=== PATIENT | male | born 1950 | race American Indian/Alaskan Native ===

== ENCOUNTER 2020-01-20 00:04 | Emergency (ER) | payer MEDICARE, SELFPAY ==
[2020-01-20 00:16] VITALS: BP 172/110; BP 189/104; PULSE 80; PULSE 81; RESP 16; TEMP 37.1; O2SAT 95; O2SAT 96; BMI 31.4
--- NOTE | 2020-01-20 00:31 | ED.GENADULT ---
HPI - General Adult General Chief complaint: General Medical Stated complaint: hypertension Time Seen by Provider: 01/20/20 00:20 Source: patient Mode of arrival: EMS History of Present Illness HPI narrative: patient states has been checking his blood pressure all day today and it has been systolic 180s. Tonight it continued to be 180s was very nervous and came into the emergency department. Patient states tomorrow is supposed to start a 2nd blood pressure medicine but did not know what to do and came into the ER. Denies chest pain denies shortness of breath denies dizziness denies diaphoresis denies nausea and denies vomiting denies abdominal pain denies any symptoms Onset (ago): day(s) Related Data Allergies Allergy/AdvReac Type Severity Reaction Status Date / Time No Known Allergies Allergy Unverified 01/20/20 00:23 [No Known Allergies*] Review of Systems Review of Systems: Constitutional : No Weight loss, No Fever, No Chills, No Night Sweats, No Fatigue, No Malaise ENT/Mouth : No Hearing loss, No Ear Pain, No Nasal Congestion, No Sinus Pain, No Hoarseness, No sore throat, No Rhinorrhea, No Swallowing Difficulty Eyes: No Eye Pain, No Swelling, No Redness, No Foreign Body, No Discharge, No Vision Changes Cardiovascular : No Chest Pain, No SOB, No Dyspnea on Exertion, No Orthopnea, No Edema, No Palpitations Respiratory : No Cough, No Sputum, No Wheezing, No Smoke Exposure, No Dyspnea Gastrointestinal : No Nausea, No Vomiting, No Diarrhea, No Constipation, No abdominal Pain, No Hematochezia, No Melena Genitourinary : no irregular bleeding, No Dysuria, No Urinary Frequency, No Hematuria, No Urinary Incontinence, No Urgency, No Flank Pain, No Urinary Flow Changes, No Hesitancy Musculoskeletal : No joint pain, No Myalgias, No Joint Swelling Skin : No Skin Lesions, No rash Neuro : No Weakness, No Numbness, No Paresthesias, No Loss of Consciousness, No Dizziness, No Headache Psych : No Anxiety/Panic, No Depression, No SI/HI/AH/VH, No Social Issues, Heme/Lymph: No Bruising, No Bleeding,No Lymphadenopathy Endocrine : No Polyuria, No Polydipsia, No Temperature Intolerance [facility] Past Medical History Attestation statement: The following information was validated with the patient. [facility] Narrative: patient has been seen here multiple times for similar symptoms Medical History Arthritis Diabetes Hypertension Osteoporosis Parkinson disease Vertigo Surgical History H/O hernia repair Hx of cataract surgery Social History Social History (Updated 01/20/20 @ 00:33 by Yfn Collier DO) Household Members: Family Advance Directives: No Physical Exam Vital Signs and I&O and Narrative: Vital Signs and I&O: Vital Signs Temp 98.7 F 01/20/20 00:16 Pulse 71 01/20/20 01:41 Resp 16 01/20/20 00:16 BP 150/93 H 01/20/20 01:41 Pulse Ox 95 01/20/20 00:16 Intake & Output 01/19/20 01/19/20 01/20/20 06:59 18:59 06:59 Weight 88.451 kg Body Mass Index 31.4 vital signs reviewed Const: Other: Appearance: Alert. Oriented X3. No acute distress. Eyes: Pupils equal, round and reactive to light. ENT: Pharynx normal. Neck: Normal inspection. Neck supple. CVS: Normal heart rate and rhythm. Pulses normal. Respiratory: No respiratory distress. Breath sounds normal. Abdomen: Soft and nontender. Skin: Skin warm and dry. Normal skin color. Normal skin turgor. Extremities: No lower extremity edema. No lower extremity edema. Neuro: Oriented X 3. No motor deficit. No sensory deficit. Course Course Hospital Course: patient to start a new blood pressure medicine tomorrow. Will observe and will start his loss starting early today in which I discussed with patient not to take tomorrow but to start his 2nd medication. Patient asymptomatic hypertension will do know labs no EKG Medical Decision Making MDM Narrative Medical decision making narrative: 69-year-old male with a symptomatic hypertension. I observed the patient for several hours here in the ER and blood pressure improved. I discussed about medications and follow-up with primary care doctor and discharged home Discharge Plan Discharge Clinical Impression: Hypertension Patient Disposition: Home, Self-Care Instructions: Hypertension (ED) Additional Instructions: Thank you for visiting the emergency department today. If your symptoms worsen or do not resolve completely please return to the emergency department immediately or call 911. if he have any questions please call your primary care physician start taking your blood pressure medicine on January 19 Referrals: [facility] [Provider Group] - 2 days Print Language: Salvadorean
[2020-01-20 01:41] VITALS: BP 150/93; PULSE 71
[2020-01-20] MEDS: Losartan Potassium 50 MG TABLET 100 MG PO (01:41)
== END 2020-01-20 02:03 | disposition home or self-care (01) ==
LOC: HO.ED 00:46
PROVIDERS: Emergency Provider Emergency Medicine; PCP Internal Medicine
DX: I10 Essential (primary) hypertension (principal); Z79.899 Other long term (current) drug therapy
CPT/HCPCS: 99283

== ENCOUNTER → 2020-02-07 08:24 | Outpatient (REF) | payer MEDICARE, SELFPAY ==
--- NOTE | 2020-02-07 | NM_ITS ---
Myocardial perfusion study Indication: Precordial chest discomfort with multiple risk factors to evaluate for myocardial ischemia Technique: The patient was brought in for a Lexiscan perfusion study on 02/07/2020. Patient performed low-level exercise and was injected 0.4 mg of Lexiscan intravenously. Within a minute of injection, 30 mCi of sestamibi was given intravenously. Images were obtained using the SPECT gamma camera interlaced with the gating device. Images were obtained in supine position. Resting perfusion study was performed on 02/10/2020. Patient was administered 30 mCi of sestamibi intravenously at rest. Images were then obtained in supine position. Images obtained with and without CT attenuation. Total DLP 124 MGY-CM Images were processed with the software and compared side to side in short axis, horizontal long axis and vertical long axis views. Findings: The stress perfusion study showed non attenuated images show mild thinning of the inferior wall of the LV myocardium otherwise normal uptake of radiotracer in all segments of LV myocardium. Attenuation corrected images show normal uptake of radiotracer in all segments of LV myocardium. The gated study shows normal LV systolic function with calculated LVEF of 75%. LV cavity is normal in size. The gated study shows normal systolic wall thickening and contraction of segments. Resting study shows no change in perfusion pattern compared to stress perfusion study. Gating at rest reveals normal systolic wall motion with ejection fraction at 75%. The findings are consistent with normal myocardial perfusion. NM/NM aubree perf SPECT rest & str Impression: 1. Myocardial perfusion imaging study shows normal myocardial perfusion 2. Gated LVEF is 75% 3. Transient ischemic dilatation not present EKG is nondiagnostic for ischemia
--- NOTE | 2020-02-07 08:32 | CA_ITS ---
Transthoracic Echocardiogram Patient (Last, First, Middle): Benjamin Gracia, Gender: Male Date of : 1950 Age: 69 Procedure Date: 02/07/2020 Procedure Type: Transthoracic Echocardiogram Location: OP Height: 167.64 cm Weight: 88.45 kg BSA: 1.98 m2 Heart Rate: bpm BP: 164 / 94 mmHg Body Stylist: Referring MD: Eitan Urban MD Symptoms: Precordial chest pain; essential hypertension Study Quality: Fair ECG Rhythm: Sinus Conclusions: - The left ventricular systolic function is normal. The visually estimated ejection fraction is between 50-55%. - There is mild mitral annular calcification. - Small plaque is seen in the sino tubular ridge. Findings Left Ventricle Normal left ventricular cavity size. There is mildly increased left ventricular wall thickness. The left ventricular systolic function is normal. The visually estimated ejection fraction is between 50-55%. There is no evidence of regional wall motion abnormalities. E/E prime ratio is between 8 and 15 consistent with indeterminate filling pressures. Evidence suggests grade I (mild) diastolic dysfunction. Right Ventricle Normal right ventricular cavity size and systolic function. Atria The left atrium is normal in size. The right atrium is normal in size. Aortic Valve There is a normal trileaflet aortic valve. There is no aortic valve stenosis. There is no aortic valve regurgitation. Mitral Valve There is mild mitral annular calcification. There is trace mitral valve regurgitation. There is no mitral valve stenosis. Pulmonic Valve The pulmonic valve was not well visualized. Tricuspid Valve Normal tricuspid valve structure. There is trace tricuspid valve regurgitation. The pulmonary artery systolic pressure is normal. Great Vessels The aortic annulus, sinuses of valsalva, and asc aorta are normal in size. Small plaque is seen in the sino tubular ridge. Venous The inferior vena cava was not well visualized. Pericardium/Pleural There is no evidence of pericardial effusion. Prior Study Comparison Changes noted compared to prior study dated: 04/04/2018. Slight decrease in LVEF. Measurements 2D Linear Measurements RVIDd: 2.99 RVIDd Index: 1.51 IVSd: 1.09 0.6-0.9/0.6-1.0 cm LVIDd: 5.23 3.9-5.3/4.2-5.9 cm LVIDd Index: 2.64 2.4-3.2/2.2-3.1 cm/m2 LVIDs: 3.31 2.0-3.6 cm LVPWd: 1.15 0.7-1.1 cm Ao Root: 3.10 2.1-3.5 cm LA Diam: 3.90 2.7-3.8/3.0-4.0 cm LAIDs Index: 1.97 1.5-2.3 cm/m2 LV Mass: 284.73 67-162/88-224 g LV Mass Index: 143.80 43-95/49-115 g/m2 LVOT Diam: 2.10 3.0+(-)1.3 cm 2D Systolic Function EF 4C: 55.30 >55% EF 2C: 50.10 >55% EF BiP: 50.80 >55% Mitral Valve MV Pk E: 0.63 MV PK A: 1.07 MV Decel Time: 292.00 E/A: 0.60 E'Lateral: 5.32 E'Medial: 5.13 E/E' Med: 12.20 E/E' Lat: 11.80 PHT: 86.00 MVA PHT: 2.56 Decel [place]: 2.14 Aortic Valve AoV Pk Poli: 1.15 AoV Mn Poli: 0.83 AoV VTI: 0.21 AoV Pk Grad: 5.00 Aov Mn Grad: 3.00 BEN Cont.VTI: 2.94 LVOT LVOT Pk Poli: 0.84 LVOT Mn Poli: 0.57 LVOT VTI: 0.18 LVOT Pk Grad: 3.00 LVOT Mn Grad: 1.00 LVOT Diam: 2.10 LVOT Area: 3.46 Diastolic Function MV Pk E: 0.63 MV Pk A: 1.07 E/A: 0.60 E'Medial: 5.13 E/E' Med: 12.20 E' Laterial: 5.32 E/E' Lat: 11.80 Tricuspid Valve TR Pk Poli: 2.21 TR Pk Grad: 20.00 RA Press: 8.00 RVSP: 28.00 Great Vessels Aorta Ao Root-2D: 3.10 2.0-3.7 cm Ao Asc: 3.60 2.1-3.4 cm Ao Arch: 3.50 Updated in Other Vendor System with Status of Final Eitan Urban MD electronically signed on 02/08/2020 10:11:47 AM with status of Final
--- NOTE | 2020-02-07 08:33 | CA_ITS ---
Acquisition Time: 2020-02-07 09:34:23 Total Exercise Time: 00:02:00 Test Indications: Chest Pain Medications: LOSARTAN ATORVASTATIN OMEPRAZOLE MECLIZINE Protocol: LIBBY Max HR: 100 BPM 67% of Pred: 149 BPM Max BP: 146/090 mmHG Max Work Load: 1.0 METS Pt here for exercise stress , however pt has parkinson's and is unable to walk on the treadmill. Test switched to Lexiscan. Pt was sitting and kicking his feet. tolerated well, denies any anginal sx. EKG without any arrhythmias, non-diagnostic for ischemia. Nuclear images to follow. Normotensive response to test. Test reviewed with Dr. Verdin. Referred By: Eitan Urban Overread By: Ivy Heaton
== END ==
LOC: HO.CARD 08:24
PROVIDERS: PCP Internal Medicine; Visit Provider Internal Medicine
DX: R07.2 Precordial pain (principal); I10 Essential (primary) hypertension; E11.9 Type 2 diabetes mellitus without complications; I63.9 Cerebral infarction, unspecified; G20 Parkinson's disease; M81.0 Age-related osteoporosis without current pathological fracture
CPT/HCPCS: 78452; 93017; 93306; A9500; J0280; J2785

== ENCOUNTER → 2020-02-20 12:24 | Outpatient (BNVA) | payer MEDICARE, SELFPAY | PROVIDERS: PCP Internal Medicine; Referring Provider Internal Medicine; Visit Provider Internal Medicine | DX: R07.2 Precordial pain (principal); I10 Essential (primary) hypertension; E78.5 Hyperlipidemia, unspecified; Z79.899 Other long term (current) drug therapy; Z86.73 Personal history of transient ischemic attack (TIA), and cerebral infarction without residual deficits | CPT/HCPCS: 93005; 99212 ==

== ENCOUNTER 2020-02-20 17:14 | Emergency (ER) | payer MEDICARE, SELFPAY ==
[2020-02-20 18:23] VITALS: BP 155/86; PULSE 86; RESP 16; TEMP 36.5; O2SAT 96; BMI 30.7
--- NOTE | 2020-02-20 20:33 | ED_ITS ---
HPI - General Adult General Chief complaint: Allergic Reaction Stated complaint: allergic reaction Source: patient Mode of arrival: ambulatory Limitations: no limitations History of Present Illness HPI narrative: patient presents for rash on skin above lip and below nose. Patient States this occurred today. Patient states painful, but denies itchiness, burning sensation, blurry vision, headache, neck stiffness, fever, or chills. Patient denies any recent trauma to the area. Related Data Home Medications Medication Instructions Recorded Confirmed atorvastatin 80 mg tablet 80 mg PO DAILY 02/20/20 02/20/20 carbidopa 25 mg-levodopa 100 mg 1 tab PO TID 02/20/20 02/20/20 tablet ergocalciferol (vitamin D2) 1,250 1,250 mcg PO QWEEK 02/20/20 02/20/20 mcg (50,000 unit) capsule losartan 100 mg tablet 100 mg PO DAILY 02/20/20 02/20/20 meclizine 25 mg tablet 25 mg PO TID PRN 02/20/20 02/20/20 metoprolol succinate 25 mg 25 mg PO DAILY 02/20/20 02/20/20 tablet,extended release 24 hr naproxen 500 mg tablet 500 mg PO BID 02/20/20 02/20/20 omeprazole 20 mg capsule,delayed 20 mg PO DAILY 02/20/20 02/20/20 release ropinirole 0.5 mg tablet 0 mg PO 02/20/20 02/20/20 Previous Rx's Medication Instructions Recorded cephalexin [Keflex] 500 mg PO QID #28 cap 02/20/20 doxycycline monohydrate 100 mg PO BID #20 cap 02/20/20 mupirocin 1 applic TOPICAL BID #22 g 02/20/20 Allergies Allergy/AdvReac Type Severity Reaction Status Date / Time No Known Allergies Allergy Verified 02/20/20 13:35 [No Known Allergies*] Review of Systems Review of Systems: Yes all other systems are reviewed and are negative Constitutional: Constitutional: Reports as per HPI and Reports no additional constitutional complaints Eyes: Eyes: Reports as per HPI and Reports no additional eye complaints ENT: Reports system reviewed and no additional complaints, except as documented and Reports as per HPI Cardiovascular: Cardiovascular: Reports as per HPI and Reports no additional cardiovascular complaints Respiratory: Respiratory: Reports as per HPI and Reports no additional respiratory complaints Gastrointestinal: Gastrointestinal: Reports as per HPI and Reports no addit ional gastrointestinal complaints Genitourinary: Genitourinary: Reports no additional male genitourinary complaints and Reports as per HPI Musculoskeletal: Musculoskeletal: Reports no additional musculoskeletal complaints and Reports as per HPI Neurologic: Reports system reviewed and no additional complaints, except as documented and Reports as per HPI Psychiatric: Psychiatric: Reports no additional psychiatric complaints and Reports as per HPI [facility] Past Medical History Medical History Arthritis Diabetes Essential hypertension History of stroke Hypertension Osteoporosis Other and unspecified hyperlipidemia Parkinson disease Vertigo Surgical History H/O hernia repair Hx of cataract surgery Social History Social History Household Members: Family Advance Directives: No Physical Exam Vital Signs: Vital Signs: Last Vital Signs Temp 97.7 F 02/20/20 18:23 Pulse 86 02/20/20 18:23 Resp 16 02/20/20 18:23 BP 155/86 H 02/20/20 18:23 Pulse Ox 96 02/20/20 18:23 Body Mass Index 30.7 Const: General: cooperative, healthy appearing, comfortable, no acute distress, well developed, alert and awake Orientation/consciousness: patient oriented x3 HENMT: Other: Positive for staph looking cellulitis rash under nares right above lip. Negative for any vesicular lesion to indicate shingles. Negative for any uticaria lesions to indicate allergic reaction. Negative for swelling of lips, swelling of tongue, swelling of uvula. Patient speaking in full sentences. Ear exam is normal. Negative for any lesions on nares Head: Yes normal to inspection and Yes No palpable skull fracture present Eyes: General: appearance normal, both eyes and all related structures Visual Sanabria: normal visual sanabria by confrontation Neck: Neck: Yes normal visual inspection, Yes full ROM, Yes no lymphadenopathy, Yes no meningeal signs, Yes trachea midline, No positive Brudzinski's sign, No positive Kernig's sign and No tender Chest: Chest palpation & inspection: normal inspection of the chest and normal palpation of entire chest wall Resp: Effort & Inspection: normal respiratory effort and able to speak in complete sentences Auscultation: clear to auscultation bilaterally Cardio: Jugular venous distension: no JVD Heart sounds: S1 normal heart sound present and S2 normal heart sound present GI: Inspection: Yes normal to inspection and No abdominal wall ecchymosis Palpation (GI): Soft to palpation, not firm, nontender, no guarding and not rigid : General: No CVA tenderness and Yes no CVA tenderness Back/Spine/Pelvis: Back: no CVA tenderness, No CVA tenderness and No back tenderness Skin: Other: cellulitis of face ( under nares , above lips) Neuro: General: patient oriented x3, gait normal, no meningeal signs and CN's II-XI intact bilaterally Cranial nerves: Yes CN's II-XII intact bilaterally Extrem: General: Yes normal to inspection and Yes full ROM Psych: Appearance: grossly normal, well kempt and not disheveled Course Course Course Narrative: Patient looks like cellulitis Staph skin infection. Rash does not look like shingles. Reevaluation(s) Reevaluation #1: Dr. Chavez came and evaluated wound and agreed is a cellulitis staph infection patient will need mupirocin, Keflex, and doxy. Time: 20:36 Medical Decision Making [facility] Narrative Medical decision making narrative: cellulitis Discharge Plan Discharge Clinical Impression: Cellulitis Patient Disposition: Home, Self-Care Instructions: Cellulitis (ED) Additional Instructions: return to the ED immediately for worsening rash, swelling of face, headache, dizziness, blurry vision, shortness of breath, neck swelling, or any other concerning symptoms. Prescriptions: New cephalexin [Keflex] 500 mg capsule 500 mg PO QID Qty: 28 RF: 0 doxycycline monohydrate 100 mg capsule 100 mg PO BID Qty: 20 RF: 0 mupirocin 2 % ointment 1 applic topical BID Qty: 22 RF: 0 No Action metoprolol succinate 25 mg tablet extended release 24 hr 25 mg PO DAILY RF: 0 losartan 100 mg tablet 100 mg PO DAILY RF: 0 atorvastatin 80 mg tablet 80 mg PO DAILY RF: 0 ergocalciferol (vitamin D2) 1,250 mcg (50,000 unit) capsule 1,250 mcg PO QWEEK RF: 0 omeprazole 20 mg capsule,delayed release(DR/EC) 20 mg PO DAILY RF: 0 carbidopa-levodopa 25-100 mg tablet 1 tab PO TID RF: 0 ropinirole 0.5 mg tablet 0 mg PO RF: 0 naproxen 500 mg tablet 500 mg PO BID RF: 0 meclizine 25 mg tablet 25 mg PO TID PRNRF: 0 Referrals: Jessica Yuen MD [Primary Care Provider] - 2 days (Staph cellulitis infection) Print Language: [place] Islander
== END 2020-02-20 21:19 | disposition home or self-care (01) ==
PROVIDERS: Emergency Provider Internal Medicine; PCP Internal Medicine
DX: L23.9 Allergic contact dermatitis, unspecified cause (principal); L03.211 Cellulitis of face; Z79.899 Other long term (current) drug therapy
CPT/HCPCS: 99283; 99284

== ENCOUNTER 2020-02-27 09:27 | Outpatient (REF) | payer MEDICARE, SELFPAY ==
--- NOTE | 2020-02-27 09:35 | XR_ITS ---
EXAMINATION: XR WRIST, LEFT CLINICAL INFORMATION: Pain in left wrist COMPARISON: X-ray the left hand October 2016. TECHNIQUE: 4 views of the left wrist FINDINGS: There is persistent widening of the scapholunate joint unchanged and consistent with scapholunate ligament tear chronic. Is also severe joint space narrowing of the radiocarpal joint at the level of the scaphoid fossa unchanged. There is mild arthrosis of the first carpometacarpal joint and triscaphoid joint manifested by marginal osteophytes unchanged. There is arterial calcification present. XR/XR wrist LT 2V IMPRESSION: Stable osteoarthritis of the left wrist with degenerative changes most prominent at the radiocarpal joint. 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
== END 2020-02-27 09:28 | disposition home or self-care (01) ==
LOC: HO.XRAY 09:27
PROVIDERS: Visit Provider Emergency Medicine
DX: M25.532 Pain in left wrist (principal)
CPT/HCPCS: 73100

== ENCOUNTER 2020-04-20 13:26 | Emergency (ER) | payer MEDICARE, SELFPAY ==
--- NOTE | 2020-04-20 14:45 | ED.GENADULT ---
HPI - General Adult General Stated complaint: headache Time Seen by Provider: 04/20/20 14:42 Related Data Home Medications Medication Instructions Recorded Confirmed atorvastatin 80 mg tablet 80 mg PO DAILY 02/20/20 02/20/20 carbidopa 25 mg-levodopa 100 mg 1 tab PO TID 02/20/20 02/20/20 tablet ergocalciferol (vitamin D2) 1,250 1,250 mcg PO QWEEK 02/20/20 02/20/20 mcg (50,000 unit) capsule losartan 100 mg tablet 100 mg PO DAILY 02/20/20 02/20/20 meclizine 25 mg tablet 25 mg PO TID PRN 02/20/20 02/20/20 metoprolol succinate 25 mg 25 mg PO DAILY 02/20/20 02/20/20 tablet,extended release 24 hr naproxen 500 mg tablet 500 mg PO BID 02/20/20 02/20/20 omeprazole 20 mg capsule,delayed 20 mg PO DAILY 02/20/20 02/20/20 release ropinirole 0.5 mg tablet 0 mg PO 02/20/20 02/20/20 Previous Rx's Medication Instructions Recorded cephalexin [Keflex] 500 mg PO QID #28 cap 02/20/20 doxycycline monohydrate 100 mg PO BID #20 cap 02/20/20 mupirocin 1 applic TOPICAL BID #22 g 02/20/20 Allergies Allergy/AdvReac Type Severity Reaction Status Date / Time No Known Allergies Allergy Verified 02/20/20 13:35 [No Known Allergies*] PMFSH Past Medical History Medical History Arthritis Diabetes Essential hypertension History of stroke Hypertension Osteoporosis Other and unspecified hyperlipidemia Parkinson disease Vertigo Surgical History H/O hernia repair Hx of cataract surgery Social History Social History Household Members: Family Alcohol intake: never Course Course Course Narrative: 1445-This is a rapid medical exam. 69 yo male with past medical history of parkinsons disease, HTN, HLD, diabetes here with head pressure, left arm pain x 1 month. No injury or trauma. No paresthesias. No vision changes. NO chest pain, vision changes. Will need EKG, labs, CXR. Deferred ROS, PE, HPI for primary provider. Discharge Plan Discharge Prescriptions: No Action cephalexin [Keflex] 500 mg capsule 500 mg PO QID Qty: 28 RF: 0 doxycycline monohydrate 100 mg capsule 100 mg PO BID Qty: 20 RF: 0 mupirocin 2 % ointment 1 applic topical BID Qty: 22 RF: 0 metoprolol succinate 25 mg tablet extended release 24 hr 25 mg PO DAILY RF: 0 losartan 100 mg tablet 100 mg PO DAILY RF: 0 atorvastatin 80 mg tablet 80 mg PO DAILY RF: 0 ergocalciferol (vitamin D2) 1,250 mcg (50,000 unit) capsule 1,250 mcg PO QWEEK RF: 0 omeprazole 20 mg capsule,delayed release(DR/EC) 20 mg PO DAILY RF: 0 carbidopa-levodopa 25-100 mg tablet 1 tab PO TID RF: 0 ropinirole 0.5 mg tablet 0 mg PO RF: 0 naproxen 500 mg tablet 500 mg PO BID RF: 0 meclizine 25 mg tablet 25 mg PO TID PRNRF: 0
[2020-04-20 14:47] VITALS: BP 212/108; PULSE 80; RESP 16; TEMP 36.6; O2SAT 96; BMI 31.4
== END 2020-04-20 20:47 | disposition left against medical advice (07) ==
PROVIDERS: Emergency Provider Emergency Medicine; PCP Internal Medicine
DX: R51.9 Headache, unspecified (principal); E11.9 Type 2 diabetes mellitus without complications; I10 Essential (primary) hypertension; G20 Parkinson's disease
CPT/HCPCS: 99282

== ENCOUNTER 2020-05-03 14:15 | Emergency (ER) | payer MEDICARE, SELFPAY ==
--- NOTE | 2020-05-03 14:24 | ECG_ITS ---
Test Reason : HYPERTENSION Blood Pressure : / mmHG Vent. Rate : 074 BPM Atrial Rate : 074 BPM P-R Int : 160 ms QRS Dur : 090 ms QT Int : 398 ms P-R-T Axes : -11 -13 027 degrees QTc Int : 441 ms Normal sinus rhythm Moderate voltage criteria for LVH, may be normal variant Inferior infarct , age undetermined Abnormal ECG When compared with ECG of 03-JAN-2020 10:34, Inferior infarct is now Present Referred By: Ivanna Whiting Electronically Signed By:RYLIE IVEY
[2020-05-03 14:26] VITALS: BP 154/110; BP 156/92; PULSE 84; PULSE 86; RESP 18; TEMP 37.2; O2SAT 95; BMI 32.3
--- NOTE | 2020-05-03 14:37 | ED.GENADULT ---
HPI - General Adult General Chief complaint: General Medical Stated complaint: HIGH BP 186/112 Time Seen by Provider: 05/03/20 14:22 Source: patient and EMS Mode of arrival: EMS Limitations: no limitations History of Present Illness HPI narrative: 69 y/o male with history of Parkinson's disease, hx CVA, HTN, vertigo, DM, arthritis, HLD who presents via EMS with high blood pressure reading on his home monitor - 180/120. He called EMS. He then took his home metoprolol. Initial EMS BP was 190/120 but denied any symptoms including chest pain, headache, numbness, tingling, SOB, or vision changes. On arrival to the ER BP 156/92 and he remains asymptomatic. MD complaint: high blood pressure Onset (ago): hour(s) (1) Severity: moderate Relieving factors: medication Associated symptoms: denies other symptoms Treatments prior to arrival: other (metoprolol) Related Data Home Medications Medication Instructions Recorded Confirmed atorvastatin 80 mg tablet 80 mg PO DAILY 02/20/20 02/20/20 carbidopa 25 mg-levodopa 100 mg 1 tab PO TID 02/20/20 02/20/20 tablet ergocalciferol (vitamin D2) 1,250 1,250 mcg PO QWEEK 02/20/20 02/20/20 mcg (50,000 unit) capsule losartan 100 mg tablet 100 mg PO DAILY 02/20/20 02/20/20 meclizine 25 mg tablet 25 mg PO TID PRN 02/20/20 02/20/20 metoprolol succinate 25 mg 25 mg PO DAILY 02/20/20 02/20/20 tablet,extended release 24 hr naproxen 500 mg tablet 500 mg PO BID 02/20/20 02/20/20 omeprazole 20 mg capsule,delayed 20 mg PO DAILY 02/20/20 02/20/20 release ropinirole 0.5 mg tablet 0 mg PO 02/20/20 02/20/20 Previous Rx's Medication Instructions Recorded cephalexin [Keflex] 500 mg PO QID #28 cap 02/20/20 doxycycline monohydrate 100 mg PO BID #20 cap 02/20/20 mupirocin 1 applic TOPICAL BID #22 g 02/20/20 Allergies Allergy/AdvReac Type Severity Reaction Status Date / Time No Known Allergies Allergy Verified 02/20/20 13:35 [No Known Allergies*] Review of Systems Review of Systems: Constitutional: No Fever, No Chills ENT/Mouth: No sore throat, No Rhinorrhea, No Swallowing Difficulty Eyes: No Eye Pain, No Swelling, No Redness Cardiovascular: No Chest Pain, No SOB, No Orthopnea, No Edema Respiratory: No Cough, No Sputum, No Wheezing, No dyspnea Gastrointestinal: No Nausea, No Vomiting, No Diarrhea, No abdominal Pain Genitourinary: No Dysuria, No Urinary Frequency, No Hematuria Musculoskeletal: No joint pain, No Myalgias Skin: No Skin Lesions, No rash Neuro: No Weakness, No Numbness, No Dizziness, No Headache Psych: No Anxiety/Panic, No Depression Heme/Lymph: No Bruising, No Lymphadenopathy Endocrine: No Polyuria, No Polydipsia PMFSH Past Medical History Attestation statement: The following information was validated with the patient. Medical History Arthritis Diabetes Essential hypertension History of stroke Hypertension Osteoporosis Other and unspecified hyperlipidemia Parkinson disease Vertigo Surgical History H/O hernia repair Hx of cataract surgery Social History Social History Household Members: Family Alcohol intake: never Advance Directives: No Advance Directives Information Provided: Yes Physical Exam Vital Signs: Vital Signs: Last Vital Signs Temp 99.0 F 05/03/20 14:26 Pulse 84 05/03/20 14:26 Resp 18 05/03/20 14:26 BP 156/92 H 05/03/20 14:26 Pulse Ox 95 05/03/20 14:26 Body Mass Index 32.3 Appearance: Alert. Oriented X3. No acute distress. Eyes: Pupils equal, round and reactive to light. ENT: Pharynx normal. Neck: Normal inspection. Neck supple. CVS: Normal heart rate and rhythm. Pulses normal. No chest wall tenderness. Respiratory: No respiratory distress. Breath sounds normal. Abdomen: Soft and nontender. +BS x4 Skin: Skin warm and dry. Normal skin color. Normal skin turgor. No rashes. Extremities: No lower extremity edema. resting tremor of left upper extremity and left lower extremity (chronic) Neuro: Oriented X 3. 4/5 LUE weakness, LUE/LLE resting tremor consistent with prior CVA Course Course Course Narrative: 69 y/o male with multiple comorbidities including poorly controlled HTN presenting with asymptomatic HBP at home. Improved on arrival after taking his home lopressor. He continues to deny complaints. EKG is unremarkable. Will monitor a few more BP readings and plan to d/c patient home for follow up with his PCP. Reevaluation(s) Reevaluation #1: Repeat BP 136/80. Patient continues to feel well. He is stable for discharge. Medical Decision Making ECG Data Attestation: I personally reviewed and interpreted this ECG as follows: Prior ECG tracings: available for review Interpretation: normal sinus rhythm, HR 74 bpm, normal AR interval, normal QTc. no ST segment elevations. No significant changes from prior in Feb 2020 Discharge Plan Discharge Clinical Impression: Essential hypertension Patient Disposition: Home, Self-Care Instructions: Chronic Hypertension (ED), Hypertension and Diabetes (ED) Additional Instructions: Your blood pressure improved significantly after you took your blood pressure medication. It is important to take your medications as directed. Monitor your blood pressures once per day at home, after your take your mediations. Follow up with your Primary Care doctor this week & provide him the readings you are getting at home. If you develop chest pain, headache, vision changes or any other concerning symptoms come back to the ER for further evaluation. Prescriptions: No Action cephalexin [Keflex] 500 mg capsule 500 mg PO QID Qty: 28 RF: 0 doxycycline monohydrate 100 mg capsule 100 mg PO BID Qty: 20 RF: 0 mupirocin 2 % ointment 1 applic topical BID Qty: 22 RF: 0 metoprolol succinate 25 mg tablet extended release 24 hr 25 mg PO DAILY RF: 0 losartan 100 mg tablet 100 mg PO DAILY RF: 0 atorvastatin 80 mg tablet 80 mg PO DAILY RF: 0 ergocalciferol (vitamin D2) 1,250 mcg (50,000 unit) capsule 1,250 mcg PO QWEEK RF: 0 omeprazole 20 mg capsule,delayed release(DR/EC) 20 mg PO DAILY RF: 0 carbidopa-levodopa 25-100 mg tablet 1 tab PO TID RF: 0 ropinirole 0.5 mg tablet 0 mg PO RF: 0 naproxen 500 mg tablet 500 mg PO BID RF: 0 meclizine 25 mg tablet 25 mg PO TID PRNRF: 0 Print Language: Persian
[2020-05-03 15:15] VITALS: BP 136/80
[2020-05-03 15:25] VITALS: BP 128/81
== END 2020-05-03 15:32 | disposition home or self-care (01) ==
PROVIDERS: Emergency Provider Emergency Medicine Emergency Medical Services
DX: I10 Essential (primary) hypertension (principal); Z79.899 Other long term (current) drug therapy
CPT/HCPCS: 93005; 99283

== ENCOUNTER → 2020-05-05 13:28 | Outpatient (BNVA) | payer MEDICARE, SELFPAY | PROVIDERS: PCP Internal Medicine; Visit Provider Internal Medicine | DX: R07.2 Precordial pain (principal); I10 Essential (primary) hypertension; E78.5 Hyperlipidemia, unspecified; Z86.73 Personal history of transient ischemic attack (TIA), and cerebral infarction without residual deficits | CPT/HCPCS: 99212 ==

== ENCOUNTER → 2020-05-06 09:27 | Outpatient (BNVA) | payer MEDICARE, SELFPAY | PROVIDERS: Visit Provider Orthopaedic Surgery | DX: M19.139 Post-traumatic osteoarthritis, unspecified wrist (principal) | CPT/HCPCS: 20605; 99202; J1020 ==

== ENCOUNTER 2020-05-13 10:26 | Outpatient (REF) | payer MEDICARE, SELFPAY ==
[2020-05-13 12:08] LABS: Anion Gap 15 (12-20); Blood Urea Nitrogen 14 mg/dL (9-16); Carbon Dioxide 24 mmol/L (22-29); Chloride 104 mmol/L (96-108); Estimated Glomerular Filt Rate > 60; Glucose Random 95 mg/dL (60-115); Potassium 4.7 mmol/l (3.3-5.1); Sodium 138 mmol/L (135-145)
== END 2020-05-13 10:27 | disposition home or self-care (01) ==
LOC: HO.LAB 10:26
PROVIDERS: PCP Internal Medicine; Visit Provider Internal Medicine
DX: I10 Essential (primary) hypertension (principal)
CPT/HCPCS: 36415; 80048

== ENCOUNTER → 2020-06-04 09:17 | Outpatient (BNVA) | payer MEDICARE, SELFPAY | PROVIDERS: PCP Internal Medicine; Visit Provider Internal Medicine | DX: R07.2 Precordial pain (principal); I10 Essential (primary) hypertension; Z86.73 Personal history of transient ischemic attack (TIA), and cerebral infarction without residual deficits | CPT/HCPCS: 99212 ==

== ENCOUNTER 2020-07-01 08:20 | Outpatient (REF) | payer MEDICARE, SELFPAY ==
--- NOTE | ~2020-07-01 | US_ITS ---
EXAMINATION: US ABDOMEN COMPLETE CLINICAL INFORMATION: Right upper quadrant pain. COMPARISON: CT abdomen pelvis 06/19/2017. Ultrasound abdomen 05/30/2014. TECHNIQUE: Real-time imaging of the abdominal viscera. FINDINGS: PANCREAS: The partially visualized body of the pancreas is homogeneous in echotexture. Majority of pancreas is obscured by bowel gas. ABDOMINAL AORTA: The proximal, mid, and distal segments are normal in caliber. INFERIOR VENA CAVA: Visualized portions are normal. LIVER: The liver is normal in size. The liver contour is normal. The liver is diffusely heterogeneous, difficult to penetrate. Parenchymal echogenicity is echogenic. No focal hepatic lesion. There is no intrahepatic biliary duct dilatation seen. GALLBLADDER: Normal. The gallbladder is physiologically distended without evidence of stones, sludge, polyps, wall thickening or pericholecystic fluid. COMMON BILE DUCT: Normal in caliber measuring 0.3 cm in diameter. RIGHT KIDNEY: There are prominent pyramids. No hydronephrosis. No renal calculi or focal parenchymal lesions. The kidney measures 10.9 cm in maximum dimension. LEFT KIDNEY: There are prominent pyramids noted. No hydronephrosis. No renal calculi or focal parenchymal lesions. The kidney measures 9.8 cm in maximum. There is fluid surrounding the lower pole in the perinephric space. Dimension. SPLEEN: Normal. The spleen measures 8.4 cm in maximum dimension. FREE FLUID: None. US/US abdomen complete IMPRESSION: Diffusely heterogenous echogenic liver, difficult to penetrate. The gallbladder is unremarkable. Bilateral prominent renal pyramids but no echogenic renal calculi or hydronephrosis.
== END 2020-07-01 08:21 | disposition home or self-care (01) ==
LOC: HO.US 08:20
PROVIDERS: Visit Provider Internal Medicine
DX: R10.11 Right upper quadrant pain (principal)
CPT/HCPCS: 76700

== ENCOUNTER 2020-07-14 14:21 | Emergency (ER) | payer MEDICARE, SELFPAY ==
--- NOTE | ~2020-07-14 | XR_ITS ---
EXAMINATION: XR CHEST CLINICAL INFORMATION: Dizziness COMPARISON: Previous chest x-ray December 2019 TECHNIQUE: Frontal view of the chest was obtained. FINDINGS: No significant abnormality is noted involving the heart, lungs, mediastinum, bony thorax or soft tissues. XR/XR chest 1V IMPRESSION: Unremarkable examination.
[2020-07-14 14:44] VITALS: BP 150/79; PULSE 92; RESP 26; TEMP 37.6; BMI 31.4
--- NOTE | 2020-07-14 15:21 | ECG_ITS ---
Test Reason : ABD PIN Blood Pressure : / mmHG Vent. Rate : 098 BPM Atrial Rate : 098 BPM P-R Int : 152 ms QRS Dur : 086 ms QT Int : 338 ms P-R-T Axes : -05 -11 029 degrees QTc Int : 431 ms Normal sinus rhythm Minimal voltage criteria for LVH, may be normal variant Abnormal ECG When compared to the previous EKG of No significant changes seen Referred By: Thomas Reilly Electronically Signed By:Josemanuel Verdin
[2020-07-14 15:55] VITALS: BP 145/82; PULSE 98; RESP 16; TEMP 36.9; O2SAT 93
[2020-07-14 16:27] LABS: Hematocrit 45.8 % (42-52); Hemoglobin 15.7 g/dl (14.0-18.0); Mean Corpuscular HGB Conc 34.3 g/dl (31.0-36.0); Mean Corpuscular Hemoglobin 30.8 pg (27.0-33.0); Mean Corpuscular Volume 89.8 fL (80-98); Mean Platelet Volume 12.7 fL (9.4-12.4); Platelet Count 178 X10*3/uL (160-400); Red Cell Distribution Width 11.9 % (11.0-16.0)
[2020-07-14 16:33] LABS: INTERNATIONAL NORM RATIO 1.1 (0.9-1.1); Prothrombin Time 12.8 SEC (10.8-13.0)
[2020-07-14 16:35] LABS: WBC ABN SCTR FOR CBC 1
--- NOTE | 2020-07-14 16:36 | ED.GENADULT ---
HPI - General Adult General Chief complaint: Abdominal Pain Stated complaint: RIGHT SIDE PAIN Time Seen by Provider: 07/14/20 15:02 History of Present Illness HPI narrative: Patient with 2 complaints he has intermittent episodes of feeling lightheaded and weak, last 1 was several days ago, and he has intermittent episodes of a mild pain in his right upper quadrant which last episode was yesterday he has no pain now and none this morning He is here today as is concerned about these intermittent episodes He was seen for complaints which he describes is exactly the same 2 weeks ago He has no chest pain and has had no chest pain he has no shortness of breath and has had no shortness of breath he has not fainted he has no headache he denies any weakness or numbness in his extremities Related Data Home Medications Medication Instructions Recorded Confirmed losartan 100 mg tablet 100 mg PO DAILY 02/20/20 06/04/20 omeprazole 20 mg capsule,delayed 20 mg PO DAILY 02/20/20 06/04/20 release chlorthalidone 25 mg tablet 25 mg PO DAILY 06/04/20 06/04/20 Previous Rx's Medication Instructions Recorded carvedilol 12.5 mg tablet 12.5 mg PO BID #60 tab 05/05/20 spironolactone 25 mg tablet 25 mg PO DAILY #30 tab 05/05/20 Allergies Allergy/AdvReac Type Severity Reaction Status Date / Time No Known Allergies Allergy Verified 02/20/20 13:35 [No Known Allergies*] Review of Systems Review of Systems: Positive for dizziness and intermittent abdominal pain negatives are no fever no chills no headache no fainting, no chest pain no shortness of breath no vomiting no diarrhea no dysuria, no rash no new weakness or numbness PMFSH Past Medical History Source: nursing notes reviewed Medical History Arthritis Diabetes Essential hypertension History of stroke Hypertension Osteoporosis Other and unspecified hyperlipidemia Parkinson disease Vertigo Surgical History H/O hernia repair Hx of cataract surgery Social History Social History (Updated 05/06/20 @ 09:48 by KHUSHBU Estrada) Household Members: Family Alcohol intake: never Advance Directives: No Advance Directives Information Provided: Yes 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 Physical Exam Vital Signs: Vital Signs: Last Vital Signs Temp 98.4 F 07/14/20 15:55 Pulse 101 H 07/14/20 16:58 Resp 16 07/14/20 16:58 BP 127/86 07/14/20 16:58 Pulse Ox 93 07/14/20 16:58 Body Mass Index 31.4 General appearance is no acute distress he is relaxed and cooperative A&O x3, history is taken through corporate relations director Head is normocephalic atraumatic Pupils equal round reactive to light Ext ocular motions are intact, no facial asymmetry The pharynx is clear and appears to be well hydrated The neck is supple The chest is clear to auscultation bilaterally with full symmetric equal breath sounds The heart no murmur auscultated The abdomen including right upper quadrant is completely soft and nontender without rebound or guarding The back no CVA tenderness The extremities no edema no calf tenderness no calf swelling Skin no rash Neuro motor is 5/5 x4, patient's gait and balance are good, speech and comprehension are normal, no facial asymmetry no obvious motor or sensory deficit, cranial nerves 2-12 intact as tested Course Course Course Narrative: EKG was normal sinus rhythm with a rate of 98 NE interval was normal QRS duration was normal QT was normal there are no acute ST elevations no acute ischemic change, and no new abnormality when compared with prior EKG of 05/03/2020 Chest x-ray today was normal Labs did not reveal any acute abnormalities, 1 troponin was negative and adequate for today as his right upper quadrant pain and dizziness had not been present for over 4 hours Repeat abdominal exam was still completely nontender without rebound or guarding and patient was advised to follow with primary doctor and 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 Result diagrams: 07/14/20 16:19 07/14/20 16:19 Labs: Lab Results 07/14/20 07/14/20 07/14/20 Range/Units 16:19 16:19 16:19 WBC 8.8 (4.8-10.8) X10*3/uL RBC 5.10 (4.60-5.80) X10*6/uL Hgb 15.7 (14.0-18.0) g/dl Hct 45.8 (42-52) % MCV 89.8 (80-98) fL MCH 30.8 (27.0-33.0) pg MCHC 34.3 (31.0-36.0) g/dl RDW 11.9 (11.0-16.0) % Plt Count 178 (160-400) X10*3/uL MPV 12.7 H (9.4-12.4) fL Immature Gran % (Auto) Cancelled Neut % (Auto) Cancelled Lymph % (Auto) Cancelled [place] % (Auto) Cancelled Eos % (Auto) Cancelled Baso % (Auto) Cancelled Lymph # (Auto) Cancelled [place] # (Auto) Cancelled Eos # (Auto) Cancelled Baso # (Auto) Cancelled Abs Immat Gran (auto) Cancelled Absolute Neuts (auto) Cancelled Absolute Nucleated RBC 0.000 (0.0-0.012) X10*3/uL Nucleated RBC % (auto) 0.0 (0.0-0.2) /100WBC Neutrophils % (Manual) 80 H (45-73) % Band Neutrophils % 0 L (3-5) % Lymphocytes % (Manual) 7 L (20-40) % Atypical Lymphs % (Man) 2 (0-6) % Monocytes % (Manual) 10 (2-11) % Basophils % (Manual) 1 (0-1) % Abs Neuts (Manual) 7.0 (2.2-7.9) X10*3/uL Hypersegmented Neuts PRESENT Toxic Vacuolation PRESENT Platelet Estimate NORMAL (NORMAL) Plt Morphology Comment NORMAL RBC Morphology NORMAL PT 12.8 (10.8-13.0) SEC INR 1.1 (0.9-1.1) APTT 33.0 (24.1-38.0) SEC Sodium 136 (135-145) mmol/L Potassium 3.9 (3.3-5.1) mmol/L Chloride 102 (96-108) mmol/L Carbon Dioxide 23 (22-29) mmol/L Anion Gap 15 (12-20) BUN 23 H D (9-16) mg/dL Creatinine 1.46 H (0.5-1.4) mg/dL Estim Creat Clear Calc 47.6 Estimated GFR 47 Random Glucose 120 H (60-115) mg/dL Lactic Acid (0.5-2.0) mmol/L Calcium 8.9 (8.4-10.2) mg/dL Total Bilirubin 1.2 H (0.0-1.0) mg/dL Direct Bilirubin 0.4 (0.0-0.5) mg/dL AST 17 (5-37) U/L ALT 23 (0-40) U/L Alkaline Phosphatase 70 (39-117) U/L Troponin I High Sens (<3.5-35.0) ng/L Total Protein 7.4 (6.5-8.0) g/dL Albumin 4.5 (3.5-5.0) g/dL Lipase 25 (8-78) U/L Urine Color Urine Appearance Urine pH (5.0-8.0) Ur Specific [place] (1.005-1.025) Urine Protein (NEG-TRACE) MG/DL Urine Glucose (UA) (NEG) MG/DL Urine Ketones (NEG) MG/DL Urine Blood (NEG) Urine Nitrite (NEG) Ur Leukocyte Esterase (NEG) Urine RBC (0) /HPF Urine WBC (0-4) /HPF Ur Squamous Epith Cells /LPF Urine Bacteria /LPF 07/14/20 07/14/20 07/14/20 Range/Units 16:19 16:20 16:58 WBC (4.8-10.8) X10*3/uL RBC (4.60-5.80) X10*6/uL Hgb (14.0-18.0) g/dl Hct (42-52) % MCV (80-98) fL MCH (27.0-33.0) pg MCHC (31.0-36.0) g/dl RDW (11.0-16.0) % Plt Count (160-400) X10*3/uL MPV (9.4-12.4) fL Immature Gran % (Auto) Neut % (Auto) Lymph % (Auto) [place] % (Auto) Eos % (Auto) Baso % (Auto) Lymph # (Auto) [place] # (Auto) Eos # (Auto) Baso # (Auto) Abs Immat Gran (auto) Absolute Neuts (auto) Absolute Nucleated RBC (0.0-0.012) X10*3/uL Nucleated RBC % (auto) (0.0-0.2) /100WBC Neutrophils % (Manual) (45-73) % Band Neutrophils % (3-5) % Lymphocytes % (Manual) (20-40) % Atypical Lymphs % (Man) (0-6) % Monocytes % (Manual) (2-11) % Basophils % (Manual) (0-1) % Abs Neuts (Manual) (2.2-7.9) X10*3/uL Hypersegmented Neuts Toxic Vacuolation Platelet Estimate (NORMAL) Plt Morphology Comment RBC Morphology PT (10.8-13.0) SEC INR (0.9-1.1) APTT (24.1-38.0) SEC Sodium (135-145) mmol/L Potassium (3.3-5.1) mmol/L Chloride (96-108) mmol/L Carbon Dioxide (22-29) mmol/L Anion Gap (12-20) BUN (9-16) mg/dL Creatinine (0.5-1.4) mg/dL Estim Creat Clear Calc Estimated GFR Random Glucose (60-115) mg/dL Lactic Acid 1.0 (0.5-2.0) mmol/L Calcium (8.4-10.2) mg/dL Total Bilirubin (0.0-1.0) mg/dL Direct Bilirubin (0.0-0.5) mg/dL AST (5-37) U/L ALT (0-40) U/L Alkaline Phosphatase (39-117) U/L Troponin I High Sens 3.8 < 3.5 (<3.5-35.0) ng/L Total Protein (6.5-8.0) g/dL Albumin (3.5-5.0) g/dL Lipase (8-78) U/L Urine Color Urine Appearance Urine pH (5.0-8.0) Ur Specific [place] (1.005-1.025) Urine Protein (NEG-TRACE) MG/DL Urine Glucose (UA) (NEG) MG/DL Urine Ketones (NEG) MG/DL Urine Blood (NEG) Urine Nitrite (NEG) Ur Leukocyte Esterase (NEG) Urine RBC (0) /HPF Urine WBC (0-4) /HPF Ur Squamous Epith Cells /LPF Urine Bacteria /LPF 03/30/21 Range/Units 16:58 WBC (4.8-10.8) X10*3/uL RBC (4.60-5.80) X10*6/uL Hgb (14.0-18.0) g/dl Hct (42-52) % MCV (80-98) fL MCH (27.0-33.0) pg MCHC (31.0-36.0) g/dl RDW (11.0-16.0) % Plt Count (160-400) X10*3/uL MPV (9.4-12.4) fL Immature Gran % (Auto) Neut % (Auto) Lymph % (Auto) [place] % (Auto) Eos % (Auto) Baso % (Auto) Lymph # (Auto) [place] # (Auto) Eos # (Auto) Baso # (Auto) Abs Immat Gran (auto) Absolute Neuts (auto) Absolute Nucleated RBC (0.0-0.012) X10*3/uL Nucleated RBC % (auto) (0.0-0.2) /100WBC Neutrophils % (Manual) (45-73) % Band Neutrophils % (3-5) % Lymphocytes % (Manual) (20-40) % Atypical Lymphs % (Man) (0-6) % Monocytes % (Manual) (2-11) % Basophils % (Manual) (0-1) % Abs Neuts (Manual) (2.2-7.9) X10*3/uL Hypersegmented Neuts Toxic Vacuolation Platelet Estimate (NORMAL) Plt Morphology Comment RBC Morphology PT (10.8-13.0) SEC INR (0.9-1.1) APTT (24.1-38.0) SEC Sodium (135-145) mmol/L Potassium (3.3-5.1) mmol/L Chloride (96-108) mmol/L Carbon Dioxide (22-29) mmol/L Anion Gap (12-20) BUN (9-16) mg/dL Creatinine (0.5-1.4) mg/dL Estim Creat Clear Calc Estimated GFR Random Glucose (60-115) mg/dL Lactic Acid (0.5-2.0) mmol/L Calcium (8.4-10.2) mg/dL Total Bilirubin (0.0-1.0) mg/dL Direct Bilirubin (0.0-0.5) mg/dL AST (5-37) U/L ALT (0-40) U/L Alkaline Phosphatase (39-117) U/L Troponin I High Sens (<3.5-35.0) ng/L Total Protein (6.5-8.0) g/dL Albumin (3.5-5.0) g/dL Lipase (8-78) U/L Urine Color YELLOW Urine Appearance CLEAR Urine pH 5.5 (5.0-8.0) Ur Specific [place] 1.015 (1.005-1.025) Urine Protein NEG (NEG-TRACE) MG/DL Urine Glucose (UA) NEG (NEG) MG/DL Urine Ketones 5 (NEG) MG/DL Urine Blood TRACE (NEG) Urine Nitrite NEG (NEG) Ur Leukocyte Esterase NEG (NEG) Urine RBC 1-4 (0) /HPF Urine WBC 0-2 (0-4) /HPF Ur Squamous Epith Cells TRACE /LPF Urine Bacteria NONE /LPF Discharge Plan Discharge Clinical Impression: Dizziness Abdominal pain Qualifiers: Abdominal location: right upper quadrant Qualified Code(s): R10.11 - Right upper quadrant pain Patient Disposition: Home, Self-Care Additional Instructions: Our workup today did not reveal any emergent condition No evidence of heart attack, no abdominal emergency, no signs of a new stroke Follow closely with scale assembly set up worker for your dizziness, there was no dizziness here today but the scale assembly set up worker may recommend a home monitor to see if there are any abnormal heart rhythms when you experience her dizziness Your abdomen pain was gone here in the emergency room and her physical exam was normal but if pain returns or nausea vomiting or any worse condition or chest pain or any concerns come back any time Prescriptions: No Action losartan 100 mg tablet 100 mg PO DAILY RF: 0 omeprazole 20 mg capsule,delayed release(DR/EC) 20 mg PO DAILY RF: 0 carvedilol [Coreg] 12.5 mg tablet 12.5 mg PO BID Qty: 60 RF: 5 spironolactone 25 mg tablet 25 mg PO DAILY Qty: 30 RF: 5 chlorthalidone 25 mg tablet 25 mg PO DAILY RF: 0
[2020-07-14 16:51] LABS: Atypical Lymphs Percent Manual 2 % (0-6); Band Neutrophils Percent 0 % (3-5); Basophils Percent Manual 1 % (0-1); Lymphocytes Percent Manual 7 % (20-40); Monocytes Percent Manual 10 % (2-11); Neutrophils Percent Manual 80 % (45-73)
[2020-07-14 16:54] LABS: White Blood Count 8.8 X10*3/uL (4.8-10.8)
[2020-07-14 16:55] LABS: Hypersegmented Neutrophils PRESENT; Platelet Estimate NORMAL (NORMAL); Platelet Morphology Comment NORMAL
[2020-07-14 16:56] LABS: Troponin-I High Sensitivity 3.8 ng/L (<3.5-35.0)
[2020-07-14 16:56] LABS: Alanine Aminotransferase 23 U/L (0-40); Albumin Level 4.5 g/dL (3.5-5.0); Alkaline Phosphatase 70 U/L (39-117); Anion Gap 15 (12-20); Aspartate Amino Transferase 17 U/L (5-37); Bilirubin Direct 0.4 mg/dL (0.0-0.5); Bilirubin Total 1.2 mg/dL (0.0-1.0); Blood Urea Nitrogen 23 mg/dL (9-16); Calcium 8.9 mg/dL (8.4-10.2); Carbon Dioxide 23 mmol/L (22-29); Chloride 102 mmol/L (96-108); Creatinine Clr Calc Pharmacy 47.6; Estimated Glomerular Filt Rate 47; Glucose Random 120 mg/dL (60-115); Lipase 25 U/L (8-78); Potassium 3.9 mmol/L (3.3-5.1); Sodium 136 mmol/L (135-145); Total Protein 7.4 g/dL (6.5-8.0)
[2020-07-14 16:57] LABS: Toxic Vacuolation PRESENT
[2020-07-14 16:58] VITALS: BP 127/86; PULSE 101; RESP 16; O2SAT 93
[2020-07-14 16:58] LABS: RBC Morphology NORMAL
[2020-07-14 17:10] LABS: Glucose Urine UA NEG (NEG); Leukocyte Esterase Urine NEG (NEG); Nitrite Urine NEG (NEG); PH 5.5 (5.0-8.0); Specific Gravity - Urine 1.015 (1.005-1.025); Urine Blood TRACE (NEG); Urine Ketones 5 MG/DL (NEG); Urine Protein NEG (NEG-TRACE)
[2020-07-14 17:12] LABS: Appearance Urine CLEAR; Color Urine YELLOW
[2020-07-14 17:19] LABS: Squamous Epithelial Cell Urine TRACE /LPF; WBC Urine 0-2 /HPF (0-4)
[2020-07-14 17:50] LABS: Troponin-I High Sensitivity < 3.5 ng/L (<3.5-35.0)
[2020-07-14 18:00] VITALS: BP 143/95; PULSE 100; RESP 16; TEMP 37.6; O2SAT 93
== END 2020-07-14 19:18 | disposition home or self-care (01) ==
PROVIDERS: Physician Assistant Medical; Emergency Provider Emergency Medicine; PCP Internal Medicine
DX: R42 Dizziness and giddiness (principal); R10.11 Right upper quadrant pain; Z79.899 Other long term (current) drug therapy
CPT/HCPCS: 36415; 71045; 80053; 80076; 81001; 83605; 83690; 84484; 85007; 85027; 85610; 85730; 93005; 99283; 99284

== ENCOUNTER 2020-10-19 14:43 | Emergency (ER) | payer MEDICARE, SELFPAY ==
--- NOTE | 2020-10-19 | ECG_ITS ---
Test Reason : CHEST PAIN Blood Pressure : / mmHG Vent. Rate : 067 BPM Atrial Rate : 067 BPM P-R Int : 190 ms QRS Dur : 090 ms QT Int : 410 ms P-R-T Axes : 002 -06 026 degrees QTc Int : 433 ms Artifact in tracing Normal sinus rhythm Minimal voltage criteria for LVH, may be normal variant Borderline ECG When compared with ECG of 14-JUL-2020 15:49, No significant change was found Referred By: Generic ED Physician Electronically Signed By:RYLIE IVEY
--- NOTE | ~2020-10-19 | XR_ITS ---
EXAMINATION: XR SHOULDER, LEFT XR WRIST, LEFT CLINICAL INFORMATION: Pain. COMPARISON: Left shoulder 10/15/2019 Left wrist 10/19/2020 TECHNIQUE: Left shoulder 3 views. Left wrist 4 views. FINDINGS: LEFT SHOULDER: Mild glenohumeral joint arthritis. Mild acromioclavicular arthritis. No fracture or dislocation. No calcific tendinitis. LEFT WRIST: Severe radiocarpal arthritis. There is widening of the scapholunate ligament suggesting tear of the scapholunate ligament. Moderate triscaphe joint arthritis. Vzan-au-jvrupuef 1st CMC arthritis. No acute fracture or dislocation. XR/XR wrist LT 2V IMPRESSION: LEFT SHOULDER: No acute findings. Mild glenohumeral and acromioclavicular arthritis. LEFT WRIST: 1. Arthritic changes present. Severe radiocarpal arthritis. 2. Widening of the scapholunate ligament suggestive of scapholunate ligament tear.
--- NOTE | ~2020-10-19 | XR_ITS ---
EXAMINATION: XR SHOULDER, LEFT XR WRIST, LEFT CLINICAL INFORMATION: Pain. COMPARISON: Left shoulder 10/15/2019 Left wrist 10/19/2020 TECHNIQUE: Left shoulder 3 views. Left wrist 4 views. FINDINGS: LEFT SHOULDER: Mild glenohumeral joint arthritis. Mild acromioclavicular arthritis. No fracture or dislocation. No calcific tendinitis. LEFT WRIST: Severe radiocarpal arthritis. There is widening of the scapholunate ligament suggesting tear of the scapholunate ligament. Moderate triscaphe joint arthritis. Zvor-pi-tayoawzf 1st CMC arthritis. No acute fracture or dislocation. XR/XR shoulder LT min 2V IMPRESSION: LEFT SHOULDER: No acute findings. Mild glenohumeral and acromioclavicular arthritis. LEFT WRIST: 1. Arthritic changes present. Severe radiocarpal arthritis. 2. Widening of the scapholunate ligament suggestive of scapholunate ligament tear.
--- NOTE | ~2020-10-19 | XR_ITS ---
EXAMINATION: XR CERVICAL SPINE CLINICAL INFORMATION: Neck pain. COMPARISON: None TECHNIQUE: Four views. FINDINGS: Straightening of the cervical curvature. Posterior alignment is maintained. Vertebral body heights are maintained. No evidence of acute fracture. No prevertebral soft tissue swelling. Mild cervical spondylosis, including anterior spurring at C3-C4, C5-C6. Facet degeneration present. Base of the dens is intact. XR/XR cervical spine 3V IMPRESSION: Mild cervical spondylosis. No evidence of acute fracture.
--- NOTE | ~2020-10-19 | XR_ITS ---
EXAMINATION: XR SHOULDER, RIGHT CLINICAL INFORMATION: Pain. COMPARISON: X-ray 10/15/2019 TECHNIQUE: Three views of the right shoulder. FINDINGS: Mild glenohumeral joint arthritis. Pkdq-um-nsedadav acromioclavicular joint arthritis. No visible acute fracture or dislocation. There is a 1 cm density projected adjacent to the lateral humeral head, only visualized on one view. This could be related to overlapping densities, or represent subtle soft tissue calcification/calcific tendinitis. XR/XR shoulder RT min 2V IMPRESSION: Mild acromioclavicular arthritis. Mild glenohumeral joint arthritis. No acute fracture. 1 cm density adjacent to the lateral humeral head, could be related to overlapping densities versus calcification related to calcific tendinitis.
[2020-10-19 15:23] VITALS: BP 158/98; PULSE 79; RESP 16; TEMP 36.6; O2SAT 97; BMI 30.7
--- NOTE | 2020-10-19 16:56 | ED.EXTPRO ---
HPI - Extremity Problem General Chief complaint: Extremity Problem Stated complaint: PAIN NUMBNESS DOWN ARMS ACROSS SHOULDERS Time Seen by Provider: 10/19/20 16:29 Source: patient Mode of arrival: ambulatory Limitations: no limitations History of Present Illness HPI Narrative: 70-year-old male with past medical history of Parkinson's, stroke, hypertension, hyperlipidemia, scapholunate advanced collapse, and obesity presents with approximately 3 months of left wrist pain and swelling, bilateral shoulder pain, approximately 3 weeks of right arm pain and neck pain. He does not report any traumatic events, does not report any falls, states the pain has been gradual and has not been relieved with hjyb-ayn-wtkluhw medications. He does not report chest pain or pressure, palpitations, shortness of breath, shortness of breath on exertion, abdominal pain, abdominal distention, dysuria, hematuria, nausea, vomiting, diarrhea, constipation, edema, melena, hematochezia, or any other concerning symptoms. MD Complaint: extremity pain and extremity swelling Onset (ago): month(s) Pain Consistency: constant Location: left, right and upper extremity Severity scale (1-10): 7 Quality: aching Relieving factors: nothing Exacerbating factors: range of motion, exertion and palpation Associated symptoms: denies other symptoms Related Data Home Medications Medication Instructions Recorded Confirmed losartan 100 mg tablet 100 mg PO DAILY 02/20/20 06/04/20 omeprazole 20 mg capsule,delayed 20 mg PO DAILY 02/20/20 06/04/20 release chlorthalidone 25 mg tablet 25 mg PO DAILY 06/04/20 06/04/20 Previous Rx's Medication Instructions Recorded carvedilol 12.5 mg tablet 12.5 mg PO BID #60 tab 05/05/20 spironolactone 25 mg tablet 25 mg PO DAILY #30 tab 05/05/20 Allergies Allergy/AdvReac Type Severity Reaction Status Date / Time No Known Allergies Allergy Verified 02/20/20 13:35 [No Known Allergies*] Review of Systems Review of Systems: Constitutional: No Fever, No Chills ENT/Mouth: No Ear Pain, No Hoarseness, No sore throat Eyes: No Eye Pain, No Swelling, No Redness, No Foreign Body Cardiovascular: No Chest Pain, No SOB Respiratory: No Cough, No Dyspnea Gastrointestinal: No Nausea, No Vomiting, No Diarrhea, No abdominal Pain Genitourinary: No Dysuria, No Hematuria Musculoskeletal: positive Left wrist, bilateral shoulder and neck pain, No Myalgias, left wrist Joint Swelling Skin: No Skin lacerations, No rash Neuro: No Weakness, No Numbness, No Paresthesias, No Loss of Consciousness, No Dizziness, No Headache Psych: No Anxiety/Panic, No Depression Heme/Lymph: no easy bruising, no Lymphadenopathy Endocrine: No Polyuria, No Polydipsia Yes all other systems are reviewed and are negative [facility] Past Medical History Attestation statement: The following information was validated with the patient. 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 Oriented X3. No acute distress. Eyes: Pupils equal, round and reactive to light. ENT: Pharynx normal. Neck: Normal inspection. Neck supple. full range of motion against resistance, no vertebral tenderness or step-offs. CVS: Normal heart rate and rhythm. Pulses normal. Respiratory: No respiratory distress. Breath sounds normal. Abdomen: Soft and nontender. Skin: Skin warm and dry. Normal skin color. Normal skin turgor. Extremities: No lower extremity edema. Moves all extremities against resistance, full range of motion, pulses are equal brisk capillary refill, some swelling noted to the dorsal radial side of the left wrist. Neuro: No motor deficit. No sensory deficit. Cranial nerves 2-12 intact. No focal neural deficits. Course Course Course Narrative: 70-year-old male presents with several months of left wrist pain and swelling, bilateral shoulder pain, several weeks of right arm pain and neck pain. He does have a history of Parkinson's, has a scapholunate advanced collapse of the wrist, plan of care is for x-rays of the wrist, shoulders and neck. x-rays indicate scaphoid lunate ligament tear as well as significant arthritis to all joints Including the cervical spine. Discussion with Dr. Ace, on-call Orthopedic, plan is for cock-up velcro splint and for patient to follow-up with orthopedics this week. Patient verbalized understanding of and agrees to plan of care discharge home. lean facilitator utilized for all correspondence. Google translate Utilized for discharge instructions. MDM - Extremity (Nontraumatic) MDM Narrative Medical decision making narrative: Arthritis, musculoskeletal Differential Diagnosis Differential diagnosis: Likely gout Medical Records Attestation: I reviewed the patient's medical records. Lab Data Attestation: I reviewed the patient's lab results. Imaging Data left wrist, bilateral shoulders, and cervical spine x-ray: Attestation: I personally reviewed and interpreted this imaging study as follows: Radiologist's impression: EXAMINATION: XR CERVICAL SPINE CLINICAL INFORMATION: Neck pain. COMPARISON: None TECHNIQUE: Four views. FINDINGS: Straightening of the cervical curvature. Posterior alignment is maintained. Vertebral body heights are maintained. No evidence of acute fracture. No prevertebral soft tissue swelling. Mild cervical spondylosis, including anterior spurring at C3-C4, C5-C6. Facet degeneration present. Base of the dens is intact. XR/XR cervical spine 3V IMPRESSION: Mild cervical spondylosis. No evidence of acute fracture EXAMINATION: XR SHOULDER, RIGHT CLINICAL INFORMATION: Pain. COMPARISON: X-ray 10/15/2019 TECHNIQUE: Three views of the right shoulder. FINDINGS: Mild glenohumeral joint arthritis. Dshu-rs-dznzacit acromioclavicular joint arthritis. No visible acute fracture or dislocation. There is a 1 cm density projected adjacent to the lateral humeral head, only visualized on one view. This could be related to overlapping densities, or represent subtle soft tissue calcification/calcific tendinitis. XR/XR shoulder RT min 2V IMPRESSION: Mild acromioclavicular arthritis. Mild glenohumeral joint arthritis. No acute fracture. 1 cm density adjacent to the lateral humeral head, could be related to overlapping densities versus calcification related to calcific tendinitis. EXAMINATION: XR SHOULDER, LEFT XR WRIST, LEFT CLINICAL INFORMATION: Pain. COMPARISON: Left shoulder 10/15/2019 Left wrist 10/19/2020 TECHNIQUE: Left shoulder 3 views. Left wrist 4 views. FINDINGS: LEFT SHOULDER: Mild glenohumeral joint arthritis. Mild acromioclavicular arthritis. No fracture or dislocation. No calcific tendinitis. LEFT WRIST: Severe radiocarpal arthritis. There is widening of the scapholunate ligament suggesting tear of the scapholunate ligament. Moderate triscaphe joint arthritis. Hlmb-oa-fzhdedua 1st CMC arthritis. No acute fracture or dislocation. XR/XR shoulder LT min 2V IMPRESSION: LEFT SHOULDER: No acute findings. Mild glenohumeral and acromioclavicular arthritis. LEFT WRIST: 1. Arthritic changes present. Severe radiocarpal arthritis. 2. Widening of the scapholunate ligament suggestive of scapholunate ligament tear. ECG Data Attestation EKG: I personally reviewed and interpreted this ECG as follows: ECG interpretation date: 10/19/20 ECG interpretation time: 15:52 Prior ECG tracings: available for review Interpretation: Vent. Rate : 067 BPM Atrial Rate : 067 BPM P-R Int : 190 ms QRS Dur : 090 ms QT Int : 410 ms P-R-T Axes : 002 -06 026 degrees QTc Int : 433 ms Normal sinus rhythm Minimal voltage criteria for LVH, may be normal variant Borderline ECG When compared with ECG of 14-JUL-2020 15:49, No significant change was found Discharge Plan Discharge Clinical Impression: Ligament tear, Arthritis pain, shoulder, Neck and shoulder pain Patient Disposition: Home, Self-Care Instructions: Wrist Injury (ED), Tendon Rupture (ED), Arthritis (ED) Additional Instructions: se le evalu? por dolor cr?henry de mu?eca izquierda, dolor de hombro y dolor de lenny. Los frannie X muestran artritis en las articulaciones y en la columna cervical. La radiograf?a de la mu?eca izquierda indic? un desgarro del ligamento escafoides. Mantenga la f?anitha en carbone lugar. Llame al Dr. Ace por la ma?becki para concertar dusty power. por favor selma un seguimiento con el manejo del dolor para la artritis. Te recomend? al Dr. Zheng Adrian por elegir tara departamento de emergencias para carbone evaluaci?n. Selma un seguimiento con carbone m?dico de atenci?n primaria seg?n sea necesario. Regrese al departamento de emergencias por cualquier s?ntoma nuevo, preocupante o que empeore. you were evaluated for chronic left wrist pain, shoulder pain and neck pain. X-ray show arthritis to the joints as well as the cervical spine. The x-ray of the left wrist indicated a scaphoid ligament tear. Please keep the splint in place. Call Dr. Ace in the morning for an appointment. please follow-up with pain management for arthritis. I referred you to Dr. Zheng Thank you for choosing this emergency department for evaluation. Please follow-up with primary care physician as needed. Return to the emergency department for any new, concerning, or worsening symptoms. Prescriptions: No Action losartan 100 mg tablet 100 mg PO DAILY RF: 0 omeprazole 20 mg capsule,delayed release(DR/EC) 20 mg PO DAILY RF: 0 carvedilol [Coreg] 12.5 mg tablet 12.5 mg PO BID Qty: 60 RF: 5 spironolactone 25 mg tablet 25 mg PO DAILY Qty: 30 RF: 5 chlorthalidone 25 mg tablet 25 mg PO DAILY RF: 0 Referrals: Ham Zheng MD [Physician] - 2 days ( severe arthritis) Lisy Ace MD [Physician] - 2 days ( Left scaphoid lunate ligament tear) Interventions: ED Discharge Assessment Last Done: 10/19/20 18:32 Discharge Date/Time: 10/19/20 18:34
== END 2020-10-19 18:34 | disposition home or self-care (01) ==
PROVIDERS: Emergency Provider Emergency Medicine; PCP Internal Medicine
DX: S63.592A Other specified sprain of left wrist, initial encounter (principal); X58.XXXA Exposure to other specified factors, initial encounter; M19.032 Primary osteoarthritis, left wrist; M19.012 Primary osteoarthritis, left shoulder; M19.011 Primary osteoarthritis, right shoulder; M54.2 Cervicalgia; M25.512 Pain in left shoulder; M25.511 Pain in right shoulder; M47.812 Spondylosis without myelopathy or radiculopathy, cervical region; I10 Essential (primary) hypertension; E11.9 Type 2 diabetes mellitus without complications; G20 Parkinson's disease; Z86.73 Personal history of transient ischemic attack (TIA), and cerebral infarction without residual deficits; Y93.9 Activity, unspecified; Y92.9 Unspecified place or not applicable; Y99.9 Unspecified external cause status
CPT/HCPCS: 72040; 73030; 73100; 93005; 99283; 99285

== ENCOUNTER → 2020-10-21 12:03 | Outpatient (BNVA) | payer MEDICARE, SELFPAY | PROVIDERS: PCP Internal Medicine; Visit Provider Orthopaedic Surgery | DX: M19.139 Post-traumatic osteoarthritis, unspecified wrist (principal) | CPT/HCPCS: 20605; 99212; J1020 ==

== ENCOUNTER → 2020-11-05 09:53 | Outpatient (BNVA) | payer MEDICARE, SELFPAY | PROVIDERS: Visit Provider Physician Assistant | DX: M75.80 Other shoulder lesions, unspecified shoulder (principal) | CPT/HCPCS: 99202 ==

== ENCOUNTER 2020-11-27 02:05 | Emergency (ER) | payer MEDICARE, SELFPAY ==
[2020-11-27 02:24] VITALS: BP 159/107; BP 182/85; PULSE 90; PULSE 91; RESP 15; TEMP 37.1; O2SAT 97; BMI 29.8
[2020-11-27 02:29] VITALS: BP 182/85; PULSE 93; RESP 15; TEMP 37.1; O2SAT 97
[2020-11-27 02:38] LABS: Glucose Urine UA NEG (NEG); Leukocyte Esterase Urine NEG (NEG); Nitrite Urine NEG (NEG); Specific Gravity - Urine 1.015 (1.005-1.025); UACC Culture Trigger NO; Urine Blood TRACE (NEG); Urine Ketones NEG (NEG); Urine Protein NEG (NEG-TRACE)
[2020-11-27 02:41] LABS: Appearance Urine CLEAR; Color Urine YELLOW
[2020-11-27 03:12] LABS: Mucus Urine 2+ /LPF; RBC Urine 0-2 /HPF (0); Squamous Epithelial Cell Urine TRACE /LPF; WBC Urine 0-2 /HPF (0-4)
[2020-11-27 04:20] VITALS: BP 166/75; PULSE 93; RESP 20; O2SAT 97
--- NOTE | 2020-11-27 04:52 | PC.NURSE ---
Pt reports feeling anxious, states it started earlier today around 1pm or so, and I started feeling my heart beat heavily. Pt continues to deny CP/tightness. Pt does report R thigh pain with movement. Pt stretcher in low locked position, rails raised, call stevens within reach
--- NOTE | 2020-11-27 04:59 | ECG_ITS ---
Test Reason : HYPERTENSION Blood Pressure : / mmHG Vent. Rate : 083 BPM Atrial Rate : 083 BPM P-R Int : 158 ms QRS Dur : 088 ms QT Int : 364 ms P-R-T Axes : -19 -14 012 degrees QTc Int : 427 ms Normal sinus rhythm Minimal voltage criteria for LVH, may be normal variant Borderline ECG When compared with ECG of 19-OCT-2020 15:52, No significant change was found Referred By: Dejah Luo Electronically Signed By:RYLIE IVEY
[2020-11-27 05:04] VITALS: BP 116/81; PULSE 89; RESP 19; O2SAT 95
[2020-11-27 05:16] LABS: MANUAL DIFF FLAG NO
[2020-11-27 05:17] LABS: Basophils Percent Auto 0.3 % (0-2); Eosinophils Percent Auto 0.2 % (0-4); Hemoglobin 15.6 g/dl (14.0-18.0); Imm Gran Abs Auto 0.03 X10*3/uL (0.00-0.03); Imm Gran Pct Auto 0.3 % (0.0-0.4); Lymphocytes Absolute Auto 1.1 X10*3/uL (1.2-4.9); Lymphocytes Percent Auto 10.6 % (20-40); Mean Corpuscular HGB Conc 36.3 g/dl (31.0-36.0); Mean Corpuscular Volume 90.9 fL (80-98); Mean Platelet Volume 12.3 fL (9.4-12.4); Monocytes Absolute Auto 0.6 X10*3/uL (0.1-1.2); Monocytes Percent Auto 5.5 % (2-11); Neutrophils Absolute Auto 8.7 X10*3/uL (2.0-8.3); Neutrophils Percent Auto 83.1 % (45-73); Platelet Count 220 X10*3/uL (160-400); Red Blood Count 4.73 X10*6/uL (4.60-5.80); Red Cell Distribution Width 11.3 % (11.0-16.0); White Blood Count 10.5 X10*3/uL (4.8-10.8)
[2020-11-27 06:12] LABS: Anion Gap 16 (12-20); Blood Urea Nitrogen 15 mg/dL (9-16); Carbon Dioxide 22 mmol/L (22-29); Chloride 101 mmol/L (96-108); Estimated Glomerular Filt Rate 55; Glucose Random 121 mg/dL (60-115); Potassium 4.5 mmol/L (3.3-5.1); Sodium 134 mmol/L (135-145)
--- NOTE | 2020-11-27 07:05 | ED_ITS ---
HPI - General Adult General Chief complaint: General Medical Stated complaint: ? 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 Related Data Home Medications Medication Instructions Recorded Confirmed losartan 100 mg tablet 100 mg PO DAILY 02/20/20 06/04/20 omeprazole 20 mg capsule,delayed 20 mg PO DAILY 02/20/20 06/04/20 release chlorthalidone 25 mg tablet 25 mg PO DAILY 06/04/20 06/04/20 Previous Rx's Medication Instructions Recorded carvedilol 12.5 mg tablet (Coreg) 12.5 mg PO BID #60 tab 05/05/20 spironolactone 25 mg tablet 25 mg PO DAILY #30 tab 05/05/20 Allergies Allergy/AdvReac Type Severity Reaction Status Date / Time No Known Allergies Allergy Verified 11/27/20 02:27 [No Known Allergies*] Review of Systems Review of Systems: Pertinent positives and negatives as stated in HPI 10 point review of systems is otherwise negative. 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 GENERAL: Well developed, well nourished, in no acute distress. HEAD: Normocephalic/atraumatic EYES: PERRLA, EOMI intact without pain, no nystagmus EARS: Ext canals without abnormality, TMs non-bulging and non-erythematous LUNGS: Normal breath sounds. No adventitious sounds or accessory muscle use. SpO2<> CARDIOVASCULAR: Regular rate and rhythm without noted murmur ABDOMEN: Soft, non-tender, non-distended with bowel sounds. SKIN: Inspection of the skin reveals no rashes NEUROLOGIC: Alert and oriented x 4. Strength and sensation to light touch were grossly intact x 4, baseline tremulousness Course Course Course Narrative: 70-year-old male with history and clinical presentation consistent with hypertension and on review of prior presentation although mildly elevated patient is otherwise asymptomatic. Review of all investigations negative for acute findings which were discussed with him at bedside with the oracle programmer analyst. He was otherwise discharged in stable condition and has appointments both with Cardiology as well as with his primary care provider and he was encouraged to discuss his concerns regarding his blood pressure. Medical Decision Making Lab Data Result diagrams: 11/27/20 05:12 11/27/20 05:40 Labs: Lab Results 11/27/20 11/27/20 11/27/20 Range/Units 02:31 05:12 05:12 WBC 10.5 (4.8-10.8) X10*3/uL RBC 4.73 (4.60-5.80) X10*6/uL Hgb 15.6 (14.0-18.0) g/dl Hct 43.0 (42-52) % MCV 90.9 (80-98) fL MCH 33.0 (27.0-33.0) pg MCHC 36.3 H (31.0-36.0) g/dl RDW 11.3 (11.0-16.0) % Plt Count 220 (160-400) X10*3/uL MPV 12.3 (9.4-12.4) fL Immature Gran % (Auto) 0.3 (0.0-0.4) % Neut % (Auto) 83.1 H (45-73) % Lymph % (Auto) 10.6 L (20-40) % [place] % (Auto) 5.5 (2-11) % Eos % (Auto) 0.2 (0-4) % Baso % (Auto) 0.3 (0-2) % Lymph # (Auto) 1.1 L (1.2-4.9) X10*3/uL [place] # (Auto) 0.6 (0.1-1.2) X10*3/uL Eos # (Auto) 0.0 (0.0-0.4) X10*3/uL Baso # (Auto) 0.0 (0.0-0.2) X10*3/uL Abs Immat Gran (auto) 0.03 (0.00-0.03) X10*3/uL Absolute Neuts (auto) 8.7 H (2.0-8.3) X10*3/uL Absolute Nucleated RBC 0.000 (0.0-0.012) X10*3/uL Nucleated RBC % (auto) 0.0 (0.0-0.2) /100WBC Sodium (135-145) mmol/L Potassium (3.3-5.1) mmol/L Chloride (96-108) mmol/L Carbon Dioxide (22-29) mmol/L Anion Gap (12-20) BUN (9-16) mg/dL Creatinine (0.5-1.4) mg/dL Estim Creat Clear Calc Estimated GFR Random Glucose (60-115) mg/dL Calcium (8.4-10.2) mg/dL Troponin I High Sens 6.0 (<3.5-35.0) ng/L Urine Color YELLOW Urine Appearance CLEAR Urine pH 6.0 (5.0-8.0) Ur Specific [place] 1.015 (1.005-1.025) Urine Protein NEG (NEG-TRACE) MG/DL Urine Glucose (UA) NEG (NEG) MG/DL Urine Ketones NEG (NEG) MG/DL Urine Blood TRACE (NEG) Urine Nitrite NEG (NEG) Ur Leukocyte Esterase NEG (NEG) Urine RBC 0-2 (0) /HPF Urine WBC 0-2 (0-4) /HPF Ur Squamous Epith Cells TRACE /LPF Urine Bacteria NONE /LPF Urine Mucus 2+ /LPF 11/27/20 Range/Units 05:40 WBC (4.8-10.8) X10*3/uL RBC (4.60-5.80) X10*6/uL Hgb (14.0-18.0) g/dl Hct (42-52) % MCV (80-98) fL MCH (27.0-33.0) pg MCHC (31.0-36.0) g/dl RDW (11.0-16.0) % Plt Count (160-400) X10*3/uL MPV (9.4-12.4) fL Immature Gran % (Auto) (0.0-0.4) % Neut % (Auto) (45-73) % Lymph % (Auto) (20-40) % [place] % (Auto) (2-11) % Eos % (Auto) (0-4) % Baso % (Auto) (0-2) % Lymph # (Auto) (1.2-4.9) X10*3/uL [place] # (Auto) (0.1-1.2) X10*3/uL Eos # (Auto) (0.0-0.4) X10*3/uL Baso # (Auto) (0.0-0.2) X10*3/uL Abs Immat Gran (auto) (0.00-0.03) X10*3/uL Absolute Neuts (auto) (2.0-8.3) X10*3/uL Absolute Nucleated RBC (0.0-0.012) X10*3/uL Nucleated RBC % (auto) (0.0-0.2) /100WBC Sodium 134 L (135-145) mmol/L Potassium 4.5 (3.3-5.1) mmol/L Chloride 101 (96-108) mmol/L Carbon Dioxide 22 (22-29) mmol/L Anion Gap 16 (12-20) BUN 15 (9-16) mg/dL Creatinine 1.28 (0.5-1.4) mg/dL Estim Creat Clear Calc 53.0 Estimated GFR 55 Random Glucose 121 H (60-115) mg/dL Calcium 10.0 D (8.4-10.2) mg/dL Troponin I High Sens (<3.5-35.0) ng/L Urine Color Urine Appearance Urine pH (5.0-8.0) Ur Specific [place] (1.005-1.025) Urine Protein (NEG-TRACE) MG/DL Urine Glucose (UA) (NEG) MG/DL Urine Ketones (NEG) MG/DL Urine Blood (NEG) Urine Nitrite (NEG) Ur Leukocyte Esterase (NEG) Urine RBC (0) /HPF Urine WBC (0-4) /HPF Ur Squamous Epith Cells /LPF Urine Bacteria /LPF Urine Mucus /LPF ECG Data Attestation: I personally reviewed and interpreted this ECG as follows: Prior ECG tracings: available for review (10/19/2020 no acute changes on comparison) Interpretation: Normal sinus rhythm, HR-83, no STEMI, SC/QRS/QTC are within normal limits. Discharge Plan Discharge Clinical Impression: Essential hypertension Patient Disposition: Home, Self-Care Instructions: Hypertension (ED), DASH Eating Plan (ED) Additional Instructions: 1. Reanude todos los medicamentos caseros seg?n lo prescrito. Tambi?n debe vigilar la cantidad de mitchell que ingiera. 2. Llame a carbone cardi?logo ya carbone proveedor de atenci?n primaria hoy mismo para hablar sobre federico inquietudes con respecto a la elevaci?n de carbone presi?n arterial. Regrese a la isadora de emergencias por un empeoramiento bill de los s?ntomas. Prescriptions: No Action losartan 100 mg tablet 100 mg PO DAILY RF: 0 omeprazole 20 mg capsule,delayed release(DR/EC) 20 mg PO DAILY RF: 0 carvedilol [Coreg] 12.5 mg tablet 12.5 mg PO BID Qty: 60 RF: 5 spironolactone 25 mg tablet 25 mg PO DAILY Qty: 30 RF: 5 chlorthalidone 25 mg tablet 25 mg PO DAILY RF: 0 Referrals: Physician,Unknown [Primary Care Provider] - 2 days Print Language: Monegasque
== END 2020-11-27 07:34 | disposition home or self-care (01) ==
PROVIDERS: Emergency Provider Student in an Organized Health Care Education/Training Program
DX: I10 Essential (primary) hypertension (principal); Z79.899 Other long term (current) drug therapy
CPT/HCPCS: 36415; 80048; 81001; 84484; 85025; 93005; 99284

== ENCOUNTER 2020-12-02 10:00 | Outpatient (RCR) | payer MEDICARE, SELFPAY ==
--- NOTE | 2020-11-23 12:54 | MHC.PT.EP ---
[facility] [place] Office [place] Office [place] Office [address] [phone] F: [phone] F: [phone] F: [phone] F: [phone] Physical Therapy Plan of Care Date of Evaluation: Date of Surgery: N/A Diagnosis: Other shoulder lesions, unspecified shoulder Assessment: Pt is a 70yo M with a PMH including Parkinson's, stroke, HTN, and diabetes who presents to PT with chronic neck and B shoulder pain. He denies radiating symptoms this date. He presents with current impairments in pain, cervical/shoulder and thoracic ROM, joint mobility, soft tissue restrictions, and posture. He is limited functionally by reaching, lifting, ADLs, and sleeping. He is a good candidate for skilled PT services to address current impairments and facilitate return to PLOF. Frequency and Duration: The patient will be seen 2x/week, 4 weeks Short Term Goals: Pt will be I with HEP to promote self management of symptoms Pt will improve B shoulder flexion by 5 degrees Halfway Goals: Pt will be able to lift arms overhead with pain < 3/10 to assist with ADLs and functional mobility. Pt will demonstrate improvements in functional mobility as evidenced by statistically significant improvement in SPADI score. Treatment Plan: Modalities to reduce pain, spasms and effusion. Manual therapy to restore motion and function. Therapeutic exercise to improve strength and flexibility. Neuromuscular re-education for posture and balance. Therapeutic activities to return to functional activities of daily living. Electronically signed by: Shayla Baldwin, PT, DPT Please sign and return to therapist. Thank you for your referral.
--- NOTE | 2020-12-02 11:35 | MHC.PT.DC ---
[facility] [place] [facility] [place] [facility] [place] Office [address] Nathaly Nicolas [address] [phone] F: [phone] F: [phone] F: [phone] F: [phone] Physical Therapy Discharge Report Diagnosis: Other shoulder lesions, unspecified shoulder Date of Surgery: N/A Date of Evaluation: 11/23/20 Date of Discharge: 12/02/20 Treatments to Date: 3 Cancellations to Date: 0 No Shows to Date: 0 Discharge Status: Achieved Goals Improved Function Independent with HEP Patient Elected to Stop Discharge Summary: Pt requests to be D/C from skilled PT services this date as he no longer has pain and is I with HEP. He has made good progress toward his goals and has improved his function with ADLs. He demonstrates improvement in SPADI score from 69/130 on initial evaluation to 5/130 on D/C this date. Provided pt with updated HEP and theraband for home. Pt reports he has no further questions or concerns for PT at this time. Electronically signed by: Shayla Baldwin, PT, DPT Please sign and return to therapist. Thank you for your referral.
== END 2020-12-02 11:33 | disposition home or self-care (01) ==
LOC: HO.PT 10:00
PROVIDERS: Visit Provider Physician Assistant
DX: M75.80 Other shoulder lesions, unspecified shoulder (principal)
CPT/HCPCS: 97110; 97162; 97530

== ENCOUNTER → 2020-12-08 09:17 | Outpatient (BNVA) | payer MEDICARE, SELFPAY | PROVIDERS: PCP Internal Medicine; Referring Provider Internal Medicine; Visit Provider Internal Medicine | DX: I10 Essential (primary) hypertension (principal); R07.2 Precordial pain; Z79.899 Other long term (current) drug therapy; Z86.73 Personal history of transient ischemic attack (TIA), and cerebral infarction without residual deficits | CPT/HCPCS: 99212 ==

== ENCOUNTER → 2021-02-17 09:13 | Outpatient (BNVA) | payer MEDICARE, SELFPAY | PROVIDERS: PCP Internal Medicine; Visit Provider Orthopaedic Surgery | DX: M19.139 Post-traumatic osteoarthritis, unspecified wrist (principal); M75.80 Other shoulder lesions, unspecified shoulder | CPT/HCPCS: 99212 ==

== ENCOUNTER 2021-02-22 09:12 | Day surgery (SDC) | payer MEDICARE, SELFPAY ==
--- NOTE | ~2021-02-22 | FL_ITS ---
EXAMINATION: Intraoperative fluoroscopy CLINICAL INFORMATION: Left wrist injection COMPARISON: Left wrist x-rays 10/19/2020 TECHNIQUE: Intraoperative fluoroscopy was provided for use by Dr. Ace. A total of 1 image was saved to PACS. A radiologist was not present during imaging. Today's dictation is only for administrative purposes to document intraoperative fluoroscopic usage. TOTAL FLUOROSCOPIC TIME: 20 seconds FL/FL guidance in OR FINDINGS~\^^ Intraoperative fluoroscopy provided for use by Dr. Ace. Please see operative note for detailed findings.
[2021-02-22 10:51] VITALS: BMI 28.2
[2021-02-22 10:54] VITALS: BP 170/63; PULSE 79; RESP 18; TEMP 36.6; O2SAT 97
[2021-02-22 13:33] VITALS: BP 148/92; PULSE 78; RESP 17; TEMP 37.2; O2SAT 97
--- NOTE | 2021-02-22 13:35 | W.PM.OPN ---
Operative Note Operative Note Date of Service: 02/22/21 Narrative: Diagnosis: Left scapholunate advanced collapse wrist deformity, painful Procedure: Left wrist steroid injection using the FluoroScan for needle guidance Anesthesia: Local Injection #1 : The risks and benefits of a steroid injection including but not limited to risk of damage to blood vessels, nerve, tendon, infection, skin bleaching, persistent or worsening pain, and failure to improve symptoms were discussed with the patient and they wish to proceed with the steroid injection. Once consent was obtained the skin over the dorsum of the left basal joint was sterilely prepped. The FluoroScan was used for needle guidance. I injected subcutaneously and into the left basal joint with some 1% lidocaine with epinephrine using a 27 gauge needle. The left basal joint was then injected with a combination of 1 mL of (80 mg/ml} Depo-Medrol and 1% lidocaine with 1 to 036046 epinephrine. The patient appears to have tolerated the procedure well and with no complications. A Band-Aid was then applied. The patient was brought to the recovery room in stable condition.
== END 2021-02-22 13:46 | disposition home or self-care (01) ==
PROVIDERS: Visit Provider Orthopaedic Surgery
PROC: (CPT 20605; principal; 2021-02-22 12:40)
DX: M19.032 Primary osteoarthritis, left wrist (principal); M81.0 Age-related osteoporosis without current pathological fracture; G20 Parkinson's disease; I10 Essential (primary) hypertension; E78.5 Hyperlipidemia, unspecified; E11.9 Type 2 diabetes mellitus without complications; R42 Dizziness and giddiness; Z86.73 Personal history of transient ischemic attack (TIA), and cerebral infarction without residual deficits; Z79.899 Other long term (current) drug therapy
CPT/HCPCS: 20605; 77002; J1040; J3300

== ENCOUNTER 2021-03-09 13:31 | Emergency (ER) | payer MEDICARE, SELFPAY ==
--- NOTE | ~2021-03-09 | XR_ITS ---
EXAMINATION: XR CHEST CLINICAL INFORMATION: Chest pain COMPARISON: Chest 07/14/2020 TECHNIQUE: 2 views of the chest were obtained. FINDINGS: No significant abnormality is noted involving the heart, lungs, mediastinum, bony thorax or soft tissues. XR/XR chest 2V IMPRESSION: Unremarkable chest examination.
--- NOTE | 2021-03-09 13:37 | ECG_ITS ---
Test Reason : chest pain Blood Pressure : / mmHG Vent. Rate : 080 BPM Atrial Rate : 080 BPM P-R Int : 138 ms QRS Dur : 092 ms QT Int : 374 ms P-R-T Axes : -14 -13 011 degrees QTc Int : 431 ms Normal sinus rhythm Minimal voltage criteria for LVH, may be normal variant ( R in aVL ) Left axis deviation Abnormal ECG When compared with ECG of 27-NOV-2020 05:23, No significant change was found Referred By: Generic ED Physician Electronically Signed By:ALESHA SANDOVAL MD
[2021-03-09 14:21] VITALS: BP 130/82; PULSE 87; RESP 18; TEMP 37.5; O2SAT 96; BMI 29.3
[2021-03-09 16:29] LABS: Basophils Percent Auto 0.3 % (0-2); Eosinophils Percent Auto 0.2 % (0-4); Hematocrit 44.9 % (42.0-52.0); Hemoglobin 15.3 g/dl (14.0-18.0); Imm Gran Abs Auto 0.03 X10*3/uL (0.00-0.03); Imm Gran Pct Auto 0.3 % (0.0-0.4); Lymphocytes Absolute Auto 1.4 X10*3/uL (1.2-4.9); Lymphocytes Percent Auto 15.4 % (20-40); MANUAL DIFF FLAG SCAN; Mean Corpuscular HGB Conc 34.1 g/dl (31.0-36.0); Mean Corpuscular Hemoglobin 32.1 pg (27.0-33.0); Mean Corpuscular Volume 94.3 fL (80.0-98.0); Monocytes Absolute Auto 1.5 X10*3/uL (0.1-1.2); Monocytes Percent Auto 17.2 % (2-11); Neutrophils Absolute Auto 5.9 x10*3/uL (2.0-8.3); Neutrophils Percent Auto 66.6 % (45-73); Platelet Count 196 X10*3/uL (160-400); Red Blood Count 4.76 X10*6/uL (4.60-5.80); Red Cell Distribution Width 11.9 % (11.0-16.0); SCAN SMEAR FLAG 1; White Blood Count 8.9 X10*3/uL (4.8-10.8)
[2021-03-09 16:38] LABS: Alanine Aminotransferase 21 U/L (0-40); Albumin Level 4.4 g/dL (3.5-5.0); Alkaline Phosphatase 55 U/L (39-117); Anion Gap 16 (12-20); Aspartate Amino Transferase 24 U/L (5-37); Bilirubin Total 0.8 mg/dL (0.0-1.0); Blood Urea Nitrogen 35 mg/dL (9-16); Calcium 9.4 mg/dL (8.4-10.2); Carbon Dioxide 27 mmol/L (22-29); Chloride 100 mmol/L (96-108); Creatinine Clr Calc Pharmacy 36.4; Estimated Glomerular Filt Rate 36; Glucose Random 107 mg/dL (60-115); Potassium 4.7 mmol/L (3.3-5.1); Sodium 138 mmol/L (135-145); Total Protein 7.5 g/dL (6.5-8.0)
[2021-03-09 16:41] LABS: Troponin-I High Sensitivity 4.4 ng/L (<3.5-35.0)
[2021-03-09 17:00] LABS: SLIDE REVIEW VERIFIED
--- NOTE | 2021-03-09 17:05 | ED_ITS ---
HPI - Chest Pain General Chief Complaint: Chest Pain Stated Complaint: CHEST PAIN Time Seen by Provider: 03/09/21 16:55 Source: patient and manager of photography Mode of arrival: ambulatory Limitations: language barrier History of Present Illness HPI narrative: 70-year-old male with a history of Parkinson's, hypertension, hyp erlipidemia, prediabetic here with complaints of chest pressure for about 15 minutes at 10:30 this morning while resting. No associated shortness of breath, nausea, vomiting, diaphoresis. Patient tells me the pain resolved and so and he has not had any additional episodes since then. Related Data Home Medications Medication Instructions Recorded Confirmed losartan 100 mg tablet 100 mg PO DAILY 02/20/20 12/08/20 omeprazole 20 mg capsule,delayed 20 mg PO DAILY 02/20/20 12/08/20 release chlorthalidone 25 mg tablet 25 mg PO DAILY 06/04/20 12/08/20 Previous Rx's Medication Instructions Recorded spironolactone 25 mg tablet 25 mg PO DAILY #30 tab 05/05/20 carvedilol 12.5 mg tablet (Coreg) 12.5 mg PO BID #60 tab 02/10/21 hydroxyzine HCl 25 mg tablet 25 mg PO BID PRN #14 tab 03/09/21 Allergies Allergy/AdvReac Type Severity Reaction Status Date / Time No Known Allergies Allergy Verified 03/09/21 14:20 [No Known Allergies*] Review of Systems Review of Systems: Yes all other systems are reviewed and are negative Constitutional: Constitutional: Reports no additional constitutional complaints, Denies body ache(s), Denies chills, Denies fever(s), Denies headache(s) and Denies weakness Eyes: Eyes: Reports no additional eye complaints and Denies change in vision ENT: Reports system reviewed and no additional complaints, except as documented, Denies dizziness, Denies headache(s), Denies nasal congestion, Denies nasal discharge and Denies neck pain Cardiovascular: Cardiovascular: Reports no additional cardiovascular complaints, Reports chest pain, Denies leg edema and Denies dyspnea Respiratory: Respiratory: Reports no additional respiratory complaints, Denies cough and Denies dyspnea Gastrointestinal: Gastrointestinal: Reports no additional gastrointestinal complaints, Denies abdominal pain, Denies diarrhea, Denies nausea and Denies vomiting Genitourinary: Genitourinary: Denies urinary incontinence Musculoskeletal: Musculoskeletal: Reports no additional musculoskeletal complaints, Denies back pain, Denies arthralgias, Denies joint swelling, Denies neck pain, Denies numbness and Denies tingling Integumentary/Breasts: Skin/Breast: Reports system reviewed and no additional complaints, except as docu and Denies rash Neurologic: Reports system reviewed and no additional complaints, except as documented, Denies Abnormal speech present, Denies dizziness, Denies headache(s), Denies numbness, Denies tingling and Denies weakness PMFSH Past Medical History Attestation statement: The following information was validated with the patient. Source: old records reviewed and nursing notes reviewed Medical History Arthritis Diabetes Essential hypertension History of stroke Hypertension Osteoporosis Other and unspecified hyperlipidemia Parkinson disease Vertigo Surgical History H/O hernia repair Hx of cataract surgery 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 Physical Exam Vital Signs: Vital Signs: Last Vital Signs Temp 99.5 F 03/09/21 14:21 Pulse 90 03/09/21 18:38 Resp 20 03/09/21 18:38 BP 126/78 03/09/21 18:38 Pulse Ox 95 03/09/21 18:38 Body Mass Index 29.3 Const: General: cooperative, healthy appearing, comfortable and no acute distress Orientation/consciousness: patient oriented x3 Limitations: no li mitations HENMT: Head: Yes normal to inspection Ears: hearing grossly normal bilaterally General nose exam: Normal external nose present Face and sinus: Yes normal facial exam Mouth: Normal oral and palatal mucosa present Throat: Yes posterior oropharynx normal Eyes: General: appearance normal, both eyes and all related structures Pupils: Equal, round and reactive pupils present Neck: Neck: Yes normal visual inspection Chest: Chest palpation & inspection: normal inspection of the chest Resp: Effort & Inspection: normal respiratory effort Auscultation: clear to auscultation bilaterally Cardio: Rate: regular rate Rhythm: regular rhythm Peripheral pulses: Peripheral pulses 2+ throughout GI: Inspection: Yes normal to inspection Palpation (GI): Soft to palpation and nontender Auscultation: normal bowel sounds Back/Spine/Pelvis: Thoracic/Lumbar Spine: thoracic and lumbar spine normal to inspection Skin: General skin exam: no rashes or lesions noted Neuro: General: patient oriented x3, no focal motor deficits and normal sensation to monofilament Cranial nerves: Yes Equal, round and reactive pupils present Cognition (Neuro): normal cognition Speech: No Abnormal speech present Gait exam (Neuro): Normal gait present Motor exam (neuro): 5/5 motor strength present throughout Extrem: General: Yes normal to inspection, Yes no pedal edema and Yes no calf tenderness Course Course Course Narrative: 70-year-old male Faroese-speaking here with complaints of episode of chest pressure which could at rest which is now resolved. Will need labs, chest x-ray, EKG 1714-labs show SHANEKA. Patient will need gentle hydration and urine sample. Plan for repeat troponin 2039-renal function is improved but not back at baseline. 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 I recommend he repeat his lab work outpatient. Recommended dehydrate appropriately. His urine shows no signs of infection. He has 2 troponins are flat. Less likely ACS. Reviewed worrisome signs and symptoms of when to return to the emergency department. Comfortable discharge home. MDM - Chest Pain Medical Records Data Attestation: I reviewed the patient's medical records. Lab Data Attestation: I reviewed the patient's lab results. Result diagrams: 03/09/21 16:06 03/09/21 20:03 Labs: Lab Results 03/09/21 03/09/21 03/09/21 Range/Units 16:06 16:06 16:06 WBC 8.9 (4.8-10.8) X10*3/uL RBC 4.76 (4.60-5.80) X10*6/uL Hgb 15.3 (14.0-18.0) g/dl Hct 44.9 (42.0-52.0) % MCV 94.3 (80.0-98.0) fL MCH 32.1 (27.0-33.0) pg MCHC 34.1 (31.0-36.0) g/dl RDW 11.9 (11.0-16.0) % Plt Count 196 (160-400) X10*3/uL MPV 12.0 (9.4-12.4) fL Immature Gran % (Auto) 0.3 (0.0-0.4) % Neut % (Auto) 66.6 (45-73) % Lymph % (Auto) 15.4 L (20-40) % [place] % (Auto) 17.2 H (2-11) % Eos % (Auto) 0.2 (0-4) % Baso % (Auto) 0.3 (0-2) % Lymph # (Auto) 1.4 (1.2-4.9) X10*3/uL [place] # (Auto) 1.5 H (0.1-1.2) X10*3/uL Eos # (Auto) 0.0 (0.0-0.4) X10*3/uL Baso # (Auto) 0.0 (0.0-0.2) X10*3/uL Abs Immat Gran (auto) 0.03 (0.00-0.03) X10*3/uL Absolute Neuts (auto) 5.9 (2.0-8.3) x10*3/uL Absolute Nucleated RBC 0.000 (0.0-0.012) X10*3/uL Nucleated RBC % (auto) 0.0 (0.0-0.2) /100WBC Smear Tech's Comments VERIFIED Sodium 138 (135-145) mmol/L Potassium 4.7 (3.3-5.1) mmol/L Chloride 100 (96-108) mmol/L Carbon Dioxide 27 (22-29) mmol/L Anion Gap 16 (12-20) BUN 35 H D (9-16) mg/dL Creatinine 1.85 H (0.5-1.4) mg/dL Estim Creat Clear Calc 36.4 Estimated GFR 36 Random Glucose 107 (60-115) mg/dL Calcium 9.4 (8.4-10.2) mg/dL Total Bilirubin 0.8 (0.0-1.0) mg/dL AST 24 D (5-37) U/L ALT 21 (0-40) U/L Alkaline Phosphatase 55 D (39-117) U/L Troponin I High Sens 4.4 (<3.5-35.0) ng/L Total Protein 7.5 (6.5-8.0) g/dL Albumin 4.4 (3.5-5.0) g/dL Urine Color Urine Appearance Urine pH (5.0-8.0) Ur Specific [place] (1.005-1.025) Urine Protein (NEG-TRACE) MG/DL Urine Glucose (UA) (NEG) MG/DL Urine Ketones (NEG) MG/DL Urine Blood (NEG) Urine Nitrite (NEG) Ur Leukocyte Esterase (NEG) Urine RBC (0) /HPF Urine WBC (0-4) /HPF Ur Squamous Epith Cells /LPF Calcium Oxalate Crystal /LPF Amorphous Sediment /LPF Urine Bacteria /LPF 03/09/21 03/09/21 03/09/21 Range/Units 18:40 20:03 20:03 WBC (4.8-10.8) X10*3/uL RBC (4.60-5.80) X10*6/uL Hgb (14.0-18.0) g/dl Hct (42.0-52.0) % MCV (80.0-98.0) fL MCH (27.0-33.0) pg MCHC (31.0-36.0) g/dl RDW (11.0-16.0) % Plt Count (160-400) X10*3/uL MPV (9.4-12.4) fL Immature Gran % (Auto) (0.0-0.4) % Neut % (Auto) (45-73) % Lymph % (Auto) (20-40) % [place] % (Auto) (2-11) % Eos % (Auto) (0-4) % Baso % (Auto) (0-2) % Lymph # (Auto) (1.2-4.9) X10*3/uL [place] # (Auto) (0.1-1.2) X10*3/uL Eos # (Auto) (0.0-0.4) X10*3/uL Baso # (Auto) (0.0-0.2) X10*3/uL Abs Immat Gran (auto) (0.00-0.03) X10*3/uL Absolute Neuts (auto) (2.0-8.3) x10*3/uL Absolute Nucleated RBC (0.0-0.012) X10*3/uL Nucleated RBC % (auto) (0.0-0.2) /100WBC Smear Tech's Comments Sodium 139 (135-145) mmol/L Potassium 4.4 (3.3-5.1) mmol/L Chloride 106 (96-108) mmol/L Carbon Dioxide 21 L (22-29) mmol/L Anion Gap 16 (12-20) BUN 34 H (9-16) mg/dL Creatinine 1.53 H (0.5-1.4) mg/dL Estim Creat Clear Calc 44.0 Estimated GFR 45 Random Glucose 100 (60-115) mg/dL Calcium 8.7 D (8.4-10.2) mg/dL Total Bilirubin (0.0-1.0) mg/dL AST (5-37) U/L ALT (0-40) U/L Alkaline Phosphatase (39-117) U/L Troponin I High Sens 4.3 (<3.5-35.0) ng/L Total Protein (6.5-8.0) g/dL Albumin (3.5-5.0) g/dL Urine Color YELLOW Urine Appearance CLEAR Urine pH 6.0 (5.0-8.0) Ur Specific [place] 1.025 (1.005-1.025) Urine Protein TRACE (NEG-TRACE) MG/DL Urine Glucose (UA) NEG (NEG) MG/DL Urine Ketones 15 (NEG) MG/DL Urine Blood TRACE (NEG) Urine Nitrite NEG (NEG) Ur Leukocyte Esterase NEG (NEG) Urine RBC 1-4 (0) /HPF Urine WBC 0 (0-4) /HPF Ur Squamous Epith Cells TRACE /LPF Calcium Oxalate Crystal TRACE /LPF Amorphous Sediment TRACE /LPF Urine Bacteria NONE /LPF Imaging Data Chest x-ray: Attestation: I personally reviewed and interpreted this imaging study as follows: Radiologist's impression: EXAMINATION: XR CHEST CLINICAL INFORMATION: Chest pain COMPARISON: Chest 07/14/2020 TECHNIQUE: 2 views of the chest were obtained. FINDINGS: No significant abnormality is noted involving the heart, lungs, mediastinum, bony thorax or soft tissues. XR/XR chest 2V IMPRESSION: Unremarkable chest examination. ECG Data ECG #1: Attestation: I personally reviewed and interpreted this ECG as follows: ECG interpretation date: 03/09/21 ECG interpretation time: 13:46 Interpretation: NSR with rate 80, normal pr, normal qrs, normal qt Discharge Plan Discharge Clinical Impression: Atypical chest pain, Acute dehydration, Anxiety Patient Disposition: Home, Self-Care Instructions: Dehydration (ED), Anxiety (ED), Chest Wall Pain (ED) Additional Instructions: Your blood work, EKG and chest x-ray are normal with the exception of some mild dehydration He received IV fluids and her blood work look improved. You need to follow-up with her outpatient providers to have your renal function retested in 1 week. Increase fluids at home, Prescriptions: New hydroxyzine HCl 25 mg tablet 25 mg PO BID PRN (Reason: anxiety) Qty: 14 RF: 0 No Action carvedilol [Coreg] 12.5 mg tablet 12.5 mg PO BID Qty: 60 RF: 5 losartan 100 mg tablet 100 mg PO DAILY RF: 0 omeprazole 20 mg capsule,delayed release(DR/EC) 20 mg PO DAILY RF: 0 spironolactone 25 mg tablet 25 mg PO DAILY Qty: 30 RF: 5 chlorthalidone 25 mg tablet 25 mg PO DAILY RF: 0 Referrals: Physician,Unknown J [Primary Care Provider] - 2 days Print Language: Faroese
[2021-03-09] MEDS: 0.9 % Sodium Chloride 1,000 ML 999 ML IV (17:28)
[2021-03-09 17:29] VITALS: BP 135/88; PULSE 85; RESP 15; O2SAT 96
[2021-03-09 18:38] VITALS: BP 126/78; PULSE 90; RESP 20; O2SAT 95
[2021-03-09 18:50] LABS: Appearance Urine CLEAR; Color Urine YELLOW; Glucose Urine UA NEG (NEG); Leukocyte Esterase Urine NEG (NEG); Nitrite Urine NEG (NEG); Specific Gravity - Urine 1.025 (1.005-1.025); UACC Culture Trigger NO; Urine Blood TRACE (NEG); Urine Ketones 15 MG/DL (NEG); Urine Protein TRACE MG/DL (NEG-TRACE)
[2021-03-09 19:00] LABS: Calcium Oxalate Crystals Urine TRACE /LPF; Squamous Epithelial Cell Urine TRACE /LPF
[2021-03-09 19:01] LABS: Amorphous Sediment Urine TRACE /LPF; WBC Urine 0 /HPF (0-4)
[2021-03-09 20:28] LABS: Anion Gap 16 (12-20); Blood Urea Nitrogen 34 mg/dL (9-16); Calcium 8.7 mg/dL (8.4-10.2); Carbon Dioxide 21 mmol/L (22-29); Chloride 106 mmol/L (96-108); Estimated Glomerular Filt Rate 45; Glucose Random 100 mg/dL (60-115); Potassium 4.4 mmol/L (3.3-5.1); Sodium 139 mmol/L (135-145)
[2021-03-09 20:30] LABS: Troponin-I High Sensitivity 4.3 ng/L (<3.5-35.0)
== END 2021-03-09 21:46 | disposition home or self-care (01) ==
PROVIDERS: Nurse Practitioner Family; Emergency Provider Emergency Medicine
DX: R07.9 Chest pain, unspecified (principal); I10 Essential (primary) hypertension; E78.5 Hyperlipidemia, unspecified; E86.0 Dehydration; F41.1 Generalized anxiety disorder; F43.0 Acute stress reaction; Z79.899 Other long term (current) drug therapy; Z20.822 Contact with and (suspected) exposure to COVID-19
CPT/HCPCS: 36415; 71046; 80048; 80053; 81001; 84484; 85025; 93005; 99284; 99285

== ENCOUNTER → 2021-06-14 09:11 | Outpatient (BNVA) | payer MEDICARE, SELFPAY | PROVIDERS: PCP Internal Medicine; Referring Provider Internal Medicine; Visit Provider Internal Medicine | DX: R07.2 Precordial pain (principal); I10 Essential (primary) hypertension; E78.5 Hyperlipidemia, unspecified; Z86.73 Personal history of transient ischemic attack (TIA), and cerebral infarction without residual deficits | CPT/HCPCS: 99212 ==

== ENCOUNTER 2021-06-22 09:26 | Outpatient (REF) | payer MEDICARE, SELFPAY ==
--- NOTE | ~2021-06-22 | XR_ITS ---
EXAMINATION: XR CHEST 2 VIEWS CLINICAL INFORMATION: Chills without fever. COMPARISON: Chest radiographs dated 03/09/2021. TECHNIQUE: Frontal and lateral views of the chest were obtained. FINDINGS: The heart, great vessels, pulmonary vasculature and mediastinum are normal. The lungs show no focal infiltrate, effusion or pneumothorax. There is no acute osseous abnormality. There is multi-level thoracic spondylosis. XR/XR chest 2V IMPRESSION: No active cardiopulmonary disease.
[2021-06-22 10:07] LABS: MANUAL DIFF FLAG NO
[2021-06-22 10:48] LABS: Basophils Percent Auto 0.5 % (0-2); Eosinophils Absolute Auto 0.1 X10*3/uL (0.0-0.4); Eosinophils Percent Auto 0.8 % (0-4); Hematocrit 43.6 % (42.0-52.0); Hemoglobin 14.5 g/dl (14.0-18.0); Imm Gran Abs Auto 0.01 X10*3/uL (0.00-0.03); Imm Gran Pct Auto 0.2 % (0.0-0.4); Lymphocytes Absolute Auto 1.5 X10*3/uL (1.2-4.9); Lymphocytes Percent Auto 23.7 % (20-40); Mean Corpuscular HGB Conc 33.3 g/dl (31.0-36.0); Mean Corpuscular Hemoglobin 31.7 pg (27.0-33.0); Mean Corpuscular Volume 95.4 fL (80.0-98.0); Mean Platelet Volume 13.3 fL (9.4-12.4); Monocytes Absolute Auto 0.6 X10*3/uL (0.1-1.2); Monocytes Percent Auto 9.4 % (2-11); Neutrophils Percent Auto 65.4 % (45-73); Platelet Count 177 X10*3/uL (160-400); Red Blood Count 4.57 X10*6/uL (4.60-5.80); White Blood Count 6.2 X10*3/uL (4.8-10.8)
[2021-06-22 11:18] LABS: Alanine Aminotransferase 18 U/L (0-40); Albumin Level 4.5 g/dL (3.5-5.0); Alkaline Phosphatase 50 U/L (39-117); Anion Gap 12 (12-20); Aspartate Amino Transferase 17 U/L (5-37); Bilirubin Direct 0.5 mg/dL (0.0-0.5); Bilirubin Total 1.5 mg/dL (0.0-1.0); Blood Urea Nitrogen 32 mg/dL (9-16); C Reactive Protein 0.05 mg/dL (< or = 0.50); Calcium 9.6 mg/dL (8.4-10.2); Carbon Dioxide 30 mmol/L (22-29); Chloride 103 mmol/L (96-108); Estimated Glomerular Filt Rate 42; Glucose Random 96 mg/dL (60-115); Potassium 4.4 mmol/L (3.3-5.1); Sodium 141 mmol/L (135-145); Total Protein 7.3 g/dL (6.5-8.0)
[2021-06-22 11:26] LABS: Thyroid Stimulating Hormone 1.11 uIU/mL (0.32-4.0)
[2021-06-24 11:47] LABS: TS Negative Control Passed; TS Panel A 0; TS Panel B 0; TS Positive Control Passed; TSpotTB Negative (Negative)
== END 2021-06-22 09:27 | disposition home or self-care (01) ==
LOC: HO.LAB 09:26
PROVIDERS: Absent Provider Internal Medicine; PCP Internal Medicine; Visit Provider Emergency Medicine
DX: Z11.1 Encounter for screening for respiratory tuberculosis (principal); R68.83 Chills (without fever)
CPT/HCPCS: 36415; 71046; 80048; 80076; 84443; 85025; 86140; 86481

== ENCOUNTER 2021-06-26 09:36 | Emergency (ER) | payer MEDICARE, SELFPAY ==
--- NOTE | ~2021-06-26 | CT_ITS ---
EXAMINATION: CT HEAD WITHOUT CONTRAST CLINICAL INFORMATION: Dizziness. COMPARISON: None TECHNIQUE: Contiguous axial imaging was performed from the skull base to vertex without intravenous administration of contrast. This CT examination was performed using dose optimization techniques as appropriate, variously including the following: *Automated exposure control *Adjustment of mA and/or kV according to patient size (this includes techniques or standardized protocols for targeted exams where dose is matched to indication/reason for exam; i.e. extremities or head) *Use of iterative reconstruction technique DLP: 1177 mGy-cm FINDINGS: There is no evidence of acute intracranial hemorrhage or territorial infarction. No abnormal mass effect or midline shift is seen. Caldwell to white matter differentiation is well preserved. No extra-axial fluid collections are identified. The lateral ventricles are symmetrical but slightly enlarged. There mild periventricular hypodensity seen in both cerebral hemispheres without mass effect.. The osseous structures and soft tissues are normal. The mastoid air cells and visualized portions of the paranasal sinuses are well aerated. CT/CT head/brain wo con IMPRESSION: No acute intracranial process seen.
--- NOTE | ~2021-06-26 | XR_ITS ---
EXAMINATION: XR CHEST CLINICAL INFORMATION: Chest pressure COMPARISON: None TECHNIQUE: 2 views of the chest were obtained. FINDINGS: No significant abnormality is noted involving the heart, lungs, mediastinum, bony thorax or soft tissues. XR/XR chest 2V IMPRESSION: Unremarkable chest examination.
--- NOTE | ~2021-06-26 | CT_ITS ---
EXAMINATION: CT ABDOMEN AND PELVIS WITHOUT CONTRAST CLINICAL INFORMATION: Epigastric pain COMPARISON: Ultrasound 07/01/2020 TECHNIQUE: Multidetector volumetric imaging was performed from the lung bases through the pubic symphysis. Sagittal and coronal reformatted images were obtained on the technologist workstation. This CT examination was performed using dose optimization techniques as appropriate, variously including the following: *Automated exposure control *Adjustment of mA and/or kV according to patient size (this includes techniques or standardized protocols for targeted exams where dose is matched to indication/reason for exam; i.e. extremities or head) *Use of iterative reconstruction technique FINDINGS: The lack of intravenous contrast limits evaluation of the solid visceral organs including the liver, spleen, pancreas, and kidneys. LUNG BASES: Lung bases are clear. Coronary artery calcification. Mild cardiomegaly. LIVER, GALLBLADDER, AND BILIARY TREE: Again seen is marked hypodensity of the left lobe of the liver and to a lesser extent patchy involvement of the right lobe of the liver consistent with hepatic steatosis. Similar heterogeneous pattern was seen on the prior study. No gross focal lesion. The gallbladder is unremarkable with no evidence of radiopaque gallstones, gallbladder wall thickening, or obvious pericholecystic inflammatory changes. PANCREAS: Limited non-contrast evaluation is normal. No casey-pancreatic fluid. SPLEEN: Limited non-contrast evaluation is normal. ADRENAL GLANDS: Normal; no adrenal mass. KIDNEYS AND URETERS: Limited non-contrast evaluation is normal. No hydronephrosis, hydroureter, or calculi seen. No perinephric stranding. GASTROINTESTINAL TRACT: Small bowel and colon are non-dilated. No bowel wall thickening. No pericolonic inflammatory changes to suggest colitis or diverticulitis. ABDOMINAL WALL: Small fat-containing umbilical hernia. There is fat within the inguinal canals bilaterally. LYMPH NODES: There are some prominent peripancreatic lymph nodes. The largest is seen anterior to the IVC measuring 9 x 13 mm. None are truly pathologically enlarged by short axis size criteria. VASCULAR: Normal caliber abdominal aorta. BLADDER: No stones or focal wall thickening. PELVIC VISCERA: Prostatomegaly. OSSEOUS STRUCTURES: No acute or suspicious osseous abnormalities. CT/CT abdomen pelvis w con IMPRESSION: No acute CT findings. No findings to explain epigastric pain. Note that a normal CT scan does not exclude mild acute pancreatitis by serum enzymes. Heterogeneous hepatic steatosis.
[2021-06-26 10:11] VITALS: BP 128/74; PULSE 77; RESP 18; TEMP 37.3; O2SAT 96; BMI 27.7
--- NOTE | 2021-06-26 10:59 | ECG_ITS ---
Test Reason : DIZZINESS Blood Pressure : / mmHG Vent. Rate : 066 BPM Atrial Rate : 066 BPM P-R Int : 172 ms QRS Dur : 090 ms QT Int : 408 ms P-R-T Axes : 011 -13 016 degrees QTc Int : 427 ms Normal sinus rhythm Minimal voltage criteria for LVH, may be normal variant ( R in aVL ) Borderline ECG When compared with ECG of 09-MAR-2021 13:46, No significant change was found Referred By: Violeta Buchanan Electronically Signed By:RIKKI SELLERS MD
[2021-06-26] MEDS: 0.9 % Sodium Chloride 1,000 ML 999 ML IV (11:20)
--- NOTE | 2021-06-26 11:21 | ED.ABDPAIN ---
HPI - Abdominal Pain General Chief Complaint: Dizziness Stated Complaint: Abnormal labs Time Seen by Provider: 06/26/21 09:58 Source: patient Mode of arrival: ambulatory Limitations: language barrier History of Present Illness HPI narrative: 71-year-old Bangladeshi-speaking male presents for pain and pressure in his epigastric region that started 1 week ago. Patient was also called by [facility] yesterday, possibly for lab follow-up, patient does not know why [facility] called him for labs. Patient stated to triage that he had been dizzy, but he is clear in our interview that he is here for discomfort in his abdomen. The pain in his abdomen started 1 week ago and is intermittent. It is worse with movement, he has no pain currently. The pain is not worse with eating. The pain at its worse is 6/10. Patient had a heart attack 16 years ago, still this pain feels different. No history of pancreatitis. Denies nausea, vomiting, diarrhea, dysuria, fever. Denies alcohol use or NSAID use. States he has been taking Tylenol for pain. MD elicited complaint: abdominal pain Onset (ago): week(s) (1) Pain Consistency: intermittent Location: epigastric Severity: moderate Pain scale (0-10): 6 Radiation: none Exacerbating factors: nothing Relieving factors: nothing Associated symptoms: denies other symptoms Related Data Home Medications Medication Instructions Recorded Confirmed losartan 100 mg tablet 100 mg PO DAILY 02/20/20 06/14/21 omeprazole 20 mg capsule,delayed 20 mg PO DAILY 02/20/20 06/14/21 release chlorthalidone 25 mg tablet 25 mg PO DAILY 06/04/20 06/14/21 Previous Rx's Medication Instructions Recorded carvedilol 12.5 mg tablet (Coreg) 12.5 mg PO BID #60 tab 02/10/21 spironolactone 25 mg tablet 25 mg PO DAILY #30 tab 05/18/21 Allergies Allergy/AdvReac Type Severity Reaction Status Date / Time No Known Allergies Allergy Verified 06/14/21 09:25 [No Known Allergies*] Review of Systems Constitutional: Denies body ache(s), Denies chills, Denies fatigue, Denies fever(s), Denies headache(s), Denies malaise and Denies weakness Eyes: Denies diplopia Reports Normal hearing present, Denies vertigo, Reports dizziness, Denies otalgia, Denies headache(s), Denies mouth pain, Denies post nasal drip, Denies sinus pain, Denies sinus pressure, Denies sore throat and Denies throat swelling Cardiovascular: Denies chest pain, Denies syncope, Denies leg edema, Denies lightheadedness, Denies Loss of Consciousness, Denies palpitations and Denies dyspnea Respiratory: Denies chest congestion, Denies cough and Denies dyspnea Gastrointestinal: Reports abdominal pain, Denies melena, Denies hematochezia, Denies change in bowel habits, Denies change in stool character, Denies coffee ground emesis, Denies constipation, Denies fecal incontinence, Denies diarrhea, Denies vomiting and Denies hematemesis Genitourinary: Denies hematuria, Denies dysuria and Denies flank pain Musculoskeletal: Reports no additional musculoskeletal complaints Reports Normal hearing present, Denies Abnormal speech present, Denies confusion, Denies vertigo, Reports dizziness, Denies syncope, Denies headache(s), Denies Sensory deficit (Neuro) and Denies weakness Psychiatric: Denies anxiety, Denies confusion and Denies depression Endocrine: Denies fatigue and Denies palpitations Allergic/Immunologic: Denies throat swelling PMFSH Past Medical History Medical History Arthritis Diabetes Essential hypertension History of stroke Hypertension Osteoporosis Other and unspecified hyperlipidemia Parkinson disease Vertigo Surgical History H/O hernia repair Hx of cataract surgery Family History Family History Father No problems noted. Mother No problems noted. 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 Physical Exam ED Vital Signs: Vital Signs - 24 hr 06/26/21 10:11 06/26/21 13:22 06/26/21 14:06 Temperature 99.1 F 98.3 F Pulse Rate 77 78 79 Respiratory Rate 18 18 18 Blood Pressure 128/74 120/81 145/85 H Pulse Oximetry 96 96 94 BMI result Body Mass Index 27.7 Const Other: baseline tremor General: comfortable, no acute distress, alert and awake; No confusion Nutritional Appearance: well nourished Orientation/consciousness: patient oriented x3 and No confusion Limitations: language barrier HENMT Head: Yes normal to inspection and Yes No palpable skull fracture present Ears: hearing grossly normal bilaterally, external ears normal and TM's normal bilaterally General nose exam: Normal external nose present Face and sinus: Yes normal facial exam Mouth: Normal oral and palatal mucosa present Throat: Yes posterior oropharynx normal Eyes Alignment and Position: alignment normal Pupils: Equal, round and reactive pupils present EOM: EOMs intact bilaterally and No Nystagmus present Neck Neck: Yes normal visual inspection, Yes full ROM, Yes no lymphadenopathy, Yes no meningeal signs, Yes trachea midline and Yes supple Chest Chest palpation & inspection: normal inspection of the chest Resp Effort & Inspection: normal respiratory effort and able to speak in complete sentences Auscultation: clear to auscultation bilaterally, no crackles, no rales, no rhonchi and no wheezes Cardio Rate: regular rate Rhythm: regular rhythm Heart sounds: S1 normal heart sound present and S2 normal heart sound present GI Inspection: Yes normal to inspection and No distended Palpation (GI): Soft to palpation, Tenderness to palpation present (GI) in the epigastrum and Guarding due to palpation present (GI) (epigastric) Percussion: Yes normal to percussion Rectal Exam - Male: Yes deferred General: Yes no CVA tenderness Back/Spine/Pelvis Back: no CVA tenderness Skin General skin exam: no rashes or lesions noted Neuro General: patient oriented x3, no meningeal signs and No confusion Cranial nerves: Yes CN's II-XII intact bilaterally, Yes Facial sensation intact/muscles of mastication intact, Yes Equal, round and reactive pupils present, Yes Normal accommodation reflex present, Yes Bilaterally intact EOM present, Yes Nystagmus not present, Yes Normal facial strength present, Yes Midline tongue present, Yes Normal hearing present, Yes Ability to bilaterally rotate head present, Yes Ability to bilaterally elevate shoulders present and No Nystagmus present Cognition (Neuro): normal cognition Speech: No Abnormal speech present Motor exam (neuro): 5/5 motor strength present throughout, Pronator motor function not present and Tremors during motor activity present Sensory Exam: No Sensory deficit (Neuro) Deep tendon reflexes (DTR's): Right brachioradialis reflex intensity grade: 1+, Left brachioradialis reflex intensity grade: 1+, Right patellar reflex intensity grade: 1+ and Left patellar reflex intensity grade: 1+ Coordination: [id number] test normal and [id number] test normal Romberg Test: Negative Pupils: Normal pupillary reactivity/response: bilateral Extrem General: Yes normal to inspection, Yes full ROM and Yes capillary refill normal Psych Appearance: grossly normal Mental Status: mental status grossly normal Speech and movement: Normal speech and movement present Affect: normal affect Course Course Course Narrative: 71-year-old male with a past medical history of Parkinson's, stroke, hypertension, hyperlipidemia, prediabetes, presents for epigastric pain for 1 week. On exam, patient is well appearing, with normal vitals. Patient has a baseline tremor. He is clear in his presentation to ri of abdominal pain, despite there being confusion about why he was sent here. Triage had patient's son here due to abnormal labs, patient has stated to nursing he was here for dizziness. On reinterview with senior environmental practice leader, patient states that he had 1 episode of dizziness yesterday that resolved. Patient is not currently dizzy. He does have a history of vertigo and does take medicine for this. Again, patient has no focal neuro deficits, no new gait impairment. Patient does walk with a walker, this is his baseline with no changes. Patient is guarding in his epigastrium, although he denies pain there. He is neurologically intact, abdomen is soft. Will get EKG, troponin, as labs, CT abdomen and head, chest x-ray, COVID. Reevaluation(s) Reevaluation #1: Patient COVID negative, negative troponin, EKG shows no acute ischemia. Labs are remarkable for bilirubin of 1.4. LFTs are not elevated, lipase is within normal limits. Awaiting chest x-ray and CT head in abdomen. Patient has not had any pain or any symptoms since he has been here in the emergency room the entire time. Reevaluation #2: Head CT and CT abdomen pelvis are normal. Unremarkable CXR. As patient is not in any pain, and his workup is negative, will send patient home with PCP follow-up Patient does take omeprazole intermittently, has not taken any recently. MDM - Abdominal Pain Medical Records Attestation: I reviewed the patient's medical records. Lab Data Attestation: I reviewed the patient's lab results. Result diagrams: 06/26/21 11:18 06/26/21 11:18 Labs: Lab Results 06/26/21 06/26/21 06/26/21 Range/Units 11:18 11:18 11:18 WBC 5.9 (4.8-10.8) X10*3/uL RBC 4.49 L (4.60-5.80) X10*6/uL Hgb 14.1 (14.0-18.0) g/dl Hct 42.3 (42.0-52.0) % MCV 94.2 (80.0-98.0) fL MCH 31.4 (27.0-33.0) pg MCHC 33.3 (31.0-36.0) g/dl RDW 11.8 (11.0-16.0) % Plt Count 168 (160-400) X10*3/uL MPV 12.8 H (9.4-12.4) fL Immature Gran % (Auto) 0.2 (0.0-0.4) % Neut % (Auto) 77.2 H (45-73) % Lymph % (Auto) 16.0 L (20-40) % Washburn % (Auto) 5.6 (2-11) % Eos % (Auto) 0.5 (0-4) % Baso % (Auto) 0.5 (0-2) % Lymph # (Auto) 0.9 L (1.2-4.9) X10*3/uL [place] # (Auto) 0.3 (0.1-1.2) X10*3/uL Eos # (Auto) 0.0 (0.0-0.4) X10*3/uL Baso # (Auto) 0.0 (0.0-0.2) X10*3/uL Abs Immat Gran (auto) 0.01 (0.00-0.03) X10*3/uL Absolute Neuts (auto) 4.5 (2.0-8.3) x10*3/uL Absolute Nucleated RBC 0.000 (0.0-0.012) X10*3/uL Nucleated RBC % (auto) 0.0 (0.0-0.2) /100WBC Sodium 139 (135-145) mmol/L Potassium 4.3 (3.3-5.1) mmol/L Chloride 104 (96-108) mmol/L Carbon Dioxide 29 (22-29) mmol/L Anion Gap 10 L (12-20) BUN 29 H (9-16) mg/dL Creatinine 1.25 (0.5-1.4) mg/dL Estim Creat Clear Calc 51.7 Estimated GFR 57 Random Glucose 108 (60-115) mg/dL Calcium 9.8 (8.4-10.2) mg/dL Total Bilirubin 1.4 H (0.0-1.0) mg/dL AST 18 (5-37) U/L ALT 15 (0-40) U/L Alkaline Phosphatase 48 (39-117) U/L Troponin I High Sens < 3.5 (<3.5-35.0) ng/L Total Protein 7.1 (6.5-8.0) g/dL Albumin 4.3 (3.5-5.0) g/dL Lipase 30 (8-78) U/L COVID-19 (JAJA) (Negative) COVID-19 Clin Com 06/26/21 Range/Units 11:42 WBC (4.8-10.8) X10*3/uL RBC (4.60-5.80) X10*6/uL Hgb (14.0-18.0) g/dl Hct (42.0-52.0) % MCV (80.0-98.0) fL MCH (27.0-33.0) pg MCHC (31.0-36.0) g/dl RDW (11.0-16.0) % Plt Count (160-400) X10*3/uL MPV (9.4-12.4) fL Immature Gran % (Auto) (0.0-0.4) % Neut % (Auto) (45-73) % Lymph % (Auto) (20-40) % Washburn % (Auto) (2-11) % Eos % (Auto) (0-4) % Baso % (Auto) (0-2) % Lymph # (Auto) (1.2-4.9) X10*3/uL Washburn # (Auto) (0.1-1.2) X10*3/uL Eos # (Auto) (0.0-0.4) X10*3/uL Baso # (Auto) (0.0-0.2) X10*3/uL Abs Immat Gran (auto) (0.00-0.03) X10*3/uL Absolute Neuts (auto) (2.0-8.3) x10*3/uL Absolute Nucleated RBC (0.0-0.012) X10*3/uL Nucleated RBC % (auto) (0.0-0.2) /100WBC Sodium (135-145) mmol/L Potassium (3.3-5.1) mmol/L Chloride (96-108) mmol/L Carbon Dioxide (22-29) mmol/L Anion Gap (12-20) BUN (9-16) mg/dL Creatinine (0.5-1.4) mg/dL Estim Creat Clear Calc Estimated GFR Random Glucose (60-115) mg/dL Calcium (8.4-10.2) mg/dL Total Bilirubin (0.0-1.0) mg/dL AST (5-37) U/L ALT (0-40) U/L Alkaline Phosphatase (39-117) U/L Troponin I High Sens (<3.5-35.0) ng/L Total Protein (6.5-8.0) g/dL Albumin (3.5-5.0) g/dL Lipase (8-78) U/L COVID-19 (JAJA) Negative (Negative) COVID-19 Clin Com See Note ECG Data Interpretation: EKG shows sinus at 66, KS 172, QRS 90, QTC 427. Patient has left-sided axis, no ST depression or elevation, no T-wave abnormality. There is some artifact from his tremor. Discharge Plan Discharge Clinical Impression: Acute epigastric pain Patient Disposition: Home, Self-Care Instructions: Epigastric Pain (ED) Additional Instructions: Please call your primary care provider on Monday. You need to be seen in the next 3 days. Please continue to take your omeprazole. Please return to the emergency room if you have any worsening pain, vomiting, fevers, or any other new or concerning symptoms. Llame a carbone proveedor de atenci?n primaria el lunes. Necesita ser visto en los pr?ximos 3 d?as. Contin?e tomando carbone omeprazol. Regrese a la isadora de emergencias si tiene un empeoramiento del dolor, v?mitos, fiebre o cualquier otro s?ntoma nuevo o preocupante. Prescriptions: No Action carvedilol [Coreg] 12.5 mg tablet 12.5 mg PO BID Qty: 60 5RF Rx Instructions: must administer with a meal/food spironolactone 25 mg tablet 25 mg PO DAILY Qty: 30 5RF losartan 100 mg tablet 100 mg PO DAILY 0RF omeprazole 20 mg capsule,delayed release(DR/EC) 20 mg PO DAILY 0RF chlorthalidone 25 mg tablet 25 mg PO DAILY 0RF Print Language: Bangladeshi
[2021-06-26 11:24] LABS: MANUAL DIFF FLAG NO
[2021-06-26 11:26] LABS: Basophils Percent Auto 0.5 % (0-2); Eosinophils Percent Auto 0.5 % (0-4); Hematocrit 42.3 % (42.0-52.0); Hemoglobin 14.1 g/dl (14.0-18.0); Imm Gran Abs Auto 0.01 X10*3/uL (0.00-0.03); Imm Gran Pct Auto 0.2 % (0.0-0.4); Lymphocytes Absolute Auto 0.9 X10*3/uL (1.2-4.9); Mean Corpuscular HGB Conc 33.3 g/dl (31.0-36.0); Mean Corpuscular Hemoglobin 31.4 pg (27.0-33.0); Mean Corpuscular Volume 94.2 fL (80.0-98.0); Mean Platelet Volume 12.8 fL (9.4-12.4); Monocytes Absolute Auto 0.3 X10*3/uL (0.1-1.2); Monocytes Percent Auto 5.6 % (2-11); Neutrophils Absolute Auto 4.5 x10*3/uL (2.0-8.3); Neutrophils Percent Auto 77.2 % (45-73); Platelet Count 168 X10*3/uL (160-400); Red Blood Count 4.49 X10*6/uL (4.60-5.80); Red Cell Distribution Width 11.8 % (11.0-16.0); White Blood Count 5.9 X10*3/uL (4.8-10.8)
[2021-06-26 11:44] LABS: Troponin-I High Sensitivity < 3.5 ng/L (<3.5-35.0)
--- NOTE | 2021-06-26 11:45 | PC.NURSE ---
covid swab obtained
[2021-06-26 12:14] LABS: Alanine Aminotransferase 15 U/L (0-40); Albumin Level 4.3 g/dL (3.5-5.0); Alkaline Phosphatase 48 U/L (39-117); Anion Gap 10 (12-20); Aspartate Amino Transferase 18 U/L (5-37); Bilirubin Total 1.4 mg/dL (0.0-1.0); Blood Urea Nitrogen 29 mg/dL (9-16); Calcium 9.8 mg/dL (8.4-10.2); Carbon Dioxide 29 mmol/L (22-29); Chloride 104 mmol/L (96-108); Creatinine Clr Calc Pharmacy 51.7; Estimated Glomerular Filt Rate 57; Glucose Random 108 mg/dL (60-115); Lipase 30 U/L (8-78); Potassium 4.3 mmol/L (3.3-5.1); Sodium 139 mmol/L (135-145); Total Protein 7.1 g/dL (6.5-8.0)
[2021-06-26 12:15] LABS: COVID-19 Test Negative (Negative); IDNOW Serial# 16C4AD1C
[2021-06-26 13:22] VITALS: BP 120/81; PULSE 78; RESP 18; TEMP 36.8; O2SAT 96
--- NOTE | 2021-06-26 13:23 | PC.NURSE ---
pt a&ox3, vss, pt denies pain/dizziness at this time, 20G IV started R AC, flds restarted.
--- NOTE | 2021-06-26 13:26 | PC.NURSE ---
per radiology patients iv infiltrated during ct scan, will attempt new access to finish patients iVF
[2021-06-26] MEDS: iohexoL 350 MG/ML 100 ML INFUS..BTL IV (13:40)
[2021-06-26 14:06] VITALS: BP 145/85; PULSE 79; RESP 18; O2SAT 94
== END 2021-06-26 15:02 | disposition home or self-care (01) ==
PROVIDERS: Physician Assistant; Emergency Provider Emergency Medicine; PCP Internal Medicine
DX: R10.13 Epigastric pain (principal); R42 Dizziness and giddiness; Z20.822 Contact with and (suspected) exposure to COVID-19; I10 Essential (primary) hypertension; R73.03 Prediabetes; G20 Parkinson's disease; E78.5 Hyperlipidemia, unspecified; Z86.73 Personal history of transient ischemic attack (TIA), and cerebral infarction without residual deficits
CPT/HCPCS: 70450; 71046; 74177; 80053; 83690; 84484; 85025; 87635; 93005; 96360; 99284; 99285; Q9967

== ENCOUNTER → 2021-07-01 13:31 | Outpatient (BNVA) | payer MEDICARE, SELFPAY | PROVIDERS: PCP Internal Medicine; Visit Provider Physician Assistant | DX: M75.80 Other shoulder lesions, unspecified shoulder (principal) | CPT/HCPCS: 99212 ==

== ENCOUNTER → 2021-07-27 09:29 | Outpatient (BNVA) | payer OTHER, SELFPAY | PROVIDERS: PCP Internal Medicine; Visit Provider Orthopaedic Surgery | DX: M19.032 Primary osteoarthritis, left wrist (principal); M65.332 Trigger finger, left middle finger; M79.89 Other specified soft tissue disorders; R73.03 Prediabetes; G20 Parkinson's disease; I10 Essential (primary) hypertension; M81.0 Age-related osteoporosis without current pathological fracture | CPT/HCPCS: 99212 ==

== ENCOUNTER 2021-07-29 10:23 | Outpatient (REF) | payer OTHER, SELFPAY ==
--- NOTE | ~2021-07-29 | US_ITS ---
EXAMINATION: US ABDOMEN COMPLETE CLINICAL INFORMATION: Left upper quadrant pain. COMPARISON: CT abdomen and pelvis 06/26/2021. Ultrasound abdomen complete 07/01/2020 and 05/30/2014. TECHNIQUE: Real-time imaging of the abdominal viscera. FINDINGS: PANCREAS: The head is normal in appearance. The body and tail are obscured by bowel gas. ABDOMINAL AORTA: The proximal, mid, and distal segments are normal in caliber. INFERIOR VENA CAVA: Visualized portions are normal. LIVER: The liver is normal in size. The liver contour is normal. Again demonstrated is a diffusely heterogeneous echotexture to the liver parenchyma, which is difficult to penetrate. No focal hepatic lesion. There is no intrahepatic biliary duct dilatation seen. GALLBLADDER: Normal. The gallbladder is physiologically distended without evidence of stones, sludge, polyps, wall thickening or pericholecystic fluid. COMMON BILE DUCT: Normal in caliber measuring 0.3 cm in diameter. RIGHT KIDNEY: Prominent renal pyramids, similar to the prior study. No hydronephrosis. No renal calculi or focal parenchymal lesions. The kidney measures 10.4 cm in maximum dimension. LEFT KIDNEY: Prominent renal pyramids, similar to the prior study. No hydronephrosis. No renal calculi or focal parenchymal lesions. The kidney measures 10.1 cm in maximum dimension. SPLEEN: The spleen is difficult to evaluate due to high position and overlying bowel gas. The spleen grossly measures 6.2 cm in maximum dimension. FREE FLUID: None. US/US abdomen complete IMPRESSION: Diffusely heterogeneous echotexture to the liver parenchyma is again demonstrated, likely due to hepatic steatosis. No definite focal lesion is demonstrated. Again demonstrated are prominent bilateral renal pyramids. No echogenic renal calculi or hydronephrosis. The spleen is poorly visualized due to high position and overlying bowel gas.
== END 2021-07-29 10:24 | disposition home or self-care (01) ==
LOC: HO.US 10:23
PROVIDERS: Visit Provider Emergency Medicine
DX: R10.12 Left upper quadrant pain (principal)
CPT/HCPCS: 76700

== ENCOUNTER 2021-08-26 09:12 | Day surgery (SDC) | payer MEDICARE, SELFPAY ==
--- NOTE | ~2021-08-26 | FL_ITS ---
EXAMINATION: XR FLUOROSCOPY WITH IMAGES CLINICAL INFORMATION: Intraoperative fluoroscopy. COMPARISON: None. TECHNIQUE: Fluoroscopy performed by Dr. Ace. Fluoroscopy time: 7.3 seconds. DAP: 4260 mGycm2 Images: 1 FINDINGS: Intraoperative fluoroscopy, single C-arm view of the wrist left submitted showing needle positioned at the level of the scapholunate space. FL/FL guidance in OR IMPRESSION: Intraoperative fluoroscopy provided, metal marker placed at the level of the scapholunate space.
--- NOTE | 2021-08-26 08:55 | W.PM.OPN ---
Operative Note Operative Note Date of Service: 08/26/21 Narrative: Operative Note Preop diagnosis: 1. left middle finger Trigger finger 2. Left middle finger dorsal mass 3. Left wrist arthritis Postop diagnosis: same Procedure: 1. left middle finger A1 cammy release 2. Left middle finger dorsal soft tissue skin mass excisional biopsy 3. Left wrist steroid injection using the FluoroScan for needle guidance Surgeon: Lisy Ace MD Anesthesia: local block using 1% lidocaine with epinephrine Findings: No locking or catching after A1 cammy release EBL: Less than 5 mL Tourniquet time: None findings: pedunculated mass over dorsal aspect of left middle finger PIP joint measuring approximately 3 mm in diameter by approximately 54 mm in length. No locking and catching after A1 cammy release. Specimens: left middle finger dorsal soft tissue mass for histopathology Complications: None Disposition: Brought to recovery room in stable condition Plan: Follow-up for 10-14 days for wound check and suture removal Indications: The patient is 71 years old, with a left middle finger soft tissue mass, and a left middle finger trigger finger and left wrist arthritis that has been unresponsive to nonoperative management. The risks and benefits of operative treatment including but not limited to risk of damage to blood vessels, nerves, tendons, infection, persistent pain, persistent symptoms, recurrence or possible need for additional surgery were discussed with the patient and the patient wishes to proceed with surgery. Procedure: Once consent was obtained a local block was performed in the preop area using a combination of 1% lidocaine with epinephrine. The patient was then brought back to the operating suite and placed on the operative table in supine position. A tourniquet was applied to the proximal aspect of the left upper extremity and the limb was prepped and draped in a standard surgical fashion. Once assured that we had a good block, a 1.5 cm oblique incision was made centered over the A1 cammy of the Left middle finger . The incision was made through the skin to the subcutaneous tissues using a #15 blade. Careful dissection was made down to the level of the A1 cammy using tenotomy scissors, with care being taken to protect the nearby neurovascular structures. A longitudinal incision was made in the A1 cammy 1st using a #15 blade, then using tenotomy scissors under direct visualization. The A1 cammy was noted to be thickened. Following our A1 cammy release, we no longer saw any locking or catching of the digit with flexion and extension. Once satisfied with our A1 cammy release the wound was copiously irrigated with normal saline and hemostasis was obtained with a brief period of local pressure. The skin edges were reapproximated with some 5.0 nylon suture material . Our attentionwas then turned to the pedunculated mass over the dorsal aspect of the left middle finger PIP joint. I made a 1.1 cm longitudinal elliptical incision about the base of the pedunculated mass. The incision was made through the skin the subcutaneous tissues using a 15. Blade. This a lip to call piece of skin was then carefully excised from the underlying subcutaneous tissue removed from the patient and placed on the back table to be sent for histopathology. The wound was then irrigated with normal saline and the skin edges were reapproximated with some 5 0 Prolene suture material.. our attention was then turned to the left wrist steroid injection. We used the FluoroScan for needle guidance. We injected into his widened scapholunate interval using the FluoroScan for needle guidance as we injected 1 mL of 80 milligrams/mL Depo-Medrol with some 0.25% plain Marcaine. He tolerated this well. Sterile dressings were then applied. The patient appears to have tolerated the procedures well and with no complications. All digits were well vascularized at the conclusion of the case. Operative Note .
[2021-08-26 09:22] VITALS: BMI 28.2
[2021-08-26 09:28] VITALS: BP 125/67; PULSE 85; RESP 16; TEMP 36.3; O2SAT 97
--- NOTE | 2021-08-26 09:32 | PC.NURSE ---
has tremors. ambulated steady gait with walker
--- NOTE | 2021-08-26 11:39 | MHC.SHP ---
Pre-Procedural Eval Section A Date of Service: 08/26/21 Section B Chief Complaint: trigger finger,mass Allergies: Allergies Allergy/AdvReac Type Severity Reaction Status Date / Time No Known Allergies Allergy Verified 07/27/21 10:01 [No Known Allergies*] Plan I have reviewed the history and physical and performed a pertinent physical examination on my patient. No changes have occurred unless specified.
[2021-08-26 12:15] VITALS: BP 137/75; PULSE 80; RESP 18; TEMP 37.2; O2SAT 95
== END 2021-08-26 13:11 | disposition home or self-care (01) ==
PROVIDERS: PCP Internal Medicine; Visit Provider Orthopaedic Surgery
PROC: (CPT 26055; principal; 2021-08-26 12:40)
PROC: (CPT 26055; 2021-08-26 12:40)
PROC: (CPT 26055; 2021-08-26 12:40)
DX: M65.332 Trigger finger, left middle finger (principal); D23.62 Other benign neoplasm of skin of left upper limb, including shoulder; M19.132 Post-traumatic osteoarthritis, left wrist; M79.89 Other specified soft tissue disorders
CPT/HCPCS: 26055; 11422; 20605; 88305; J0171; J1020; J1040

== ENCOUNTER → 2021-09-08 09:19 | Outpatient (BNVA) | payer MEDICARE, SELFPAY | PROVIDERS: PCP Internal Medicine; Visit Provider Orthopaedic Surgery | DX: M79.89 Other specified soft tissue disorders (principal); M65.332 Trigger finger, left middle finger; M19.139 Post-traumatic osteoarthritis, unspecified wrist | CPT/HCPCS: 99212 ==

== ENCOUNTER → 2021-11-29 09:46 | Outpatient (BNVA) | payer MEDICARE, SELFPAY | PROVIDERS: PCP Internal Medicine; Referring Provider Internal Medicine; Visit Provider Internal Medicine | DX: I10 Essential (primary) hypertension (principal); E78.5 Hyperlipidemia, unspecified; Z86.73 Personal history of transient ischemic attack (TIA), and cerebral infarction without residual deficits | CPT/HCPCS: 99212 ==

== ENCOUNTER → 2021-12-31 09:35 | Outpatient (BNVA) | payer MEDICARE, SELFPAY | PROVIDERS: PCP Internal Medicine; Visit Provider Physician Assistant | DX: M65.332 Trigger finger, left middle finger (principal); M19.139 Post-traumatic osteoarthritis, unspecified wrist | CPT/HCPCS: 99212 ==

== ENCOUNTER 2022-01-17 08:38 | Day surgery (SDC) | payer MEDICARE, SELFPAY ==
[2022-01-11 14:47] VITALS: BMI 28.4
--- NOTE | ~2022-01-17 | FL_ITS ---
EXAMINATION: XR FLUOROSCOPY WITH IMAGES CLINICAL INFORMATION: Wrist steroid injection. COMPARISON: Fluoroscopic spot view 08/26/2021 TECHNIQUE: Fluoroscopy performed by Dr. Lisy Ace. Fluoroscopy time: 9 seconds. Cumulative Dose: 0.215 mGy. DAP: 0.013 Gycm2. Images: 1. FINDINGS: There is a needle with tip at the proximal radial carpal space near the scapholunate articulation. No visible vascular contrast. FL/FL guidance in OR IMPRESSION: Fluoroscopy for orthopedic procedure.
[2022-01-17 09:03] VITALS: BP 119/58; PULSE 77; RESP 18; TEMP 36.4; O2SAT 97
--- NOTE | 2022-01-17 10:41 | MHC.SHP ---
Pre-Procedural Eval Section A Date of Service: 01/17/22 The patient is an INPATIENT: No Changes since office visit: No Cold of Flu in the past 2 weeks, No New Medical Problems, No Changes in Medication and No Patient answered all questions The History & Physical has been completed within 30 days and I have reviewed it.: No Section B Chief Complaint: Post-traumatic osteoarthritis, unspecified wrist Allergies: Allergies Allergy/AdvReac Type Severity Reaction Status Date / Time No Known Allergies Allergy Verified 01/17/22 09:04 [No Known Allergies*] Plan I have reviewed the history and physical and performed a pertinent physical examination on my patient. No changes have occurred unless specified.
--- NOTE | 2022-01-17 10:41 | PM.PRCOR ---
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 Risks and benefits of a steroid injection were discussed with him any wished to proceed with the steroid injection today. Injection #1: The risks and benefits of a steroid injection including but not limited to risk of damage to blood vessels, nerves, tendons, infection, skin bleaching, failure to improve symptoms, increased pain, and possible need for further injections or other intervention were discussed with the patient and the patient wishes to proceed with the steroid injection. Once consent was obtained, I sterilely prepped the area over dorsal aspect of the left wrist . I then injected the left wrist joint using the FluoroScan for needle guidance with a combination of 1 mL of Depo-Medrol (80mg/ml), and 0.5% plain ropivacaine. The patient tolerated the procedure well and in with no complications, and had good relief of symptoms before leaving clinic. he will follow-up in clinic p.r.n.
[2022-01-17 10:57] VITALS: BP 102/60; PULSE 69; RESP 18; O2SAT 97
== END 2022-01-17 11:00 | disposition home or self-care (01) ==
PROVIDERS: PCP Internal Medicine; Visit Provider Orthopaedic Surgery
PROC: (CPT 20605; principal; 2022-01-17 09:10)
DX: M19.132 Post-traumatic osteoarthritis, left wrist (principal); M81.0 Age-related osteoporosis without current pathological fracture; I10 Essential (primary) hypertension; E11.9 Type 2 diabetes mellitus without complications; E78.5 Hyperlipidemia, unspecified; G20 Parkinson's disease; R42 Dizziness and giddiness; Z79.899 Other long term (current) drug therapy
CPT/HCPCS: 20605; J1040; J2795

== ENCOUNTER → 2022-05-13 10:25 | Outpatient (BNVA) | payer MEDICARE, SELFPAY | PROVIDERS: Visit Provider Orthopaedic Surgery | DX: M19.139 Post-traumatic osteoarthritis, unspecified wrist (principal); M65.332 Trigger finger, left middle finger | CPT/HCPCS: 99212 ==

== ENCOUNTER → 2022-05-31 10:15 | Outpatient (BNVA) | payer MEDICARE, SELFPAY | PROVIDERS: PCP Internal Medicine; Referring Provider Internal Medicine; Visit Provider Internal Medicine | DX: I10 Essential (primary) hypertension (principal); E78.5 Hyperlipidemia, unspecified; Z86.73 Personal history of transient ischemic attack (TIA), and cerebral infarction without residual deficits; Z79.899 Other long term (current) drug therapy | CPT/HCPCS: 93005; 99212 ==

== ENCOUNTER 2022-07-06 09:54 | Outpatient (REF) | payer OTHER, SELFPAY ==
--- NOTE | ~2022-07-06 | FL_ITS ---
EXAMINATION: FL FLUOROSCOPY-GUIDED NEEDLE PLACEMENT, INTRAOPERATIVE CLINICAL INFORMATION: Pain. COMPARISON: Previous fluoroscopic exam most recent January 2022. TECHNIQUE: Fluoroscopy guidance was provided to Dr. Ace. FLUOROSCOPY TIME: 9 seconds. Total dose: 0.2 uGy-cm2 FLUOROSCOPIC IMAGES: 3 saved. FINDINGS: Images demonstrate needle placement projecting over the scapholunate joint. No contrast injection. FL/FL guided needle placement IMPRESSION: Fluoroscopy guidance for pain management procedure.
== END 2022-07-06 09:55 | disposition home or self-care (01) ==
LOC: HO.HOSX 09:54
PROVIDERS: PCP Internal Medicine; Visit Provider Orthopaedic Surgery
DX: Z13.89 Encounter for screening for other disorder (principal)
CPT/HCPCS: 77002

== ENCOUNTER → 2022-07-06 10:11 | Outpatient (BNVA) | payer OTHER, SELFPAY | PROVIDERS: PCP Internal Medicine; Visit Provider Orthopaedic Surgery | DX: M19.132 Post-traumatic osteoarthritis, left wrist (principal); M65.332 Trigger finger, left middle finger | CPT/HCPCS: 20550; 20605; 77002; 99212; J1020 ==

== ENCOUNTER 2022-08-23 10:45 | Emergency (ER) | payer OTHER, SELFPAY ==
--- NOTE | ~2022-08-23 | XR_ITS ---
EXAMINATION: XR CHEST CLINICAL INFORMATION: Chest pain COMPARISON: X-ray 06/26/2021 TECHNIQUE: 2 views of the chest were obtained. FINDINGS: No significant abnormality is noted involving the heart, lungs, mediastinum, bony thorax or soft tissues. Thoracic spine degeneration XR/XR chest 2V IMPRESSION: No acute findings
--- NOTE | 2022-08-23 10:47 | ECG_ITS ---
Test Reason : CHEST PAIN Blood Pressure : / mmHG Vent. Rate : 094 BPM Atrial Rate : 000 BPM P-R Int : 000 ms QRS Dur : 088 ms QT Int : 362 ms P-R-T Axes : 000 -06 052 degrees QTc Int : 452 ms Artifact in tracing Likely sinus rhthm Due to artifact, cannot interpret further Due to poor quality, cannot compare Referred By: Generic ED Physician Electronically Signed By:RYLIE IVEY
[2022-08-23 11:22] VITALS: BP 149/85; PULSE 91; RESP 18; TEMP 36.4; O2SAT 94; BMI 26.4
--- NOTE | 2022-08-23 11:23 | ED.CHESTPAIN ---
HPI - Chest Pain General Chief Complaint: Chest Pain <NENA Cha - Last Filed: 08/23/22 11:29> Stated Complaint: Chest pressure/Head ache <NENA Cha - Last Filed: 08/23/22 11:29> Time Seen by Provider: 08/23/22 13:04 <NENA Cha - Last Filed: 08/23/22 11:29> Source: patient <Glenny Martell MD - Last Filed: 08/23/22 13:26> Mode of arrival: EMS <Glenny Martell MD - Last Filed: 08/23/22 13:26> Limitations: no limitations <Glenny Martell MD - Last Filed: 08/23/22 13:26> History of Present Illness HPI narrative: Comes to the emergency room complaining of chest pain and mild Dizziness. Patient states that around 10:00, patient had left-sided chest pain that lasted approximately 1-2 seconds and self-resolved. At this time, patient is asymptomatic. Patient states that occasionally he has vertigo and it felt the same way. It resolved on its own. In the last 3 hours, patient has been asymptomatic. <Glenny Martell MD - Last Filed: 08/23/22 13:26> Related Data Home Medications: Home Medications Medication Instructions Recorded Confirmed losartan 100 mg tablet 100 mg PO DAILY 02/20/20 05/31/22 chlorthalidone 25 mg tablet 25 mg PO DAILY 06/04/20 05/31/22 cholecalciferol (vitamin D3) 50 50 mcg PO DAILY 07/27/21 05/31/22 mcg (2,000 unit) capsule (Vitamin D3) carbidopa 25 mg-levodopa 100 mg 1 tab PO TID 11/29/21 05/31/22 tablet omeprazole 40 mg capsule,delayed 40 mg PO DAILY 11/29/21 05/31/22 release ropinirole 0.5 mg tablet 0.5 mg PO TID 11/29/21 05/31/22 acetaminophen 500 mg tablet 1,000 mg PO Q6H 12/31/21 05/31/22 melatonin 3 mg tablet 3 mg PO BEDTIME PRN anxiety 12/31/21 05/31/22 ezetimibe 10 mg tablet (Zetia) 10 mg PO DAILY 06/02/22 hydroxyzine HCl 25 mg tablet 25 mg PO TID PRN 06/02/22 Previous Rx's Medication Instructions Recorded spironolactone 25 mg tablet 25 mg PO DAILY #30 tabs 03/07/22 atorvastatin 80 mg tablet 80 mg PO QPM #90 tabs 07/22/22 carvedilol 12.5 mg tablet 12.5 mg PO BID 90 days #180 tabs 08/10/22 <NENA Cha - Last Filed: 08/23/22 11:29> Allergies/Adverse Reactions: Allergies Allergy/AdvReac Type Severity Reaction Status Date / Time No Known Allergies Allergy Verified 07/06/22 10:44 [No Known Allergies*] <NENA Cha - Last Filed: 08/23/22 11:29> Review of Systems Review of Systems: Constitutional : No Weight loss, No Fever, No Chills, No Night Sweats, No Fatigue, No Malaise ENT/Mouth : No Hearing loss, No Ear Pain, No Nasal Congestion, No Sinus Pain, No Hoarseness, No sore throat, No Rhinorrhea, No Swallowing Difficulty Eyes: No Eye Pain, No Swelling, No Redness, No Foreign Body, No Discharge, No Vision Changes Cardiovascular : Complaining of sharp left-sided chest pain that lasted 1-2 seconds and self-resolved, No SOB, No Dyspnea on Exertion, No Orthopnea, No Edema, No Palpitations Respiratory : No Cough, No Sputum, No Wheezing, No Smoke Exposure, No Dyspnea Gastrointestinal : No Nausea, No Vomiting, No Diarrhea, No Constipation, No abdominal Pain, No Hematochezia, No Melena Genitourinary : no irregular bleeding, No Dysuria, No Urinary Frequency, No Hematuria, No Urinary Incontinence, No Urgency, No Flank Pain, No Urinary Flow Changes, No Hesitancy Musculoskeletal : No joint pain, No Myalgias, No Joint Swelling Skin : No Skin Lesions, No rash Neuro : No Weakness, No Numbness, No Paresthesias, No Loss of Consciousness, no headache, complaining of dizziness for 1-2 seconds. Psych : No Anxiety/Panic, No Depression, No SI/HI/AH/VH, No Social Issues, Heme/Lymph: No Bruising, No Bleeding,No Lymphadenopathy Endocrine : No Polyuria, No Polydipsia, No Temperature Intolerance <Glenny Martell MD - Last Filed: 08/23/22 13:26> [facility] Past Medical History Medical History: Medical History Arthritis Diabetes Essential hypertension History of stroke Hypertension Osteoporosis Other and unspecified hyperlipidemia Parkinson disease Vertigo <NENA Cha - Last Filed: 08/23/22 11:29> Surgical History: Surgical History H/O hernia repair Hx of cataract surgery Hx of hand surgery <NENA Cha - Last Filed: 08/23/22 11:29> Family History Family History: Family History Father No problems noted. Mother No problems noted. 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 <NENA Cha - Last Filed: 08/23/22 11:29> Physical Exam Vital Signs: Vital Signs: Last Vital Signs Temp 99.4 F 08/23/22 12:00 Pulse 79 08/23/22 12:00 Resp 08/23/22 12:00 BP 87/57 L 08/23/22 12:00 Pulse Ox 93 08/23/22 12:00 O2 Del Method Room Air 08/23/22 12:00 BMI result Body Mass Index 26.4 <NENA Cha - Last Filed: 08/23/22 11:29> Vital Signs: Last Vital Signs Temp 99.4 F 08/23/22 12:00 Pulse 79 08/23/22 12:00 Resp 08/23/22 12:00 BP 87/57 L 08/23/22 12:00 Pulse Ox 93 08/23/22 12:00 O2 Del Method Room Air 08/23/22 12:00 BMI result Body Mass Index 26.4 <Glenny Martell MD - Last Filed: 08/23/22 13:26> Const: Other: Appearance: Alert. Oriented X3. No acute distress. Eyes: Pupils equal, round and reactive to light. ENT: Pharynx normal. Neck: Normal inspection. Neck supple. No lymph nodes noted. No crepitus CVS: Normal heart rate and rhythm. Pulses normal. Normal S1 and S2 Respiratory: No respiratory distress. Breath sounds normal. No Wheezing. No rales Abdomen: Soft and nontender. No rigidity. No distention. Skin: Skin warm and dry. Normal skin color. Normal skin turgor. Extremities: No lower extremity edema. No Lacerations. No Rash Neuro: Oriented X 3. No motor deficit. No sensory deficit. Moving all extremities. No slurred speech. CN 2 through 12 grossly intact, constant tremor at rest Psych: calm, cooperative, normal affect <Glenny Martell MD - Last Filed: 08/23/22 13:26> Course Course Course Narrative: RME: 72-year-old male with past medical history of diabetes, HTN, CVA, Parkinson's, vertigo, HLD, complaining of Left sided chest pain and lightheadedness/feeling off balance since 10 AM. Also reports Right sided chest pressure & upper back pain. Sx resolved at present. denies SOB, nausea UE pulses equal, ambulating with steady gait, baseline tremor EKG, Labs, CXR Full HPI, ROS and PE to be performed by primary ED provider. <NENA Cha - Last Filed: 08/23/22 11:29> Medical Decision Making Medical Decision Making [facility] Narrative: -EKG my interpretation: Patient has constant tremor, poor-quality ekg, seems to be sinus rhythm, heart rate 85, has a segment depression or elevation, no T-wave inversion -troponin 1. Negative -given the patient's history, chest pain is likely a musculoskeletal nature rather than cardiac. <Glenny Martell MD - Last Filed: 08/23/22 13:26> Lab Data [facility] Lab Attestation statement: I reviewed the patient's lab results. <Glenny Martell MD - Last Filed: 08/23/22 13:26> Result Diagrams: 08/23/22 12:09 08/23/22 12:09 <NENA Cha - Last Filed: 08/23/22 11:29> Labs: Lab Results 08/23/22 08/23/22 08/23/22 Range/Units 12:09 12:09 12:09 WBC 8.6 (4.8-10.8) X10*3/uL RBC 4.40 L (4.60-5.80) X10*6/uL Hgb 14.2 (14.0-18.0) g/dl Hct 41.9 L (42.0-52.0) % MCV 95.2 (80.0-98.0) fL MCH 32.3 (27.0-33.0) pg MCHC 33.9 (31.0-36.0) g/dl RDW 11.6 (11.0-16.0) % Plt Count 183 (160-400) X10*3/uL MPV 13.0 H (9.4-12.4) fL Immature Gran % (Auto) 0.6 H (0.0-0.4) % Neut % (Auto) 79.2 H (45-73) % Lymph % (Auto) 12.2 L (20-40) % Rogers % (Auto) 7.4 (2-11) % Eos % (Auto) 0.3 (0-4) % Baso % (Auto) 0.3 (0-2) % Lymph # (Auto) 1.1 L (1.2-4.9) X10*3/uL Rogers # (Auto) 0.6 (0.1-1.2) X10*3/uL Eos # (Auto) 0.0 (0.0-0.4) X10*3/uL Baso # (Auto) 0.0 (0.0-0.2) X10*3/uL Abs Immat Gran (auto) 0.05 H (0.00-0.03) X10*3/uL Absolute Neuts (auto) 6.8 (2.0-8.3) x10*3/uL Absolute Nucleated RBC 0.000 (0.0-0.012) X10*3/uL Nucleated RBC % (auto) 0.0 (0.0-0.2) /100WBC PT 11.4 (10.0-13.1) SEC INR 1.0 (0.9-1.1) Sodium 142 (135-145) mmol/L Potassium 4.5 (3.3-5.1) mmol/L Chloride 107 (96-108) mmol/L Carbon Dioxide 30 H (22-29) mmol/L Anion Gap 10 L (12-20) BUN 28 H (9-16) mg/dL Creatinine 1.19 (0.5-1.4) mg/dL Estim Creat Clear Calc 49.1 Estimated GFR 60 Random Glucose 104 (60-115) mg/dL Calcium 9.3 (8.4-10.2) mg/dL Magnesium 1.7 (1.6-2.6) mg/dL Total Bilirubin 0.9 (0.0-1.0) mg/dL Direct Bilirubin 0.2 (0.0-0.5) mg/dL AST 21 (5-37) U/L ALT 23 (0-40) U/L Alkaline Phosphatase 58 (39-117) U/L Troponin I High Sens (<3.5-35.0) ng/L B-Natriuretic Peptide (<100) pg/mL Total Protein 6.6 (6.5-8.0) g/dL Albumin 4.1 (3.5-5.0) g/dL 08/23/22 08/23/22 Range/Units 12:09 12:09 WBC (4.8-10.8) X10*3/uL RBC (4.60-5.80) X10*6/uL Hgb (14.0-18.0) g/dl Hct (42.0-52.0) % MCV (80.0-98.0) fL MCH (27.0-33.0) pg MCHC (31.0-36.0) g/dl RDW (11.0-16.0) % Plt Count (160-400) X10*3/uL MPV (9.4-12.4) fL Immature Gran % (Auto) (0.0-0.4) % Neut % (Auto) (45-73) % Lymph % (Auto) (20-40) % Rogers % (Auto) (2-11) % Eos % (Auto) (0-4) % Baso % (Auto) (0-2) % Lymph # (Auto) (1.2-4.9) X10*3/uL Rogers # (Auto) (0.1-1.2) X10*3/uL Eos # (Auto) (0.0-0.4) X10*3/uL Baso # (Auto) (0.0-0.2) X10*3/uL Abs Immat Gran (auto) (0.00-0.03) X10*3/uL Absolute Neuts (auto) (2.0-8.3) x10*3/uL Absolute Nucleated RBC (0.0-0.012) X10*3/uL Nucleated RBC % (auto) (0.0-0.2) /100WBC PT (10.0-13.1) SEC INR (0.9-1.1) Sodium (135-145) mmol/L Potassium (3.3-5.1) mmol/L Chloride (96-108) mmol/L Carbon Dioxide (22-29) mmol/L Anion Gap (12-20) BUN (9-16) mg/dL Creatinine (0.5-1.4) mg/dL Estim Creat Clear Calc Estimated GFR Random Glucose (60-115) mg/dL Calcium (8.4-10.2) mg/dL Magnesium (1.6-2.6) mg/dL Total Bilirubin (0.0-1.0) mg/dL Direct Bilirubin (0.0-0.5) mg/dL AST (5-37) U/L ALT (0-40) U/L Alkaline Phosphatase (39-117) U/L Troponin I High Sens < 2.7 (<3.5-35.0) ng/L B-Natriuretic Peptide < 10 (<100) pg/mL Total Protein (6.5-8.0) g/dL Albumin (3.5-5.0) g/dL <NENA Cha - Last Filed: 08/23/22 11:29> Lab Results 08/23/22 08/23/22 08/23/22 Range/Units 12:09 12:09 12:09 WBC 8.6 (4.8-10.8) X10*3/uL RBC 4.40 L (4.60-5.80) X10*6/uL Hgb 14.2 (14.0-18.0) g/dl Hct 41.9 L (42.0-52.0) % MCV 95.2 (80.0-98.0) fL MCH 32.3 (27.0-33.0) pg MCHC 33.9 (31.0-36.0) g/dl RDW 11.6 (11.0-16.0) % Plt Count 183 (160-400) X10*3/uL MPV 13.0 H (9.4-12.4) fL Immature Gran % (Auto) 0.6 H (0.0-0.4) % Neut % (Auto) 79.2 H (45-73) % Lymph % (Auto) 12.2 L (20-40) % Rogers % (Auto) 7.4 (2-11) % Eos % (Auto) 0.3 (0-4) % Baso % (Auto) 0.3 (0-2) % Lymph # (Auto) 1.1 L (1.2-4.9) X10*3/uL Rogers # (Auto) 0.6 (0.1-1.2) X10*3/uL Eos # (Auto) 0.0 (0.0-0.4) X10*3/uL Baso # (Auto) 0.0 (0.0-0.2) X10*3/uL Abs Immat Gran (auto) 0.05 H (0.00-0.03) X10*3/uL Absolute Neuts (auto) 6.8 (2.0-8.3) x10*3/uL Absolute Nucleated RBC 0.000 (0.0-0.012) X10*3/uL Nucleated RBC % (auto) 0.0 (0.0-0.2) /100WBC PT 11.4 (10.0-13.1) SEC INR 1.0 (0.9-1.1) Sodium 142 (135-145) mmol/L Potassium 4.5 (3.3-5.1) mmol/L Chloride 107 (96-108) mmol/L Carbon Dioxide 30 H (22-29) mmol/L Anion Gap 10 L (12-20) BUN 28 H (9-16) mg/dL Creatinine 1.19 (0.5-1.4) mg/dL Estim Creat Clear Calc 49.1 Estimated GFR 60 Random Glucose 104 (60-115) mg/dL Calcium 9.3 (8.4-10.2) mg/dL Magnesium 1.7 (1.6-2.6) mg/dL Total Bilirubin 0.9 (0.0-1.0) mg/dL Direct Bilirubin 0.2 (0.0-0.5) mg/dL AST 21 (5-37) U/L ALT 23 (0-40) U/L Alkaline Phosphatase 58 (39-117) U/L Troponin I High Sens (<3.5-35.0) ng/L B-Natriuretic Peptide (<100) pg/mL Total Protein 6.6 (6.5-8.0) g/dL Albumin 4.1 (3.5-5.0) g/dL 08/23/22 08/23/22 Range/Units 12:09 12:09 WBC (4.8-10.8) X10*3/uL RBC (4.60-5.80) X10*6/uL Hgb (14.0-18.0) g/dl Hct (42.0-52.0) % MCV (80.0-98.0) fL MCH (27.0-33.0) pg MCHC (31.0-36.0) g/dl RDW (11.0-16.0) % Plt Count (160-400) X10*3/uL MPV (9.4-12.4) fL Immature Gran % (Auto) (0.0-0.4) % Neut % (Auto) (45-73) % Lymph % (Auto) (20-40) % Rogers % (Auto) (2-11) % Eos % (Auto) (0-4) % Baso % (Auto) (0-2) % Lymph # (Auto) (1.2-4.9) X10*3/uL Rogers # (Auto) (0.1-1.2) X10*3/uL Eos # (Auto) (0.0-0.4) X10*3/uL Baso # (Auto) (0.0-0.2) X10*3/uL Abs Immat Gran (auto) (0.00-0.03) X10*3/uL Absolute Neuts (auto) (2.0-8.3) x10*3/uL Absolute Nucleated RBC (0.0-0.012) X10*3/uL Nucleated RBC % (auto) (0.0-0.2) /100WBC PT (10.0-13.1) SEC INR (0.9-1.1) Sodium (135-145) mmol/L Potassium (3.3-5.1) mmol/L Chloride (96-108) mmol/L Carbon Dioxide (22-29) mmol/L Anion Gap (12-20) BUN (9-16) mg/dL Creatinine (0.5-1.4) mg/dL Estim Creat Clear Calc Estimated GFR Random Glucose (60-115) mg/dL Calcium (8.4-10.2) mg/dL Magnesium (1.6-2.6) mg/dL Total Bilirubin (0.0-1.0) mg/dL Direct Bilirubin (0.0-0.5) mg/dL AST (5-37) U/L ALT (0-40) U/L Alkaline Phosphatase (39-117) U/L Troponin I High Sens < 2.7 (<3.5-35.0) ng/L B-Natriuretic Peptide < 10 (<100) pg/mL Total Protein (6.5-8.0) g/dL Albumin (3.5-5.0) g/dL <Glenny Martlel MD - Last Filed: 08/23/22 13:26> Independent Interpretation I performed an independent interpretation of an: Plain X-Ray (Interpretation of chest x-ray: No pneumothorax, no rib fractures, no consolidations) <Glenny Martell MD - Last Filed: 08/23/22 13:26> Discharge Plan Discharge Clinical Impression: Atypical chest pain <NENA Cha - Last Filed: 08/23/22 11:29> Patient Disposition: Home, Self-Care <NENA Cha - Last Filed: 08/23/22 11:29> Instructions: Chest Pain (ED) <NENA Cha - Last Filed: 08/23/22 11:29> Additional Instructions: Please follow-up with your primary care physician tomorrow. If you have any worsening or new symptoms, please return to the emergency room or call 911 <NENA Cha - Last Filed: 08/23/22 11:29> Prescriptions: No Action spironolactone 25 mg tablet 25 mg PO DAILY Qty: 30 11RF ezetimibe [Zetia] 10 mg tablet 10 mg PO DAILY hydroxyzine HCl 25 mg tablet 25 mg PO TID PRN atorvastatin 80 mg tablet 80 mg PO QPM Qty: 90 3RF carvedilol 12.5 mg tablet 12.5 mg PO BID 90 Days Qty: 180 3RF losartan 100 mg tablet 100 mg PO DAILY chlorthalidone 25 mg tablet 25 mg PO DAILY omeprazole 40 mg capsule,delayed release(DR/EC) 40 mg PO DAILY carbidopa-levodopa 25-100 mg tablet 1 tab PO TID ropinirole 0.5 mg tablet 0.5 mg PO TID melatonin 3 mg tablet 3 mg PO BEDTIME PRN (Reason: anxiety) acetaminophen 500 mg tablet 1,000 mg PO Q6H cholecalciferol (vitamin D3) [Vitamin D3] 50 mcg (2,000 unit) capsule 50 mcg PO DAILY <NENA Cha - Last Filed: 08/23/22 11:29>
--- NOTE | 2022-08-23 11:33 | ECG_ITS ---
Test Reason : CHEST PAIN Blood Pressure : / mmHG Vent. Rate : 085 BPM Atrial Rate : 357 BPM P-R Int : 000 ms QRS Dur : 090 ms QT Int : 374 ms P-R-T Axes : 000 -10 028 degrees QTc Int : 445 ms Artifact in tracing Likely sinus rhythm When compared with ECG of 23-AUG-2022 11:09, due to poor quality, cannot compare Referred By: Ebony Kaminski Electronically Signed By:RYLIE IVEY
--- OUTSIDE RECORDS SUMMARY | 2022-08-23 11:33 | XMS_ITS | Continuity of Care Document ---
Author Name Unknown Organization [facility] Address [address] [place] [address], [address] [place] [address]- Care Team Providers Care Studio Assistant Name Role Phone Micki Jaimes DO Primary Care Tino liuching Encounter [facility] Date(s): 06/06/19 - 06/13/19 [facility] [address] [place] [address], [address] [place] [address]- [facility] Attending Physician: Afshin HAGER, Maame Bernal
--- OUTSIDE RECORDS SUMMARY | 2022-08-23 11:33 | XMS_ITS | Continuity of Care Document ---
Author Name Unknown Organization [facility] Address [address] [place] [address], [address] [place] [address]- Care Team Providers Care Child Caregiver Name Role Phone Micki Jaimes DO Primary Care Tino de leon Encounter [facility] [place] Date(s): 03/02/20 - 06/27/20 [facility] [address] [place] [address], [address] [place] [address]- Attending Physician: Afshin HAGER, Maame Beranl
--- OUTSIDE RECORDS SUMMARY | 2022-08-23 11:33 | XMS_ITS | Continuity of Care Document ---
Author Name Unknown Organization [facility] Address [address] [place] [address], [address] [place] [address]- Care Team Providers Care Development Consultant Name Role Phone Micki Jaimes DO Primary Care Tino haley [place] [facility] [place](s[place] 06/06/19 - 06/16/19 [facility] [address] [place] [address], [address] [place] [address]- [facility] Attending Physician: Daniel Sharma Admitting Physician: Daniel Sharma Referring Physician: Daniel Sharma
--- OUTSIDE RECORDS SUMMARY | 2022-08-23 11:33 | XMS_ITS | Continuity of Care Document ---
Author Name Unknown Organization [facility] Address [address] [place] [address], [address] [place] [address]- Care Team Providers Care Compounder Helper Name Role Phone Alhajigarry Micki Palma DO Primary Care Tino de leon [place] [facility] [place]20 [facility] [address] [place] [address] Drive, [address] [place], [place] [address] Attending Physician: Afshin HAGER, Maame Bernal Medications Carvedilol By Mouth, Refills 0, Maintenance, 06/30/20 10:52:00 EDT, Partial fill upon patient request if the prescription is for a schedule II opioid drug. Start Date: 06/30/20 Status: Ordered Chlorthalidone By Mouth, Daily, 0 Refills, Maintenance, 06/30/20 10:53:00 EDT, Partial fill upon patient request if the prescription is for a schedule II opioid drug. Start Date: 06/30/20 Status: Ordered Losartan By Mouth, Daily, 0 Refills, Maintenance, 06/30/20 10:52:00 EDT, Partial fill upon patient request if the prescription is for a schedule II opioid drug. Start Date: 06/30/20 Status: Ordered Omeprazole By Mouth, Daily, 0 Refills, Maintenance, 06/30/20 10:53:00 EDT, Partial fill upon patient request if the prescription is for a schedule II opioid drug. Start Date: 06/30/20 Status: Ordered Spironolactone By Mouth, 0 Refills, Maintenance, 06/30/20 10:52:00 EDT, Partial fill upon patient request if the prescription is for a schedule II opioid drug. Start Date: 06/30/20 Status: Ordered Vital Signs Most recent to oldest [Reference Range]: 1 Height 167.6 cm (3/16/21 10:51 AM) Weight 88.5 kg (06/30/20 10:51 AM) Body Mass Index [18.5-24.99] 31.51 *>HHI* (06/30/20 10:51 AM)
--- OUTSIDE RECORDS SUMMARY | 2022-08-23 11:33 | XMS_ITS | Continuity of Care Document ---
Author Name Unknown Organization [facility] Address [address] [place] [address], [address] [place] [address]- Care Team Providers Care System Specialist Name Role Phone Collin Minerva HICKMAN Micki Primary Care Tino de leon Encounter [facility] [place] Date(s): 06/30/20 - 07/30/20 [facility] [address] [place] [address], [address] [place], [place] [address] Attending Physician: Daniel Sharma Admitting Physician: AdmDaniel hernandez Referring Physician: Admtr ArAlmaz Medications Carvedilol By Mouth, Refills 0, Maintenance, [...]
[2022-08-23 12:00] VITALS: BP 87/57; PULSE 79; RESP 19; TEMP 37.4; O2SAT 93
[2022-08-23 12:15] LABS: MANUAL DIFF FLAG NO
[2022-08-23 12:17] LABS: Basophils Percent Auto 0.3 % (0-2); Eosinophils Percent Auto 0.3 % (0-4); Hematocrit 41.9 % (42.0-52.0); Hemoglobin 14.2 g/dl (14.0-18.0); Imm Gran Abs Auto 0.05 X10*3/uL (0.00-0.03); Imm Gran Pct Auto 0.6 % (0.0-0.4); Lymphocytes Absolute Auto 1.1 X10*3/uL (1.2-4.9); Lymphocytes Percent Auto 12.2 % (20-40); Mean Corpuscular HGB Conc 33.9 g/dl (31.0-36.0); Mean Corpuscular Hemoglobin 32.3 pg (27.0-33.0); Mean Corpuscular Volume 95.2 fL (80.0-98.0); Monocytes Absolute Auto 0.6 X10*3/uL (0.1-1.2); Monocytes Percent Auto 7.4 % (2-11); Neutrophils Absolute Auto 6.8 x10*3/uL (2.0-8.3); Neutrophils Percent Auto 79.2 % (45-73); Platelet Count 183 X10*3/uL (160-400); Red Cell Distribution Width 11.6 % (11.0-16.0); White Blood Count 8.6 X10*3/uL (4.8-10.8)
[2022-08-23 12:23] LABS: Prothrombin Time 11.4 SEC (10.0-13.1)
[2022-08-23 12:34] LABS: Alanine Aminotransferase 23 U/L (0-40); Albumin Level 4.1 g/dL (3.5-5.0); Alkaline Phosphatase 58 U/L (39-117); Anion Gap 10 (12-20); Aspartate Amino Transferase 21 U/L (5-37); Bilirubin Direct 0.2 mg/dL (0.0-0.5); Bilirubin Total 0.9 mg/dL (0.0-1.0); Blood Urea Nitrogen 28 mg/dL (9-16); Calcium 9.3 mg/dL (8.4-10.2); Carbon Dioxide 30 mmol/L (22-29); Chloride 107 mmol/L (96-108); Creatinine Clr Calc Pharmacy 49.1; Estimated Glomerular Filt Rate 60; Glucose Random 104 mg/dL (60-115); Magnesium 1.7 mg/dL (1.6-2.6); Potassium 4.5 mmol/L (3.3-5.1); Sodium 142 mmol/L (135-145); Total Protein 6.6 g/dL (6.5-8.0)
[2022-08-23 12:38] LABS: B Type Natriuretic Peptide < 10 pg/mL (<100)
[2022-08-23 12:44] LABS: Troponin-I High Sensitivity < 2.7 ng/L (<3.5-35.0)
[2022-08-23 13:31] VITALS: BP 101/60; PULSE 71; RESP 15; TEMP 36.9; O2SAT 96
== END 2022-08-23 13:55 | disposition home or self-care (01) ==
PROVIDERS: Physician Assistant; Emergency Provider Emergency Medicine; PCP Internal Medicine
DX: R07.89 Other chest pain (principal); I10 Essential (primary) hypertension; E11.9 Type 2 diabetes mellitus without complications; E78.5 Hyperlipidemia, unspecified; G20 Parkinson's disease; Z86.73 Personal history of transient ischemic attack (TIA), and cerebral infarction without residual deficits; Z79.02 Long term (current) use of antithrombotics/antiplatelets; Z79.899 Other long term (current) drug therapy
CPT/HCPCS: 36415; 71046; 80048; 80076; 83735; 83880; 84484; 85025; 85610; 93005; 99283; 99284

== ENCOUNTER 2022-10-26 08:44 | Outpatient (REF) | payer MEDICARE, SELFPAY ==
--- NOTE | ~2022-10-26 | FL_ITS ---
EXAMINATION: XR FLUOROSCOPY WITH IMAGES CLINICAL INFORMATION: Posttraumatic osteoarthritis, unspecified wrist. COMPARISON: Left wrist x-ray February 2020 TECHNIQUE: Fluoroscopy Supervised By: Dr. Ace. Fluoroscopy Time: 10.5 seconds. Cumulative Dose: 5950.4 mGy. DAP: None available. Images: 1. FINDINGS: Single image demonstrates needle placement over a widened left scapholunate joint. FL/FL guided needle placement IMPRESSION: Fluoroscopy guidance for scapholunate injection.
== END 2022-10-26 08:45 | disposition home or self-care (01) ==
LOC: HO.HOSX 08:44
PROVIDERS: Visit Provider Orthopaedic Surgery
DX: M19.132 Post-traumatic osteoarthritis, left wrist (principal); M21.832 Other specified acquired deformities of left forearm; G20 Parkinson's disease
CPT/HCPCS: 20605; 77002; J1020

== ENCOUNTER 2022-10-26 08:44 | Outpatient (AMB) | payer MEDICARE, SELFPAY ==
--- NOTE | 2022-10-26 08:55 | A.OFFVIS_ITS ---
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 States his last injection from 07/06/22 provide good pain relief and would like to repeat injection today. Allergies No Known Allergies [No Known Allergies*] Allergy (Verified 10/26/22 09:00) HPI OV-LT wrist injection-Last inj.-07/06/22 HPI Details Benjamin is a 72 year old right hand dominant man with Parkinson's disease and a scapholunate advanced collapse left wrist deformity. He most recently had a left wrist injection on 07/06/22 which he felt was very helpful. However, his wrist has again become more painful. He would like a repeat injection today. [facility] Medical History Arthritis Diabetes Essential hypertension History of stroke Hypertension Osteoporosis Other and unspecified hyperlipidemia Parkinson disease Vertigo Surgical History H/O hernia repair Hx of cataract surgery Hx of hand surgery Family History Father No problems noted. Mother No problems noted. Social History Household Members: Family Alcohol intake: never Patient Tobacco Use Status: Never used Tobacco Current occupational status: retired 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 Review of Systems Const All systems reviewed & are unremarkable except as noted in HPI and below Physical Exam Vital Signs: BMI result Body Mass Index 26.3 Const General: no acute distress and alert Orientation/consciousness: patient oriented x3 Neuro General: patient oriented x3 Extrem Other: Evaluation of Left Upper Extremity: The patient is alert, oriented, and in no acute distress Neuro: Median, Ulnar, Radial nerves motor and sensory grossly intact. Vascular: Cap refill brisk ROM: He can make a fist and extend all of his digits. No locking or catching He does have some ulnar deviation of the digits. Regarding his left wrist he has some mild swelling and some deformity at the radiocarpal joint. He is most tender to palpation over the radioscaphoid joint. Radiographs: 3 views of the left wrist from 10/19/20 were reviewed by me today. It does show a scapholunate advanced collapse wrist deformity with essentially complete loss of the radioscaphoid joint space, widening of scaapholunate interval and good preservation of radiolunate joint space. 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 Left scapholunate advanced collapse wrist deformity, S/P steroid injection using the FluoroScan for needle guidance Dates of Injection: 10/26/22, 07/06/22, 01/17/22, 08/26/21, and 02/22/21 He had good relief from these injections and is interested in having another injection. I discussed the risks and benefits of a steroid injection and he would like to proceed Injection #1: The risks and benefits of a steroid injection including but not limited to risk of damage to blood vessels, nerves, tendons, infection, skin bleaching, failure to improve symptoms, increased pain, and possible need for further injections or other intervention were discussed with the patient and the patient wishes to pro ceed with the steroid injection. Once consent was obtained, I sterilely prepped the area over the dorsal aspect of the left wrist. I then injected the left wrist joint at the scapholunate interval using the FluoroScan for needle guidance? with a combination of?1mL of?Depo-Medrol (80mg/ml), and?2mL of Lidocaine.?The patient tolerated the procedure well and in with no complications, and had good relief of symptoms before leaving clinic. He says this is beneficial and will schedule his next injection with the mini C- arm for 4 months from now. This should be a 30 minute appointment 2. Left middle Trigger Finger, S/P release DOS: 5/12/22 Good resolution of locking and catching Still with a mild flexion contracture of the middle finger PIP joint, but this has improved some and he feels like he is doing well with home exercises alone. 3. 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
[2022-10-26 09:00] VITALS: BMI 26.3
== END 2022-10-26 09:39 | disposition home or self-care (01) ==
PROVIDERS: Visit Provider Orthopaedic Surgery
DX: M19.132 Post-traumatic osteoarthritis, left wrist (principal)
CPT/HCPCS: 20605; 77002

== ENCOUNTER 2022-11-17 08:41 | Emergency (ER) | payer MEDICARE, SELFPAY ==
--- NOTE | ~2022-11-17 | CT_ITS ---
EXAMINATION: CT ABDOMEN AND PELVIS WITH CONTRAST CLINICAL INFORMATION: Epigastric pain and pancreatitis COMPARISON: Ultrasound abdomen 11/17/[address] abdomen and pelvis 06/26/2021. TECHNIQUE: Multidetector volumetric images were obtained from the superior aspect of the liver through the pubic symphysis following administration 85 mL of Omnipaque 350 intravenous contrast. Sagittal and coronal reformatted images were obtained on the technologist's workstation. Oral contrast: No This CT examination was performed using dose optimization techniques as appropriate, variously including the following: *Automated exposure control *Adjustment of mA and/or kV according to patient size (this includes techniques or standardized protocols for targeted exams where dose is matched to indication/reason for exam; i.e. extremities or head) *Use of iterative reconstruction technique DLP: 463 mGy-cm FINDINGS: LUNG BASES: The lung bases are clear. The heart size is normal. There is a small hiatal hernia. LIVER, GALLBLADDER, AND BILIARY TREE: The liver is normal in size, shape, and slightly heterogeneous attenuation. Few punctate hypodensities are seen in the right and left hepatic lobe, too small to correctly characterize. No. Biliary ductal dilatation is present. The gallbladder is mildly distended but no radiopaque calculi wall thickening seen. PANCREAS: Unremarkable. SPLEEN: Unremarkable. ADRENAL GLANDS: Unremarkable. KIDNEYS AND URETERS: The kidneys are normal in size, shape, and attenuation. No hydronephrosis, hydroureter, or calculi seen. No perinephric stranding. There there are scattered nonenhancing bilateral hypodensities. These are too small to correctly characterize. BLADDER: Unremarkable. GASTROINTESTINAL TRACT: There is scattered stool and gas seen throughout the colon without significant distention. The small bowel loops are normal caliber. Appendix is not visualized. ABDOMINAL WALL: A small medical hernia containing fat is noted. LYMPH NODES: Normal. VASCULAR: There is atherosclerotic changes of abdominal aorta without aneurysmal dilatation. No aggressive lytic or sclerotic process seen. PELVIC VISCERA: Unremarkable. OSSEOUS STRUCTURES: No aggressive lytic or sclerotic process seen. There is mild ventral spondylosis throughout lumbar spine CT/CT abdomen pelvis w IV con IMPRESSION: 1. No acute intra-abdominal process seen. 2. Mild constipation. 3. Small hiatal hernia Fleischner guidelines were followed.
--- NOTE | ~2022-11-17 | US_ITS ---
EXAMINATION: US ABDOMEN LIMITED CLINICAL INFORMATION: Right upper quadrant and epigastric abdominal pain.. COMPARISON: Abdominal CT of 06/26/2021 TECHNIQUE: Real-time imaging of the right upper quadrant abdominal viscera. FINDINGS: PANCREAS: Normal. LIVER: The liver is normal in size but heterogeneously echogenic limiting evaluation. No hepatic mass or biliary ductal dilatation is detected. GALLBLADDER: Normal. The gallbladder is physiologically distended without evidence of stones, sludge, polyps, wall thickening or pericholecystic fluid. COMMON BILE DUCT: Normal in caliber measuring 0.4 cm in diameter. RIGHT KIDNEY: Normal. No hydronephrosis. No renal calculi or focal parenchymal lesions. The kidney measures 10.2 cm in maximum dimension. FREE FLUID: None. US/US abdomen limited IMPRESSION: Heterogeneous, echogenic liver, consistent with steatosis, as on CT of 06/26/2021.
--- NOTE | 2022-11-17 08:43 | ECG_ITS ---
Test Reason : CHEST PAIN Blood Pressure : / mmHG Vent. Rate : 075 BPM Atrial Rate : 075 BPM P-R Int : 150 ms QRS Dur : 078 ms QT Int : 380 ms P-R-T Axes : 024 -13 105 degrees QTc Int : 424 ms Artifact in tracing Undetermined rhythm Cannot assess due to artifact When compared with ECG of 23-AUG-2022 11:38, due to poor quality, cannot compare Referred By: Generic ED Physician Electronically Signed By:RYLIE IVEY
[2022-11-17 09:20] VITALS: BP 146/90; PULSE 81; RESP 22; TEMP 36.9; O2SAT 97; BMI 26.1
[2022-11-17 09:25] LABS: Appearance Urine Clear; Color Urine Yellow; Glucose Urine UA Negative (Negative); Leukocyte Esterase Urine Trace (Negative); Nitrite Urine Negative (Negative); UMIC TRIGGER UACC YES; Urine Blood Negative (Negative); Urine Ketones Negative (Negative); Urine Protein Negative (Neg-Trace)
[2022-11-17 09:29] LABS: Bacteria Urine None Seen (None Seen); Hyaline Casts Urine 0-2 /LPF (0-2); RBC Urine 0-2 /HPF (0-2); Squamous Epithelial Cell Urine 0-2 /HPF (0-2); WBC Urine 0-5 /HPF (0-5)
[2022-11-17 09:38] LABS: MANUAL DIFF FLAG NO
[2022-11-17 09:40] LABS: Basophils Percent Auto 0.5 % (0-2); Eosinophils Absolute Auto 0.1 X10*3/uL (0.0-0.4); Eosinophils Percent Auto 1.2 % (0-4); Hematocrit 44.1 % (42.0-52.0); Imm Gran Abs Auto 0.02 X10*3/uL (0.00-0.03); Imm Gran Pct Auto 0.4 % (0.0-0.4); Lymphocytes Absolute Auto 1.5 X10*3/uL (1.2-4.9); Lymphocytes Percent Auto 26.6 % (20-40); Mean Corpuscular Hemoglobin 31.8 pg (27.0-33.0); Mean Corpuscular Volume 93.4 fL (80.0-98.0); Mean Platelet Volume 12.5 fL (9.4-12.4); Monocytes Absolute Auto 0.5 X10*3/uL (0.1-1.2); Monocytes Percent Auto 8.8 % (2-11); Neutrophils Absolute Auto 3.6 x10*3/uL (2.0-8.3); Neutrophils Percent Auto 62.5 % (45-73); Platelet Count 179 X10*3/uL (160-400); Red Blood Count 4.72 X10*6/uL (4.60-5.80); Red Cell Distribution Width 11.4 % (11.0-16.0); White Blood Count 5.7 X10*3/uL (4.8-10.8)
[2022-11-17 09:47] LABS: INTERNATIONAL NORM RATIO 0.9 (0.9-1.1); Prothrombin Time 11.5 SEC (11.1-13.3)
[2022-11-17 09:59] LABS: Alanine Aminotransferase 25 U/L (0-40); Albumin Level 4.5 g/dL (3.5-5.0); Alkaline Phosphatase 54 U/L (39-117); Anion Gap 16 (12-20); Aspartate Amino Transferase 25 U/L (5-37); Bilirubin Total 0.9 mg/dL (0.0-1.0); Blood Urea Nitrogen 27 mg/dL (9-16); Calcium 9.7 mg/dL (8.4-10.2); Carbon Dioxide 24 mmol/L (22-29); Chloride 103 mmol/L (96-108); Creatinine Clr Calc Pharmacy 52.6; Estimated Glomerular Filt Rate > 60; Glucose Random 96 mg/dL (60-115); Lipase 145 U/L (8-78); Potassium 4.1 mmol/L (3.3-5.1); Sodium 139 mmol/L (135-145); Total Protein 7.6 g/dL (6.5-8.0)
--- NOTE | 2022-11-17 10:03 | ED.CHESTPAIN ---
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 Related Data Home Medications Medication Instructions Recorded Confirmed losartan 100 mg tablet 100 mg PO DAILY 02/20/20 11/17/22 chlorthalidone 25 mg tablet 25 mg PO DAILY 06/04/20 11/17/22 cholecalciferol (vitamin D3) 50 50 mcg PO DAILY 07/27/21 11/17/22 mcg (2,000 unit) capsule (Vitamin D3) carbidopa 25 mg-levodopa 100 mg 2 tab PO TID 11/29/21 11/17/22 tablet omeprazole 40 mg capsule,delayed 40 mg PO DAILY@0630 11/29/21 11/17/22 release ropinirole 0.5 mg tablet 0.5 mg PO TID 11/29/21 11/17/22 acetaminophen 500 mg tablet 1,000 mg PO Q8H PRN Pain 12/31/21 11/17/22 melatonin 3 mg tablet 3 mg PO BEDTIME PRN anxiety 12/31/21 11/17/22 ezetimibe 10 mg tablet (Zetia) 10 mg PO DAILY 06/02/22 11/17/22 atorvastatin 80 mg tablet 80 mg PO BEDTIME 11/17/22 11/17/22 spironolactone 25 mg tablet 25 mg PO BEDTIME 11/17/22 11/17/22 Previous Rx's Medication Instructions Recorded carvedilol 12.5 mg tablet 12.5 mg PO BID 90 days #180 tabs 08/10/22 Allergies Allergy/AdvReac Type Severity Reaction Status Date / Time No Known Allergies Allergy Verified 10/26/22 09:00 [No Known Allergies*] Review of Systems Review of Systems: Pertinent positives and negatives as stated in HPI PMFSH Past Medical History Source: nursing notes reviewed Medical History Arthritis Diabetes Essential hypertension History of stroke Hypertension Osteoporosis Other and unspecified hyperlipidemia Parkinson disease Vertigo Surgical History H/O hernia repair Hx of cataract surgery Hx of hand surgery Family History Family History Father No problems noted. Mother No problems noted. Social History Social History Household Members: Family Alcohol intake: never Patient Tobacco Use Status: Never used Tobacco Smoked in Last 30 Days: No Use of substances other than those prescribed or required for medical reasons: No Advance Directives: No Advance Directives Information Provided: Yes Current occupational status: retired 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 Physical Exam Vital Signs: Vital Signs: Last Vital Signs Temp 98.5 F 11/17/22 09:20 Pulse 81 11/17/22 09:20 Resp 22 H 11/17/22 09:20 BP 146/90 H 11/17/22 09:20 Pulse Ox 97 11/17/22 09:20 O2 Del Method Room Air 11/17/22 09:20 BMI result Body Mass Index 26.1 VITAL SIGNS: Reviewed. GENERAL: Well developed, well nourished, in no acute distress. HEAD: Normocephalic/atraumatic EYES: PERRLA, EOMI EARS: Ext canals without abnormality NOSE: Nares patent bilateral OROPHARYNX: no oral lesions noted, posterior pharynx clear NECK: Supple, no adenopathy LUNGS: Normal breath sounds. No adventitious sounds or accessory muscle use. SpO2<97> CARDIOVASCULAR: Regular rate and rhythm without noted murmurs, no JVD or lower extremity edema. ABDOMEN: Soft, mild right upper quadrant/epigastric discomfort, non-distended with bowel sounds. MUSCULOSKELETAL: No tenderness, deformities, or effusions noted on gross inspection. EXTREMITIES: No cyanosis, clubbing or edema. SKIN: Inspection of the skin reveals no rashes\ NEUROLOGIC: Alert and oriented x 4. Strength and sensation to light touch were grossly intact x 4, significant underlying tremor. Medications Administered Discontinued Medications Generic Name Dose Route Start Last Admin Trade Name Freq PRN Reason Stop Dose Admin Iohexol 100 ml 11/17/22 13:19 11/17/22 13:19 Iohexol 350 Mg/Ml 100 Ml Infus..Btl IV 11/17/22 13:20 85 ml ONCE ONE Administration Medical Decision Making Medical Decision Making [facility] Narrative: 72-year-old male with history and clinical presentation, DDX: Cholecystitis, gastritis, pancreatitis and lower clinical suspicion for constipation or obstruction and no suspicion for pneumonia. Reviewed all investigations and hematologic indices are negative for leukocytosis/left shift and no anemia or thrombocytopenia. Coagulation studies are within normal limits. Chemistry indices are without electrolyte abnormalities or liver enzyme derangements and there is no SHANEKA with a chronically stable elevated BUN. Lipase is elevated which is new for the patient in although ultrasound does not demonstrate cholecystitis suspect that this is biliary pancreatitis but the possibility of mass or triglyceridemia is a possibility and will consult with Gastroenterology. 1124: Consult with Dr. Harmon regarding admission and further evaluation with imaging studies versus outpatient follow-up. 1135: Dr Harmon recommends admission for observation, evaluation of triglycerides/lipid panel and abdominal CT with contrast to rule out mass. 1146: I discussed case with inpatient hospitalist who accepts admission. 1245: I discussed case with Dr. Venegas, who informs me that patient is declining admission at this time, on re-evaluation with a echocardiograph tech and patient confirms that he is concerned about being admitted as he suffers from significant anxiety. He wishes to wait to see the results the CT scan. I have reviewed the lipid panel which does not show triglyceridemia as a possible cause of patient's pancreatitis, patient does say that he is asymptomatic of pain at this time. I reviewed the CT scan which is negative for acute intra-abdominal pathologies as well as a mildly distended gallbladder. However no reports of any mass by radiologist and patient is otherwise stable for discharge and will provide him with a follow-up referral to General surgery for further outpatient management. In my opinion this further supports the likelihood of biliary pancreatitis despite the absence of radio opaque stones. Differential Diagnosis Differential Diagnoses: The differential diagnosis associated with the presentation includes Please see the discussion above Admission/Observation Consideration of admission/observation: Escalation of care including admission/observation considered Please see the discussion above Consult Healthcare Provider Management of the patient was discussed with: Cereal Chemist Please see the discussion above Lab Data [facility] Lab Attestation statement: I reviewed the patient's lab results. Please see the discussion above 11/17/22 09:33 11/17/22 09:34 Labs: Lab Results 11/17/22 11/17/22 11/17/22 Range/Units 09:18 09:33 09:33 WBC 5.7 (4.8-10.8) X10*3/uL RBC 4.72 (4.60-5.80) X10*6/uL Hgb 15.0 (14.0-18.0) g/dl Hct 44.1 (42.0-52.0) % MCV 93.4 (80.0-98.0) fL MCH 31.8 (27.0-33.0) pg MCHC 34.0 (31.0-36.0) g/dl RDW 11.4 (11.0-16.0) % Plt Count 179 (160-400) X10*3/uL MPV 12.5 H (9.4-12.4) fL Immature Gran % (Auto) 0.4 (0.0-0.4) % Neut % (Auto) 62.5 (45-73) % Lymph % (Auto) 26.6 (20-40) % [place] % (Auto) 8.8 (2-11) % Eos % (Auto) 1.2 (0-4) % Baso % (Auto) 0.5 (0-2) % Lymph # (Auto) 1.5 (1.2-4.9) X10*3/uL [place] # (Auto) 0.5 (0.1-1.2) X10*3/uL Eos # (Auto) 0.1 (0.0-0.4) X10*3/uL Baso # (Auto) 0.0 (0.0-0.2) X10*3/uL Abs Immat Gran (auto) 0.02 (0.00-0.03) X10*3/uL Absolute Neuts (auto) 3.6 (2.0-8.3) x10*3/uL Absolute Nucleated RBC 0.000 (0.0-0.012) X10*3/uL Nucleated RBC % (auto) 0.0 (0.0-0.2) /100WBC PT 11.5 (11.1-13.3) SEC INR 0.9 (0.9-1.1) Sodium (135-145) mmol/L Potassium (3.3-5.1) mmol/L Chloride (96-108) mmol/L Carbon Dioxide (22-29) mmol/L Anion Gap (12-20) BUN (9-16) mg/dL Creatinine (0.5-1.4) mg/dL Estim Creat Clear Calc Estimated GFR Random Glucose (60-115) mg/dL Calcium (8.4-10.2) mg/dL Total Bilirubin (0.0-1.0) mg/dL AST (5-37) U/L ALT (0-40) U/L Alkaline Phosphatase (39-117) U/L Troponin I High Sens (<3.5-35.0) ng/L Total Protein (6.5-8.0) g/dL Albumin (3.5-5.0) g/dL Triglycerides mg/dL Cholesterol mg/dL LDL Cholesterol, Calc mg/dl HDL Cholesterol mg/dL Lipase (8-78) U/L Urine Color Yellow Urine Appearance Clear Urine pH 6.0 (5.0-9.0) Ur Specific [place] 1.020 (1.005-1.025) Urine Protein Negative (Neg-Trace) mg/dL Urine Glucose (UA) Negative (Negative) mg/dL Urine Ketones Negative (Negative) mg/dL Urine Blood Negative (Negative) Urine Nitrite Negative (Negative) Ur Leukocyte Esterase Trace H (Negative) Urine RBC 0-2 (0-2) /HPF Urine WBC 0-5 (0-5) /HPF Ur Squamous Epith Cells 0-2 (0-2) /HPF Urine Bacteria None Seen (None Seen) Hyaline Casts 0-2 (0-2) /LPF 11/17/22 11/17/22 Range/Units 09:33 09:34 WBC (4.8-10.8) X10*3/uL RBC (4.60-5.80) X10*6/uL Hgb (14.0-18.0) g/dl Hct (42.0-52.0) % MCV (80.0-98.0) fL MCH (27.0-33.0) pg MCHC (31.0-36.0) g/dl RDW (11.0-16.0) % Plt Count (160-400) X10*3/uL MPV (9.4-12.4) fL Immature Gran % (Auto) (0.0-0.4) % Neut % (Auto) (45-73) % Lymph % (Auto) (20-40) % [place] % (Auto) (2-11) % Eos % (Auto) (0-4) % Baso % (Auto) (0-2) % Lymph # (Auto) (1.2-4.9) X10*3/uL [place] # (Auto) (0.1-1.2) X10*3/uL Eos # (Auto) (0.0-0.4) X10*3/uL Baso # (Auto) (0.0-0.2) X10*3/uL Abs Immat Gran (auto) (0.00-0.03) X10*3/uL Absolute Neuts (auto) (2.0-8.3) x10*3/uL Absolute Nucleated RBC (0.0-0.012) X10*3/uL Nucleated RBC % (auto) (0.0-0.2) /100WBC PT (11.1-13.3) SEC INR (0.9-1.1) Sodium 139 (135-145) mmol/L Potassium 4.1 (3.3-5.1) mmol/L Chloride 103 (96-108) mmol/L Carbon Dioxide 24 (22-29) mmol/L Anion Gap 16 (12-20) BUN 27 H (9-16) mg/dL Creatinine 1.11 (0.5-1.4) mg/dL Estim Creat Clear Calc 52.6 Estimated GFR > 60 Random Glucose 96 (60-115) mg/dL Calcium 9.7 (8.4-10.2) mg/dL Total Bilirubin 0.9 (0.0-1.0) mg/dL AST 25 (5-37) U/L ALT 25 (0-40) U/L Alkaline Phosphatase 54 (39-117) U/L Troponin I High Sens < 2.7 (<3.5-35.0) ng/L Total Protein 7.6 (6.5-8.0) g/dL Albumin 4.5 (3.5-5.0) g/dL Triglycerides 94 mg/dL Cholesterol 213 mg/dL LDL Cholesterol, Calc 139 mg/dl HDL Cholesterol 56 mg/dL Lipase 145 H (8-78) U/L Urine Color Urine Appearance Urine pH (5.0-9.0) Ur Specific [place] (1.005-1.025) Urine Protein (Neg-Trace) mg/dL Urine Glucose (UA) (Negative) mg/dL Urine Ketones (Negative) mg/dL Urine Blood (Negative) Urine Nitrite (Negative) Ur Leukocyte Esterase (Negative) Urine RBC (0-2) /HPF Urine WBC (0-5) /HPF Ur Squamous Epith Cells (0-2) /HPF Urine Bacteria (None Seen) Hyaline Casts (0-2) /LPF Independent Interpretation I performed an independent interpretation of an: EKG Interpretation: Too much artifact to rule out [place], however appears to be normal sinus rhythm and in precordial leads [place] interval/QRS/QTC appear to be within normal limits. Radiology Impression Discussion of test interpretation with radiology: I have reviewed the radiologist's reading. Radiologist Impression: Please see the discussion above External Record Review External record reviewed: Outpatient record and Prior outpatient labs Chronic Conditions Patient?s care impacted by: Hypertension Parkinson's Discharge Plan Discharge Clinical Impression: Acute pancreatitis Patient Disposition: Home, Self-Care Instructions: Pancreatitis (ED) Additional Instructions: 1. Reanudar todos los medicamentos caseros seg?n lo prescrito. 2. Se le givens remitido a un seguimiento con cirug?a general ya que todav?a sospecho que carbone ves?cula biliar puede ser la causa de carbone dolor intermitente. 3. [place] un seguimiento con carbone proveedor de atenci?n primaria. Regrese a la isadora de emergencias si los s?ntomas empeoran. 1. Resume all home medications as prescribed. 2. You have been given a referral to follow-up with general surgery as I still suspect that your gallbladder may be the cause your intermittent pain. 3. Please follow-up with your primary care provider. Return to the ER for any worsening symptoms. Prescriptions: No Action ezetimibe [Zetia] 10 mg tablet 10 mg PO DAILY carvedilol 12.5 mg tablet 12.5 mg PO BID 90 Days Qty: 180 3RF atorvastatin 80 mg tablet 80 mg PO BEDTIME spironolactone 25 mg tablet 25 mg PO BEDTIME losartan 100 mg tablet 100 mg PO DAILY chlorthalidone 25 mg tablet 25 mg PO DAILY omeprazole 40 mg capsule,delayed release(DR/EC) 40 mg PO DAILY@0630 carbidopa-levodopa 25-100 mg tablet 2 tab PO TID ropinirole 0.5 mg tablet 0.5 mg PO TID melatonin 3 mg tablet 3 mg PO BEDTIME PRN (Reason: anxiety) acetaminophen 500 mg tablet 1,000 mg PO Q8H PRN (Reason: Pain) cholecalciferol (vitamin D3) [Vitamin D3] 50 mcg (2,000 unit) capsule 50 mcg PO DAILY Referrals: Jessica Yuen MD [Primary Care Provider] - Damien Butler MD [Physician] - (Suspect biliary as source of pancreatitis) Print Language: German
[2022-11-17 10:11] LABS: Troponin-I High Sensitivity < 2.7 ng/L (<3.5-35.0)
--- NOTE | 2022-11-17 12:10 | PM.IMHP ---
History of Present Illness Date of Service: 11/17/22 [facility] Medical History Arthritis Diabetes Essential hypertension History of stroke Hypertension Osteoporosis Other and unspecified hyperlipidemia Parkinson disease Vertigo Family History Father No problems noted. Mother No problems noted. Surgical History H/O hernia repair Hx of cataract surgery Hx of hand surgery Social History Household Members: Family Alcohol intake: never Patient Tobacco Use Status: Never used Tobacco Advance Directives: No Advance Directives Information Provided: Yes Current occupational status: retired 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 Meds Allergies Allergy/AdvReac Type Severity Reaction Status Date / Time No Known Allergies Allergy Verified 10/26/22 09:00 [No Known Allergies*] Home Medications Medication Instructions Recorded Confirmed Last Taken Type losartan 100 mg tablet 100 mg PO DAILY 02/20/20 05/31/22 01/17/22 History chlorthalidone 25 mg tablet 25 mg PO DAILY 06/04/20 05/31/22 01/17/22 History cholecalciferol (vitamin D3) 50 50 mcg PO DAILY 07/27/21 05/31/22 Unknown History mcg (2,000 unit) capsule (Vitamin D3) carbidopa 25 mg-levodopa 100 mg 1 tab PO TID 11/29/21 05/31/22 Unknown History tablet omeprazole 40 mg capsule,delayed 40 mg PO DAILY 11/29/21 05/31/22 Unknown History release ropinirole 0.5 mg tablet 0.5 mg PO TID 11/29/21 05/31/22 Unknown History acetaminophen 500 mg tablet 1,000 mg PO Q6H 12/31/21 05/31/22 Unknown History melatonin 3 mg tablet 3 mg PO BEDTIME PRN anxiety 12/31/21 05/31/22 Unknown History ezetimibe 10 mg tablet (Zetia) 10 mg PO DAILY 06/02/22 Unknown History hydroxyzine HCl 25 mg tablet 25 mg PO TID PRN 06/02/22 Unknown History Physical Exam Vital Signs and Narrative: Vital Signs: Last Vital Signs Temp 98.5 F 11/17/22 09:20 Pulse 81 08/03/23 09:20 Resp 22 H 11/17/22 09:20 BP 146/90 H 11/17/22 09:20 Pulse Ox 97 11/17/22 09:20 O2 Del Method Room Air 11/17/22 09:20 BMI result Body Mass Index 26.1 Results Labs 11/17/22 09:33 11/17/22 09:34 Labs: Laboratory Results - last 24 hr 11/17/22 11/17/22 11/17/22 09:18 09:33 09:33 MCV 93.4 MCH 31.8 MCHC 34.0 RDW 11.4 Plt Count 179 MPV 12.5 H Immature Gran % (Auto) 0.4 Neut % (Auto) 62.5 Lymph % (Auto) 26.6 [place] % (Auto) 8.8 Eos % (Auto) 1.2 Baso % (Auto) 0.5 Lymph # (Auto) 1.5 [place] # (Auto) 0.5 Eos # (Auto) 0.1 Baso # (Auto) 0.0 Abs Immat Gran (auto) 0.02 Absolute Neuts (auto) 3.6 Absolute Nucleated RBC 0.000 Nucleated RBC % (auto) 0.0 PT 11.5 INR 0.9 Anion Gap Estim Creat Clear Calc Estimated GFR Random Glucose Calcium Total Bilirubin AST ALT Alkaline Phosphatase Total Protein Albumin Lipase Urine Color Yellow Urine Appearance Clear Urine pH 6.0 Ur Specific [place] 1.020 Urine Protein Negative Urine Glucose (UA) Negative Urine Ketones Negative Urine Blood Negative Urine Nitrite Negative Ur Leukocyte Esterase Trace H Urine RBC 0-2 Urine WBC 0-5 Ur Squamous Epith Cells 0-2 Urine Bacteria None Seen Hyaline Casts 0-2 11/17/22 09:34 MCV MCH MCHC RDW Plt Count MPV Immature Gran % (Auto) Neut % (Auto) Lymph % (Auto) [place] % (Auto) Eos % (Auto) Baso % (Auto) Lymph # (Auto) [place] # (Auto) Eos # (Auto) Baso # (Auto) Abs Immat Gran (auto) Absolute Neuts (auto) Absolute Nucleated RBC Nucleated RBC % (auto) PT INR Anion Gap 16 Estim Creat Clear Calc 52.6 Estimated GFR > 60 Random Glucose 96 Calcium 9.7 Total Bilirubin 0.9 AST 25 ALT 25 Alkaline Phosphatase 54 Total Protein 7.6 Albumin 4.5 Lipase 145 H Urine Color Urine Appearance Urine pH Ur Specific [place] Urine Protein Urine Glucose (UA) Urine Ketones Urine Blood Urine Nitrite Ur Leukocyte Esterase Urine RBC Urine WBC Ur Squamous Epith Cells Urine Bacteria Hyaline Casts Imaging Radiologist's Impressions: Impressions Abdomen Ultrasound 11/17/22 10:20 IMPRESSION: Heterogeneous, echogenic liver, consistent with steatosis, as on CT of 06/26/2021. Assessment and Plan Time Spent With Patient Time: Total time managing care of this patient today ____ minutes.
[2022-11-17 12:22] LABS: Cholesterol 213 mg/dL; HDL Cholesterol 56 mg/dL; LDL Cholesterol Calculated 139 mg/dl; Triglycerides 94 mg/dL
--- NOTE | 2022-11-17 12:34 | PC.NURSE ---
Patient up ambulating in hallway often. Patient walking to and from bathroom.
[2022-11-17] MEDS: iohexoL 350 MG/ML 100 ML INFUS..BTL IV (13:19)
--- NOTE | 2022-11-17 14:12 | PHA.MEDREC ---
Pharmacy Consult ? Medication Reconciliation Pharmacy has completed the medication reconciliation. Spoke to patient to confirm meds. Utilized diplomatic interpreter/translator services.
[2022-11-17 15:24] VITALS: BP 156/99; PULSE 91; RESP 16; TEMP 37; O2SAT 92
== END 2022-11-17 15:40 | disposition home or self-care (01) ==
PROVIDERS: Emergency Provider Student in an Organized Health Care Education/Training Program; PCP Internal Medicine
DX: K85.90 Acute pancreatitis without necrosis or infection, unspecified (principal); R07.89 Other chest pain; R10.11 Right upper quadrant pain; R10.13 Epigastric pain; Z79.899 Other long term (current) drug therapy
CPT/HCPCS: 36415; 74177; 76705; 80053; 80061; 81001; 83690; 84484; 85025; 85610; 93005; 99284; Q9967

== ENCOUNTER → 2022-11-17 08:43 | Outpatient (BNV) | payer MEDICARE, SELFPAY | PROVIDERS: Emergency Provider Student in an Organized Health Care Education/Training Program; PCP Internal Medicine; Visit Provider Internal Medicine | DX: R07.9 Chest pain, unspecified (principal) | CPT/HCPCS: 93010 ==

== ENCOUNTER 2022-11-23 08:27 | Outpatient (AMB) | payer MEDICARE, SELFPAY ==
[2022-11-23 08:33] VITALS: BP 132/81; PULSE 78; BMI 25.3
--- NOTE | 2022-11-23 08:33 | MHC.OFFVIS ---
Intake Vital Signs 11/23/22 08:33 Height 5 ft 6 in Weight 157 lb BMI 25.3 BP 132/81 Blood Pressure Location Rt brachial Position Sitting Pulse 78 Intake Visit Reasons: Acute pancreatitis, [facility] ED follow up Intake Note: Patient was referred for acute pancreatitis. ER visit on 11-17-22. Patient c/o gallbladder pain. Denies nausea, vomit. Patient states pain gets to be 6-7 out of 10. 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 Patient is status post recent ER visit for nonspecific abdominal complaints. At that time he had a CT scan as well as ultrasound which essentially within normal limits. Patient had a small umbilical hernia. Currently, he is tolerating his diet. Having normal bowel habits. He has nonspecific right-sided abdominal complaints. Chart was reviewed patient evaluated. Patient has significant Parkinson's disease. [facility] Medical History Arthritis Diabetes Essential hypertension History of stroke Hypertension Osteoporosis Other and unspecified hyperlipidemia Parkinson disease Vertigo Surgical History H/O hernia repair Hx of cataract surgery Hx of hand surgery Family History Father No problems noted. Mother No problems noted. Social History Household Members: Family Alcohol intake: never Patient Tobacco Use Status: Never used Tobacco Current occupational status: retired 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 Physical Exam Vital Signs: Last Vital Signs Pulse 78 11/23/22 08:33 BP 132/81 11/23/22 08:33 BMI result Body Mass Index 25.3 GI Other: Patient was examined both supine and standing with Valsalva. Abdomen soft. Upper midline scar. Very small reducible umbilical hernia. Abdomen benign. Groin bilateral exam negative. Assessment & Plan Assessment & Plan (1) Abdominal pain: Code(s): R10.9 - Unspecified abdominal pain Qualifiers: Abdominal location: right upper quadrant Qualified Code(s): R10.11 - Right upper quadrant pain Plan The present time, there are no acute surgical issues. Sonogram of gallbladder demonstrated no pathology. Incidental finding of umbilical hernia CT scan is asymptomatic. Patient and grandson have instructed that should the patient have any further abdominal issues or complaints, they call for follow-up , otherwise follow-up p.r.n. Medications: Discontinued spironolactone 25 mg PO DAILY 30 tabs 11RF atorvastatin 80 mg PO QPM 90 tabs 3RF Coding Level of Care Code New Pt Level 3 (61372) Diagnoses Abdominal pain R10.11 Abdominal location: right upper quadrant
== END 2022-11-23 08:44 | disposition home or self-care (01) ==
PROVIDERS: PCP Internal Medicine; Visit Provider Surgery
DX: R10.11 Right upper quadrant pain (principal)
CPT/HCPCS: 99203

== ENCOUNTER → 2022-11-23 08:27 | Outpatient (BNVA) | payer MEDICARE, SELFPAY | PROVIDERS: PCP Internal Medicine; Visit Provider Surgery | DX: R10.11 Right upper quadrant pain (principal) | CPT/HCPCS: 99202 ==

== ENCOUNTER 2022-11-23 11:01 | Outpatient (REF) | payer MEDICARE, SELFPAY ==
[2022-11-23 13:46] LABS: MANUAL DIFF FLAG NO
[2022-11-23 14:01] LABS: Basophils Percent Auto 0.4 % (0-2); Eosinophils Absolute Auto 0.1 X10*3/uL (0.0-0.4); Eosinophils Percent Auto 0.8 % (0-4); Hematocrit 43.1 % (42.0-52.0); Hemoglobin 14.7 g/dl (14.0-18.0); Imm Gran Abs Auto 0.03 X10*3/uL (0.00-0.03); Imm Gran Pct Auto 0.4 % (0.0-0.4); Lymphocytes Absolute Auto 1.4 X10*3/uL (1.2-4.9); Lymphocytes Percent Auto 19.7 % (20-40); Mean Corpuscular HGB Conc 34.1 g/dl (31.0-36.0); Mean Corpuscular Volume 93.9 fL (80.0-98.0); Mean Platelet Volume 13.7 fL (9.4-12.4); Monocytes Absolute Auto 0.5 X10*3/uL (0.1-1.2); Monocytes Percent Auto 6.8 % (2-11); Neutrophils Absolute Auto 5.1 x10*3/uL (2.0-8.3); Neutrophils Percent Auto 71.9 % (45-73); Platelet Count 164 X10*3/uL (160-400); Red Blood Count 4.59 X10*6/uL (4.60-5.80); Red Cell Distribution Width 11.2 % (11.0-16.0); White Blood Count 7.1 X10*3/uL (4.8-10.8)
[2022-11-23 14:34] LABS: Alanine Aminotransferase 20 U/L (0-40); Albumin Level 4.5 g/dL (3.5-5.0); Alkaline Phosphatase 47 U/L (39-117); Anion Gap 14 (12-20); Aspartate Amino Transferase 24 U/L (5-37); Bilirubin Direct 0.4 mg/dL (0.0-0.5); Bilirubin Total 1.1 mg/dL (0.0-1.0); Blood Urea Nitrogen 30 mg/dL (9-16); Calcium 9.9 mg/dL (8.4-10.2); Carbon Dioxide 27 mmol/L (22-29); Chloride 102 mmol/L (96-108); Cholesterol 200 mg/dL; Estimated Glomerular Filt Rate 54; Glucose Random 97 mg/dL (60-115); HDL Cholesterol 53 mg/dL; LDL Cholesterol Calculated 128 mg/dl; Lipase 53 U/L (8-78); Potassium 4.2 mmol/L (3.3-5.1); Sodium 139 mmol/L (135-145); Total Protein 7.5 g/dL (6.5-8.0); Triglycerides 97 mg/dL
== END 2022-11-23 11:02 | disposition home or self-care (01) ==
LOC: HO.HHCL 11:01
PROVIDERS: Visit Provider Internal Medicine
DX: R10.11 Right upper quadrant pain (principal); E11.9 Type 2 diabetes mellitus without complications
CPT/HCPCS: 36415; 80048; 80061; 80076; 83690; 85025

== ENCOUNTER 2022-12-02 08:31 | Emergency (ER) | payer MEDICARE, SELFPAY ==
--- NOTE | ~2022-12-02 | XR_ITS ---
EXAMINATION: XR CHEST CLINICAL INFORMATION: Chest pain. COMPARISON: 08/23/2022 chest radiographs. TECHNIQUE: Frontal view of the chest was obtained. FINDINGS: No significant abnormality is noted involving the heart, lungs, mediastinum, bony thorax or soft tissues. XR/XR chest 1V IMPRESSION: No acute cardiopulmonary process.
--- NOTE | 2022-12-02 08:37 | ECG_ITS ---
Test Reason : cp Blood Pressure : / mmHG Vent. Rate : 074 BPM Atrial Rate : 074 BPM P-R Int : 144 ms QRS Dur : 084 ms QT Int : 390 ms P-R-T Axes : 000 -13 002 degrees QTc Int : 432 ms Poor data quality, interpretation may be adversely affected Normal sinus rhythm Minimal voltage criteria for LVH, may be normal variant ( R in aVL ) Inferior infarct , age undetermined RSR' or QR pattern in V1 suggests right ventricular conduction delay Abnormal ECG When compared with ECG of 17-NOV-2022 08:56, No significant change was found Referred By: Generic ED Physician Electronically Signed By:VANESA RADER
[2022-12-02 08:44] VITALS: BP 138/93; PULSE 86; RESP 17; TEMP 37.1; O2SAT 96; BMI 25.3
--- NOTE | 2022-12-02 10:08 | ED.GENADULT ---
HPI - General Adult General Chief complaint: General Medical Stated complaint: chest pain Time Seen by Provider: 12/02/22 10:07 Source: patient Mode of arrival: ambulatory Limitations: language barrier (Omani speaking only, accounting auditor used) History of Present Illness HPI narrative: 72-year-old male who presents emergency department for evaluation of chest pain. He states that the pain came on last night while he was at rest at around midnight. He points to his left chest when asked to localize the pain. He states the pain was a pins and needle sensation the lasted seconds. He states he has had similar pain in the past but has not experienced and sometime. He denied any associated symptoms such as lightheadedness, dizziness, nausea, diaphoresis, radiation of the pain to his neck, jaw or arms. Patient was concerned that he may be having a heart attack and came into the emergency department this morning for evaluation. Review of systems was negative for fever, chills, shortness of breath, dyspnea on exertion, nausea, vomiting, diarrhea, dark stools, bloody stools. Related Data Home Medications Medication Instructions Recorded Confirmed losartan 100 mg tablet 100 mg PO DAILY 02/20/20 11/17/22 chlorthalidone 25 mg tablet 25 mg PO DAILY 06/04/20 11/17/22 cholecalciferol (vitamin D3) 50 50 mcg PO DAILY 07/27/21 11/17/22 mcg (2,000 unit) capsule (Vitamin D3) carbidopa 25 mg-levodopa 100 mg 2 tab PO TID 11/29/21 11/17/22 tablet omeprazole 40 mg capsule,delayed 40 mg PO DAILY@0630 11/29/21 11/17/22 release ropinirole 0.5 mg tablet 0.5 mg PO TID 11/29/21 11/17/22 acetaminophen 500 mg tablet 1,000 mg PO Q8H PRN Pain 12/31/21 11/17/22 melatonin 3 mg tablet 3 mg PO BEDTIME PRN anxiety 12/31/21 11/17/22 ezetimibe 10 mg tablet (Zetia) 10 mg PO DAILY 06/02/22 11/17/22 atorvastatin 80 mg tablet 80 mg PO BEDTIME 11/17/22 11/17/22 spironolactone 25 mg tablet 25 mg PO BEDTIME 11/17/22 11/17/22 Previous Rx's Medication Instructions Recorded carvedilol 12.5 mg tablet 12.5 mg PO BID 90 days #180 tabs 08/10/22 Allergies Allergy/AdvReac Type Severity Reaction Status Date / Time No Known Allergies Allergy Verified 11/23/22 08:37 [No Known Allergies*] Review of Systems Review of Systems: Yes all other systems are reviewed and are negative [facility] Past Medical History [facility] Narrative: Social history: Patient lives alone. He denies tobacco, alcohol and drug use. Medical History Arthritis Diabetes Essential hypertension History of stroke Hypertension Osteoporosis Other and unspecified hyperlipidemia Parkinson disease Vertigo Surgical History H/O hernia repair Hx of cataract surgery Hx of hand surgery Family History Family History Father No problems noted. Mother No problems noted. 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 Physical Exam ED Vital Signs: Vital Signs - 24 hr 12/02/22 08:44 12/02/22 12:09 12/02/22 14:08 Temperature 98.7 F Pulse Rate 86 74 74 Respiratory Rate 17 16 18 Blood Pressure 138/93 H 124/79 119/71 Pulse Oximetry 96 98 99 Oxygen Delivery Method Room Air Room Air Room Air BMI result Body Mass Index 25.3 Vital signs revealed an elevated blood pressure 130/93 otherwise unremarkable Exam: General: Awake, alert in no distress, resting tremor consistent with Parkinson's Head: Normocephalic, atraumatic EENT: PERRL, Lids normal, sclera normal, conjunctiva normal, nose normal , ears normal, throat without erythema or exudates Neck: Supple, no adenopathy, trachea midline and nontender Lung: breath sounds symmetric, no wheezing, rales or rhonchi Chest: symmetric movement, nontender Heart: regular rate and rhythm, normal S1, S2 no murmurs or rubs Abdomen: soft, non-tender, nondistended, normal bowel sounds Back: no vertebral tenderness, no CVAT Extremities: no deformities, moves all extremities symmetrically Skin: no rashes, no lesion, normal color and warmth Neuro: Awake, alert, oriented, normal speech, cranial nerves intact, moves all extremities symmetrically Psych: Pleasant, cooperative Medical Decision Making Medical Decision Making [facility] Narrative: 72-year-old male with a history of diabetes mellitus, hypertension, hyperlipidemia, Parkinson's, vertigo presents emergency department for evaluation of chest pain that occurred at rest, last night around midnight. The sensation was a pins and needle sensation located in the left chest which resolved after seconds. Patient has had similar pain in the past. Patient was concerned that maybe at a heart attack so came to emergency department for evaluation. Patient's vital signs did reveal an elevated blood pressure . His exam is consistent with his Parkinson's disease otherwise was unremarkable. Given his cardiac risk factors I did order a laboratory evaluation to: CBC, CMP, PT/INR, PTT, troponin, chest x-ray, 12 EKG. 1541: Patient's laboratory evaluation was unremarkable, 1st troponin was detectable lot elevated and 3 hour repeat troponin was below detectable limits suggesting the patient is not have myocardial injury is the cause of his chest pain. Patient's pain is likely musculoskeletal or secondary to costochondritis. Patient will be discharged home. Differential Diagnosis Differential Diagnoses: The differential diagnosis associated with the presentation includes Differential diagnosis includes was not limited to myocardial infarction, myocardial ischemia, musculoskeletal pain, costochondritis, anemia, electrolyte abnormality, anxiety Admission/Observation Consideration of admission/observation: Escalation of care including admission/observation considered Lab Data [facility] Lab Attestation statement: I reviewed the patient's lab results. My independent interpretation patient's laboratory evaluation is as follows: CBC was normal. CMP was normal. The patient's lipase was normal. Patient's 1st high sensitive troponin I was detectable but not elevated at 10.3, 3 hour repeat was less than 2.6 which is reassuring. 12/02/22 10:45 12/02/22 10:45 Labs: Lab Results 12/02/22 12/02/22 12/02/22 Range/Units 10:45 10:45 10:45 WBC 5.9 (4.8-10.8) X10*3/uL RBC 4.83 (4.60-5.80) X10*6/uL Hgb 15.2 (14.0-18.0) g/dl Hct 44.2 (42.0-52.0) % MCV 91.5 (80.0-98.0) fL MCH 31.5 (27.0-33.0) pg MCHC 34.4 (31.0-36.0) g/dl RDW 11.2 (11.0-16.0) % Plt Count 166 (160-400) X10*3/uL MPV 12.9 H (9.4-12.4) fL Immature Gran % (Auto) 0.3 (0.0-0.4) % Neut % (Auto) 70.5 (45-73) % Lymph % (Auto) 20.2 (20-40) % [place] % (Auto) 7.6 (2-11) % Eos % (Auto) 0.7 (0-4) % Baso % (Auto) 0.7 (0-2) % Lymph # (Auto) 1.2 (1.2-4.9) X10*3/uL [place] # (Auto) 0.5 (0.1-1.2) X10*3/uL Eos # (Auto) 0.0 (0.0-0.4) X10*3/uL Baso # (Auto) 0.0 (0.0-0.2) X10*3/uL Abs Immat Gran (auto) 0.02 (0.00-0.03) X10*3/uL Absolute Neuts (auto) 4.2 (2.0-8.3) x10*3/uL Absolute Nucleated RBC 0.000 (0.0-0.012) X10*3/uL Nucleated RBC % (auto) 0.0 (0.0-0.2) /100WBC PT 11.5 (11.1-13.3) SEC INR 0.9 (0.9-1.1) APTT 29.4 (26.0-36.4) SEC Sodium 141 (135-145) mmol/L Potassium 4.3 (3.3-5.1) mmol/L Chloride 103 (96-108) mmol/L Carbon Dioxide 27 (22-29) mmol/L Anion Gap 15 (12-20) BUN 23 H (9-16) mg/dL Creatinine 1.15 (0.5-1.4) mg/dL Estim Creat Clear Calc 50.8 Estimated GFR > 60 Random Glucose 104 (60-115) mg/dL Calcium 10.2 (8.4-10.2) mg/dL Total Bilirubin 1.0 (0.0-1.0) mg/dL AST 23 (5-37) U/L ALT 21 (0-40) U/L Alkaline Phosphatase 49 (39-117) U/L Troponin I High Sens (<3.5-35.0) ng/L Total Protein 8.0 (6.5-8.0) g/dL Albumin 4.6 (3.5-5.0) g/dL Lipase 28 (8-78) U/L 12/02/22 12/02/22 Range/Units 10:45 13:56 WBC (4.8-10.8) X10*3/uL RBC (4.60-5.80) X10*6/uL Hgb (14.0-18.0) g/dl Hct (42.0-52.0) % MCV (80.0-98.0) fL MCH (27.0-33.0) pg MCHC (31.0-36.0) g/dl RDW (11.0-16.0) % Plt Count (160-400) X10*3/uL MPV (9.4-12.4) fL Immature Gran % (Auto) (0.0-0.4) % Neut % (Auto) (45-73) % Lymph % (Auto) (20-40) % [place] % (Auto) (2-11) % Eos % (Auto) (0-4) % Baso % (Auto) (0-2) % Lymph # (Auto) (1.2-4.9) X10*3/uL [place] # (Auto) (0.1-1.2) X10*3/uL Eos # (Auto) (0.0-0.4) X10*3/uL Baso # (Auto) (0.0-0.2) X10*3/uL Abs Immat Gran (auto) (0.00-0.03) X10*3/uL Absolute Neuts (auto) (2.0-8.3) x10*3/uL Absolute Nucleated RBC (0.0-0.012) X10*3/uL Nucleated RBC % (auto) (0.0-0.2) /100WBC PT (11.1-13.3) SEC INR (0.9-1.1) APTT (26.0-36.4) SEC Sodium (135-145) mmol/L Potassium (3.3-5.1) mmol/L Chloride (96-108) mmol/L Carbon Dioxide (22-29) mmol/L Anion Gap (12-20) BUN (9-16) mg/dL Creatinine (0.5-1.4) mg/dL Estim Creat Clear Calc Estimated GFR Random Glucose (60-115) mg/dL Calcium (8.4-10.2) mg/dL Total Bilirubin (0.0-1.0) mg/dL AST (5-37) U/L ALT (0-40) U/L Alkaline Phosphatase (39-117) U/L Troponin I High Sens 10.3 D < 2.7 D (<3.5-35.0) ng/L Total Protein (6.5-8.0) g/dL Albumin (3.5-5.0) g/dL Lipase (8-78) U/L Independent Interpretation I performed an independent interpretation of an: EKG and Plain X-Ray Interpretation: My independent interpretation patient's 12 EKG done at 04:41 hours is as follows: The baseline is difficult to interpret secondary to the patient's tremors from Parkinson's disease, patient has a regular rhythm which is consistent with a sinus rhythm, there is no ST segment elevation, no ST segment depression, no significant T-wave abnormalities, no PACs, no PVCs Radiology Impression Discussion of test interpretation with radiology: I have reviewed the radiologist's reading. Radiologist Impression: XR chest 1V IMPRESSION: No acute cardiopulmonary process. Dictated By:Dusty Quiles MD Discharge Plan Discharge Clinical Impression: Chest pain Instructions: Chest Pain (ED) Additional Instructions: Your EKG was no You had to high sensitive troponin I test which were not elevated above 30. This is very reassuring and suggests that you did not have heart damage or heart attack as the cause of your pain Your pain is most likely related to the muscles or joints of your chest. Take acetaminophen 500 mg pills, 1 pill every 4-6 hours as needed for pain. Insert discharge follow-up return. Prescriptions: No Action ezetimibe [Zetia] 10 mg tablet 10 mg PO DAILY carvedilol 12.5 mg tablet 12.5 mg PO BID 90 Days Qty: 180 3RF atorvastatin 80 mg tablet 80 mg PO BEDTIME spironolactone 25 mg tablet 25 mg PO BEDTIME losartan 100 mg tablet 100 mg PO DAILY chlorthalidone 25 mg tablet 25 mg PO DAILY omeprazole 40 mg capsule,delayed release(DR/EC) 40 mg PO DAILY@0630 carbidopa-levodopa 25-100 mg tablet 2 tab PO TID ropinirole 0.5 mg tablet 0.5 mg PO TID melatonin 3 mg tablet 3 mg PO BEDTIME PRN (Reason: anxiety) acetaminophen 500 mg tablet 1,000 mg PO Q8H PRN (Reason: Pain) cholecalciferol (vitamin D3) [Vitamin D3] 50 mcg (2,000 unit) capsule 50 mcg PO DAILY Print Language: Omani
[2022-12-02 10:49] LABS: MANUAL DIFF FLAG NO
[2022-12-02 10:58] LABS: Basophils Percent Auto 0.7 % (0-2); Eosinophils Percent Auto 0.7 % (0-4); Hematocrit 44.2 % (42.0-52.0); Hemoglobin 15.2 g/dl (14.0-18.0); INTERNATIONAL NORM RATIO 0.9 (0.9-1.1); Imm Gran Abs Auto 0.02 X10*3/uL (0.00-0.03); Imm Gran Pct Auto 0.3 % (0.0-0.4); Lymphocytes Absolute Auto 1.2 X10*3/uL (1.2-4.9); Lymphocytes Percent Auto 20.2 % (20-40); Mean Corpuscular HGB Conc 34.4 g/dl (31.0-36.0); Mean Corpuscular Hemoglobin 31.5 pg (27.0-33.0); Mean Corpuscular Volume 91.5 fL (80.0-98.0); Mean Platelet Volume 12.9 fL (9.4-12.4); Monocytes Absolute Auto 0.5 X10*3/uL (0.1-1.2); Monocytes Percent Auto 7.6 % (2-11); Neutrophils Absolute Auto 4.2 x10*3/uL (2.0-8.3); Neutrophils Percent Auto 70.5 % (45-73); Platelet Count 166 X10*3/uL (160-400); Prothrombin Time 11.5 SEC (11.1-13.3); Red Blood Count 4.83 X10*6/uL (4.60-5.80); Red Cell Distribution Width 11.2 % (11.0-16.0); White Blood Count 5.9 X10*3/uL (4.8-10.8)
[2022-12-02 11:01] LABS: Partial Thromboplastin Time 29.4 SEC (26.0-36.4)
[2022-12-02 11:07] LABS: Alanine Aminotransferase 21 U/L (0-40); Albumin Level 4.6 g/dL (3.5-5.0); Alkaline Phosphatase 49 U/L (39-117); Anion Gap 15 (12-20); Aspartate Amino Transferase 23 U/L (5-37); Blood Urea Nitrogen 23 mg/dL (9-16); Calcium 10.2 mg/dL (8.4-10.2); Carbon Dioxide 27 mmol/L (22-29); Chloride 103 mmol/L (96-108); Creatinine Clr Calc Pharmacy 50.8; Estimated Glomerular Filt Rate > 60; Glucose Random 104 mg/dL (60-115); Lipase 28 U/L (8-78); Potassium 4.3 mmol/L (3.3-5.1); Sodium 141 mmol/L (135-145)
[2022-12-02 11:12] LABS: Troponin-I High Sensitivity 10.3 ng/L (<3.5-35.0)
[2022-12-02 12:09] VITALS: BP 124/79; PULSE 74; RESP 16; O2SAT 98
[2022-12-02 14:08] VITALS: BP 119/71; PULSE 74; RESP 18; O2SAT 99
[2022-12-02 14:24] LABS: Troponin-I High Sensitivity < 2.7 ng/L (<3.5-35.0)
--- NOTE | 2022-12-02 15:56 | PC.NURSE ---
Discharge plan reviewed with patient who verbalized understanding
== END 2022-12-02 15:57 | disposition home or self-care (01) ==
PROVIDERS: Emergency Provider Emergency Medicine Emergency Medical Services; PCP Internal Medicine
DX: R07.9 Chest pain, unspecified (principal); E11.9 Type 2 diabetes mellitus without complications; I10 Essential (primary) hypertension; E78.49 Other hyperlipidemia; G20 Parkinson's disease; Z79.899 Other long term (current) drug therapy
CPT/HCPCS: 36415; 71045; 80053; 83690; 84484; 85025; 85610; 85730; 93005; 99284

== ENCOUNTER 2023-02-28 08:54 | Outpatient (AMB) | payer MEDICARE, SELFPAY ==
--- NOTE | 2023-02-28 09:00 | MHC.OFFVIS ---
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 States his last injection from 10/26/22 provide good pain relief and would like to repeat injection today. Allergies No Known Allergies [No Known Allergies*] Allergy (Verified 02/28/23 09:18) HPI OV-LT wrist injection-Last inj 10/26/22 HPI Details Benjamin is a 72 year old right hand dominant man with Parkinson's disease and a scapholunate advanced collapse left wrist deformity. He most recently had a left wrist injection on 10/26/2022 which he felt was very helpful. However, his wrist has again become more painful. He would like a repeat injection today. [facility] Medical History Arthritis Diabetes Essential hypertension History of stroke Hypertension Osteoporosis Other and unspecified hyperlipidemia Parkinson disease Vertigo Surgical History H/O hernia repair Hx of cataract surgery Hx of hand surgery Family History Father No problems noted. Mother No problems noted. 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 Regarding his left hand and wrist: Median ulnar radial nerve motor and sensory were grossly intact. He can make a fist and extend all of his digits with no locking or catching. He does have some ulnar deviation of the extensor tendons to the middle and ring fingers when he brings his fingers close to a fist. This is not appear to be prevent ting active extension of the digits and that is not a significant amount of deviation at the digits. Regarding his left wrist he has some mild swelling and some deformity at the radiocarpal joint consistent with a SLAC wrist deformity. He is most tender to palpation over the radioscaphoid joint. Radiographs: 3 views of the left wrist from 10/19/20 were reviewed by me today. It does show a scapholunate advanced collapse wrist deformity with essentially complete loss of the radioscaphoid joint space, widening of scaapholunate interval and good preservation of radiolunate joint space. 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 Left scapholunate advanced collapse wrist deformity, S/P steroid injection using the FluoroScan for needle guidance Dates of Injection: 10/26/22, 07/06/22, 01/17/22, 08/26/21, and 02/22/21 He had good relief from these injections and is interested in having another injection. I discussed the risks and benefits of a steroid injection and he would like to proceed Injection #1: The risks and benefits of a steroid injection including but not limited to risk of damage to blood vessels, nerves, tendons, infection, skin bleaching, failure to improve symptoms, increased pain, and possible need for further injections or other intervention were discussed with the patient and the patient wishes to proceed with the steroid injection. Once consent was obtained, I sterilely prepped the area over the dorsal aspect of the left wrist. I then injected the left wrist joint at the scapholunate interval using the FluoroScan for needle guidance? with a combination of?1mL of?Depo-Medrol (80mg/ml), and?2mL of 0.25% plain Marcaine.?The patient tolerated the procedure well and in with no complications, and had good relief of symptoms before leaving clinic. He says this is beneficial and will schedule his next injection with the mini C-arm for 4 months from now. This should be a 30 minute appointment 2. Left middle Trigger Finger, S/P release DOS: 08/26/21 Good resolution of locking and catching Still with a mild flexion contracture of the middle finger PIP joint, but this has improved some and he feels like he is doing well with home exercises alone. 3. 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 Ulnar subluxation of the extensor tendons to the left ring and middle fingers. No problems with active extension of all digits. He does not have significant ulnar deviation of the digits. At this point this will be managed conservatively. 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
[2023-02-28 09:19] VITALS: BMI 25.2
== END 2023-02-28 09:39 | disposition home or self-care (01) ==
PROVIDERS: PCP Internal Medicine; Visit Provider Orthopaedic Surgery
DX: M19.132 Post-traumatic osteoarthritis, left wrist (principal)
CPT/HCPCS: 20605; 77002; 99213

== ENCOUNTER 2023-02-28 08:54 | Outpatient (REF) | payer MEDICARE, SELFPAY ==
--- NOTE | ~2023-02-28 | FL_ITS ---
EXAMINATION: XR FLUOROSCOPY WITH IMAGES CLINICAL INFORMATION: Posttraumatic osteoarthritis, unspecified wrist. Left wrist. COMPARISON: None available. TECHNIQUE: Fluoroscopy Supervised By: Dr. Lisy Ace. Fluoroscopy Time: 3.6 seconds. Cumulative Dose: mGy. DAP: 3027.7 Gycm2. Images: 1. FINDINGS: Image demonstrates needle projecting over the scapholunate joint. The scapholunate joint appears widened. FL/FL guided needle placement IMPRESSION: Fluoroscopy guidance for scapholunate joint injection.
== END 2023-02-28 08:55 | disposition home or self-care (01) ==
LOC: HO.HOSX 08:54
PROVIDERS: PCP Internal Medicine; Visit Provider Orthopaedic Surgery
DX: M19.132 Post-traumatic osteoarthritis, left wrist (principal); M21.832 Other specified acquired deformities of left forearm
CPT/HCPCS: 20605; 77002; 99212; J0665; J1040

== ENCOUNTER 2023-04-20 07:19 | Emergency (ER) | payer MEDICARE, SELFPAY ==
[2023-04-20 07:42] VITALS: BP 115/64; PULSE 88; RESP 16; TEMP 36.3; O2SAT 97; BMI 23.3
[2023-04-20 09:15] LABS: Anion Gap 15 (12-20); Blood Urea Nitrogen 33 mg/dL (9-16); Calcium 9.4 mg/dL (8.4-10.2); Carbon Dioxide 23 mmol/L (22-29); Chloride 102 mmol/L (96-108); Creatinine Clr Calc Pharmacy 46.7; Estimated Glomerular Filt Rate 56; Glucose Random 102 mg/dL (60-115); Potassium 4.1 mmol/L (3.3-5.1); Sodium 136 mmol/L (135-145)
[2023-04-20 11:20] VITALS: BP 114/78; PULSE 90; RESP 16; TEMP 37.2; O2SAT 99
--- NOTE | 2023-04-20 13:14 | PC.NURSE ---
[place], soft spoken, denies pain, fell a couple days ago on his porch and unclear why, denies dizziness prior but unable to determine why he fell, awaiting md thomas
--- NOTE | 2023-04-20 13:14 | ED.CHESTPAIN ---
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 Thinks he had pain before but family notes he c/o pain in chest frequently. He denies cough, fevers, runny nose, nausea, abominal pain, n/v/d. His family states he has no known problems with the heart and this happens a lot. He denies any other injuries other than posterior R ribs complaint: chest pain Onset (ago): day(s) (yesterday) Timing of current episode: now resolved Prior episodes: Yes Onset: during rest Pain location: substernal and other (posterior R ribs) Pain radiation: none Severity: mild Quality: aching Relieving factors: nothing Exacerbating factors: nothing Context: other (also just fell - injured R posterior ribs) Treatment prior to arrival: none Related Data Home Medications Medication Instructions Recorded Confirmed losartan 100 mg tablet 100 mg PO DAILY 02/20/20 11/17/22 chlorthalidone 25 mg tablet 25 mg PO DAILY 06/04/20 11/17/22 cholecalciferol (vitamin D3) 50 50 mcg PO DAILY 07/27/21 11/17/22 mcg (2,000 unit) capsule (Vitamin D3) carbidopa 25 mg-levodopa 100 mg 2 tab PO TID 11/29/21 11/17/22 tablet omeprazole 40 mg capsule,delayed 40 mg PO DAILY@0630 11/29/21 11/17/22 release ropinirole 0.5 mg tablet 0.5 mg PO TID 11/29/21 11/17/22 acetaminophen 500 mg tablet 1,000 mg PO Q8H PRN Pain 12/31/21 11/17/22 melatonin 3 mg tablet 3 mg PO BEDTIME PRN anxiety 12/31/21 11/17/22 atorvastatin 80 mg tablet 80 mg PO BEDTIME 11/17/22 11/17/22 Previous Rx's Medication Instructions Recorded carvedilol 12.5 mg tablet 12.5 mg PO BID 90 days #180 tabs 08/10/22 ezetimibe 10 mg tablet 10 mg PO DAILY #90 tabs 01/24/23 spironolactone 25 mg tablet 25 mg PO DAILY #30 tabs 04/04/23 Allergies Allergy/AdvReac Type Severity Reaction Status Date / Time No Known Allergies Allergy Verified 04/05/23 15:19 [No Known Allergies*] Review of Systems Review of Systems: Constitutional : No Weight loss, No Fever, No Chills ENT/Mouth : No sore throat, No Rhinorrhea Eyes: No Eye Pain, No Swelling Cardiovascular : pos Chest Pain, no SOB, no Dyspnea on Exertion, No Orthopnea, No Edema, No Palpitations Respiratory : No Cough, No Sputum Gastrointestinal : no Nausea, No Vomiting, No Diarrhea, No abdominal Pain, No Hematochezia, No Melena Genitourinary : No Dysuria, No Urinary Frequency Musculoskeletal : No joint pain, No Myalgias, No Joint Swelling Skin : No Skin Lesions, No rash Neuro : No Weakness, No Numbness, No Dizziness, No Headache Psych : No Anxiety/Panic, No Depression All other systems reviewed and are negative PMFSH Past Medical History Onset Date is defined in the Problem List Problems that require an onset date and time if occurred within 24 hrs of arrival to the ED Aortic Dissection and Rupture; Neurologic impairment; Cardiopulmonary Arrest; Endotracheal Intubation; Insertion or Replacement of Mechanical Circulatory Assist Device Medical History Other and unspecified hyperlipidemia History of stroke Essential hypertension Osteoporosis Vertigo Arthritis Parkinson disease Diabetes Hypertension Surgical History Hx of hand surgery Hx of cataract surgery H/O hernia repair Family History Family History Father No problems noted. Mother No problems noted. 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 Oriented X3. No acute distress. Eyes: Pupils equal, round and reactive to light. ENT: Pharynx normal. Atraumatic Neck: Normal inspection. Neck supple. CVS: Normal heart rate and rhythm. Pulses normal. Respiratory: No respiratory distress. Breath sounds normal. Chest: posterior R upper ribs - abrasions noted and ttp no crepitus felt Abdomen: Soft and nontender. Skin: Skin warm and dry. Normal skin color. Normal skin turgor. Extremities: No lower extremity edema. No calf ttp Neuro: Oriented X 3. No motor deficit. No sensory deficit. soft speech, shuffling gait Medications Administered Discontinued Medications Generic Name Dose Route Start Last Admin Trade Name Freq PRN Reason Stop Dose Admin Iohexol 100 ml 04/20/23 15:12 04/20/23 15:12 Iohexol 350 Mg/Ml 100 Ml Infus..Btl IV 04/20/23 15:13 65 ml ONCE ONE Administration Medical Decision Making Medical Decision Making MDM Narrative: 72 yo male with PMH of HTN, CVA, HLD, GERD, parkinsons he is not on blood thinners and is a very poor historian but from what we can gather with his family and him is that he fell yesterday after moving suddenly. He hit his back on ?part of a porch or balcony no head injury or LOC. He had pain before. At this time at baseline, no signs of head trauma but not reliable. Will obtain EKG, trop x 1 as pain since yesterday. CTA for PE/rib fractures/trauma. CT head for trauma. Differential Diagnosis Differential Diagnoses: The differential diagnosis associated with the presentation includes chest pain, falls, weakness, rib fracture, low prob ACS Admission/Observation Consideration of admission/observation: Escalation of care including admission/observation considered EKG nonischemic trop flat x 2 CTA negative, CT head negative suspect falls chronic due to parkinsons. able to ambulate in room. he is at baseline, stable for DC Lab Data MDM Lab Attestation statement: I reviewed the patient's lab results. 04/20/23 08:56 04/20/23 08:56 Labs: Lab Results 04/20/23 04/20/23 Range/Units 08:56 14:32 WBC 7.6 (4.8-10.8) X10*3/uL RBC 4.23 L (4.60-5.80) X10*6/uL Hgb 13.5 L (14.0-18.0) g/dl Hct 38.9 L (42.0-52.0) % MCV 92.0 (80.0-98.0) fL MCH 31.9 (27.0-33.0) pg MCHC 34.7 (31.0-36.0) g/dl RDW 11.7 (11.0-16.0) % Plt Count 173 (160-400) X10*3/uL MPV 11.8 (9.4-12.4) fL Immature Gran % (Auto) 0.4 (0.0-0.4) % Neut % (Auto) 81.2 H (45-73) % Lymph % (Auto) 8.0 L (20-40) % [place] % (Auto) 10.0 (2-11) % Eos % (Auto) 0.1 (0-4) % Baso % (Auto) 0.3 (0-2) % Lymph # (Auto) 0.6 L (1.2-4.9) X10*3/uL [place] # (Auto) 0.8 (0.1-1.2) X10*3/uL Eos # (Auto) 0.0 (0.0-0.4) X10*3/uL Baso # (Auto) 0.0 (0.0-0.2) X10*3/uL Abs Immat Gran (auto) 0.03 (0.00-0.03) X10*3/uL Absolute Neuts (auto) 6.2 (2.0-8.3) x10*3/uL Absolute Nucleated RBC 0.000 (0.0-0.012) X10*3/uL Nucleated RBC % (auto) 0.0 (0.0-0.2) /100WBC Sodium 136 (135-145) mmol/L Potassium 4.1 (3.3-5.1) mmol/L Chloride 102 (96-108) mmol/L Carbon Dioxide 23 (22-29) mmol/L Anion Gap 15 (12-20) BUN 33 H (9-16) mg/dL Creatinine 1.25 (0.5-1.4) mg/dL Estim Creat Clear Calc 46.7 Estimated GFR 56 Random Glucose 102 (60-115) mg/dL Calcium 9.4 D (8.4-10.2) mg/dL Total Bilirubin 0.6 (0.0-1.0) mg/dL Direct Bilirubin 0.2 (0.0-0.5) mg/dL AST 22 (5-37) U/L ALT 18 (0-40) U/L Alkaline Phosphatase 42 (39-117) U/L Total Creatine Kinase 217 H (38-174) U/L Troponin I High Sens 5.0 D 5.8 (<3.5-35.0) ng/L Total Protein 6.7 (6.5-8.0) g/dL Albumin 4.1 (3.5-5.0) g/dL Lipase 22 (8-78) U/L Independent Interpretation I performed an independent interpretation of an: EKG and CT Scan (no pneumonia, no blood clots) Interpretation: Rate: 86 Rhythm: NSR [place]: left, LVH Normal P waves. Normal VALE. Normal QRS complex. ST T wave : nonspecific ST T wave changes ant leads, no ILENE qTC: normal prior studies: no acute ischemia The study has been interpreted contemporaneously by me. . Radiology Impression Discussion of test interpretation with radiology: I have reviewed the radiologist's reading. Independent Historian Clinical information obtained from an independent historian. History obtained from or confirmed by: Other notified daughter of results and findings. External Record Review External record reviewed: Inpatient record Discharge Plan Discharge Clinical Impression: Atypical chest pain Contusion of rib Qualifiers: Encounter type: initial encounter Laterality: right Qualified Code(s): S20.211A - Contusion of right front wall of thorax, initial encounter Patient Disposition: Home, Self-Care Instructions: Chest Pain (ED), Rib Contusion (ED) Additional Instructions: CT scan of brain and CT scan of chest and ribs are normal. normal tests for the heart x 2 and EKG, please follow up with your doctor in the next week. return for worsening pain, trouble breathing or any other concerns. La tomograf?a computarizada del cerebro y la tomograf?a computarizada del t?rax y las costillas son normales. Pruebas normales para el coraz?n x 2 y EKG, faizan un seguimiento con carbone m?dico la pr?xima semana. Regrese si el dolor empeora, tiene dificultad para respirar o cualquier otra inquietud. Prescriptions: No Action carvedilol 12.5 mg tablet 12.5 mg PO BID 90 Days Qty: 180 3RF ezetimibe 10 mg tablet 10 mg PO DAILY Qty: 90 3RF spironolactone 25 mg tablet 25 mg PO DAILY Qty: 30 11RF atorvastatin 80 mg tablet 80 mg PO BEDTIME losartan 100 mg tablet 100 mg PO DAILY chlorthalidone 25 mg tablet 25 mg PO DAILY omeprazole 40 mg capsule,delayed release(DR/EC) 40 mg PO DAILY@0630 carbidopa-levodopa 25-100 mg tablet 2 tab PO TID ropinirole 0.5 mg tablet 0.5 mg PO TID melatonin 3 mg tablet 3 mg PO BEDTIME PRN (Reason: anxiety) acetaminophen 500 mg tablet 1,000 mg PO Q8H PRN (Reason: Pain) cholecalciferol (vitamin D3) [Vitamin D3] 50 mcg (2,000 unit) capsule 50 mcg PO DAILY Referrals: Jessica Yuen MD [Primary Care Provider] - 2 days Discharge Date/Time: 04/20/23 17:17 Print Language: Slovak
[2023-04-20 15:45] VITALS: BP 99/54; PULSE 78; RESP 19; TEMP 37.3; O2SAT 97
--- NOTE | 2023-04-20 15:55 | MHC.EDTECH ---
Patient bed pad changed and walked to bathroom
== END 2023-04-20 17:17 | disposition home or self-care (01) ==
PROVIDERS: Emergency Provider Emergency Medicine; PCP Internal Medicine
DX: R07.89 Other chest pain (principal); S20.211A Contusion of right front wall of thorax, initial encounter; W19.XXXA Unspecified fall, initial encounter; E11.9 Type 2 diabetes mellitus without complications; I10 Essential (primary) hypertension; E78.5 Hyperlipidemia, unspecified; G20.A1 Parkinson's disease without dyskinesia, without mention of fluctuations; Z86.73 Personal history of transient ischemic attack (TIA), and cerebral infarction without residual deficits; Y93.9 Activity, unspecified; Y92.9 Unspecified place or not applicable; Y99.9 Unspecified external cause status
CPT/HCPCS: 36415; 70450; 71275; 80048; 80076; 82550; 83690; 84484; 85025; 93005; 99284; Q9967

== ENCOUNTER → 2023-04-20 07:22 | Outpatient (BNV) | payer MEDICARE, SELFPAY | PROVIDERS: Emergency Provider Emergency Medicine; PCP Internal Medicine; Visit Provider Internal Medicine Cardiovascular Disease | DX: R94.31 Abnormal electrocardiogram [ECG] [EKG] (principal) | CPT/HCPCS: 93010 ==

== ENCOUNTER 2023-04-24 08:25 | Emergency (ER) | payer MEDICARE, SELFPAY ==
[2023-04-24 08:58] VITALS: BP 139/79; PULSE 77; RESP 19; TEMP 37; O2SAT 97; BMI 2929.2
--- NOTE | 2023-04-24 10:41 | ED_ITS ---
HPI - General Adult General Chief complaint: General Medical Stated complaint: Bilateral hip pain Time Seen by Provider: 04/24/23 10:34 Source: patient, RN notes reviewed and old records reviewed Mode of arrival: ambulatory History of Present Illness HPI narrative: 72-year-old male's Martiniquais-speaking with a past medical history of Parkinson's, diabetes, HTN, vertigo, osteoporosis, CVA, HLD, presenting to the ED complaining of continued intermittent right-sided low back/hip pain x4 days s/p mechanical fall. Patient states he fell last week, is unsure how he fell, denies head trauma or LOC, was evaluated in our ED after incident on 04/20/2023, had negative head CT and chest CTA. Denies pain at present. Denies CP/SOB, incontinence/retention, dysuria/hematuria, weakness. At baseline ambulates with relating walker. Denies taking anything for pain Related Data Home Medications Medication Instructions Recorded Confirmed losartan 100 mg tablet 100 mg PO DAILY 02/20/20 11/17/22 chlorthalidone 25 mg tablet 25 mg PO DAILY 06/04/20 11/17/22 cholecalciferol (vitamin D3) 50 50 mcg PO DAILY 07/27/21 11/17/22 mcg (2,000 unit) capsule (Vitamin D3) carbidopa 25 mg-levodopa 100 mg 2 tab PO TID 11/29/21 11/17/22 tablet omeprazole 40 mg capsule,delayed 40 mg PO DAILY@0630 11/29/21 11/17/22 release ropinirole 0.5 mg tablet 0.5 mg PO TID 11/29/21 11/17/22 acetaminophen 500 mg tablet 1,000 mg PO Q8H PRN Pain 12/31/21 11/17/22 melatonin 3 mg tablet 3 mg PO BEDTIME PRN anxiety 12/31/21 11/17/22 atorvastatin 80 mg tablet 80 mg PO BEDTIME 11/17/22 11/17/22 Previous Rx's Medication Instructions Recorded carvedilol 12.5 mg tablet 12.5 mg PO BID 90 days #180 tabs 08/10/22 ezetimibe 10 mg tablet 10 mg PO DAILY #90 tabs 01/24/23 spironolactone 25 mg tablet 25 mg PO DAILY #30 tabs 04/04/23 acetaminophen 500 mg tablet 500 mg PO Q6H PRN fever or pain 04/24/23 (Tylenol Extra Strength) #14 tabs lidocaine 5 % topical patch 1 patch topical DAILY PRN pain #30 04/24/23 (Lidoderm) ea Allergies Allergy/AdvReac Type Severity Reaction Status Date / Time No Known Allergies Allergy Verified 04/05/23 15:19 [No Known Allergies*] Review of Systems Review of Systems: Constitutional: No Fever, No Chills ENT/Mouth: No Ear Pain, No Nasal Congestion, No sore throat, No Rhinorrhea, No Swallowing Difficulty Cardiovascular: No Chest Pain, No SOB Respiratory: No Cough, No Sputum Gastrointestinal: No Nausea, No Vomiting, No Diarrhea, No Constipation, No Abdominal pain Genitourinary: No Dysuria, No Urinary Frequency, No Hematuria, No Urinary Incontinence/retention, No Flank Pain Musculoskeletal: + joint pain, No Myalgias, No Joint Swelling Skin: No Skin Lesions, No rash Neuro: No Weakness, No Numbness, No Paresthesias Yes all other systems are reviewed and are negative Constitutional: Constitutional: Reports as per [facility] Past Medical History Attestation statement: The following information was validated with the patient. Source: old records reviewed Onset Date is defined in the Problem List Problems that require an onset date and time if occurred within 24 hrs of arrival to the ED Aortic Dissection and Rupture; Neurologic impairment; Cardiopulmonary Arrest; Endotracheal Intubation; Insertion or Replacement of Mechanical Circulatory Assist Device Medical History Other and unspecified hyperlipidemia History of stroke Essential hypertension Osteoporosis Vertigo Arthritis Parkinson disease Diabetes Hypertension Surgical History Hx of hand surgery Hx of cataract surgery H/O hernia repair Family History Family History Father No problems noted. Mother No problems noted. 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 Physical Exam ED Vital Signs: Vital Signs - 24 hr 04/24/23 08:58 Temperature 98.6 F Pulse Rate 77 Respiratory Rate 19 Blood Pressure 139/79 Pulse Oximetry 97 Oxygen Delivery Method Room Air BMI result Body Mass Index 2929.2 Const General: cooperative, healthy appearing and no acute distress Orientation/consciousness: patient oriented x3 Limitations: no limitations HENMT Head: Yes normal to inspection and Yes atraumatic Ears: hearing grossly normal bilaterally General nose exam: Normal external nose present Face and sinus: Yes normal facial exam Eyes General: appearance normal, both eyes and all related structures EOM: EOMs intact bilaterally Neck Neck: Yes normal visual inspection and Yes no meningeal signs Resp Effort & Inspection: normal respiratory effort and no respiratory distress Cardio Rate: regular rate GI Inspection: Yes normal to inspection Palpation (GI): Soft to palpation, nontender, no guarding and not rigid General: Yes no CVA tenderness Back/Spine/Pelvis Other: No midline cervical/thoracic/lumbar spinous tenderness/step-off or deformity Back: no CVA tenderness Skin Rashes: no rashes Wounds: no wounds Neuro Other: Strength intact throughout. No saddle anesthesia. Sensation intact to light touch. Neurovascular intact distally General: patient oriented x3, gait normal (At baseline with walker), tone normal, moves all extremities, no meningeal signs and no focal motor deficits Cranial nerves: Yes CN's II-XII intact bilaterally Gait exam (Neuro): Normal gait present Motor exam (neuro): 5/5 motor strength present throughout Extrem Other: Pelvis stable. ROM intact General: Yes normal to inspection Course Course Course Narrative: -UA not infected. Patient remains asymptomatic, recommended close PCP follow-up XR hip RT w PEL1V IMPRESSION: 1. No acute fracture or malalignment. 2. Moderate degenerative osteoarthritis in both hips. Results discussed with patient including worrisome signs and symptoms and strict return precautions, and when to return to the emergency department. They verbalized understanding and feel safe for discharge at this time. Medications Administered Discontinued Medications Generic Name Dose Route Start Last Admin Trade Name Shelbi PRN Reason Stop Dose Admin Acetaminophen 650 mg 04/24/23 10:53 04/24/23 11:14 Acetaminophen 325 Mg Tablet PO 04/24/23 10:54 650 mg ONCE ONE Administration Lidocaine 1 patch 04/24/23 10:53 04/24/23 11:16 Lidocaine 4 % Patch Adh..Patch TRANSDERMA 04/24/23 10:54 1 patch ONCE ONE Administration Protocol Medical Decision Making Medical Decision Making [facility] Narrative: 72-year-old male's Martiniquais-speaking with a past medical history of Parkinson's, diabetes, HTN, vertigo, osteoporosis, CVA, HLD, presenting to the ED complaining of continued intermittent right-sided low back/hip pain x4 days s/p mechanical fall. On exam vital signs stable, NAD, nontoxic appearing, no midline spinous tenderness throat. No reproducible pain. No rash/erythema or flail chest. Ambulating at baseline with walker. Denies pain/symptoms at present. Concern for osteoarthritis vs contusion vs occult fracture. Lower suspicion for renal stone/pyelo, appendicitis/diverticulitis, cauda equina/cord compression Plan: Hip/pelvic x-ray, pain control, UA Please refer to course for remaining clinical decision making, interpretation of labs/imaging results, and discussions with consultants and/or family members. Differential Diagnosis Differential Diagnoses: The differential diagnosis associated with the presentation includes As above Lab Data [facility] Lab Attestation statement: I reviewed the patient's lab results. Labs: Lab Results 04/24/23 Range/Units 11:22 Urine Color Yellow Urine Appearance Clear Urine pH 5.5 (5.0-9.0) Ur Specific [place] 1.020 (1.005-1.025) Urine Protein Negative (Neg-Trace) mg/dL Urine Glucose (UA) Negative (Negative) mg/dL Urine Ketones 15 (Negative) mg/dL Urine Blood Trace H (Negative) Urine Nitrite Negative (Negative) Ur Leukocyte Esterase Negative (Negative) Urine RBC 3-5 H (0-2) /HPF Urine WBC 0-5 (0-5) /HPF Ur Squamous Epith Cells 0-2 (0-2) /HPF Urine Bacteria None Seen (None Seen) Hyaline Casts 0-2 (0-2) /LPF Radiology Impression Discussion of test interpretation with radiology: I have reviewed the radiologist's reading. External Record Review External record reviewed: Inpatient record, Office record, Outpatient record, Prior outpatient labs, Prior outpatient radiology, Primary care record and Outside ED record Tests considered The following testing was considered but not selected: As above Prescription Management I considered prescription management with: Pain Medication Chronic Conditions Patient?s care impacted by: Other Discharge Plan Discharge Clinical Impression: Osteoarthritis Patient Disposition: Home, Self-Care Instructions: Osteoarthritis (DC) Additional Instructions: Your x-ray shows osteoarthritis Please take Tylenol and use Lidoderm patches as needed for pain Rest Apply ice and heat Follow-up with your doctor If your symptoms persist or worsen return to the ED Butts radiograf?a muestra osteoartritis Kohler Tylenol y use parches Lidoderm seg?n sea necesario para el dolor. Descansar Aplicar hielo y calor. Seguimiento con butts m?dico Si federico s?ntomas persisten o empeoran, regrese al servicio de urgencias. Prescriptions: New acetaminophen [Tylenol Extra Strength] 500 mg tablet 500 mg PO Q6H PRN (Reason: fever or pain) Qty: 14 0RF lidocaine [Lidoderm] 5 % adhesive patch,medicated 1 patch topical DAILY MDD remove after 12 hours PRN (Reason: pain) Qty: 30 0RF Rx Instructions: leave on most painful area for up to 12 hrs No Action carvedilol 12.5 mg tablet 12.5 mg PO BID 90 Days Qty: 180 3RF ezetimibe 10 mg tablet 10 mg PO DAILY Qty: 90 3RF spironolactone 25 mg tablet 25 mg PO DAILY Qty: 30 11RF atorvastatin 80 mg tablet 80 mg PO BEDTIME losartan 100 mg tablet 100 mg PO DAILY chlorthalidone 25 mg tablet 25 mg PO DAILY omeprazole 40 mg capsule,delayed release(DR/EC) 40 mg PO DAILY@0630 carbidopa-levodopa 25-100 mg tablet 2 tab PO TID ropinirole 0.5 mg tablet 0.5 mg PO TID melatonin 3 mg tablet 3 mg PO BEDTIME PRN (Reason: anxiety) acetaminophen 500 mg tablet 1,000 mg PO Q8H PRN (Reason: Pain) cholecalciferol (vitamin D3) [Vitamin D3] 50 mcg (2,000 unit) capsule 50 mcg PO DAILY Referrals: Jessica Yuen MD [Primary Care Provider] - 5 days Interventions: ED Discharge Assessment Last Done: 04/24/23 12:11 Discharge Date/Time: 04/24/23 12:12 Print Language: Martiniquais
== END 2023-04-24 12:12 | disposition home or self-care (01) ==
PROVIDERS: Emergency Provider Emergency Medicine; PCP Internal Medicine
DX: M16.0 Bilateral primary osteoarthritis of hip (principal); Z79.899 Other long term (current) drug therapy
CPT/HCPCS: 73502; 81001; 99283

== ENCOUNTER 2023-05-03 08:39 | Outpatient (REF) | payer MEDICARE, SELFPAY ==
[2023-05-03 11:33] LABS: Estimated Average Glucose 114 mg/dL; Hemoglobin A1c % 5.6 % (<6.0)
[2023-05-03 11:51] LABS: Anion Gap 14 (12-20); Blood Urea Nitrogen 24 mg/dL (9-16); Calcium 9.8 mg/dL (8.4-10.2); Carbon Dioxide 30 mmol/L (22-29); Chloride 99 mmol/L (96-108); Cholesterol 201 mg/dL (<200); Estimated Glomerular Filt Rate > 60; Glucose Random 98 mg/dL (60-115); HDL Cholesterol 54 mg/dL (>40); LDL Cholesterol Calculated 127 mg/dL (<100); Potassium 4.5 mmol/L (3.3-5.1); Sodium 138 mmol/L (135-145); Triglycerides 100 mg/dL (<150)
== END 2023-05-03 08:40 | disposition home or self-care (01) ==
LOC: HO.HHCL 08:39
PROVIDERS: Visit Provider Internal Medicine
DX: R07.89 Other chest pain (principal); I10 Essential (primary) hypertension
CPT/HCPCS: 36415; 80048; 80061; 83036

== ENCOUNTER 2023-05-26 08:33 | Emergency (ER) | payer MEDICARE, SELFPAY ==
--- NOTE | ~2023-05-26 | CT_ITS ---
EXAMINATION: CT ABDOMEN AND PELVIS WITHOUT CONTRAST CLINICAL INFORMATION: 73-year-old male with left flank pain COMPARISON: 11/17/2022 TECHNIQUE: Multidetector volumetric imaging was performed from the superior aspect of the liver through the pubic symphysis. Sagittal and coronal reformatted images were obtained on the technologist's workstation. This CT examination was performed using dose optimization techniques as appropriate, variously including the following: *Automated exposure control *Adjustment of mA and/or kV according to patient size (this includes techniques or standardized protocols for targeted exams where dose is matched to indication/reason for exam; i.e. extremities or head) *Use of iterative reconstruction technique DLP: 379 mGy-cm FINDINGS: LUNG BASES: The visualized lung bases are unremarkable. LIVER, GALLBLADDER, AND BILIARY TREE: The liver is normal in size, shape, and attenuation. No focal hepatic lesion or biliary ductal dilatation is present. The gallbladder is unremarkable with no evidence of radiopaque gallstones, gallbladder wall thickening, or obvious pericholecystic inflammatory changes. PANCREAS: Unremarkable. SPLEEN: Unremarkable. ADRENAL GLANDS: Unremarkable. KIDNEYS AND URETERS: There is 0.3 cm calcification in the lower pole of left kidney without evidence of hydroureteronephrosis ureters are not dilated BLADDER: Unremarkable. GASTROINTESTINAL TRACT: There are scattered diverticula seen in the colon without evidence of diverticulitis. No evidence of bowel obstruction colitis. Normal appendix seen. ABDOMINAL WALL: There are fat-containing small bilateral inguinal hernias. There is small fat-containing umbilical hernia. LYMPH NODES: Normal. VASCULAR: Unremarkable. PELVIC VISCERA: Unremarkable. OSSEOUS STRUCTURES: Unremarkable. CT/CT abdomen pelvis wo IV con IMPRESSION: 1. Left nephrolithiasis without evidence of hydroureteronephrosis. 2. Mild diverticulosis without diverticulitis. 3. Small fat-containing umbilical and bilateral inguinal hernias. Fleischner guidelines were followed.
--- NOTE | 2023-05-26 08:39 | ED_ITS ---
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 He has L flank pain. He denies b/b incontinence, no saddle anesthesia. He notes he has had this before and used pain patches that improved. MD elicited complaint: back pain and back injury Pertinent past history: prior back pain Onset (ago): week(s) Timing: intermittent Severity: moderate Quality: aching Location: lumbar spine Radiation: none Exacerbating factors: movement Relieving factors: none Context: fall Associated symptoms: denies other symptoms Work related injury: No Related Data Home Medications Medication Instructions Recorded Confirmed losartan 100 mg tablet 100 mg PO DAILY 02/20/20 11/17/22 chlorthalidone 25 mg tablet 25 mg PO DAILY 06/04/20 11/17/22 cholecalciferol (vitamin D3) 50 50 mcg PO DAILY 07/27/21 11/17/22 mcg (2,000 unit) capsule (Vitamin D3) carbidopa 25 mg-levodopa 100 mg 2 tab PO TID 11/29/21 11/17/22 tablet omeprazole 40 mg capsule,delayed 40 mg PO DAILY@0630 11/29/21 11/17/22 release ropinirole 0.5 mg tablet 0.5 mg PO TID 11/29/21 11/17/22 acetaminophen 500 mg tablet 1,000 mg PO Q8H PRN Pain 12/31/21 11/17/22 melatonin 3 mg tablet 3 mg PO BEDTIME PRN anxiety 12/31/21 11/17/22 atorvastatin 80 mg tablet 80 mg PO BEDTIME 11/17/22 11/17/22 Previous Rx's Medication Instructions Recorded carvedilol 12.5 mg tablet 12.5 mg PO BID 90 days #180 tabs 08/10/22 ezetimibe 10 mg tablet 10 mg PO DAILY #90 tabs 01/24/23 spironolactone 25 mg tablet 25 mg PO DAILY #30 tabs 04/04/23 acetaminophen 500 mg tablet 500 mg PO Q6H PRN fever or pain 04/24/23 (Tylenol Extra Strength) #14 tabs lidocaine 5 % topical patch 1 patch topical DAILY PRN pain #30 04/24/23 (Lidoderm) ea lidocaine 5 % topical patch 1 patch topical DAILY #30 ea 05/26/23 Allergies Allergy/AdvReac Type Severity Reaction Status Date / Time No Known Allergies Allergy Verified 04/05/23 15:19 [No Known Allergies*] Review of Systems 2 Review of Systems: Constitutional : No Weight loss, No Fever, No Chills, ENT/Mouth : No Hearing loss, No Ear Pain, No Nasal Congestion, No Sinus Pain, No Hoarseness, No sore throat, No Rhinorrhea, No Swallowing Difficulty Cardiovascular : No Chest Pain, No SOB Respiratory : No Cough, No Dyspnea Gastrointestinal : No Nausea, No Vomiting, No Diarrhea, No abdominal Pain, No Hematochezia, No Melena Genitourinary : No Dysuria, No Urinary Frequency, No Hematuria, No Urinary Incontinence, Musculoskeletal : positive back pain Skin : No Skin Lesions, No rash Neuro : No Weakness, No Numbness, No Paresthesias, no loss of bowel or bladder incontinence, no saddle anesthesia All other systems reviewed and are negative [facility] Past Medical History Attestation statement: The following information was validated with the patient. Source: old records reviewed Medical History Other and unspecified hyperlipidemia History of stroke Essential hypertension Osteoporosis Vertigo Arthritis Parkinson disease Diabetes Hypertension Surgical History Hx of hand surgery Hx of cataract surgery H/O hernia repair Family History Family History Father No problems noted. Mother No problems noted. 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 Oriented X3. No acute distress. Eyes: Pupils equal, round and reactive to light. ENT: Pharynx normal. Neck: Normal inspection. Neck supple. CVS: Normal heart rate and rhythm. Pulses normal. Respiratory: No respiratory distress. Breath sounds normal. Abdomen: Soft and nontender. Skin: Skin warm and dry. Normal skin color. Normal skin turgor. Extremities: No lower extremity edema. Neuro: Oriented X 3. No motor deficit. No sensory deficit. Tremors in UE, SILT inner thigh 5/5 L 5 bilaterally Medical Decision Making Medical Decision Making [facility] Narrative: 73 yo male Parkinson's, diabetes, HTN, vertigo, osteoporosis, CVA, HLD here with persistent L flank and low back pain after a fall in April he has NV intact no cauda equina symptoms at this time will need labs, UA and CT scan given possible compression fracture. Differential Diagnosis Differential Diagnoses: The differential diagnosis associated with the presentation includes sprain, strain, contusion, compression fracture, UTI, renal colic Admission/Observation Consideration of admission/observation: Escalation of care including admission/observation considered work up reassuring stable for DC Lab Data [facility] Lab Attestation statement: I reviewed the patient's lab results. 05/26/23 09:30 05/26/23 09:30 Labs: Lab Results 05/26/23 05/26/23 Range/Units 09:29 09:30 WBC 10.4 (4.8-10.8) X10*3/uL RBC 4.36 L (4.60-5.80) X10*6/uL Hgb 13.9 L (14.0-18.0) g/dl Hct 40.1 L (42.0-52.0) % MCV 92.0 (80.0-98.0) fL MCH 31.9 (27.0-33.0) pg MCHC 34.7 (31.0-36.0) g/dl RDW 11.8 (11.0-16.0) % Plt Count 211 (160-400) X10*3/uL MPV 11.3 (9.4-12.4) fL Immature Gran % (Auto) 0.6 H (0.0-0.4) % Neut % (Auto) 78.9 H (45-73) % Lymph % (Auto) 12.3 L (20-40) % Baldwin % (Auto) 7.5 (2-11) % Eos % (Auto) 0.4 (0-4) % Baso % (Auto) 0.3 (0-2) % Lymph # (Auto) 1.3 (1.2-4.9) X10*3/uL Baldwin # (Auto) 0.8 (0.1-1.2) X10*3/uL Eos # (Auto) 0.0 (0.0-0.4) X10*3/uL Baso # (Auto) 0.0 (0.0-0.2) X10*3/uL Abs Immat Gran (auto) 0.06 H (0.00-0.03) X10*3/uL Absolute Neuts (auto) 8.2 (2.0-8.3) x10*3/uL Absolute Nucleated RBC 0.000 (0.0-0.012) X10*3/uL Nucleated RBC % (auto) 0.0 (0.0-0.2) /100WBC Sodium 138 (135-145) mmol/L Potassium 3.9 (3.3-5.1) mmol/L Chloride 99 (96-108) mmol/L Carbon Dioxide 26 (22-29) mmol/L Anion Gap 17 (12-20) BUN 25 H (9-16) mg/dL Creatinine 0.94 (0.5-1.4) mg/dL Estim Creat Clear Calc 61.2 Estimated GFR > 60 Random Glucose 98 (60-115) mg/dL Calcium 10.1 (8.4-10.2) mg/dL Magnesium 1.7 (1.6-2.6) mg/dL Urine Color Yellow Urine Appearance Clear Urine pH 6.5 (5.0-9.0) Ur Specific [place] 1.020 (1.005-1.025) Urine Protein Negative (Neg-Trace) mg/dL Urine Glucose (UA) Negative (Negative) mg/dL Urine Ketones Trace (Negative) mg/dL Urine Blood Negative (Negative) Urine Nitrite Negative (Negative) Ur Leukocyte Esterase Negative (Negative) Independent Interpretation I performed an independent interpretation of an: CT Scan (no fracture or cause of pain) Radiology Impression Discussion of test interpretation with radiology: I have reviewed the radiologist's reading. Independent Historian Clinical information obtained from an independent historian. History obtained from or confirmed by: Other (RUG CLEANING SUPERVISOR) External Record Review External record reviewed: Inpatient record Prescription Management I considered prescription management with: Other Discharge Plan Discharge Clinical Impression: Acute lumbar back pain Qualifiers: Back pain laterality: bilateral Sciatica presence: without sciatica Qualified Code(s): M54.50 - Low back pain, unspecified Patient Disposition: Home, Self-Care Instructions: Acute Low Back Pain (ED) Additional Instructions: labs and urine normal, CT Scan no fracture you have kidney stones but those are not the cause of the pain. return for worsening of pain, fevers, vomiting, weakness, numbness or any other concerns. laboratorios y orina normales, tomograf?a computarizada, no hay fractura, tiene c?lculos renales, nasir esos no son la causa del dolor. Regrese si el dolor empeora, fiebre, v?mitos, debilidad, entumecimiento o cualquier otra inquietud. Prescriptions: New lidocaine 5 % adhesive patch,medicated 1 patch topical DAILY Qty: 30 0RF Rx Instructions: leave on most painful area for up to 12 hrs No Action carvedilol 12.5 mg tablet 12.5 mg PO BID 90 Days Qty: 180 3RF ezetimibe 10 mg tablet 10 mg PO DAILY Qty: 90 3RF spironolactone 25 mg tablet 25 mg PO DAILY Qty: 30 11RF atorvastatin 80 mg tablet 80 mg PO BEDTIME acetaminophen [Tylenol Extra Strength] 500 mg tablet 500 mg PO Q6H PRN (Reason: fever or pain) Qty: 14 0RF lidocaine [Lidoderm] 5 % adhesive patch,medicated 1 patch topical DAILY MDD remove after 12 hours PRN (Reason: pain) Qty: 30 0RF Rx Instructions: leave on most painful area for up to 12 hrs losartan 100 mg tablet 100 mg PO DAILY chlorthalidone 25 mg tablet 25 mg PO DAILY omeprazole 40 mg capsule,delayed release(DR/EC) 40 mg PO DAILY@0630 carbidopa-levodopa 25-100 mg tablet 2 tab PO TID ropinirole 0.5 mg tablet 0.5 mg PO TID melatonin 3 mg tablet 3 mg PO BEDTIME PRN (Reason: anxiety) acetaminophen 500 mg tablet 1,000 mg PO Q8H PRN (Reason: Pain) cholecalciferol (vitamin D3) [Vitamin D3] 50 mcg (2,000 unit) capsule 50 mcg PO DAILY Print Language: Iranian
[2023-05-26 08:50] VITALS: BP 142/75; PULSE 84; RESP 16; TEMP 36.6; O2SAT 97; BMI 25.0
[2023-05-26 09:34] LABS: MANUAL DIFF FLAG NO
[2023-05-26 09:36] LABS: Basophils Percent Auto 0.3 % (0-2); Eosinophils Percent Auto 0.4 % (0-4); Hematocrit 40.1 % (42.0-52.0); Hemoglobin 13.9 g/dl (14.0-18.0); Imm Gran Abs Auto 0.06 X10*3/uL (0.00-0.03); Imm Gran Pct Auto 0.6 % (0.0-0.4); Lymphocytes Absolute Auto 1.3 X10*3/uL (1.2-4.9); Lymphocytes Percent Auto 12.3 % (20-40); Mean Corpuscular HGB Conc 34.7 g/dl (31.0-36.0); Mean Corpuscular Hemoglobin 31.9 pg (27.0-33.0); Mean Platelet Volume 11.3 fL (9.4-12.4); Monocytes Absolute Auto 0.8 X10*3/uL (0.1-1.2); Monocytes Percent Auto 7.5 % (2-11); Neutrophils Absolute Auto 8.2 x10*3/uL (2.0-8.3); Neutrophils Percent Auto 78.9 % (45-73); Platelet Count 211 X10*3/uL (160-400); Red Blood Count 4.36 X10*6/uL (4.60-5.80); Red Cell Distribution Width 11.8 % (11.0-16.0); White Blood Count 10.4 X10*3/uL (4.8-10.8)
[2023-05-26 09:37] LABS: Appearance Urine Clear; Color Urine Yellow; Glucose Urine UA Negative (Negative); Leukocyte Esterase Urine Negative (Negative); Nitrite Urine Negative (Negative); PH 6.5 (5.0-9.0); Urine Blood Negative (Negative); Urine Ketones Trace mg/dL (Negative); Urine Protein Negative (Neg-Trace)
[2023-05-26 10:05] LABS: Anion Gap 17 (12-20); Blood Urea Nitrogen 25 mg/dL (9-16); Calcium 10.1 mg/dL (8.4-10.2); Carbon Dioxide 26 mmol/L (22-29); Chloride 99 mmol/L (96-108); Creatinine Clr Calc Pharmacy 61.2; Estimated Glomerular Filt Rate > 60; Glucose Random 98 mg/dL (60-115); Magnesium 1.7 mg/dL (1.6-2.6); Potassium 3.9 mmol/L (3.3-5.1); Sodium 138 mmol/L (135-145)
[2023-05-26 10:58] VITALS: BP 117/75; PULSE 79; RESP 16; O2SAT 96
[2023-05-26] MEDS: Lidocaine 4 % Patch ADH..PATCH 1 PATCH TRANSDERMA (11:01)
== END 2023-05-26 12:38 | disposition home or self-care (01) ==
PROVIDERS: Emergency Provider Emergency Medicine; PCP Internal Medicine
DX: M54.50 Low back pain, unspecified (principal); E11.9 Type 2 diabetes mellitus without complications; I10 Essential (primary) hypertension; G20.A1 Parkinson's disease without dyskinesia, without mention of fluctuations; Z79.02 Long term (current) use of antithrombotics/antiplatelets; Z79.899 Other long term (current) drug therapy
CPT/HCPCS: 36415; 74176; 80048; 81003; 83735; 85025; 99284

== ENCOUNTER 2023-05-30 09:53 | Outpatient (AMB) | payer MEDICARE, SELFPAY ==
--- NOTE | 2023-05-30 09:55 | A.OFFVIS_ITS ---
Intake Vital Signs 05/30/23 09:56 Height 5 ft 6 in Weight 145 lb 1.027 oz BMI 23.4 BP 120/70 Blood Pressure Location Lt brachial Position Sitting Pulse 77 Intake Visit Reasons: 1 yr f/up Intake Note: 1 year follow up [address] Production Manager Required: Yes General Road Production Manager Language: Music Industry Internship Name: Rashawn [id number] Accompanied by: DEPUTY FELONY CLERK Allergies No Known Allergies [No Known Allergies*] Allergy (Verified 04/05/23 15:19) Medication List - Last Reconciled 05/30/23 by Eitan Urban MD acetaminophen (Tylenol Extra Strength) 500 mg PO Q6H PRN acetaminophen 1,000 mg PO Q8H PRN atorvastatin 80 mg PO BEDTIME carbidopa-levodopa 25-100 mg 2 tabs PO TID carvedilol 12.5 mg PO BID 90 days chlorthalidone 25 mg PO DAILY cholecalciferol (vitamin D3) (Vitamin D3) 50 mcg PO DAILY ezetimibe 10 mg PO DAILY lidocaine 5% (Lidoderm) 1 patch topical DAILY PRN MDD remove after 12 hours lidocaine 5% 1 patch topical DAILY losartan 100 mg PO DAILY melatonin 3 mg PO BEDTIME PRN omeprazole 40 mg PO DAILY@0630 ropinirole 0.5 mg PO TID spironolactone 25 mg PO DAILY HPI HPI Comments History of Present Illness Details Benjamin returns for follow up regarding hypertension. In the past, l ots of medication changes have been made. Current list includes Coreg, Losartan, Chlorthalidone, Spironolactone. In the past, issues with amlodipine due to leg swelling. There was also question of getting dizzy from chlorthalidone but seems that he still taking it. No known coronary disease or myocardial infarction. Otherwise, history of stroke in the past but no deficit clearly but he does have a lot of tremor. Not thought to be cardioembolic based on Neurology consultation. It is very difficult to communicate with him as the voice is very low. Even with a claims examiner, difficult to get history. His DEPUTY FELONY CLERK is also near him but still information somewhat limited. I repeatedly questioned him about pain and he states essentially he is got muscular pain all over the body. He does get some chest pain as well but that seems to be part of the generalized pain and not just chest only. It seems that he has had several visits for various types of pain including chest pain, arthritic pains, back pain extra. Overall, based on the information gathered, does not seem to be typical for angina. [facility] Medical History Other and unspecified hyperlipidemia History of stroke Essential hypertension Osteoporosis Vertigo Arthritis Parkinson disease Diabetes Hypertension Surgical History Hx of hand surgery Hx of cataract surgery H/O hernia repair Family History Father No problems noted. Mother No problems noted. 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 Review of Systems Const Denies weakness ENT Denies dizziness Card Denies chest pain, Denies chest pain with activity, Denies syncope, Denies rapid heart rate, Denies pedal edema, Denies edema, Denies leg edema, Denies lightheadedness, Denies palpitations, Denies dyspnea, Denies dyspnea on exertion and Denies orthopnea Resp Denies cough, Denies dyspnea and Denies dyspnea on exertion GI Denies hematochezia and Denies change in stool character Musc Denies abnormal gait, Denies muscle cramps, Denies muscle weakness, Denies numbness, Denies radiating pain into limb and Denies tingling Neuro Denies abnormal gait, Denies dizziness, Denies syncope, Denies numbness, Denies tingling and Denies weakness Endo Denies palpitations Physical Exam Vital Signs: Last Vital Signs Pulse 77 05/30/23 09:56 BP 120/70 05/30/23 09:56 BMI result Body Mass Index 23.4 Const General: comfortable and no acute distress Orientation/consciousness: patient oriented x3 HEENT Other: Unremarkable Head: Yes normal to inspection Neck Neck: Yes normal visual inspection Chest Chest palpation & inspection: normal inspection of the chest Resp Auscultation: clear to auscultation bilaterally Cardio Palpation: normal PMI Heart sounds: S1 normal heart sound present, S2 normal heart sound present, no gallops, no murmurs and no rubs GI Palpation (GI): Soft to palpation Back/Spine/Pelvis Other: unremarkable Skin General skin exam: no rashes or lesions noted Neuro General: patient oriented x3 Extrem General: Yes normal to inspection Psych Mental Status: mental status grossly normal Assessment & Plan Assessment & Plan (1) Essential hypertension: Code(s): I10 - Essential (primary) hypertension Plan: Current list includes carvedilol, losartan, chlorthalidone, spironolactone. History of intolerance to amlodipine. No further changes today. (2) History of stroke: Code(s): Z86.73 - Personal history of transient ischemic attack (TIA), and cerebral infarction without residual deficits Plan: No residual deficits. Carotid ultrasound without any significant disease. (3) Precordial chest pain: Code(s): R07.2 - Precordial pain Plan: His symptoms are highly atypical. Not suggestive of angina but rather generalized aches and pains. EKG with sinus rhythm at 86/Min; minimal criteria for LVH; can not exclude old anterior infarct but could be from body habitus and lead placement. No ischemic changes. No significant changes compared to prior. Unremarkable high sensitivity troponins. In the past, perfusion imaging was unremarkable. At this time, recommend holding off further workup. Plan Discussed with patient as much able with claims examiner. Also discussed with DEPUTY FELONY CLERK. Total time spent including review of ER data, counseling, documentation, coordination of care-34 minutes. Coding Level of Care Code Est Pt Level 4 (52863) Diagnoses Essential hypertension I10 History of stroke Z86.73 Precordial chest pain R07.2
[2023-05-30 09:56] VITALS: BP 120/70; PULSE 77; BMI 23.4
== END 2023-05-30 10:12 | disposition home or self-care (01) ==
PROVIDERS: PCP Internal Medicine; Visit Provider Internal Medicine
DX: I10 Essential (primary) hypertension (principal); Z86.73 Personal history of transient ischemic attack (TIA), and cerebral infarction without residual deficits; R07.2 Precordial pain
CPT/HCPCS: 99214

== ENCOUNTER → 2023-05-30 09:53 | Outpatient (BNVA) | payer MEDICARE, SELFPAY | PROVIDERS: PCP Internal Medicine; Visit Provider Internal Medicine | DX: I10 Essential (primary) hypertension (principal); R07.2 Precordial pain; Z86.73 Personal history of transient ischemic attack (TIA), and cerebral infarction without residual deficits | CPT/HCPCS: 99212 ==

== ENCOUNTER → 2023-06-27 08:28 | Outpatient (BNV) | payer MEDICARE, SELFPAY | PROVIDERS: PCP Internal Medicine; Visit Provider Physician Assistant Surgical | DX: R09.A0 Foreign body sensation, unspecified (principal); G20.C Parkinsonism, unspecified | CPT/HCPCS: 74221 ==

== ENCOUNTER 2023-06-27 08:29 | Outpatient (REF) | payer MEDICARE, SELFPAY ==
--- NOTE | ~2023-06-27 | FL_ITS ---
EXAMINATION: FL FLUOROSCOPY-GUIDED NEEDLE PLACEMENT IN THE LEFT WRIST CLINICAL INFORMATION: Posttraumatic osteoarthritis. TECHNIQUE: Fluoroscopy guidance was provided to referring physician Lisy Ace for needle placement in the left wrist.
--- NOTE | ~2023-06-27 | FL_ITS ---
EXAMINATION: XR FLUOROSCOPY BARIUM SWALLOW CLINICAL INFORMATION: Globus sensation. Parkinson's COMPARISON: None TECHNIQUE: Fluoroscopic air contrast barium swallow was performed utilizing standard techniques with thin and thick barium and effervescent granules. Numerous spot images were obtained. FINDINGS: Lateral cine images of the oropharynx and hypopharynx demonstrate normal swallow mechanism with normal epiglottic inversion and soft palate elevation. No tracheal penetration, glottic or subglottic aspiration identified. No nasopharyngeal reflux present. Hypopharyngeal structures appear normal without evidence of mass or diverticulum. There was no significant cricopharyngeal achalasia. Dual and single contrast images of the esophagus demonstrate normal caliber, contour, and mucosal pattern. Bridging ventral osteophytes of C5-C6 and C6-C7 are present, causing mild posterior indentation of the superior esophagus. No evidence of stricture, mass, or ulcerations identified. Esophageal peristalsis is mildly disorganized. A small type I hiatal hernia is present. No significant gastroesophageal reflux was seen during the course of the examination and on reflux views. Limited evaluation of the stomach demonstrates thickened gastric mucosal folds that may represent gastritis, however, may also be due to underdistention of the stomach due to poor retention of the effervescent granule gas. FLUOROSCOPY TIME: 2 minutes 15 seconds Number of Spot Images: 5 Number of Cine: 7 DOSE AREA PRODUCT: 931 uGy-m2 (microgray-meter squared) FL/FL barium swallow with air IMPRESSION: 1. Bridging anterior osteophytes at C5-C6 and C6-C7 that cause mild posterior indentation of the esophagus. This is not likely clinically significant. 2. Mildly disordered esophageal peristalsis. 3. Small type I hiatal hernia. 4. Limited evaluation of the stomach demonstrates thickened gastric mucosal folds that may represent gastritis, however, may be due to underdistention of the stomach due to poor tolerance of the effervescent granules. This procedure was performed by Anival Cuellar PA-C, and supervised by Dr. Churchill
== END 2023-06-27 08:30 | disposition home or self-care (01) ==
LOC: HO.XRAY 08:29
PROVIDERS: PCP Internal Medicine; Visit Provider Internal Medicine
DX: R09.A2 Foreign body sensation, throat (principal); M19.132 Post-traumatic osteoarthritis, left wrist; M65.331 Trigger finger, right middle finger
CPT/HCPCS: 20605; 74221; 99212; J0665; J1020

== ENCOUNTER 2023-06-27 09:42 | Outpatient (AMB) | payer MEDICARE, SELFPAY ==
[2023-06-27 09:43] VITALS: BMI 23.4
--- NOTE | 2023-06-27 09:43 | MHC.OFFVIS ---
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 States his last injection from 02/28/23 provide good pain relief and would like to repeat injection today under C-arm machine. Allergies No Known Allergies [No Known Allergies*] Allergy (Verified 06/27/23 09:44) HPI OV-LT LAC INJ W/MiniCARM 02/28/23 HPI Details Benjamin is a 73 year old right hand dominant Upper Sorbian speaking man with Parkinson's disease and a left SLAC wrist deformity, who presents for a repeat left wrist injection. He has a hx of repeat wrist injections, with relief. His last injection was on 02/28/23. No new injury. However, his wrist has again become more painful. He would like a repeat injection today. He also has a right middle trigger finger, which he says is not particularly painful overall but locks often which he says interferes with his daily activities. It sounds like he lives alone, but has a CREATIVE ENGAGEMENT DIRECTOR that helps him with daily activities. [facility] Medical History (Updated 06/27/23 @ 10:08 by Swapnil Umaña) Other and unspecified hyperlipidemia History of stroke Essential hypertension Osteoporosis Vertigo Arthritis Parkinson disease Diabetes Hypertension Surgical History Hx of hand surgery Hx of cataract surgery H/O hernia repair Family History Father No problems noted. Mother No problems noted. 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 Review of Systems Const All systems reviewed & are unremarkable except as noted in HPI and below Physical Exam Vital Signs: BMI result Body Mass Index 23.4 Const General: no acute distress and alert Orientation/consciousness: patient oriented x3 Neuro General: patient oriented x3 Extrem Other: Evaluation of Left Upper Extremity: The patient is alert, oriented, and in no acute distress He has Parkinson's disease and a significant tremor today in clinic Neuro: Median, Ulnar, Radial nerves motor and sensory intact and sensation is normal to the tips of all digits Vascular: Cap refill brisk ROM: He can make a fist and extend all of his digits of the left hand with no locking or catching . He does have some ulnar deviation of the extensor tendons to the middle and ring fingers when he brings his fingers close to a fist. This is not appear to be preventing active extension of the digits and that is not a significant amount of deviation at the digits. He has some some mild swelling and some deformity at the radiocarpal joint consistent with a SLAC wrist deformity. He is most tender to palpation over the radioscaphoid joint. Regarding the right hand: Visible and palpable locking & catching of the right middle finger Tender over the a1 cammy Radiographs: 3 views of the left wrist from 10/19/20 were reviewed by me today. It does show a scapholunate advanced collapse wrist deformity with essentially complete loss of the radioscaphoid joint space, widening of scaapholunate interval and good preservation of radiolunate joint space. He is also got some basal joint arthritis. 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 Left scapholunate advanced collapse wrist deformity, S/P steroid injection using the FluoroScan for needle guidance Dates of Injection:06/27/23, 02/28/23, 10/26/22, 07/06/22, 01/17/22, 08/26/21, and 02/22/21 He had good relief from these injections and is interested in having another injection. I discussed the risks and benefits of a steroid injection and he would like to proceed Injection #1: The risks and benefits of a steroid injection including but not limited to risk of damage to blood vessels, nerves, tendons, infection, skin bleaching, failure to improve symptoms, increased pain, and possible need for further injections or other intervention were discussed with the patient and the patient wishes to proceed with the steroid injection. Once consent was obtained, I sterilely prepped the area over the dorsal aspect of the left wrist. The joint was then injected with a combination of 1 mL of (40 mg/ml} Depo-Medrol and 1% plain Lidocaine. The patient appears to have tolerated the procedure well and with no complications. He had good early relief before leaving clinic today. He knows that they may not have another steroid injection into this joint for least 4 months. He says this is beneficial and will schedule his next injection with the mini C-arm for 4 months from now. This should be a 30 minute appointment 2. Right middle finger trigger finger I educated him about this condition I discussed operative and non-operative treatment options The patient would like to proceed with surgery The risks and benefits of operative treatment were discussed with the patient and the patient wishes to proceed with surgery. These risks include, but are not limited to risk of damage to blood vessels, nerves, tendons, infection, recurrence, incomplete relief of preoperative symptoms, persistent pain, possible need for further surgery and the risks associated with regional blocks and anesthesia. The plan is to take the patient to the operating room sometime in the next few weeks for the following procedures: 1. Right middle finger trigger release, under local All of the preoperative paperwork including the consent was reviewed today. All the patient's questions were answered. The patient understands that they will be contacted by our cracker dough mixer soon to schedule this procedure He denies Diabetes, blood thinners, asthma, heart, lung, kidney issues 3. Left middle Trigger Finger, S/P release DOS: 08/26/21 Good resolution of locking and catching Still with a mild flexion contracture of the middle finger PIP joint, but this has improved some and he feels like he is doing well with home exercises alone. 4. 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 Ulnar subluxation of the extensor tendons to the left ring and middle fingers. No problems with active extension of all digits. He does not have significant ulnar deviation of the digits. At this point this will be managed conservatively. Scribed for Lisy Ace, MD by Swapnil Umaña, medical microbiologist, on 06/27/23 at 9:50 AM, EST. 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
== END 2023-06-27 10:20 | disposition home or self-care (01) ==
PROVIDERS: PCP Internal Medicine; Visit Provider Orthopaedic Surgery
DX: M19.132 Post-traumatic osteoarthritis, left wrist (principal); M65.331 Trigger finger, right middle finger; G20.C Parkinsonism, unspecified
CPT/HCPCS: 20605; 77002; 99214

== ENCOUNTER 2023-06-27 09:46 | Outpatient (REF) | payer MEDICARE, SELFPAY | END 2023-06-27 09:47 | disposition home or self-care (01) | LOC: HO.HOSX 09:46 | PROVIDERS: Visit Provider Orthopaedic Surgery | DX: M19.139 Post-traumatic osteoarthritis, unspecified wrist (principal) | CPT/HCPCS: 20605; 77002; 99212; J0665 ==

== ENCOUNTER 2023-08-28 08:28 | Day surgery (SDC) | payer OTHER, SELFPAY ==
[2023-08-28 09:20] VITALS: BP 133/54; PULSE 74
--- NOTE | 2023-08-28 09:30 | MHC.SHP ---
Pre-Procedural Eval Section A - 24 Hr Update-Section A only Date of Service: 08/28/23 The patient is an INPATIENT: No Changes since office visit: No Cold of Flu in the past 2 weeks, No New Medical Problems, No Changes in Medication and No Patient answered all questions The patient has been examined within 24 hours of the surgical procedure. The History & Physical has been completed within 30 days and I have reviewed it.: Yes Section B - Complete if H&P > 30 days Chief Complaint: Trigger finger, right middle finger Allergies: Allergies Allergy/AdvReac Type Severity Reaction Status Date / Time No Known Allergies Allergy Verified 06/27/23 09:44 [No Known Allergies*] Exam Exam Comment: Right middle finger trigger finger Plan Diagnosis/Plan: Unchanged I have reviewed the history and physical and performed a pertinent physical examination on my patient. No changes have occurred unless specified. Time Spent With Patient Time: Total time managing care of this patient today ____ minutes.
--- NOTE | 2023-08-28 10:39 | W.PM.OPN ---
Operative Note Operative Note Date of Service: 08/28/23 Narrative: Operative Note Preop diagnosis: 1. Right middle finger Trigger finger Postop diagnosis: 1. Right middle finger Trigger finger Procedure: 1. Right middle finger A1 cammy release Surgeon: Lisy Ace MD Anesthesia: local block using 1% lidocaine with epinephrine Findings: No locking or catching after A1 cammy release The patient was also noted to have ulnar subluxation of the EDC tendon at the MCP joint which is causing some ulnar deviation of the finger. He is however able to actively flex to a fist and then actively bring the fingers into extension, and the EDC tendon is not getting stuck in the subluxated position. EBL: Less than 5 mL Tourniquet time: None Specimens: None Complications: None Disposition: Brought to recovery room in stable condition Plan: Follow-up for 10-14 days for wound check and suture removal Indications: The patient is 73 years old, with a right middle finger trigger finger that has been unresponsive to nonoperative management. The risks and benefits of operative treatment including but not limited to risk of damage to blood vessels, nerves, tendons, infection, persistent pain, persistent symptoms, recurrence or possible need for additional surgery were discussed with the patient and the patient wishes to proceed with surgery. Procedure: Once consent was obtained a local block was performed in the preop area using a combination of 1% lidocaine with epinephrine. The patient was then brought back to the operating suite and placed on the operative table in supine position. The right upper extremity was prepped and draped in a standard surgical fashion. Once assured that we had a good block, a 1.5 cm oblique incision was made centered over the A1 cammy of the right middle finger . The incision was made through the skin to the subcutaneous tissues using a #15 blade. Careful dissection was made down to the level of the A1 cammy using tenotomy scissors, with care being taken to protect the nearby neurovascular structures. A longitudinal incision was made in the A1 cammy 1st using a #15 blade, then using tenotomy scissors under direct visualization. The A1 cammy was noted to be thickened. Following our A1 cammy release, we no longer saw any locking or catching of the digit with flexion and extension. Once satisfied with our A1 cammy release the wound was copiously irrigated with normal saline and hemostasis was obtained with a brief period of local pressure. The skin edges were reapproximated with some 5.0 nylon suture material and a sterile dressing was applied. The patient appears to have tolerated the procedure well and with no complications. All digits were well vascularized at the conclusion of the case.
[2023-08-28 10:48] VITALS: BP 97/50; PULSE 58; RESP 16; O2SAT 96
== END 2023-08-28 10:49 | disposition home or self-care (01) ==
PROVIDERS: PCP Internal Medicine; Visit Provider Orthopaedic Surgery
PROC: (CPT 26055; principal; 2023-08-28 09:30)
DX: M65.331 Trigger finger, right middle finger (principal); G20.A1 Parkinson's disease without dyskinesia, without mention of fluctuations; M19.132 Post-traumatic osteoarthritis, left wrist; I10 Essential (primary) hypertension; E11.9 Type 2 diabetes mellitus without complications; Z86.73 Personal history of transient ischemic attack (TIA), and cerebral infarction without residual deficits; Z98.890 Other specified postprocedural states
CPT/HCPCS: 26055; J0171

== ENCOUNTER → 2023-08-28 08:28 | Outpatient (BNV) | payer OTHER, SELFPAY | PROVIDERS: PCP Internal Medicine; Visit Provider Orthopaedic Surgery | DX: M65.331 Trigger finger, right middle finger (principal) | CPT/HCPCS: 26055 ==

== ENCOUNTER 2023-09-12 09:21 | Outpatient (AMB) | payer MEDICARE, SELFPAY ==
[2023-09-12 09:23] VITALS: BMI 23.4
--- NOTE | 2023-09-12 09:23 | MHC.OFFVIS ---
Vital Signs 09/12/23 09:23 Height 5 ft 6 in Weight 145 lb BMI 23.4 Intake Visit Reasons: PO-Rt MF Trigger Release 08/28/23 Intake Note: Sky 73 yr old male presents today for his PO visit for his Rt MF Trigger Release 08/28/23. States locking has resolved and is doing well. Sutures removed and steri strips applied. Allergies No Known Allergies [No Known Allergies*] Allergy (Verified 09/12/23 09:32) HPI HPI PO-Rt MF Trigger Release 08/28/23: Details: Benjamin is a 73 year old right hand dominant Latvian speaking man with Parkinson's disease, who presents S/P right middle finger trigger release, DOS: 08/28/23. He says he is doing well and his locking has resolved. He is working on improving his ROM at home, but has some difficulty fully extending his finger. He has an abrasion on his right forearm, from a fall a few days ago. [facility] Medical History (Updated 09/12/23 @ 09:55 by Swapnil Umaña) Other and unspecified hyperlipidemia History of stroke Essential hypertension Osteoporosis Vertigo Arthritis Parkinson disease Diabetes Hypertension Surgical History Hx of hand surgery Hx of cataract surgery H/O hernia repair Family History Father No problems noted. Mother No problems noted. 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 Review of Systems Const All systems reviewed & are unremarkable except as noted in HPI and below Physical Exam Vital Signs: BMI result Body Mass Index 23.4 Const General: no acute distress and alert Orientation/consciousness: patient oriented x3 Neuro General: patient oriented x3 Extrem Other: The patient was alert oriented and in no acute distress He has Parkinson's disease and a significant tremor today in clinic The incision is healing well with no erythema drainage or evidence of infection. Sutures removed and Steri-Strips applied There is a proximal lateral forearm abrasion from a fall, measuring ~2 inches in length. The wound appears clean with no surrounding erythema or purulence. He has some mild stiffness of the middle finger PIP joint. We worked on ROM exercises in clinic and he could better do so before leaving. He was able to place his hand flat on the table before leaving and work on stretching exercises. He has incompetence of the radial sagittal band of the middle finger, with ulnar subluxation of the extensor mechanism when making a fist. He is able to actively extend his middle finger with no catching of the extensor mechanism. 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 Right middle finger trigger finger, status post release Date of surgery 08/28/2023 The patient appears to be doing well post-operatively I educated him about the post-operative course I discussed activity modifications, he is to lift nothing heavier than a cellphone for the next two weeks He will perform gentle ROM exercises at home He should avoid any underwater activities for the next 5 days He should gently massage about the incision site to reduce the risk of hypersensitivity He can follow up prn 2. Right middle finger radial sagittal band injury With ulnar subluxation of the tendon This can be managed conservatively for now. 3. Left scapholunate advanced collapse wrist deformity, S/P steroid injection using the FluoroScan for needle guidance Dates of Injection:06/27/23, 02/28/23, 10/26/22, 07/06/22, 01/17/22, 08/26/21, and 02/22/21 He we will make an appointment in November for a repeat injection 4. Left middle Trigger Finger, S/P release DOS: 08/26/21 Good resolution of locking and catching Still with a mild flexion contracture of the middle finger PIP joint, but this has improved some and he feels like he is doing well with home exercises alone. 5. 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 Ulnar subluxation of the extensor tendons to the left ring and middle fingers. No problems with active extension of all digits. He does not have significant ulnar deviation of the digits. At this point this will be managed conservatively. Scribed for Lisy Ace MD by Swapnil Umaña, ophthalmic medical assistant, on 09/12/23 at 9:45 AM, EST. Scribe Plan - Not visible on output: Scribed for Lisy Ace MD by Swapnil Umaña, ophthalmic medical assistant, on [ ] at [ ], EST. Coding Level of Care Code Global (76512) Diagnoses Trigger finger, right middle finger M65.331 SLAC (scapholunate advanced collapse) of wrist M19.139 Parkinson disease G20 Unspecified injury of extensor muscle, fascia and tendon of left middle finger at wrist and hand level, initial encounter S66.303A
== END 2023-09-12 09:53 | disposition home or self-care (01) ==
PROVIDERS: PCP Internal Medicine; Visit Provider Orthopaedic Surgery
DX: M65.331 Trigger finger, right middle finger (principal); M19.139 Post-traumatic osteoarthritis, unspecified wrist; G20.C Parkinsonism, unspecified; S66.303A Unspecified injury of extensor muscle, fascia and tendon of left middle finger at wrist and hand level, initial encounter
CPT/HCPCS: 99024

== ENCOUNTER → 2023-09-12 09:21 | Outpatient (BNVA) | payer MEDICARE, SELFPAY | PROVIDERS: PCP Internal Medicine; Visit Provider Orthopaedic Surgery | DX: Z47.89 Encounter for other orthopedic aftercare (principal); S66.30 Unspecified injury of extensor muscle, fascia and tendon of other and unspecified finger at wrist and hand level; M65.331 Trigger finger, right middle finger; M19.139 Post-traumatic osteoarthritis, unspecified wrist; G20.A1 Parkinson's disease without dyskinesia, without mention of fluctuations; Z98.890 Other specified postprocedural states | CPT/HCPCS: 99212 ==

== ENCOUNTER → 2023-09-12 15:43 | Outpatient (RCR) | payer MEDICARE, SELFPAY | END | disposition home or self-care (01) | LOC: HO.OT 05-12 09:27 | PROVIDERS: PCP Internal Medicine; Visit Provider Physician Assistant | DX: M65.332 Trigger finger, left middle finger (principal) ==

== ENCOUNTER 2023-09-26 06:00 | Emergency (ER) | payer MEDICARE, SELFPAY ==
[2023-09-26 06:06] VITALS: BP 154/84; PULSE 95; RESP 20; TEMP 37; O2SAT 97; BMI 23.1
[2023-09-26 06:42] LABS: Appearance Urine Clear; Color Urine Yellow; Glucose Urine UA Negative (Negative); Hematocrit 39.7 % (42.0-52.0); Hemoglobin 14.2 g/dl (14.0-18.0); Leukocyte Esterase Urine Negative (Negative); Mean Corpuscular HGB Conc 35.8 g/dl (31.0-36.0); Mean Corpuscular Hemoglobin 32.4 pg (27.0-33.0); Mean Corpuscular Volume 90.6 fL (80.0-98.0); Mean Platelet Volume 11.4 fL (9.4-12.4); Nitrite Urine Negative (Negative); PH 7.5 (5.0-9.0); Platelet Count 236 X10*3/uL (160-400); Red Blood Count 4.38 X10*6/uL (4.60-5.80); Red Cell Distribution Width 11.3 % (11.0-16.0); Specific Gravity - Urine 1.015 (1.005-1.025); Urine Blood Negative (Negative); Urine Ketones Negative (Negative); Urine Protein Negative (Neg-Trace); White Blood Count 6.6 X10*3/uL (4.8-10.8)
[2023-09-26 06:57] LABS: Alanine Aminotransferase 22 U/L (0-40); Albumin Level 4.5 g/dL (3.5-5.0); Alkaline Phosphatase 53 U/L (39-117); Anion Gap 12 (12-20); Aspartate Amino Transferase 24 U/L (5-37); Bilirubin Total 0.8 mg/dL (0.0-1.0); Blood Urea Nitrogen 19 mg/dL (9-16); Calcium 9.8 mg/dL (8.4-10.2); Carbon Dioxide 27 mmol/L (22-29); Chloride 96 mmol/L (96-108); Creatinine Clr Calc Pharmacy 63.9; Estimated Glomerular Filt Rate > 60; Glucose Random 78 mg/dL (60-115); Potassium 4.3 mmol/L (3.3-5.1); Sodium 131 mmol/L (135-145); Total Protein 7.4 g/dL (6.5-8.0)
--- NOTE | 2023-09-26 07:27 | ED_ITS ---
HPI - Male Genitourinary General Chief complaint: Urogenital-Male Stated complaint: Frequent urination Time Seen by Provider: 09/26/23 07:14 Source: patient, RN notes reviewed and old records reviewed Mode of arrival: ambulatory Limitations: no limitations History of Present Illness ED Provider: Pierre Whiting PA-C HPI Narrative: 73 y/o male with history of Parkinson's disease, CVA, HTN who is presenting with increased urinary frequency that is acute on chronic. Patient reports he usually gets up to urinate every night 4-5 times. Last night he was up 8 times which is more than his baseline. He denies any associated hematuria, dysuria. He denies inabiltiy to completely empty the bladder but he is only passing small amounts of urine each time he goes. No dribbling, he has a normal stream. No abdominal pain, nausea, vomiting, diarrhea, flank pain. He denies any new mediactions. He does not have a urologist or have any known prostate issues. MD Complaint: other (urinary frequency) Onset (ago): week(s) Duration: progressively worsening Associated symptoms: Reports incontinence Related Data Home Medications ?Medication ?Instructions ?Recorded ?Confirmed losartan 100 mg tablet 100 mg PO DAILY 02/20/20 05/30/23 chlorthalidone 25 mg tablet 25 mg PO DAILY 06/04/20 05/30/23 cholecalciferol (vitamin D3) 50 50 mcg PO DAILY 07/27/21 05/30/23 mcg (2,000 unit) capsule (Vitamin D3) carbidopa 25 mg-levodopa 100 mg 2 tab PO TID 11/29/21 05/30/23 tablet omeprazole 40 mg capsule,delayed 40 mg PO DAILY@0630 11/29/21 05/30/23 release ropinirole 0.5 mg tablet 0.5 mg PO TID 11/29/21 05/30/23 acetaminophen 500 mg tablet 1,000 mg PO Q8H PRN Pain 12/31/21 05/30/23 melatonin 3 mg tablet 3 mg PO BEDTIME PRN anxiety 12/31/21 05/30/23 Previous Rx's ?Medication ?Instructions ?Recorded ezetimibe 10 mg tablet 10 mg PO DAILY #90 tabs 01/24/23 spironolactone 25 mg tablet 25 mg PO DAILY #30 tabs 04/04/23 acetaminophen 500 mg tablet 500 mg PO Q6H PRN fever or pain 04/24/23 (Tylenol Extra Strength) #14 tabs lidocaine 5 % topical patch 1 patch topical DAILY PRN pain #30 04/24/23 (Lidoderm) ea lidocaine 5 % topical patch 1 patch topical DAILY #30 ea 05/26/23 atorvastatin 80 mg tablet 80 mg PO QPM #90 tabs 08/01/23 oxycodone-acetaminophen 5 mg-325 1 tab PO Q6H PRN pain #5 tabs 08/28/23 mg tablet carvedilol 12.5 mg tablet 12.5 mg PO BID 90 days #180 tabs 09/12/23 tamsulosin 0.4 mg capsule (Flomax) 0.4 mg PO BEDTIME #30 caps 09/26/23 Allergies Allergy/AdvReac Type Severity Reaction Status Date / Time No Known Allergies Allergy Verified 09/26/23 06:09 [No Known Allergies*] Review of Systems 2 Review of Systems: Yes all other systems are reviewed and are negative [facility] Past Medical History Medical History (Updated 09/26/23 @ 07:39 by NENA Little) Other and unspecified hyperlipidemia History of stroke Essential hypertension Osteoporosis Vertigo Arthritis Parkinson disease Diabetes Hypertension Surgical History Hx of hand surgery Hx of cataract surgery H/O hernia repair Family History Family History Father No problems noted. Mother No problems noted. Social History Social History Household Members: Family Alcohol intake: former Comment: pt steady gait tremors noted secondary to hx parkinson Patient Tobacco Use Status: Never used Tobacco Advance Directives: No Advance Directives Information Provided: Yes Do you have a plan to hurt others: No Plan Current occupational status: retired 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 Physical Exam 2 Vital Signs: Vital Signs: Last Vital Signs Temp 98.6 F 09/26/23 09:22 Pulse 78 09/26/23 09:22 Resp 14 09/26/23 09:22 BP 158/69 H 09/26/23 09:22 Pulse Ox 96 09/26/23 09:22 O2 Del Method Room Air 09/26/23 09:22 BMI result Body Mass Index 23.1 Appearance: Alert. Oriented X3. No acute distress. Head: normocephalic, atraumatic. Eyes: Pupils equal, round and reactive to light. ENT: Pharynx normal. No tonsillar swelling or exudate. Neck: Normal inspection. CVS: Normal heart rate and rhythm. Pulses normal. Respiratory: No respiratory distress. Breath sounds normal. Abdomen: Soft and nontender. +BS x4. declined [facility] Skin: Skin warm and dry. Normal skin color. Normal skin turgor. No rashes. Extremities: No lower extremity edema. No joint swelling. Neuro/psych: Oriented X 3. No motor deficit. No sensory deficit. CN II-XII intact. speech w/ intermittent stutter. he has resting tremor of bilateral hands. Medical Decision Making Medical Decision Making [facility] Narrative: 73 yo male with history of Parkinson's disease presents to the ER for evaluation of worsening urinary frequency, worse at night. Symptoms for the last several weeks, worse last night. Exam is benign. He is declining rectal exam today. Most likely etiology is BPH. UA Is negative for infection, blood, protein. post void residual 103cc. no need for catheterization. will plan to start flomax and refer patient to urology and his PCP. he should get PSA checked as well. we discussed importance of follow up using nurse staff industrial. all questions answered. stable for discharge home. Differential Diagnosis Differential Diagnoses: The differential diagnosis associated with the presentation includes UTI, BPH, prostate cancer, overactive bladder, overflow incontinence Lab Data [facility] Lab Attestation statement: I reviewed the patient's lab results. mild hyponatremia, normal renal function 09/26/23 06:23 09/26/23 06:23 Labs: Lab Results 09/26/23 Range/Units 06:23 WBC 6.6 (4.8-10.8) X10*3/uL RBC 4.38 L (4.60-5.80) X10*6/uL Hgb 14.2 (14.0-18.0) g/dl Hct 39.7 L (42.0-52.0) % MCV 90.6 (80.0-98.0) fL MCH 32.4 (27.0-33.0) pg MCHC 35.8 (31.0-36.0) g/dl RDW 11.3 (11.0-16.0) % Plt Count 236 (160-400) X10*3/uL MPV 11.4 (9.4-12.4) fL Absolute Nucleated RBC 0.000 (0.0-0.012) X10*3/uL Nucleated RBC % (auto) 0.0 (0.0-0.2) /100WBC Sodium 131 L (135-145) mmol/L Potassium 4.3 (3.3-5.1) mmol/L Chloride 96 (96-108) mmol/L Carbon Dioxide 27 (22-29) mmol/L Anion Gap 12 (12-20) BUN 19 H (9-16) mg/dL Creatinine 0.90 (0.5-1.4) mg/dL Estim Creat Clear Calc 63.9 Estimated GFR > 60 Random Glucose 78 (60-115) mg/dL Calcium 9.8 (8.4-10.2) mg/dL Total Bilirubin 0.8 (0.0-1.0) mg/dL AST 24 (5-37) U/L ALT 22 (0-40) U/L Alkaline Phosphatase 53 (39-117) U/L Total Protein 7.4 (6.5-8.0) g/dL Albumin 4.5 (3.5-5.0) g/dL Urine Color Yellow Urine Appearance Clear Urine pH 7.5 (5.0-9.0) Ur Specific [place] 1.015 (1.005-1.025) Urine Protein Negative (Neg-Trace) mg/dL Urine Glucose (UA) Negative (Negative) mg/dL Urine Ketones Negative (Negative) mg/dL Urine Blood Negative (Negative) Urine Nitrite Negative (Negative) Ur Leukocyte Esterase Negative (Negative) External Record Review External record reviewed: Office record and Outpatient record Tests considered The following testing was considered but not selected: CT scan of the abd/pelvis considered. no blood in his urine and no infection, no emergent need today Prescription Management I considered prescription management with: Antibiotic Chronic Conditions Patient?s care impacted by: Other (parkinsons) Critical Care Time Critical Care Time Critical Care Time: No Discharge Plan Discharge Clinical Impression: Urinary frequency Patient Disposition: Home, Self-Care Instructions: Urinary Urgency and Frequency (DC) Additional Instructions: Your lab workup today was reassuring. Your urine test did not show any evidence of infection. Take the prescribed medication for your symptoms. Recommend following up with Urology for further evaluation and treatment. Follow-up with primary care doctor. If you develop new or worsening symptoms call 911 or come back to the ER for further evaluation. Prescriptions: New tamsulosin [Flomax] 0.4 mg capsule 0.4 mg PO BEDTIME Qty: 30 0RF No Action ezetimibe 10 mg tablet 10 mg PO DAILY Qty: 90 3RF spironolactone 25 mg tablet 25 mg PO DAILY Qty: 30 11RF atorvastatin 80 mg tablet 80 mg PO QPM Qty: 90 3RF carvedilol 12.5 mg tablet 12.5 mg PO BID 90 Days Qty: 180 3RF acetaminophen [Tylenol Extra Strength] 500 mg tablet 500 mg PO Q6H PRN (Reason: fever or pain) Qty: 14 0RF lidocaine [Lidoderm] 5 % adhesive patch,medicated 1 patch topical DAILY MDD remove after 12 hours PRN (Reason: pain) Qty: 30 0RF Rx Instructions: leave on most painful area for up to 12 hrs lidocaine 5 % adhesive patch,medicated 1 patch topical DAILY Qty: 30 0RF Rx Instructions: leave on most painful area for up to 12 hrs oxycodone-acetaminophen 5-325 mg tablet 1 tab PO Q6H PRN (Reason: pain) Qty: 5 0RF Rx Instructions: Partial Fill upon patient request. losartan 100 mg tablet 100 mg PO DAILY chlorthalidone 25 mg tablet 25 mg PO DAILY omeprazole 40 mg capsule,delayed release(DR/EC) 40 mg PO DAILY@0630 carbidopa-levodopa 25-100 mg tablet 2 tab PO TID ropinirole 0.5 mg tablet 0.5 mg PO TID melatonin 3 mg tablet 3 mg PO BEDTIME PRN (Reason: anxiety) acetaminophen 500 mg tablet 1,000 mg PO Q8H PRN (Reason: Pain) cholecalciferol (vitamin D3) [Vitamin D3] 50 mcg (2,000 unit) capsule 50 mcg PO DAILY [place] [facility] [place] [facility] [place]] (Urinary frequency, nocturia) Interventions: ED Discharge Assessment Last Done: 09/26/23 09:22 Discharge Date/Time: 09/26/23 09:23 Print Language: Macanese
--- NOTE | 2023-09-26 08:19 | PC.NURSE ---
pt able to urinate into urinal w/o any complications. 250ml of clear/pale yellow urine noted. PVR bladder scan obtained displaying 104mL. PA notified/aware.
[2023-09-26 09:22] VITALS: BP 158/69; PULSE 78; RESP 14; TEMP 37; O2SAT 96
== END 2023-09-26 09:23 | disposition home or self-care (01) ==
PROVIDERS: Emergency Provider Emergency Medicine; PCP Internal Medicine
DX: R35.0 Frequency of micturition (principal); I10 Essential (primary) hypertension; Z79.899 Other long term (current) drug therapy
CPT/HCPCS: 36415; 51798; 80053; 81003; 85027; 99283

== ENCOUNTER 2023-10-02 09:00 | Outpatient (AMB) | payer MEDICARE, SELFPAY ==
--- NOTE | 2023-10-02 09:05 | A.OFFVIS_ITS ---
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 Name: Humphrey [id number] Information Interpreted: non-clinical & clinical Accompanied by: Self / Same As Patient Allergies No Known Allergies [No Known Allergies*] Allergy (Verified 10/02/23 09:31) Medication List - Last Reconciled 10/02/23 by Yulia Infante MD acetaminophen (Tylenol Extra Strength) 500 mg PO Q6H PRN acetaminophen 1,000 mg PO Q8H PRN atorvastatin 80 mg PO QPM carbidopa-levodopa 25-100 mg 2 tabs PO TID carvedilol 12.5 mg PO BID 90 days chlorthalidone 25 mg PO DAILY cholecalciferol (vitamin D3) (Vitamin D3) 50 mcg PO DAILY ezetimibe 10 mg PO DAILY lidocaine 5% (Lidoderm) 1 patch topical DAILY PRN MDD remove after 12 hours lidocaine 5% 1 patch topical DAILY losartan 100 mg PO DAILY melatonin 3 mg PO BEDTIME PRN mirabegron ER (Myrbetriq) 25 mg PO DAILY omeprazole 40 mg PO DAILY@0630 oxycodone-acetaminophen 5-325 mg 1 tab PO Q6H PRN ropinirole 0.5 mg PO TID spironolactone 25 mg PO DAILY tamsulosin (Flomax) 0.4 mg PO BEDTIME HPI Comments Details: 10/02/23--Sky is a 73-year-old male, [place]an-speaking, he is here with com plaints of urinary frequency, nocturia 4-5 times. Comorbidity Parkinson's. He states Parkinson's diagnosed about 3 years ago. He was in the emergency room on 09/26/23 and referred to the urology office for these symptoms. Urinalysis in the emergency room, 09/26/2023 no signs of infection. The patient voided and gave a urine specimen, UA--leukocytes negative-blood negative, glucose negative. Bladder scan PVR 53 mL. He was started on tamsulosin in the emergency room I will continue tamsulosin I have discussed adding an anticholinergic Myrbetriq 25 mg daily. Will check PSA. I have discussed CT scan findings performed 05/26/2023, 3 mm low kidney lower pole stone. Review of chart: Imaging: CTAP: 05/26/2023--left kidney lower pole 3 mm nonobstructing stone PFSH Medical History Other and unspecified hyperlipidemia History of stroke Essential hypertension Osteoporosis Vertigo Arthritis Parkinson disease Diabetes Hypertension Surgical History Hx of hand surgery Hx of cataract surgery H/O hernia repair Family History Father No problems noted. Mother No problems noted. 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 Review of Systems Const All systems reviewed & are unremarkable except as noted in HPI and below Reports no additional complaints Eyes Reports no additional complaints ENT Reports no additional complaints Card Reports no additional complaints Resp Reports no additional complaints GI Reports no additional complaints Reports as per HPI Musc Reports no additional complaints Skin/Breast Reports system reviewed and no additional complaints, except as documented Neuro Reports no additional complaints Psych Reports no additional complaints Endo Reports no additional complaints Angel/Lymph Reports no additional complaints Aller/Immun Reports no additional complaints Office Procedures Post Void Residual Post Residual Void Post Void Residual (PVR): 54 [id number] Void Residual by ultrasound Results AMB Urinalysis, Automated UA Leukoctes 0 Arely/uL Last Edit by KHUSHBU Barbosa on 10/02/23 09:35 UA Nitrite Negative Last Edit by KHUSHBU Barbosa on 10/02/23 09:35 UA Urobilinogen 0.2 mg/dL Last Edit by Lianne Templeton RMA on 10/02/23 09:3 5 UA Protein 0 mg/dL Last Edit by MIRIAM BarbosaA on 10/02/23 09:35 UA pH 6.0 Last Edit by Lianne Templeton, RMA on 10/02/23 09:35 UA Blood 0 Leonardo/uL Last Edit by Lianne Templeton, RMA on 10/02/23 09:35 UA Specific Perry 1.010 Last Edit by Lianne Templeton, RMA on 10/02/23 09: 35 UA Ketone Negative Last Edit by Lianne Templeton RMA on 10/02/23 09:35 UA Bilirubin 0 mg/dL Last Edit by Lianne Templeton RMA on 10/02/23 09:35 UA Glucose 0 mg/dL Last Edit by Lianne Templeton A on 10/02/23 09:35 Quality Reporting (2019) Benign Prostatic Hyperplasia ([facility] 771) AUA symptom score: 12 Quality of life due to urinary symptoms: If you were to spend the rest of your life with your urinary condition the way it is now, how would you feel about that?: Mixed: about equally satisfied and dissatisfied Results Reviewed Results Reviewed: Laboratory Last Values Urine pH (Auto) 6.0 10/02/23 09:21 Specific Perry (Auto) 1.010 10/02/23 09:21 Urine Protein (Auto) 0 mg/dL 10/02/23 09:21 Glucose (UA)(Auto) 0 mg/dL 10/02/23 09:21 Urine Ketones (Auto) Negative 10/02/23 09:21 Urine Blood (Auto) 0 Leonardo/uL 10/02/23 09:21 Urine Nitrite (Auto) Negative 10/02/23 09:21 Urine Bilirubin (Auto) 0 mg/dL 10/02/23 09:21 Urine Urobilinogen (Auto) 0.2 mg/dL 10/02/23 09:21 Leukocyte Esterase (Auto) 0 Arely/uL 10/02/23 09:21 Date of Service: 05/26/23 EXAMINATION: CT ABDOMEN AND PELVIS WITHOUT CONTRAST CLINICAL INFORMATION: 73-year-old male with left flank pain COMPARISON: 11/17/2022 DLP: 379 mGy-cm FINDINGS: LUNG BASES: The visualized lung bases are unremarkable. LIVER, GALLBLADDER, AND BILIARY TREE: The liver is normal in size, shape, and attenuation. No focal hepatic lesion or biliary ductal dilatation is present. The gallbladder is unremarkable with no evidence of radiopaque gallstones, gallbladder wall thickening, or obvious pericholecystic inflammatory changes. PANCREAS: Unremarkable. SPLEEN: Unremarkable. ADRENAL GLANDS: Unremarkable. KIDNEYS AND URETERS: There is 0.3 cm calcification in the lower pole of left kidney without evidence of hydroureteronephrosis ureters are not dilated BLADDER: Unremarkable. GASTROINTESTINAL TRACT: There are scattered diverticula seen in the colon without evidence of diverticulitis. No evidence of bowel obstruction colitis. Normal appendix seen. ABDOMINAL WALL: There are fat-containing small bilateral inguinal hernias. There is small fat-containing umbilical hernia. LYMPH NODES: Normal. VASCULAR: Unremarkable. PELVIC VISCERA: Unremarkable. OSSEOUS STRUCTURES: Unremarkable. IMPRESSION: 1. Left nephrolithiasis without evidence of hydroureteronephrosis. 2. Mild diverticulosis without diverticulitis. 3. Small fat-containing umbilical and bilateral inguinal hernias. Assessment & Plan Assessment & Plan (1) BPH loc w urin obs/LUTS: Code(s): N40.1 - Benign prostatic hyperplasia with lower urinary tract symptoms Category: Medical (2) Urinary frequency: Code(s): R35.0 - Frequency of micturition Category: Medical (3) Kidney stone on left side: Code(s): N20.0 - Calculus of kidney Category: Medical (4) Screening PSA (prostate specific antigen): Code(s): Z12.5 - Encounter for screening for malignant neoplasm of prostate Category: Medical Plan He was started on tamsulosin in the emergency room I will continue tamsulosin I have discussed adding an anticholinergic Myrbetriq 25 mg daily. Will check PSA. I have discussed CT scan findings performed 05/26/2023, 3 mm low kidney lower pole stone. Orders: Orders PSA,Total (Free>4and<10) 2 Months N40.1 - Benign prostatic hyperplasia with lower urinary tract symptoms, Z12.5 - Encounter for screening for malignant neoplasm of prostate AMB Urinalysis Automated Today Z13.9 - Encounter for screening, unspecified AMB Post Void Residual by ultrasound Today N39.8 - Other specified disorders of urinary system Medications: New mirabegron ER (Myrbetriq) 25 mg PO DAILY 30 tabs 5RF Refilled tamsulosin (Flomax) 0.4 mg PO BEDTIME 90 caps 1RF Patient Instructions: The patient had an opportunity to ask questions regarding treatment plan. The patient expressed understanding and agreement with the above treatment plan. The patient is aware they should contact our office by phone for worsening of their current condition or the appearance of new symptoms. Compliance is encouraged with any medications and followup testing that is ordered. It is a privilege to be allowed the opportunity to participate in the urologic care of your patient. If you have any questions or concerns regarding treatment for the above conditions please do not hesitate to contact me. The office telephone contact is [phone]. This note is constructed in part using voice recognition software. While every effort has been made to ensure accuracy residential care officer errors may have been included. Yours sincerely, Yulia Infante MD Coding Level of Care Code New Pt Level 4 (69179) Diagnoses BPH loc w urin obs/LUTS N40.1 Urinary frequency R35.0 Kidney stone on left side N20.0 Screening PSA (prostate specific antigen) Z12.5 CPT Codes Post Residual Void - PVR CPT Code: 72202-Vgvo Void Residual by ultrasound ([id number]) AUA Symptom Score AUA Incomplete emptying - It does not feel like I empty my bladder all the way.: 2 - Less than half the time Frequency - I have to go again less than two hours after I finish urinating.: 3 - About half the time Intermittency - I stop and start again several times when I urinate.: 5 - Almost always Urgency - It is hard to wait when I have to urinate.: 0 - Not at all Weak stream - I have a weak urinary stream.: 0 - Not at all Straining - I have to push or strain to begin urination.: 0 - Not at all Nocturia - I get up to urinate after I go to bed until the time I get up in the morning.: 2 times AUA Symptom Score: 12 Quality of life due to urinary symptoms: If you were to spend the rest of your life with your urinary condition the way it is now, how would you feel about that?: Mixed: about equally satisfied and dissatisfied Source: Remy Rodriguezwler FJ Jr, O'Erin MP, et al, and the Measurement Committee of the [employer]. The [employer] [employer] symptom index for benign prostatic hyperplasia. J Urol. 1992; 148: 5678-7294. Copyright 1992 [employer]
== END 2023-10-02 10:18 | disposition home or self-care (01) ==
PROVIDERS: PCP Internal Medicine; Visit Provider Urology
DX: N40.1 Benign prostatic hyperplasia with lower urinary tract symptoms (principal); R35.0 Frequency of micturition; N20.0 Calculus of kidney; Z12.5 Encounter for screening for malignant neoplasm of prostate; Z13.9 Encounter for screening, unspecified
CPT/HCPCS: 99204

== ENCOUNTER → 2023-10-02 09:00 | Outpatient (BNVA) | payer MEDICARE, SELFPAY | PROVIDERS: PCP Internal Medicine; Visit Provider Urology | DX: N40.1 Benign prostatic hyperplasia with lower urinary tract symptoms (principal); N13.8 Other obstructive and reflux uropathy; R35.1 Nocturia; R35.0 Frequency of micturition; N20.0 Calculus of kidney; Z12.5 Encounter for screening for malignant neoplasm of prostate | CPT/HCPCS: 51798; 81003; 99202 ==

== ENCOUNTER 2023-10-25 08:07 | Emergency (ER) | payer MEDICARE, SELFPAY ==
--- NOTE | ~2023-10-25 | XR_ITS ---
EXAMINATION: XR CHEST CLINICAL INFORMATION: Shortness of breath and difficulty breathing COMPARISON: 12/02/2022 TECHNIQUE: Frontal view of the chest was obtained. FINDINGS: Lungs clear. Heart and pulmonary vessels normal. There is degenerative change in both shoulder joints. XR/XR chest 1V IMPRESSION: No active disease.
[2023-10-25 08:17] VITALS: BP 172/89; PULSE 96; RESP 18; TEMP 36.9; O2SAT 93; BMI 25.0
--- NOTE | 2023-10-25 08:23 | ECG_ITS ---
Test Reason : sob Blood Pressure : / mmHG Vent. Rate : 078 BPM Atrial Rate : 078 BPM P-R Int : 150 ms QRS Dur : 084 ms QT Int : 354 ms P-R-T Axes : -13 -06 040 degrees QTc Int : 403 ms Normal sinus rhythm Normal ECG When compared with ECG of 20-APR-2023 07:36, No significant change was found Referred By: Generic ED Physician Electronically Signed By:Josemanuel Verdin
--- NOTE | 2023-10-25 08:27 | ED.GENADULT ---
HPI - General Adult General Chief complaint: Dyspnea Stated complaint: diff breathing Time Seen by Provider: 10/25/23 08:27 Source: patient, family and certified court/medical interpreter Mode of arrival: ambulatory Limitations: language barrier History of Present Illness ED Provider: rachel PIZARRO narrative: Patient is a 73-year-old [place] speaking male with history of Parkinson's, DM, HTN, arthritis, CVA presenting to the ED with complaint of wheezing for one hour at home which has since resolved. Also reports that he had nasal congestion but he blew his nose and denies congestion now. Denies any chest pain, palpitations, or current dyspnea. Denies fever/chills/body aches. Denies sick contacts. Denies abdominal pain, nausea, vomiting, diarrhea. MD complaint: wheezing Onset (ago): hour(s) Associated symptoms: denies other symptoms Treatments prior to arrival: none Related Data Home Medications ?Medication ?Instructions ?Recorded ?Confirmed losartan 100 mg tablet 100 mg PO DAILY 02/20/20 10/02/23 chlorthalidone 25 mg tablet 25 mg PO DAILY 06/04/20 10/02/23 cholecalciferol (vitamin D3) 50 50 mcg PO DAILY 07/27/21 10/02/23 mcg (2,000 unit) capsule (Vitamin D3) carbidopa 25 mg-levodopa 100 mg 2 tab PO TID 11/29/21 10/02/23 tablet omeprazole 40 mg capsule,delayed 40 mg PO DAILY@0630 11/29/21 10/02/23 release ropinirole 0.5 mg tablet 0.5 mg PO TID 11/29/21 10/02/23 acetaminophen 500 mg tablet 1,000 mg PO Q8H PRN Pain 12/31/21 10/02/23 melatonin 3 mg tablet 3 mg PO BEDTIME PRN anxiety 12/31/21 10/02/23 Previous Rx's ?Medication ?Instructions ?Recorded ezetimibe 10 mg tablet 10 mg PO DAILY #90 tabs 01/24/23 spironolactone 25 mg tablet 25 mg PO DAILY #30 tabs 04/04/23 acetaminophen 500 mg tablet 500 mg PO Q6H PRN fever or pain 04/24/23 (Tylenol Extra Strength) #14 tabs lidocaine 5 % topical patch 1 patch topical DAILY PRN pain #30 04/24/23 (Lidoderm) ea lidocaine 5 % topical patch 1 patch topical DAILY #30 ea 05/26/23 atorvastatin 80 mg tablet 80 mg PO QPM #90 tabs 08/01/23 oxycodone-acetaminophen 5 mg-325 1 tab PO Q6H PRN pain #5 tabs 08/28/23 mg tablet carvedilol 12.5 mg tablet 12.5 mg PO BID 90 days #180 tabs 09/12/23 mirabegron 25 mg tablet,extended 25 mg PO DAILY #30 tabs 10/02/23 release 24 hr (Myrbetriq) tamsulosin 0.4 mg capsule (Flomax) 0.4 mg PO BEDTIME #90 caps 10/02/23 Allergies Allergy/AdvReac Type Severity Reaction Status Date / Time No Known Allergies Allergy Verified 10/25/23 08:22 [No Known Allergies*] Review of Systems Review of Systems: As per HPI. Yes all other systems are reviewed and are negative Constitutional: Constitutional: Reports as per HPI [facility] Past Medical History Medical History Other and unspecified hyperlipidemia History of stroke Essential hypertension Osteoporosis Vertigo Arthritis Parkinson disease Diabetes Hypertension Surgical History Hx of hand surgery Hx of cataract surgery H/O hernia repair Family History Family History Father No problems noted. Mother No problems noted. Social History Social History Household Members: Family Alcohol intake: former Comment: pt steady gait tremors noted secondary to hx parkinson Patient Tobacco Use Status: Never used Tobacco Smoked in Last 30 Days: No Use of substances other than those prescribed or required for medical reasons: No Advance Directives: No Advance Directives Information Provided: Yes Current occupational status: retired 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 Physical Exam ED Vital Signs: Vital Signs - 24 hr 10/25/23 08:17 10/25/23 08:49 10/25/23 10:18 Temperature 98.5 F 97.9 F 98.6 F Pulse Rate 96 87 81 Respiratory Rate 18 19 16 Blood Pressure 172/89 H 138/88 132/80 Pulse Oximetry 93 97 95 Oxygen Delivery Method Room Air Room Air Room Air BMI result Body Mass Index 25.0 Vital signs have been reviewed and appear to be correct. Blood pressure normal. Heart rate normal. Respiratory rate normal. Temperature normal. Oxygen saturation normal. Const General: cooperative, healthy appearing and no acute distress Orientation/consciousness: oriented to person, oriented to place, oriented to time and patient oriented x3 Limitations: no limitations HENMT Head: Yes normocephalic and Yes atraumatic Ears: external ears normal General nose exam: Normal external nose present Face and sinus: Yes face symmetric Mouth: oropharynx normal and moist mucous membranes Throat: Yes uvula midline Eyes Pupils: Equal, round and reactive pupils present Neck Neck: Yes normal visual inspection and Yes supple Resp Effort & Inspection: normal respiratory effort, able to speak in complete sentences, not labored, no retractions and no use of accessory muscles Auscultation: clear to auscultation bilaterally, no rales, no rhonchi and no wheezes Cardio Rate: regular rate Rhythm: regular rhythm Heart sounds: S1 normal heart sound present and S2 normal heart sound present GI Palpation (GI): Soft to palpation and nontender Auscultation: normoactive bowel sounds General: Yes no CVA tenderness Back/Spine/Pelvis Back: no CVA tenderness Skin General skin exam: elasticity normal and turgor normal Neuro General: oriented to person, oriented to place, oriented to time, patient oriented x3, moves all extremities, no focal motor deficits and CN's II-XI intact bilaterally Cranial nerves: Yes Equal, round and reactive pupils present Cognition (Neuro): normal cognition Motor exam (neuro): Tremors during motor activity present bilateral upper extremity resting tremor (baseline) Extrem General: Yes full ROM, Yes no pedal edema and Yes no calf tenderness Psych Mental Status: mental status grossly normal Affect: normal affect Thought process: Normal thought process present Medications Administered Discontinued Medications Generic Name Dose Route Start Last Admin Trade Name Freq PRN Reason Stop Dose Admin Sodium Chloride 1 gm 10/25/23 09:49 10/25/23 11:05 Sodium Chloride Tab 1 Gm Tablet PO 10/25/23 09:50 1 gm ONCE ONE Administration Medical Decision Making Medical Decision Making MDM Narrative: Patient is a 73-year-old [place] speaking male with history of Parkinson's, DM, HTN, arthritis, CVA presenting to the ED with complaint of wheezing for one hour at home which has since resolved. On exam patient is awake, A+Ox3, VS WNL, afebrile, normal neurological exam without focal deficits, physical exam findings as above. Given reported symptoms and physical exam findings, initial differential includes viral illness, Covid, flu, RSV, bronchitis, pneumonia. Labs notable for no leukocytosis, slight anemia, negative troponin, mild hyponatrema. X-ray notable for no evidence of pneumonia. My interpretation is in agreement with the radiologist's interpretation. Viral serology negative. EKG shows normal sinus rhythm. PO sodium given in the ED and discussed with patient and daughter that he will need to follow up with his PCP this week for repeat labs. Return precautions discussed. Patient verbalized understanding of and agreement with plan. Assessment, results, plan, and return precautions interpreted by in-person full time staff interpreter at bedside. Differential Diagnosis Differential Diagnoses: The differential diagnosis associated with the presentation includes As per [facility] Admission/Observation Consideration of admission/observation: Escalation of care including admission/observation considered Patient would have been admitted to the hospital had their work up had any findings where hospital admission was appropriate and their clinical presentation warranted hospital admission. Lab Data [facility] Lab Attestation statement: I reviewed the patient's lab results. As per [facility] 10/25/23 08:34 10/25/23 08:34 Labs: Lab Results 10/25/23 Range/Units 08:34 WBC 6.1 (4.8-10.8) X10*3/uL RBC 4.09 L (4.60-5.80) X10*6/uL Hgb 13.2 L (14.0-18.0) g/dl Hct 37.2 L (42.0-52.0) % MCV 91.0 (80.0-98.0) fL MCH 32.3 (27.0-33.0) pg MCHC 35.5 (31.0-36.0) g/dl RDW 11.4 (11.0-16.0) % Plt Count 215 (160-400) X10*3/uL MPV 10.8 (9.4-12.4) fL Immature Gran % (Auto) 0.5 H (0.0-0.4) % Neut % (Auto) 75.6 H (45-73) % Lymph % (Auto) 14.8 L (20-40) % Calloway % (Auto) 8.5 (2-11) % Eos % (Auto) 0.3 (0-4) % Baso % (Auto) 0.3 (0-2) % Lymph # (Auto) 0.9 L (1.2-4.9) X10*3/uL Calloway # (Auto) 0.5 (0.1-1.2) X10*3/uL Eos # (Auto) 0.0 (0.0-0.4) X10*3/uL Baso # (Auto) 0.0 (0.0-0.2) X10*3/uL Abs Immat Gran (auto) 0.03 (0.00-0.03) X10*3/uL Absolute Neuts (auto) 4.6 (2.0-8.3) x10*3/uL Absolute Nucleated RBC 0.000 (0.0-0.012) X10*3/uL Nucleated RBC % (auto) 0.0 (0.0-0.2) /100WBC Sodium 128 L (135-145) mmol/L Potassium 4.6 (3.3-5.1) mmol/L Chloride 97 (96-108) mmol/L Carbon Dioxide 24 (22-29) mmol/L Anion Gap 12 (12-20) BUN 19 H (9-16) mg/dL Creatinine 1.04 (0.5-1.4) mg/dL Estim Creat Clear Calc 55.3 Estimated GFR > 60 Random Glucose 87 (60-115) mg/dL Calcium 9.3 (8.4-10.2) mg/dL Total Bilirubin 0.9 (0.0-1.0) mg/dL Direct Bilirubin 0.3 (0.0-0.5) mg/dL AST 23 (5-37) U/L ALT 18 (0-40) U/L Alkaline Phosphatase 51 (39-117) U/L Troponin I High Sens 2.9 (<3.5-35.0) ng/L Total Protein 7.0 (6.5-8.0) g/dL Albumin 4.3 (3.5-5.0) g/dL Influenza Type A (PCR) NEGATIVE (Negative) Influenza Type B (PCR) NEGATIVE (Negative) RSV RNA Qual (PCR) NEGATIVE (Negative) SARS-CoV-2 RNA (RT-PCR) NEGATIVE (Negative) Independent Interpretation I performed an independent interpretation of an: EKG (normal sinus rhythm, rate 78bpm, normal [place] interval and QTc) and Plain X-Ray Interpretation: No evidence of pneumonia on chest x-ray Radiology Impression Discussion of test interpretation with radiology: I have reviewed the radiologist's reading. Radiologist Impression: XR/XR chest 1V IMPRESSION: No active disease. External Record Review External record reviewed: Inpatient record, Office record and Outpatient record Discharge Plan Discharge Clinical Impression: Acute hyponatremia, Wheezing Patient Disposition: Home, Self-Care Instructions: Wheezing (ED), Hyponatremia (ED) Additional Instructions: You were evaluated in the emergency department today for wheezing. Your evaluation did not show evidence of medical conditions requiring emergent treatment at this time. Your sodium level was slightly low and you were given a sodium tab in the ED. It is important that you follow up with your primary care provider this week to have your sodium level rechecked. Return to the emergency department if you develop chest pain, palpitations, difficulty breathing, fever, or any other concerning symptoms. Prescriptions: No Action ezetimibe 10 mg tablet 10 mg PO DAILY Qty: 90 3RF spironolactone 25 mg tablet 25 mg PO DAILY Qty: 30 11RF atorvastatin 80 mg tablet 80 mg PO QPM Qty: 90 3RF carvedilol 12.5 mg tablet 12.5 mg PO BID 90 Days Qty: 180 3RF acetaminophen [Tylenol Extra Strength] 500 mg tablet 500 mg PO Q6H PRN (Reason: fever or pain) Qty: 14 0RF lidocaine [Lidoderm] 5 % adhesive patch,medicated 1 patch topical DAILY MDD remove after 12 hours PRN (Reason: pain) Qty: 30 0RF Rx Instructions: leave on most painful area for up to 12 hrs lidocaine 5 % adhesive patch,medicated 1 patch topical DAILY Qty: 30 0RF Rx Instructions: leave on most painful area for up to 12 hrs oxycodone-acetaminophen 5-325 mg tablet 1 tab PO Q6H PRN (Reason: pain) Qty: 5 0RF Rx Instructions: Partial Fill upon patient request. losartan 100 mg tablet 100 mg PO DAILY chlorthalidone 25 mg tablet 25 mg PO DAILY omeprazole 40 mg capsule,delayed release(DR/EC) 40 mg PO DAILY@0630 carbidopa-levodopa 25-100 mg tablet 2 tab PO TID ropinirole 0.5 mg tablet 0.5 mg PO TID melatonin 3 mg tablet 3 mg PO BEDTIME PRN (Reason: anxiety) acetaminophen 500 mg tablet 1,000 mg PO Q8H PRN (Reason: Pain) cholecalciferol (vitamin D3) [Vitamin D3] 50 mcg (2,000 unit) capsule 50 mcg PO DAILY Myrbetriq 25 mg tablet extended release 24 hr 25 mg PO DAILY Qty: 30 5RF tamsulosin [Flomax] 0.4 mg capsule 0.4 mg PO BEDTIME Qty: 90 1RF Print Language: [place]
[2023-10-25 08:40] LABS: MANUAL DIFF FLAG NO
[2023-10-25 08:47] LABS: Basophils Percent Auto 0.3 % (0-2); Eosinophils Percent Auto 0.3 % (0-4); Hematocrit 37.2 % (42.0-52.0); Hemoglobin 13.2 g/dl (14.0-18.0); Imm Gran Abs Auto 0.03 X10*3/uL (0.00-0.03); Imm Gran Pct Auto 0.5 % (0.0-0.4); Lymphocytes Absolute Auto 0.9 X10*3/uL (1.2-4.9); Lymphocytes Percent Auto 14.8 % (20-40); Mean Corpuscular HGB Conc 35.5 g/dl (31.0-36.0); Mean Corpuscular Hemoglobin 32.3 pg (27.0-33.0); Mean Platelet Volume 10.8 fL (9.4-12.4); Monocytes Absolute Auto 0.5 X10*3/uL (0.1-1.2); Monocytes Percent Auto 8.5 % (2-11); Neutrophils Absolute Auto 4.6 x10*3/uL (2.0-8.3); Neutrophils Percent Auto 75.6 % (45-73); Platelet Count 215 X10*3/uL (160-400); Red Blood Count 4.09 X10*6/uL (4.60-5.80); Red Cell Distribution Width 11.4 % (11.0-16.0); White Blood Count 6.1 X10*3/uL (4.8-10.8)
[2023-10-25 08:49] VITALS: BP 138/88; PULSE 87; RESP 19; TEMP 36.6; O2SAT 97
[2023-10-25 09:05] LABS: Troponin-I High Sensitivity 2.9 ng/L (<3.5-35.0)
[2023-10-25 09:16] LABS: Alanine Aminotransferase 18 U/L (0-40); Albumin Level 4.3 g/dL (3.5-5.0); Alkaline Phosphatase 51 U/L (39-117); Anion Gap 12 (12-20); Aspartate Amino Transferase 23 U/L (5-37); Bilirubin Direct 0.3 mg/dL (0.0-0.5); Bilirubin Total 0.9 mg/dL (0.0-1.0); Blood Urea Nitrogen 19 mg/dL (9-16); Calcium 9.3 mg/dL (8.4-10.2); Carbon Dioxide 24 mmol/L (22-29); Chloride 97 mmol/L (96-108); Creatinine Clr Calc Pharmacy 55.3; Estimated Glomerular Filt Rate > 60; Glucose Random 87 mg/dL (60-115); Potassium 4.6 mmol/L (3.3-5.1); Sodium 128 mmol/L (135-145)
[2023-10-25 09:19] LABS: Influenza A PCR NEGATIVE (Negative); Influenza B PCR NEGATIVE (Negative); Resp Syncy Virus RNA Qual PCR NEGATIVE (Negative); SARS COV2 PCR INHOUSE NEGATIVE (Negative)
--- NOTE | 2023-10-25 09:52 | PC.NURSE ---
Pt comes from home for wheezing/SOB. No increased WOB/labored breathing noted. Lung sounds cta bilaterally, maintaining O2 sat 95-97% on room air. Pt yoruba speaking only, family member at bedside. Call stevens within reach, awaiting further orders at this time.
[2023-10-25 10:18] VITALS: BP 132/80; PULSE 81; RESP 16; TEMP 37; O2SAT 95
--- NOTE | 2023-10-25 10:38 | PC.NURSE ---
pharmacy called for missing med -float rn
[2023-10-25] MEDS: Sodium Chloride Tab 1 GM TABLET PO (11:05)
[2023-10-25 11:26] VITALS: BP 149/81; PULSE 88; RESP 18; TEMP 36.6; O2SAT 97
[2023-10-25 11:34] VITALS: BP 149/81; PULSE 88; RESP 18; TEMP 36.6; O2SAT 97
== END 2023-10-25 11:34 | disposition home or self-care (01) ==
PROVIDERS: Emergency Provider Emergency Medicine; PCP Internal Medicine
DX: R06.02 Shortness of breath (principal); E87.1 Hypo-osmolality and hyponatremia; R06.2 Wheezing; Z03.818 Encounter for observation for suspected exposure to other biological agents ruled out; Z79.899 Other long term (current) drug therapy
CPT/HCPCS: 0241U; 71045; 80048; 80076; 84484; 85025; 93005; 99283; 99285

== ENCOUNTER → 2023-10-25 08:23 | Outpatient (BNV) | payer MEDICARE, SELFPAY | PROVIDERS: Emergency Provider Emergency Medicine; PCP Internal Medicine; Visit Provider Internal Medicine Cardiovascular Disease | DX: R06.02 Shortness of breath (principal) | CPT/HCPCS: 93010 ==

== ENCOUNTER 2023-11-21 08:45 | Outpatient (REF) | payer MEDICARE, SELFPAY ==
--- NOTE | ~2023-11-21 | FL_ITS ---
EXAMINATION: XR FLUOROSCOPY WITH IMAGES CLINICAL INFORMATION: Posttraumatic osteoarthritis, wrist. COMPARISON: 06/05/2023. TECHNIQUE: Fluoroscopy provided to: Dr. Ace Fluoroscopy time: 12 seconds DAP: 6186.3 Gycm2 Images: 1 FINDINGS: Solitary view left wrist shows needle placement in the DRUJ. FL/FL guided needle placement IMPRESSION: Fluoroscopic guidance. Please refer to the full operative report for details. Electronically signed by: Malcolm Churchill MD 01/19/2024 02:10 PM EDT
== END 2023-11-21 08:46 | disposition home or self-care (01) ==
LOC: HO.HOSX 08:45
PROVIDERS: PCP Internal Medicine; Visit Provider Orthopaedic Surgery
DX: M19.132 Post-traumatic osteoarthritis, left wrist (principal); S66.303A Unspecified injury of extensor muscle, fascia and tendon of left middle finger at wrist and hand level, initial encounter; M65.331 Trigger finger, right middle finger; G20.A1 Parkinson's disease without dyskinesia, without mention of fluctuations; M21.832 Other specified acquired deformities of left forearm; X58.XXXA Exposure to other specified factors, initial encounter; Y93.9 Activity, unspecified; Y92.9 Unspecified place or not applicable; Y99.9 Unspecified external cause status
CPT/HCPCS: 20605; 77002; 99212; J1010

== ENCOUNTER 2023-11-21 08:45 | Outpatient (AMB) | payer MEDICARE, SELFPAY ==
--- NOTE | 2023-11-21 08:49 | MHC.OFFVIS ---
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 Patient states last injection from 06/27/23 provide good pain relief and would like to repeat injection today under C-arm machine. Residential Installer Required: Yes Residential Installer Language: [employer] Coordinator Services: Residential Installer Present Residential Installer Name: LopezKHUSHBU/ISABELLA Information Interpreted: clinical only Allergies No Known Allergies [No Known Allergies*] Allergy (Verified 11/21/23 08:55) HPI HPI OV- RT Wrist INJ w/cookie: Details: Benjamin is a 73 year old right hand dominant Maltese speaking man with Parkinson's disease and a left SLAC wrist deformity, who presents for a repeat left wrist injection. He has a hx of repeat wrist injections, with relief. His last injection was on 06/27/23. No new injury. However, his wrist has again become more painful. He would like a repeat injection today. It sounds like he lives alone, but has a SLOT TECHNICIAN that helps him with daily activities. [facility] Medical History Other and unspecified hyperlipidemia History of stroke Essential hypertension Osteoporosis Vertigo Arthritis Parkinson disease Diabetes Hypertension Surgical History Hx of hand surgery Hx of cataract surgery H/O hernia repair Family History Father No problems noted. Mother No problems noted. 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 He does have some ulnar deviation of the extensor tendons to the middle and ring fingers when he brings his fingers close to a fist. This is not appear to be preventing active extension of the digits and that is not a significant amount of deviation at the digits. He has some some mild swelling and some deformity at the radiocarpal joint consistent with a SLAC wrist deformity. He is most tender to palpation over the radioscaphoid joint. Radiographs: 3 views of the left wrist from 10/19/20 were reviewed by me today. It does show a scapholunate advanced collapse wrist deformity with essentially complete loss of the radioscaphoid joint space, widening of scaapholunate interval and good preservation of radiolunate joint space. He is also got some basal joint arthritis. 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 Left scapholunate advanced collapse wrist deformity, S/P repeat injections using mini C-arm Dates of Injection: 11/21/23, 06/27/23, 02/28/23, 10/26/22, 07/06/22, 01/17/22, 08/26/21, and 02/22/21 Assessment & Plan: 1. Left scapholunate advanced collapse wrist deformity, S/P steroid injection using the FluoroScan for needle guidance Dates of Injection:06/27/23, 02/28/23, 10/26/22, 07/06/22, 01/17/22, 08/26/21, and 02/22/21 He had good relief from these injections and is interested in having another injection. I discussed the risks and benefits of a steroid injection and he would like to proceed Injection #1: The risks and benefits of a steroid injection including but not limited to risk of damage to blood vessels, nerves, tendons, infection, skin bleaching, failure to improve symptoms, increased pain, and possible need for further injections or other intervention were discussed with the patient and the patient wishes to proceed with the steroid injection. Once consent was obtained the skin over the dorsum of the Left wrist was sterilely prepped. The joint was then injected with a combination of 1 mL of (40 mg/ml} Depo-Medrol and 1% plain Lidocaine, using the mini C-arm for needle guidance.The patient appears to have tolerated the procedure well and with no complications. He had good early relief before leaving clinic today. He knows that they may not have another steroid injection into this joint for least 4 months. He says this is beneficial and will schedule his next injection with the mini C-arm for 4 months from now. This should be a 30 minute appointment 2. Right middle finger trigger finger, S/P release DOS: 08/28/23 Resolved 3. Right middle finger radial sagittal band injury With ulnar subluxation of the tendon This can be managed conservatively for now. 4. Left middle Trigger Finger, S/P release DOS: 08/26/21 Good resolution of locking and catching Still with a mild flexion contracture of the middle finger PIP joint, but this has improved some and he feels like he is doing well with home exercises alone. 5. 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 Ulnar subluxation of the extensor tendons to the left ring and middle fingers. No problems with active extension of all digits. He does not have significant ulnar deviation of the digits. At this point this will be managed conservatively. Scribed for Lisy Ace MD by Swapnil Umaña, medical office administrator, on 11/21/23 at 9:05 AM, EST. 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 Coding Level of Care Code Est Pt Level 3 (43354) Diagnoses Trigger finger, right middle finger M65.331 SLAC (scapholunate advanced collapse) of wrist M19.139 Parkinson disease G20 Unspecified injury of extensor muscle, fascia and tendon of left middle finger at wrist and hand level, initial encounter S66.303A CPT Codes Fracture Care - Fracture Billing Code: Fracture Billing Code ([id number])
== END 2023-11-21 09:24 | disposition home or self-care (01) ==
PROVIDERS: PCP Internal Medicine; Visit Provider Orthopaedic Surgery
DX: M19.132 Post-traumatic osteoarthritis, left wrist (principal); M65.331 Trigger finger, right middle finger; S66.303A Unspecified injury of extensor muscle, fascia and tendon of left middle finger at wrist and hand level, initial encounter
CPT/HCPCS: 20605; 99213

== ENCOUNTER → 2023-11-21 09:09 | Outpatient (BNV) | payer MEDICARE, SELFPAY | PROVIDERS: PCP Internal Medicine; Visit Provider Radiology Diagnostic Radiology | DX: M19.032 Primary osteoarthritis, left wrist (principal) | CPT/HCPCS: 77002 ==

== ENCOUNTER 2023-12-18 12:14 | Inpatient (IN) | payer OTHER, SELFPAY ==
--- NOTE | ~2023-12-18 | CT_ITS ---
EXAMINATION: CT HEAD WITHOUT CONTRAST CLINICAL INFORMATION: Dizziness COMPARISON: CT head 04/20/2023 TECHNIQUE: Contiguous axial imaging was performed from the skull base to vertex without intravenous administration of contrast. This CT examination was performed using dose optimization techniques as appropriate, variously including the following: *Automated exposure control *Adjustment of mA and/or kV according to patient size (this includes techniques or standardized protocols for targeted exams where dose is matched to indication/reason for exam; i.e. extremities or head) *Use of iterative reconstruction technique DLP: 604 mGy-cm FINDINGS: There is no evidence of acute intracranial hemorrhage or edematous territorial infarction. No abnormal mass effect or midline shift is seen. [place] to white matter differentiation is well preserved. No abnormal extra-axial fluid collections are identified. Patchy periventricular and deep white matter hypodensities. Proportional prominence of the ventricles and sulcal spaces without evidence of obstructive hydrocephalus. No acute calvarial fracture.. Paranasal sinuses and mastoid air cells are well-aerated. CT/CT head/brain wo IV con IMPRESSION: No CT evidence of acute intracranial hemorrhage or edematous territorial infarction. Chronic changes, as detailed above.. Electronically signed by: Hiram Hernandez MD 12/18/2023 03:46 PM EDT
[2023-12-18 12:30] VITALS: BP 126/73; PULSE 78; RESP 18; TEMP 36.4; O2SAT 99; BMI 25.0
--- NOTE | 2023-12-18 12:30 | ED_ITS ---
HPI - General Adult General Chief complaint: Weakness Stated complaint: Weakness/Dizziness Time Seen by Provider: 12/18/23 17:44 Source: patient Mode of arrival: ambulatory Limitations: no limitations History of Present Illness ED Provider: Dr. Glenny Martell HPI narrative: Patient comes to the emergency room accompanied by his family. Seems that patient has been weaker than usual. Usually, patient is able to walk with his walker. Patient tried doing it today, while walking he was very weak, he had to be escorted back to his bed. Patient denies falling and having any trauma. Patient denies any chest pain or shortness of breath, no recent illnesses to his knowledge. Related Data Home Medications ?Medication ?Instructions ?Recorded ?Confirmed losartan 100 mg tablet 100 mg PO DAILY 02/20/20 10/02/23 chlorthalidone 25 mg tablet 25 mg PO DAILY 06/04/20 10/02/23 cholecalciferol (vitamin D3) 50 50 mcg PO DAILY 07/27/21 10/02/23 mcg (2,000 unit) capsule (Vitamin D3) carbidopa 25 mg-levodopa 100 mg 2 tab PO TID 11/29/21 10/02/23 tablet omeprazole 40 mg capsule,delayed 40 mg PO DAILY@0630 11/29/21 10/02/23 release ropinirole 0.5 mg tablet 0.5 mg PO TID 11/29/21 10/02/23 acetaminophen 500 mg tablet 1,000 mg PO Q8H PRN Pain 12/31/21 10/02/23 melatonin 3 mg tablet 3 mg PO BEDTIME PRN anxiety 12/31/21 10/02/23 Previous Rx's ?Medication ?Instructions ?Recorded ezetimibe 10 mg tablet 10 mg PO DAILY #90 tabs 01/24/23 spironolactone 25 mg tablet 25 mg PO DAILY #30 tabs 04/04/23 acetaminophen 500 mg tablet 500 mg PO Q6H PRN fever or pain 04/24/23 (Tylenol Extra Strength) #14 tabs lidocaine 5 % topical patch 1 patch topical DAILY PRN pain #30 04/24/23 (Lidoderm) ea lidocaine 5 % topical patch 1 patch topical DAILY #30 ea 05/26/23 atorvastatin 80 mg tablet 80 mg PO QPM #90 tabs 08/01/23 oxycodone-acetaminophen 5 mg-325 1 tab PO Q6H PRN pain #5 tabs 05/13/24 mg tablet carvedilol 12.5 mg tablet 12.5 mg PO BID 90 days #180 tabs 09/12/23 mirabegron 25 mg tablet,extended 25 mg PO DAILY #30 tabs 10/02/23 release 24 hr (Myrbetriq) tamsulosin 0.4 mg capsule (Flomax) 0.4 mg PO BEDTIME #90 caps 10/02/23 Allergies Allergy/AdvReac Type Severity Reaction Status Date / Time No Known Allergies Allergy Verified 12/18/23 12:32 [No Known Allergies*] Review of Systems 2 Review of Systems: Constitutional : No Weight loss, No Fever, No Chills, No Night Sweats, complaining of fatigue ENT/Mouth : No Hearing loss, No Ear Pain, No Nasal Congestion, No Sinus Pain, No Hoarseness, No sore throat, No Rhinorrhea, No Swallowing Difficulty Eyes: No Eye Pain, No Swelling, No Redness, No Foreign Body, No Discharge, No Vision Changes Cardiovascular : No Chest Pain, No SOB, No Dyspnea on Exertion, No Orthopnea, No Edema, No Palpitations Respiratory : No Cough, No Sputum, No Wheezing, No Smoke Exposure, No Dyspnea Gastrointestinal : No Nausea, No Vomiting, No Diarrhea, No Constipation, No abdominal Pain, No Hematochezia, No Melena Genitourinary : no irregular bleeding, No Dysuria, No Urinary Frequency, No Hematuria, No Urinary Incontinence, No Urgency, No Flank Pain, No Urinary Flow Changes, No Hesitancy Musculoskeletal : Complaining of generalized weakness, known to have Parkinson's, No joint pain, No Myalgias, No Joint Swelling Skin : No Skin Lesions, No rash Neuro : No Weakness, No Numbness, No Paresthesias, No Loss of Consciousness, No Dizziness, No Headache Psych : No Anxiety/Panic, No Depression, No SI/HI/AH/VH, No Social Issues, Heme/Lymph: No Bruising, No Bleeding,No Lymphadenopathy Endocrine : No Polyuria, No Polydipsia, No Temperature Intolerance [facility] Past Medical History Medical History Other and unspecified hyperlipidemia History of stroke Essential hypertension Osteoporosis Vertigo Arthritis Parkinson disease Diabetes Hypertension Surgical History Hx of hand surgery Hx of cataract surgery H/O hernia repair Family History Family History Father No problems noted. Mother No problems noted. 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 Oriented X3. No acute distress. Seems weak, difficulty sitting up by himself Eyes: Pupils equal, round and reactive to light. ENT: Pharynx normal. Neck: Normal inspection. Neck supple. No lymph nodes noted. No crepitus CVS: Normal heart rate and rhythm. Pulses normal. Normal S1 and S2 Respiratory: No respiratory distress. Breath sounds normal. No Wheezing. No rales Abdomen: Soft and nontender. No rigidity. No distention. Skin: Skin warm and dry. Normal skin color. Normal skin turgor. Extremities: No lower extremity edema. No Lacerations. No Rash Neuro: Cranial nerves 2-12 grossly intact Psych: calm, cooperative, normal affect Course Course Course Narrative: This is a Rapid Medical Examination (RME) performed by Jordy Caballero PA-C in triage. Full HPI, ROS, assessment and treatment plan per primary provider in the Main ED. 73 yo male hx of Parkinson's, DM, HTN, arthritis, CVA here for eval of dizziness. reports standing to ambulate with his cane this morning, felt like he was logan walking . admits to generalized weakness. denies chest pain, palpitations, headache, vision or speech changes. + finger to nose intact. strength 5/5 throughout. no slurred speech, pronator drift, or facial droop. no focal neuro deficits. Plan: labs, ekg, ct head Medical Decision Making Medical Decision Making [facility] Narrative: My interpretation of labs: Hematology at baseline, today patient has a sodium of 126, in October was 128. However now patient is significantly symptomatic. Urinalysis negative, COVID negative. -my interpretation of head CT, no intracranial bleed -I discussed the patient with Dr. Glez, patient being admitted for hyponatremia. Differential Diagnosis Differential Diagnoses: The differential diagnosis associated with the presentation includes (Hyponatremia, COVID, UTI, deconditioning) Admission/Observation Consideration of admission/observation: Escalation of care including admission/observation considered Consult Healthcare Provider Management of the patient was discussed with: Hospitalist Lab Data [facility] Lab Attestation statement: I reviewed the patient's lab results. 12/18/23 12:49 12/18/23 12:49 Labs: Lab Results 12/18/23 12/18/23 12/18/23 Range/Units 12:49 18:15 18:16 WBC 7.3 (4.8-10.8) X10*3/uL RBC 3.70 L (4.60-5.80) X10*6/uL Hgb 12.3 L (14.0-18.0) g/dl Hct 33.7 L (42.0-52.0) % MCV 91.1 (80.0-98.0) fL MCH 33.2 H (27.0-33.0) pg MCHC 36.5 H (31.0-36.0) g/dl RDW 11.6 (11.0-16.0) % Plt Count 197 (160-400) X10*3/uL MPV 11.3 (9.4-12.4) fL Immature Gran % (Auto) 0.4 (0.0-0.4) % Neut % (Auto) 75.7 H (45-73) % Lymph % (Auto) 14.0 L (20-40) % [place] % (Auto) 9.2 (2-11) % Eos % (Auto) 0.4 (0-4) % Baso % (Auto) 0.3 (0-2) % Lymph # (Auto) 1.0 L (1.2-4.9) X10*3/uL [place] # (Auto) 0.7 (0.1-1.2) X10*3/uL Eos # (Auto) 0.0 (0.0-0.4) X10*3/uL Baso # (Auto) 0.0 (0.0-0.2) X10*3/uL Abs Immat Gran (auto) 0.03 (0.00-0.03) X10*3/uL Absolute Neuts (auto) 5.5 (2.0-8.3) x10*3/uL Absolute Nucleated RBC 0.000 (0.0-0.012) X10*3/uL Nucleated RBC % (auto) 0.0 (0.0-0.2) /100WBC Sodium 126 L (135-145) mmol/L Potassium 4.2 (3.3-5.1) mmol/L Chloride 94 L (96-108) mmol/L Carbon Dioxide 21 L (22-29) mmol/L Anion Gap 15 (12-20) BUN 24 H (9-16) mg/dL Creatinine 1.13 (0.5-1.4) mg/dL Estim Creat Clear Calc 50.9 Estimated GFR > 60 Random Glucose 89 (60-115) mg/dL Osmolality (281-305) mosm/kg Calcium 9.2 (8.4-10.2) mg/dL Magnesium 1.5 L (1.6-2.6) mg/dL Total Bilirubin 0.9 (0.0-1.0) mg/dL AST 25 (5-37) U/L ALT 18 (0-40) U/L Alkaline Phosphatase 50 (39-117) U/L Troponin I High Sens 2.9 (<3.5-35.0) ng/L Total Protein 6.7 (6.5-8.0) g/dL Albumin 4.1 (3.5-5.0) g/dL Urine Color Yellow Urine Appearance Clear Urine pH 6.5 (5.0-9.0) Ur Specific [place] 1.015 (1.005-1.025) Urine Protein Negative (Neg-Trace) mg/dL Urine Glucose (UA) Negative (Negative) mg/dL Urine Ketones Negative (Negative) mg/dL Urine Blood Negative (Negative) Urine Nitrite Negative (Negative) Ur Leukocyte Esterase Negative (Negative) Urine Osmolality 434 (373-1093) mosm/kg Ur Random Sodium 71.0 mmol/L COVID-19 (JAJA) Negative (Negative) COVID-19 Clin Com See Note 12/18/23 Range/Units 18:20 WBC (4.8-10.8) X10*3/uL RBC (4.60-5.80) X10*6/uL Hgb (14.0-18.0) g/dl Hct (42.0-52.0) % MCV (80.0-98.0) fL MCH (27.0-33.0) pg MCHC (31.0-36.0) g/dl RDW (11.0-16.0) % Plt Count (160-400) X10*3/uL MPV (9.4-12.4) fL Immature Gran % (Auto) (0.0-0.4) % Neut % (Auto) (45-73) % Lymph % (Auto) (20-40) % [place] % (Auto) (2-11) % Eos % (Auto) (0-4) % Baso % (Auto) (0-2) % Lymph # (Auto) (1.2-4.9) X10*3/uL [place] # (Auto) (0.1-1.2) X10*3/uL Eos # (Auto) (0.0-0.4) X10*3/uL Baso # (Auto) (0.0-0.2) X10*3/uL Abs Immat Gran (auto) (0.00-0.03) X10*3/uL Absolute Neuts (auto) (2.0-8.3) x10*3/uL Absolute Nucleated RBC (0.0-0.012) X10*3/uL Nucleated RBC % (auto) (0.0-0.2) /100WBC Sodium (135-145) mmol/L Potassium (3.3-5.1) mmol/L Chloride (96-108) mmol/L Carbon Dioxide (22-29) mmol/L Anion Gap (12-20) BUN (9-16) mg/dL Creatinine (0.5-1.4) mg/dL Estim Creat Clear Calc Estimated GFR Random Glucose (60-115) mg/dL Osmolality 269 L (281-305) mosm/kg Calcium (8.4-10.2) mg/dL Magnesium (1.6-2.6) mg/dL Total Bilirubin (0.0-1.0) mg/dL AST (5-37) U/L ALT (0-40) U/L Alkaline Phosphatase (39-117) U/L Troponin I High Sens (<3.5-35.0) ng/L Total Protein (6.5-8.0) g/dL Albumin (3.5-5.0) g/dL Urine Color Urine Appearance Urine pH (5.0-9.0) Ur Specific [place] (1.005-1.025) Urine Protein (Neg-Trace) mg/dL Urine Glucose (UA) (Negative) mg/dL Urine Ketones (Negative) mg/dL Urine Blood (Negative) Urine Nitrite (Negative) Ur Leukocyte Esterase (Negative) Urine Osmolality (373-1093) mosm/kg Ur Random Sodium mmol/L COVID-19 (JAJA) (Negative) COVID-19 Clin Com Independent Interpretation I performed an independent interpretation of an: CT Scan Radiology Impression Discussion of test interpretation with radiology: I have reviewed the radiologist's reading. Radiologist Impression: There is no evidence of acute intracranial hemorrhage or edematous territorial infarction. No abnormal mass effect or midline shift is seen. [place] to white matter differentiation is well preserved. No abnormal extra-axial fluid collections are identified. Patchy periventricular and deep white matter hypodensities. Proportional prominence of the ventricles and sulcal spaces without evidence of obstructive hydrocephalus. No acute calvarial fracture.. Paranasal sinuses and mastoid air cells are well-aerated. CT/CT head/brain wo IV con IMPRESSION: No CT evidence of acute intracranial hemorrhage or edematous territorial infarction. Chronic changes, as detailed above.. Critical Care Time Critical Care Time Critical Care Time: Yes Total Critical Care Time: 60 Attestation: I have personally provided critical care time. Time includes review of lab data, radiology results, discussion with consultants, and monitoring for potential decompensation. Intervention performed as documented. Discharge Plan Discharge Clinical Impression: Hyponatremia, Weakness Patient Disposition: Admitted As Inpatient Prescriptions: No Action ezetimibe 10 mg tablet 10 mg PO DAILY Qty: 90 3RF spironolactone 25 mg tablet 25 mg PO DAILY Qty: 30 11RF atorvastatin 80 mg tablet 80 mg PO QPM Qty: 90 3RF carvedilol 12.5 mg tablet 12.5 mg PO BID 90 Days Qty: 180 3RF acetaminophen [Tylenol Extra Strength] 500 mg tablet 500 mg PO Q6H PRN (Reason: fever or pain) Qty: 14 0RF lidocaine [Lidoderm] 5 % adhesive patch,medicated 1 patch topical DAILY MDD remove after 12 hours PRN (Reason: pain) Qty: 30 0RF Rx Instructions: leave on most painful area for up to 12 hrs lidocaine 5 % adhesive patch,medicated 1 patch topical DAILY Qty: 30 0RF Rx Instructions: leave on most painful area for up to 12 hrs oxycodone-acetaminophen 5-325 mg tablet 1 tab PO Q6H PRN (Reason: pain) Qty: 5 0RF Rx Instructions: Partial Fill upon patient request. losartan 100 mg tablet 100 mg PO DAILY chlorthalidone 25 mg tablet 25 mg PO DAILY omeprazole 40 mg capsule,delayed release(DR/EC) 40 mg PO DAILY@0630 carbidopa-levodopa 25-100 mg tablet 2 tab PO TID ropinirole 0.5 mg tablet 0.5 mg PO TID melatonin 3 mg tablet 3 mg PO BEDTIME PRN (Reason: anxiety) acetaminophen 500 mg tablet 1,000 mg PO Q8H PRN (Reason: Pain) cholecalciferol (vitamin D3) [Vitamin D3] 50 mcg (2,000 unit) capsule 50 mcg PO DAILY Myrbetriq 25 mg tablet extended release 24 hr 25 mg PO DAILY Qty: 30 5RF tamsulosin [Flomax] 0.4 mg capsule 0.4 mg PO BEDTIME Qty: 90 1RF Print Language: Thai
--- NOTE | 2023-12-18 12:33 | ECG_ITS ---
Test Reason : DIZZY WEAK Blood Pressure : / mmHG Vent. Rate : 072 BPM Atrial Rate : 072 BPM P-R Int : 156 ms QRS Dur : 084 ms QT Int : 376 ms P-R-T Axes : 035 -11 018 degrees QTc Int : 411 ms Normal sinus rhythm Minimal voltage criteria for LVH, may be normal variant ( R in aVL ) Borderline ECG When compared with ECG of 25-OCT-2023 08:25, No significant change was found Referred By: Nuha Caballero Electronically Signed By:VANESA RADER
[2023-12-18 12:56] LABS: MANUAL DIFF FLAG NO
[2023-12-18 12:57] LABS: Basophils Percent Auto 0.3 % (0-2); Eosinophils Percent Auto 0.4 % (0-4); Hematocrit 33.7 % (42.0-52.0); Hemoglobin 12.3 g/dl (14.0-18.0); Imm Gran Abs Auto 0.03 X10*3/uL (0.00-0.03); Imm Gran Pct Auto 0.4 % (0.0-0.4); Mean Corpuscular HGB Conc 36.5 g/dl (31.0-36.0); Mean Corpuscular Hemoglobin 33.2 pg (27.0-33.0); Mean Corpuscular Volume 91.1 fL (80.0-98.0); Mean Platelet Volume 11.3 fL (9.4-12.4); Monocytes Absolute Auto 0.7 X10*3/uL (0.1-1.2); Monocytes Percent Auto 9.2 % (2-11); Neutrophils Absolute Auto 5.5 x10*3/uL (2.0-8.3); Neutrophils Percent Auto 75.7 % (45-73); Platelet Count 197 X10*3/uL (160-400); Red Cell Distribution Width 11.6 % (11.0-16.0); White Blood Count 7.3 X10*3/uL (4.8-10.8)
[2023-12-18 13:11] LABS: Alanine Aminotransferase 18 U/L (0-40); Albumin Level 4.1 g/dL (3.5-5.0); Alkaline Phosphatase 50 U/L (39-117); Anion Gap 15 (12-20); Aspartate Amino Transferase 25 U/L (5-37); Bilirubin Total 0.9 mg/dL (0.0-1.0); Blood Urea Nitrogen 24 mg/dL (9-16); Calcium 9.2 mg/dL (8.4-10.2); Carbon Dioxide 21 mmol/L (22-29); Chloride 94 mmol/L (96-108); Creatinine Clr Calc Pharmacy 50.9; Estimated Glomerular Filt Rate > 60; Glucose Random 89 mg/dL (60-115); Magnesium 1.5 mg/dL (1.6-2.6); Potassium 4.2 mmol/L (3.3-5.1); Sodium 126 mmol/L (135-145); Total Protein 6.7 g/dL (6.5-8.0)
[2023-12-18 13:17] LABS: Troponin-I High Sensitivity 2.9 ng/L (<3.5-35.0)
[2023-12-18 16:55] VITALS: BP 141/70; PULSE 69; RESP 24; TEMP 36.9; O2SAT 98
--- NOTE | 2023-12-18 18:25 | PC.NURSE ---
ARRIVES FROM HOME C/O HAVING EXPERIENCED A BRIEF EPISODE TODAY OF LEG WEAKNESS AND DIZZINESS WHILE WALKING AROUND HIS [place] WITH HIS WALKER. HE DENIES SYNCOPE, NO INJURY. DENIES ANY CP, SOB, OR PAIN, NO RECENT ILLNESS. DIZZINESS AND WEAKNESS HAVE NOW RESOLVED. CURRENTLY BEING WORKED UP FOR LOW NA+, STATES THIS HAS BEEN CAUSE FOR ADMISSION BEFORE. #20 IN RFA. NSR ON MONITOR, IN NAD, VS WNL.
[2023-12-18 18:31] LABS: Appearance Urine Clear; Color Urine Yellow; Glucose Urine UA Negative (Negative); Leukocyte Esterase Urine Negative (Negative); Nitrite Urine Negative (Negative); PH 6.5 (5.0-9.0); Specific Gravity - Urine 1.015 (1.005-1.025); Urine Blood Negative (Negative); Urine Ketones Negative (Negative); Urine Protein Negative (Neg-Trace)
[2023-12-18 18:53] LABS: COVID-19 Test Negative (Negative); IDNOW Serial# 6674DD1D
[2023-12-18 18:57] LABS: Osmolality, Serum 269 mosm/kg (281-305)
[2023-12-18 19:10] LABS: Osmolality Urine 434 mosm/kg (373-1093)
[2023-12-18 19:23] VITALS: BP 122/71; PULSE 85; RESP 16; TEMP 37.4; O2SAT 97
--- NOTE | 2023-12-18 19:24 | MHC.EDTECH ---
This pct just assumed care of patient ,vitals taken ,pt comfortable watching television ,call [facility] within pt reach .
--- NOTE | 2023-12-18 20:16 | PM.IMHP ---
History of Present Illness Date of Service: 12/18/23 <NENA Kruger - Last Filed: 12/18/23 20:26> Attending physician on admission: Fei Glez <NENA Kruger - Last Filed: 12/18/23 20:26> Chief Complaint: weakness <NENA Kruger - Last Filed: 12/18/23 20:26> 73 year old male with history of Parkinsons disease, vertigo, hypertension, hyperlipidemia, hx cva, osteoporosis presented to the ED for evaluation accoompanied by family due to increased weakness. The patient has generalized weakness and ambulates with a walker. Today, while walking reports he felt dizzy and had to be escorted back to his bed. No falls or syncope. No fevers, chills, abd pain, n/v/d, urinary symptoms, cough, shortness of breath, wheezing, chest pain. Denies any recent illness. Since arrival, vital signs have been stable. No leukocytosis. Has a chronic mild normocytic anemia. Renal function appears baseline. Sodium 126, appears to have a chronic hyponatremia but baseline around 128-131. Chloride 94, CO2 21. Serum osmolality 261, urine osmolality 434, urine sodium 71. Urinalysis unremarkable. Negative negative for acute intracranial abnormality but shows chronic changes. EKG shows NSR, rate [address]/T-wave abnormality. <NENA Kruger - Last Filed: 12/18/23 20:26> Review of Systems Review of Systems: Yes all other systems are reviewed and are negative <NENA Kruger Last Filed: 12/18/23 20:26> [facility] Medical History: Medical History Other and unspecified hyperlipidemia History of stroke Essential hypertension Osteoporosis Vertigo Arthritis Parkinson disease Diabetes Hypertension <NENA Kruger Last Filed: 12/18/23 20:26> Family History: Family History Father No problems noted. Mother No problems noted. <NENA Kruger Last Filed: 12/18/23 20:26> Surgical History: Surgical History Hx of hand surgery Hx of cataract surgery H/O hernia repair <NENA Kruger - Last Filed: 12/18/23 20:26> Social History: Social History Household Members: Family Alcohol intake: former Comment: pt steady gait tremors noted secondary to hx parkinson Patient Tobacco Use Status: Never used Tobacco Smoked in Last 30 Days: No Use of substances other than those prescribed or required for medical reasons: No Advance Directives: No Advance Directives Information Provided: Yes Do you have a plan to hurt others: No Plan Current occupational status: retired 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 <NENA Kruger - Last Filed: 12/18/23 20:26> Meds Allergies/Adverse reactions: Allergies Allergy/AdvReac Type Severity Reaction Status Date / Time No Known Allergies Allergy Verified 12/18/23 12:32 [No Known Allergies*] <NENA Kruger - Last Filed: 12/18/23 20:26> Active Medications: Current Medications Acetaminophen (Acetaminophen 325 Mg Tablet) 650 mg PO Q6H PRN PRN Reason: Pain, Mild (Pain Scale 1-3), fever or headache Calcium Carbonate (Calcium Carbonate 750 Mg Tab.Chew) 750 mg PO Q4H PRN PRN Reason: Heartburn Enoxaparin Sodium (Enoxaparin Sodium 40 Mg/0.4 Ml Syringe) 40 mg SUBCUT Q24H ZEV Magnesium Hydroxide (Milk Of Magnesia 30 Ml Oral.Susp) 30 ml PO DAILY PRN PRN Reason: Constipation Melatonin (Melatonin 3 Mg Tablet) 6 mg PO BEDTIME PRN PRN Reason: Insomnia Sodium Chloride (0.9 % Sodium Chloride Flush 3 Ml Syringe) 3 ml IVFLUSH QSHIFT ZEV <NENA Kruger - Last Filed: 12/18/23 20:26> Home medications: Home Medications ?Medication ?Instructions ?Recorded ?Confirmed ?Last Taken ?Type losartan 100 mg tablet 100 mg PO DAILY 02/20/20 10/02/23 11/17/22 09:00 History chlorthalidone 25 mg tablet 25 mg PO DAILY 06/04/20 10/02/23 11/17/22 09:00 History cholecalciferol (vitamin D3) 50 50 mcg PO DAILY 07/27/21 10/02/2311/17/23 09:00 History mcg (2,000 unit) capsule (Vitamin D3) carbidopa 25 mg-levodopa 100 mg 2 tab PO TID 11/29/21 10/02/23 11/17/22 09:00 History tablet omeprazole 40 mg capsule,delayed 40 mg PO DAILY@0630 11/29/21 10/02/23 11/17/22 09:00 History release ropinirole 0.5 mg tablet 0.5 mg PO TID 11/29/21 10/02/23 11/17/22 09:00 History acetaminophen 500 mg tablet 1,000 mg PO Q8H PRN Pain 12/31/21 10/02/23 Unknown History melatonin 3 mg tablet 3 mg PO BEDTIME PRN anxiety 12/31/21 10/02/23 Unknown History <NENA Kruger - Last Filed: 12/18/23 20:26> Physical Exam Vital Signs and Narrative: Vital Signs: Last Vital Signs Temp 99.3 F 12/18/23 19:23 Pulse 85 12/18/23 19:23 Resp 16 12/18/23 19:23 BP 122/71 12/18/23 19:23 Pulse Ox 97 12/18/23 19:23 O2 Del Method Room Air 12/18/23 19:23 BMI result Body Mass Index 25.0 <NENA Kruger - Last Filed: 12/18/23 20:26> Constitutional - Awake and Alert, No apparent distress Eyes - PERRLA, EOMI Cardiovascular - S1S2, RRR, No edema Respiratory - Normal lung expansion, Normal respiratory effort, No respiratory distress, CTA bilaterally Gastrointestinal - NT / ND; +BS; No rebound or guarding Extremities - no calf tenderness bilaterally, no swelling Skin - Warm/Dry Neurological - Alert & oriented x3, CN II-XII in tact, 4/5 strength BUE and BLE Psychological - Appropriate affect <NENA Kruger - Last Filed: 12/18/23 20:26> Results Labs CBC and Chem 7: 12/18/23 12:49 12/18/23 12:49 <NENA Kruger - Last Filed: 12/18/23 20:26> Labs: Laboratory Results - last 24 hr 12/18/23 12/18/23 12/18/23 12:49 18:15 18:16 MCV 91.1 MCH 33.2 H MCHC 36.5 H RDW 11.6 Plt Count 197 MPV 11.3 Immature Gran % (Auto) 0.4 Neut % (Auto) 75.7 H Lymph % (Auto) 14.0 L [place] % (Auto) 9.2 Eos % (Auto) 0.4 Baso % (Auto) 0.3 Lymph # (Auto) 1.0 L [place] # (Auto) 0.7 Eos # (Auto) 0.0 Baso # (Auto) 0.0 Abs Immat Gran (auto) 0.03 Absolute Neuts (auto) 5.5 Absolute Nucleated RBC 0.000 Nucleated RBC % (auto) 0.0 Anion Gap 15 Estim Creat Clear Calc 50.9 Estimated GFR > 60 Random Glucose 89 Osmolality Calcium 9.2 Magnesium 1.5 L Total Bilirubin 0.9 AST 25 ALT 18 Alkaline Phosphatase 50 Troponin I High Sens 2.9 Total Protein 6.7 Albumin 4.1 Urine Color Yellow Urine Appearance Clear Urine pH 6.5 Ur Specific [place] 1.015 Urine Protein Negative Urine Glucose (UA) Negative Urine Ketones Negative Urine Blood Negative Urine Nitrite Negative Ur Leukocyte Esterase Negative Urine Osmolality 434 Ur Random Sodium 71.0 COVID-19 (JAJA) Negative COVID-19 Clin Com See Note 12/18/23 18:20 MCV MCH MCHC RDW Plt Count MPV Immature Gran % (Auto) Neut % (Auto) Lymph % (Auto) [place] % (Auto) Eos % (Auto) Baso % (Auto) Lymph # (Auto) [place] # (Auto) Eos # (Auto) Baso # (Auto) Abs Immat Gran (auto) Absolute Neuts (auto) Absolute Nucleated RBC Nucleated RBC % (auto) Anion Gap Estim Creat Clear Calc Estimated GFR Random Glucose Osmolality 269 L Calcium Magnesium Total Bilirubin AST ALT Alkaline Phosphatase Troponin I High Sens Total Protein Albumin Urine Color Urine Appearance Urine pH Ur Specific [place] Urine Protein Urine Glucose (UA) Urine Ketones Urine Blood Urine Nitrite Ur Leukocyte Esterase Urine Osmolality Ur Random Sodium COVID-19 (JAJA) COVID-19 Clin Com <NENA Kruger - Last Filed: 12/18/23 20:26> Imaging Radiologist's Impressions: Impressions Head CT 12/18/23 13:22 IMPRESSION: No CT evidence of acute intracranial hemorrhage or edematous territorial infarction. Chronic changes, as detailed above.. 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 Hold chlorthalidone given hyponatremia # hyperlipidemia -continue statin, Zetia # BPH with LUTS -continue Flomax, mirabegron DVT prophylaxis-Lovenox Full code Patient requires inpatient stay at least 2 midnights for management of acute on chronic hyponatremia requiring close monitoring of electrolyte levels as well as PT evaluation given worsening of weakness which may require placement to short-term rehab <NENA Kruger - Last Filed: 12/18/23 20:26> 73 year old male with history of Parkinsons disease, vertigo, hypertension, hyperlipidemia, hx cva, osteoporosis admitted for further management of acute hyponatremia and weakness #Symptomatic hyponatremia -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 Hold chlorthalidone given hyponatremia # hyperlipidemia -continue statin, Zetia # BPH with LUTS -continue Flomax, mirabegron DVT prophylaxis-Lovenox Full code Patient requires inpatient stay at least 2 midnights for management of acute on chronic hyponatremia requiring close monitoring of electrolyte levels as well as PT evaluation given worsening of weakness which may require placement to short-term rehab <Fei Glez MD - Last Filed: 12/18/23 21:08> Quality Stroke Does the patient have a stroke diagnosis?: No <NENA Kruger - Last Filed: 12/18/23 20:26> VTE Prior VTE?: No <NENA Kruger - Last Filed: 12/18/23 20:26> VTE Risk Level:: Medical - moderate - high <NENA Kruger - Last Filed: 12/18/23 20:26> VTE Device Contraindication: Treatment Not Indicated <NENA Kruger - Last Filed: 12/18/23 20:26> VTE Drug Contraindication: N/A - Med Ordered <NENA Kruger - Last Filed: 12/18/23 20:26>
[2023-12-18 20:45] LABS: Glucose, Whole Blood 89 mg/dL (60-115)
[2023-12-18] MEDS: Enoxaparin Sodium 40 MG/0.4 ML SYRINGE SUBCUT (21:30)
--- NOTE | 2023-12-18 21:34 | ECG_ITS ---
Test Reason : A FLUTTER Blood Pressure : / mmHG Vent. Rate : 076 BPM Atrial Rate : 076 BPM P-R Int : 138 ms QRS Dur : 084 ms QT Int : 374 ms P-R-T Axes : -20 -06 022 degrees QTc Int : 420 ms Normal sinus rhythm Normal ECG When compared with ECG of 18-DEC-2023 12:38, No significant change was found Referred By: Generic ED Physician Electronically Signed By:VANESA RADER
[2023-12-18 21:50] VITALS: BP 120/59; PULSE 72; RESP 18; TEMP 36.2; O2SAT 95
[2023-12-18 23:31] VITALS: BP 131/79; PULSE 73; RESP 15; TEMP 36.8; O2SAT 97
[2023-12-19 01:02] VITALS: BP 160/84; PULSE 76; RESP 17; TEMP 36.4; O2SAT 98
[2023-12-19 01:33] VITALS: BMI 22.3
[2023-12-19] MEDS: 0.9 % Sodium Chloride Flush 3 ML SYRINGE IVFLUSH ×4 (01:53→23:38)
[2023-12-19 06:06] LABS: MANUAL DIFF FLAG NO
[2023-12-19 06:17] LABS: Basophils Percent Auto 0.5 % (0-2); Eosinophils Absolute Auto 0.1 X10*3/uL (0.0-0.4); Hematocrit 35.9 % (42.0-52.0); Hemoglobin 12.7 g/dl (14.0-18.0); Imm Gran Abs Auto 0.03 X10*3/uL (0.00-0.03); Imm Gran Pct Auto 0.5 % (0.0-0.4); Lymphocytes Absolute Auto 1.7 X10*3/uL (1.2-4.9); Lymphocytes Percent Auto 27.1 % (20-40); Mean Corpuscular HGB Conc 35.4 g/dl (31.0-36.0); Mean Corpuscular Hemoglobin 32.7 pg (27.0-33.0); Mean Corpuscular Volume 92.5 fL (80.0-98.0); Mean Platelet Volume 11.8 fL (9.4-12.4); Monocytes Absolute Auto 0.7 X10*3/uL (0.1-1.2); Monocytes Percent Auto 11.7 % (2-11); Neutrophils Absolute Auto 3.7 x10*3/uL (2.0-8.3); Neutrophils Percent Auto 59.2 % (45-73); Platelet Count 215 X10*3/uL (160-400); Red Blood Count 3.88 X10*6/uL (4.60-5.80); Red Cell Distribution Width 11.4 % (11.0-16.0); White Blood Count 6.3 X10*3/uL (4.8-10.8)
[2023-12-19 06:34] LABS: Anion Gap 12 (12-20); Blood Urea Nitrogen 19 mg/dL (9-16); Calcium 9.9 mg/dL (8.4-10.2); Carbon Dioxide 26 mmol/L (22-29); Chloride 97 mmol/L (96-108); Creatinine Clr Calc Pharmacy 56.5; Estimated Glomerular Filt Rate > 60; Glucose Random 85 mg/dL (60-115); Potassium 4.8 mmol/L (3.3-5.1); Sodium 130 mmol/L (135-145)
[2023-12-19 06:48] LABS: Thyroid Stimulating Hormone 2.03 uIU/mL (0.32-4.0)
[2023-12-19 07:12] LABS: Glucose, Whole Blood 86 mg/dL (60-115)
[2023-12-19 08:09] VITALS: BP 146/76; PULSE 72; RESP 12; TEMP 37; O2SAT 95
--- NOTE | 2023-12-19 08:11 | P.PNIM_ITS ---
Subjective Subjective Date of Service: 12/19/23 Review of Systems Follow up weakness, hyponatremia doing well this morning no c/o pain Physical Exam 2 Vital Signs: Vital Signs: Last Vital Signs Temp 98.6 F 12/19/23 08:09 Pulse 72 12/19/23 08:09 Resp 12 12/19/23 08:09 BP 146/76 H 12/19/23 08:09 Pulse Ox 95 12/19/23 08:09 O2 Del Method Room Air 12/19/23 08:09 BMI result Body Mass Index 22.3 Appearing in no acute distress lung sounds are clear to auscultation heart regular rate rhythm, clear S1, S2 positive bowel sounds, abdomen is soft, nontender neuro patient is alert x3, no focal deficits, tremors Objective Data Active Medications Acetaminophen (Acetaminophen 325 Mg Tablet) 650 mg PO Q6H PRN PRN Reason: Pain, Mild (Pain Scale 1-3), fever or headache Calcium Carbonate (Calcium Carbonate 750 Mg Tab.Chew) 750 mg PO Q4H PRN PRN Reason: Heartburn Enoxaparin Sodium (Enoxaparin Sodium 40 Mg/0.4 Ml Syringe) 40 mg SUBCUT Q24H [facility] Last Admin: 12/18/23 21:30 Dose: 40 mg Documented By: GUIDO Glucose (Glucose Gel 15 Gm Gel..Gram.) 15 gm PO Q15M PRN; Protocol PRN Reason: per Hypoglycemia Standing Ord. Dextrose (D10) 250 mls @ 750 mls/hr IV Q15M PRN; Protocol PRN Reason: per Hypoglycemia Standing Ord. Insulin Human Lispro (Insulin Lispro 100 Unit/Ml 3 Ml Vial) 0 unit SUBCUT QIDACHS [facility]; Protocol Last Admin: 12/19/23 07:19 Dose: Not Given Documented By: DABA Non-Admin Reason: No Insulin Coverage Magnesium Hydroxide (Milk Of Magnesia 30 Ml Oral.Susp) 30 ml PO DAILY PRN PRN Reason: Constipation Melatonin (Melatonin 3 Mg Tablet) 6 mg PO BEDTIME PRN PRN Reason: Insomnia Sodium Chloride (0.9 % Sodium Chloride Flush 3 Ml Syringe) 3 ml IVFLUSH QSHIFT [facility] Last Admin: 12/19/23 01:53 Dose: 3 ml Documented By: CATALINA Labs 12/19/23 05:27 12/19/23 05:27 Labs: Laboratory Results - last 24 hr 12/18/23 12/18/23 12/18/23 12:49 18:15 18:16 MCV 91.1 MCH 33.2 H MCHC 36.5 H RDW 11.6 Plt Count 197 MPV 11.3 Immature Gran % (Auto) 0.4 Neut % (Auto) 75.7 H Lymph % (Auto) 14.0 L [place] % (Auto) 9.2 Eos % (Auto) 0.4 Baso % (Auto) 0.3 Lymph # (Auto) 1.0 L [place] # (Auto) 0.7 Eos # (Auto) 0.0 Baso # (Auto) 0.0 Abs Immat Gran (auto) 0.03 Absolute Neuts (auto) 5.5 Absolute Nucleated RBC 0.000 Nucleated RBC % (auto) 0.0 Anion Gap 15 Estim Creat Clear Calc 50.9 Estimated GFR > 60 POC Glucose Random Glucose 89 Osmolality Calcium 9.2 Magnesium 1.5 L Total Bilirubin 0.9 AST 25 ALT 18 Alkaline Phosphatase 50 Troponin I High Sens 2.9 Total Protein 6.7 Albumin 4.1 TSH Urine Color Yellow Urine Appearance Clear Urine pH 6.5 Ur Specific [place] 1.015 Urine Protein Negative Urine Glucose (UA) Negative Urine Ketones Negative Urine Blood Negative Urine Nitrite Negative Ur Leukocyte Esterase Negative Urine Osmolality 434 Ur Random Sodium 71.0 COVID-19 (JAJA) Negative COVID-19 Clin Com See Note 12/18/23 12/18/23 12/19/23 18:20 20:42 05:27 MCV 92.5 MCH 32.7 MCHC 35.4 RDW 11.4 Plt Count 215 MPV 11.8 Immature Gran % (Auto) 0.5 H Neut % (Auto) 59.2 Lymph % (Auto) 27.1 [place] % (Auto) 11.7 H Eos % (Auto) 1.0 Baso % (Auto) 0.5 Lymph # (Auto) 1.7 [place] # (Auto) 0.7 Eos # (Auto) 0.1 Baso # (Auto) 0.0 Abs Immat Gran (auto) 0.03 Absolute Neuts (auto) 3.7 Absolute Nucleated RBC 0.000 Nucleated RBC % (auto) 0.0 Anion Gap 12 Estim Creat Clear Calc 56.5 Estimated GFR > 60 POC Glucose 89 Random Glucose 85 Osmolality 269 L Calcium 9.9 D Magnesium Total Bilirubin AST ALT Alkaline Phosphatase Troponin I High Sens Total Protein Albumin TSH 2.03 Urine Color Urine Appearance Urine pH Ur Specific [place] Urine Protein Urine Glucose (UA) Urine Ketones Urine Blood Urine Nitrite Ur Leukocyte Esterase Urine Osmolality Ur Random Sodium COVID-19 (JAJA) COVID-19 Clin Com 12/19/23 06:57 MCV MCH MCHC RDW Plt Count MPV Immature Gran % (Auto) Neut % (Auto) Lymph % (Auto) [place] % (Auto) Eos % (Auto) Baso % (Auto) Lymph # (Auto) [place] # (Auto) Eos # (Auto) Baso # (Auto) Abs Immat Gran (auto) Absolute Neuts (auto) Absolute Nucleated RBC Nucleated RBC % (auto) Anion Gap Estim Creat Clear Calc Estimated GFR POC Glucose 86 Random Glucose Osmolality Calcium Magnesium Total Bilirubin AST ALT Alkaline Phosphatase Troponin I High Sens Total Protein Albumin TSH Urine Color Urine Appearance Urine pH Ur Specific [place] Urine Protein Urine Glucose (UA) Urine Ketones Urine Blood Urine Nitrite Ur Leukocyte Esterase Urine Osmolality Ur Random Sodium COVID-19 (JAJA) COVID-19 Clin Com Assessment and Plan (1) Weakness: Status: Acute (2) Hyponatremia: Status: Acute Plan 73 year old male with history of Parkinsons disease, vertigo, hypertension, hyperlipidemia, hx cva, osteoporosis admitted for further management of acute hyponatremia and weakness Symptomatic hyponatremia has SIADH with Na 126 initially, serum osm 269, ur osm 434 Fluid restrictions to 1.5L TSH 2.03 follow lytes Weakness pt eval Parkinsons disease continue sinemet [id number] type 2 diabetes POC glucose, diabetic diet Humalog on sliding scale hypertension continue losartan, spironolactone. Hold chlorthalidone given hyponatremia hyperlipidemia continue statin, Zetia BPH with LUTS continue Flomax, mirabegron DVT prophylaxis-Lovenox Attending Dr. Venegas Full code Quality Stroke Does the patient have a stroke diagnosis?: No VTE Prior VTE?: No VTE Risk Level:: Medical - moderate - high VTE Device Contraindication: Treatment Not Indicated VTE Drug Contraindication: N/A - Med Ordered
--- NOTE | 2023-12-19 09:42 | MHC.CM.PN ---
PATIENT LIVES WITH HIS GRANDSON AND HAS HOME HEALTH SERVICES MONDAYS THROUGH SATUR[facility] SERVICES ARE THROUGH YEARS; HOWEVER, THIS WILL CHANGE ON MONDAY TO [facility]. PATIENT ALSO HAS [employer] SERVICES WEEKLY. HE RELIES ON A ROLLATOR FOR AMBULATION ASSIST. IT IS UNCLEAR IF THERE IS A HCP IN PLACE AT THIS TIME. PLAN IS HOME WITH CONTINUATION OF SERVICES. IMM 12/18 IN CHART.
--- NOTE | 2023-12-19 10:24 | PHA.MEDREC ---
Addendum entered by Keenan Banda 12/19/23 10:30: Verified by [facility] Original Note: Pharmacy Consult ? Medication Reconciliation Pharmacy has completed the medication reconciliation. Confirmed medications with patient and patient family member at bedside with help of patient sitter as well. Patient was able to confirm medications with no issues and was able to confirm he last took his medication 2 days ago.
[2023-12-19 11:42] LABS: Glucose, Whole Blood 95 mg/dL (60-115)
[2023-12-19] MEDS: rOPINIRole HCL 0.5 MG TABLET PO ×2 (14:21→21:16)
[2023-12-19] MEDS: Carbidopa/Levodopa 25/100 TABLET 2 TAB PO ×2 (14:21→21:16)
[2023-12-19 16:00] VITALS: BP 100/59; PULSE 66; RESP 18; TEMP 36.4; O2SAT 95
[2023-12-19 16:27] LABS: Glucose, Whole Blood 91 mg/dL (60-115)
[2023-12-19 19:40] VITALS: BP 100/59; PULSE 63; RESP 14; TEMP 36.4; O2SAT 96
[2023-12-19 20:24] LABS: Glucose, Whole Blood 117 mg/dL (60-115)
[2023-12-19] MEDS: carvediloL 12.5 MG TABLET PO (21:16)
[2023-12-19] MEDS: Tamsulosin HCL 0.4 MG CAPSULE PO (21:16)
[2023-12-19] MEDS: Atorvastatin Calcium 80 MG TABLET PO (21:16)
[2023-12-19] MEDS: Enoxaparin Sodium 40 MG/0.4 ML SYRINGE SUBCUT (21:16)
[2023-12-19 21:21] VITALS: BP 114/59; PULSE 63
--- NOTE | 2023-12-20 | ECG_ITS ---
Test Reason : chest pain Blood Pressure : / mmHG Vent. Rate : 062 BPM Atrial Rate : 062 BPM P-R Int : 160 ms QRS Dur : 090 ms QT Int : 418 ms P-R-T Axes : -09 001 035 degrees QTc Int : 424 ms Normal sinus rhythm Normal ECG When compared with ECG of 18-DEC-2023 21:40, No significant change was found Referred By: Lexi Glez Electronically Signed By:VANESA RADER
--- NOTE | 2023-12-20 | ECG_ITS ---
Test Reason : chest pain Blood Pressure : / mmHG Vent. Rate : 062 BPM Atrial Rate : 062 BPM P-R Int : 150 ms QRS Dur : 094 ms QT Int : 430 ms P-R-T Axes : -19 001 040 degrees QTc Int : 436 ms Normal sinus rhythm Normal ECG When compared with ECG of 20-DEC-2023 03:38, No significant change was found Referred By: Mary Diallo Electronically Signed By:VANESA RAEDR
[2023-12-20 04:00] VITALS: BP 111/58; PULSE 63; RESP 14; TEMP 36.3
[2023-12-20] MEDS: Acetaminophen 325 MG TABLET 650 MG PO (04:11)
[2023-12-20 04:21] LABS: Troponin-I High Sensitivity < 2.7 ng/L (<3.5-35.0)
--- NOTE | 2023-12-20 06:28 | PC.NURSE ---
Patient c/o left sided chest pain, 10/10 , sharp in nature. Hospitalist notified EKG and trops ordered. Results negative, patient stating he has a hx of anxiety. Is refusing any additional medication. Patient resting at present. Will continue to monitor.
[2023-12-20 07:40] LABS: Glucose, Whole Blood 96 mg/dL (60-115)
[2023-12-20] MEDS: Sertraline HCL 25 MG TABLET PO (07:42)
[2023-12-20] MEDS: Cholecalciferol (Vitamin D3) 25 MCG TABLET 50 MCG PO (07:42)
[2023-12-20] MEDS: Spironolactone 25 MG TABLET PO (07:42)
[2023-12-20] MEDS: Carbidopa/Levodopa 25/100 TABLET 2 TAB PO ×3 (07:42→20:09)
[2023-12-20] MEDS: Omeprazole 40 MG CAPSULE.DR PO (07:42)
[2023-12-20] MEDS: Losartan Potassium 50 MG TABLET 100 MG PO (07:43)
[2023-12-20] MEDS: 0.9 % Sodium Chloride Flush 3 ML SYRINGE IVFLUSH ×3 (07:43→20:10)
[2023-12-20] MEDS: carvediloL 12.5 MG TABLET PO ×2 (07:43→20:10)
[2023-12-20] MEDS: rOPINIRole HCL 0.5 MG TABLET PO ×3 (07:43→20:09)
[2023-12-20] MEDS: Mirabegron 25 MG TAB.ER.24H PO (07:43)
[2023-12-20] MEDS: Ezetimibe 10 MG TABLET PO (07:43)
[2023-12-20 08:13] VITALS: BP 126/64; PULSE 66; RESP 18; TEMP 36.3; O2SAT 97
--- NOTE | 2023-12-20 09:05 | PC.NURSE ---
0845 this rn walked pt to bathroom , pt sat down on toilet moved bowels and then appeared to pass out , rapid response called , pt carried back to bed , bp at that time 104/53 Pulse 66 02 96% RA. iv fluids started , EKG , and teli pack applied . pt quickly became responsive after being brought back to bed . No further orders
[2023-12-20 09:08] LABS: Glucose, Whole Blood 135 mg/dL (60-115)
[2023-12-20 11:35] LABS: Glucose, Whole Blood 193 mg/dL (60-115)
[2023-12-20] MEDS: Insulin Lispro 100 UNIT/ML 3 ML VIAL SUBCUT (11:50)
--- NOTE | 2023-12-20 13:35 | MHC.CM.PN ---
Patient not medically cleared for dc at this time. DC plan: Home w/ new [facility] for PT. Resume [facility]. CONSULTANT services. CM will continue to follow.
--- NOTE | 2023-12-20 14:54 | P.PNIM_ITS ---
Subjective Subjective Date of Service: 12/20/23 Interval History: History obtained via senior military analyst Patient noted to be pale, clammy and complained of weakness, while sitting on commode, soon after bowel movement. Patient complained of left-sided constant chest pain, complained of weakness and dizziness, noted to have blood sugar greater than 100, systolic BP 106 stable oxygenation. Denied fever, no chills, no nausea, no vomiting, no diarrhea. Review of Systems All other system reviewed and are negative. Physical Exam 2 Vital Signs: Vital Signs: Last Vital Signs Temp 97.4 F 12/20/23 08:13 Pulse 66 12/20/23 08:13 Resp 18 12/20/23 08:13 BP 126/64 12/20/23 08:13 Pulse Ox 97 12/20/23 08:13 O2 Del Method Room Air 12/20/23 08:13 BMI result Body Mass Index 22.3 Const: Other: General resting comfortably in no acute distress. Neck no JVD. CVS regular rate rhythm, Respiratory lungs clear to auscultation, no respiratory distress, no wheeze, no rhonchi. Gastrointestinal abdomen soft, non tender, bowel sounds audible Extremities no edema. Neuro non focal Skin pallor Psych appropriate affect Objective Data Active Medications Acetaminophen (Acetaminophen 325 Mg Tablet) 650 mg PO Q6H PRN PRN Reason: Pain, Mild (Pain Scale 1-3), fever or headache Last Admin: 12/20/23 04:11 Dose: 650 mg Documented By: CATALINA Atorvastatin Calcium (Atorvastatin Calcium 80 Mg Tablet) 80 mg PO BEDTIME [facility] Last Admin: 12/19/23 21:16 Dose: 80 mg Documented By: CATALINA Calcium Carbonate (Calcium Carbonate 750 Mg Tab.Chew) 750 mg PO Q4H PRN PRN Reason: Heartburn Carbidopa/Levodopa (Carbidopa/Levodopa 25/100 Tablet) 2 tab PO TID [facility] Last Admin: 12/20/23 14:19 Dose: 2 tab Documented By: KEMAR Carvedilol (Carvedilol 12.5 Mg Tablet) 12.5 mg PO BID [facility]; Protocol Last Admin: 12/20/23 07:43 Dose: 12.5 mg Documented By: SATISH Ezetimibe (Ezetimibe 10 Mg Tablet) 10 mg PO DAILY [facility] Last Admin: 12/20/23 07:43 Dose: 10 mg Documented By: SATISH Enoxaparin Sodium (Enoxaparin Sodium 40 Mg/0.4 Ml Syringe) 40 mg SUBCUT Q24H [facility] Last Admin: 12/19/23 21:16 Dose: 40 mg Documented By: CATALINA Glucose (Glucose Gel 15 Gm Gel..Gram.) 15 gm PO Q15M PRN; Protocol PRN Reason: per Hypoglycemia Standing Ord. Dextrose (D10) 250 mls @ 750 mls/hr IV Q15M PRN; Protocol PRN Reason: per Hypoglycemia Standing Ord. Insulin Human Lispro (Insulin Lispro 100 Unit/Ml 3 Ml Vial) 0 unit SUBCUT QIDACHS [facility]; Protocol Last Admin: 12/20/23 11:50 Dose: 2 unit Documented By: SATISH Losartan Potassium (Losartan Potassium 50 Mg Tablet) 100 mg PO DAILY [facility]; Protocol Last Admin: 12/20/23 07:43 Dose: 100 mg Documented By: SATISH Magnesium Hydroxide (Milk Of Magnesia 30 Ml Oral.Susp) 30 ml PO DAILY PRN PRN Reason: Constipation Melatonin (Melatonin 3 Mg Tablet) 6 mg PO BEDTIME PRN PRN Reason: Insomnia Mirabegron (Mirabegron 25 Mg Tab.Er.24h) 25 mg PO DAILY [facility] Last Admin: 12/20/23 07:43 Dose: 25 mg Documented By: SATISH Omeprazole (Omeprazole 40 Mg Capsule.Dr) 40 mg PO DAILY@0630 [facility] Last Admin: 12/20/23 07:42 Dose: 40 mg Documented By: SATISH Ropinirole HCl (Ropinirole Hcl 0.5 Mg Tablet) 0.5 mg PO TID [facility] Last Admin: 12/20/23 14:19 Dose: 0.5 mg Documented By: KEMAR Sertraline HCl (Sertraline Hcl 25 Mg Tablet) 25 mg PO DAILY [facility] Last Admin: 12/20/23 07:42 Dose: 25 mg Documented By: SATISH Sodium Chloride (0.9 % Sodium Chloride Flush 3 Ml Syringe) 3 ml IVFLUSH QSHIFT [facility] Last Admin: 12/20/23 14:19 Dose: 3 ml Documented By: KEMAR Spironolactone (Spironolactone 25 Mg Tablet) 25 mg PO DAILY [facility]; Protocol Last Admin: 12/20/23 07:42 Dose: 25 mg Documented By: SATISH Tamsulosin HCl (Tamsulosin Hcl 0.4 Mg Capsule) 0.4 mg PO BEDTIME [facility] Last Admin: 12/19/23 21:16 Dose: 0.4 mg Documented By: CATALINA Vitamin D (Cholecalciferol (Vitamin D3) 25 Mcg Tablet) 50 mcg PO DAILY [facility] Last Admin: 12/20/23 07:42 Dose: 50 mcg Documented By: SATISH Labs 12/19/23 05:27 12/19/23 05:27 Labs: Laboratory Results - last 24 hr 12/19/23 12/19/23 12/20/23 16:15 20:13 03:36 POC Glucose 91 117 H Troponin I High Sens < 2.7 12/20/23 12/20/23 12/20/23 07:31 08:58 11:27 POC Glucose 96 135 H 193 H Troponin I High Sens Assessment and Plan (1) Weakness: Status: Acute (2) Hyponatremia: Status: Acute (3) Near syncope: Status: Acute Plan 73 year old male with history of Parkinsons disease, vertigo, hypertension, hyperlipidemia, hx cva, osteoporosis admitted for further management of acute hyponatremia and weakness Symptomatic hyponatremia SIADH with Na 126 initially, serum osm 269, ur osm 434, sodium improved to 130 Continue Fluid restrictions to 1.5L TSH 2.03 follow lytes Near-syncope Question vasovagal, EKG normal sinus rhythm, no acute ischemic changes. stable oxygenation blood sugars Monitor on telemetry Check orthostatics Parkinsons disease continue sinemet inr-vvmeqno-[id number] type 2 diabetes Stable blood sugars, continue diabetic diet, on Humalog sliding scale, not on home medication hemoglobin A1c 5.6, 05/10 hypertension on losartan, spironolactone and Coreg. chlorthalidone on hold given hyponatremia, noted to have few soft blood pressure readings will follow hyperlipidemia continue statin, Zetia BPH with LUTS continue Flomax, mirabegron DVT prophylaxis-Lovenox Full code In my clinical judgment patient require continued inpatient hospitalization for monitoring for an episode of near-syncope Quality Stroke Does the patient have a stroke diagnosis?: No VTE Prior VTE?: No VTE Risk Level:: Medical - moderate - high VTE Device Contraindication: Treatment Not Indicated VTE Drug Contraindication: N/A - Med Ordered
[2023-12-20 15:42] VITALS: BP 95/50; PULSE 63
[2023-12-20 15:43] VITALS: BP 87/52; PULSE 59
[2023-12-20 15:44] VITALS: BP 69/40; PULSE 65
[2023-12-20 17:41] LABS: Glucose, Whole Blood 130 mg/dL (60-115)
[2023-12-20 19:54] VITALS: BP 108/56; PULSE 72; RESP 16; TEMP 37; O2SAT 95
[2023-12-20] MEDS: Enoxaparin Sodium 40 MG/0.4 ML SYRINGE SUBCUT (20:08)
[2023-12-20] MEDS: Tamsulosin HCL 0.4 MG CAPSULE PO (20:09)
[2023-12-20] MEDS: Atorvastatin Calcium 80 MG TABLET PO (20:09)
[2023-12-20 20:36] LABS: Glucose, Whole Blood 136 mg/dL (60-115)
[2023-12-21 03:34] VITALS: BP 102/51; PULSE 62; RESP 18; TEMP 36.8; O2SAT 95
[2023-12-21] MEDS: Omeprazole 40 MG CAPSULE.DR PO (05:38)
[2023-12-21 07:23] LABS: Glucose, Whole Blood 84 mg/dL (60-115)
[2023-12-21 07:37] VITALS: BP 131/62; PULSE 62; RESP 18; TEMP 36.3; O2SAT 94
[2023-12-21 08:42] VITALS: BP 112/55; PULSE 65
[2023-12-21 08:43] VITALS: BP 116/56; BP 116/61; PULSE 71
[2023-12-21] MEDS: carvediloL 12.5 MG TABLET PO (09:18)
[2023-12-21] MEDS: 0.9 % Sodium Chloride Flush 3 ML SYRINGE IVFLUSH (09:18)
[2023-12-21] MEDS: rOPINIRole HCL 0.5 MG TABLET PO (09:18)
[2023-12-21] MEDS: Carbidopa/Levodopa 25/100 TABLET 2 TAB PO (09:19)
[2023-12-21] MEDS: Losartan Potassium 50 MG TABLET PO (09:19)
[2023-12-21] MEDS: Mirabegron 25 MG TAB.ER.24H PO (09:19)
[2023-12-21] MEDS: Ezetimibe 10 MG TABLET PO (09:19)
[2023-12-21] MEDS: Sertraline HCL 25 MG TABLET PO (09:19)
[2023-12-21] MEDS: Cholecalciferol (Vitamin D3) 25 MCG TABLET 50 MCG PO (09:19)
[2023-12-21 10:27] LABS: Anion Gap 11 (12-20); Blood Urea Nitrogen 22 mg/dL (9-16); Calcium 9.5 mg/dL (8.4-10.2); Carbon Dioxide 25 mmol/L (22-29); Chloride 100 mmol/L (96-108); Creatinine Clr Calc Pharmacy 62.7; Estimated Glomerular Filt Rate > 60; Glucose Random 103 mg/dL (60-115); Potassium 3.7 mmol/L (3.3-5.1); Sodium 132 mmol/L (135-145)
--- NOTE | 2023-12-21 10:32 | MHC.CM.PN ---
Per MD rounds patient medically cleared for dc home, resume [employer]CHNIC[employer] services, new [facility] services for SN/PT. CM met with patient via assistant professor of spanish. Patient agreeable. Grandson will provide transport home at 11:30. RN and MD aware.
--- NOTE | 2023-12-21 11:16 | P.F2F_ITS ---
Service Date Service Date: 12/21/23 Encounter Date of encounter: 12/21/23 Reasons for Services Signs and symptoms assessed: Generalized weakness/low-sodium/orthostatic hypotension Reason for long term: medication management Reason for physical therapy: home safety and mobility Homebound: Leaving the home is medically contraindicated at this time without the asist of a device and/or another person due th the listed conditions above and below. Reason homebound: fall risk related to blood pressure changes Certification: Based on the above findings, I certify that this patient is confined to the home and needs intermittent long term care, physical therapy and/or speech therapy, or continues to need occupational therapy. The patient is under my care, and I have initiated the establishment of the plan of care. The patient w ill be followed by a physician who will periodically review the plan of care. Time Spent With Patient Time: Total time managing care of this patient today ____ minutes.
--- NOTE | 2023-12-21 11:17 | PM.DS ---
DS: Providers Provider Date of Service: 12/21/23 Date of admission: 12/18/23 20:12 Date of discharge: 12/21/23 Primary care physician: Jessica Macario MD DS: Diagnosis Discharge Diagnosis (1) Weakness: Status: Acute (2) Hyponatremia: Status: Acute (3) Near syncope: Status: Acute DS: Summary Hospital Course Hospital Course: History of presenting illness: Chief Complaint: weakness 73 year old male with history of Parkinsons disease, vertigo, hypertension, hyperlipidemia, hx cva, osteoporosis presented to the ED for evaluation accoompanied by family due to increased weakness. The patient has generalized weakness and ambulates with a walker. Today, while walking reports he felt dizzy and had to be escorted back to his bed. No falls or syncope. No fevers, chills, abd pain, n/v/d, urinary symptoms, cough, shortness of breath, wheezing, chest pain. Denies any recent illness. Since arrival, vital signs have been stable. No leukocytosis. Has a chronic mild normocytic anemia. Renal function appears baseline. Sodium 126, appears to have a chronic hyponatremia but baseline around 128-131. Chloride 94, CO2 21. Serum osmolality 261, urine osmolality 434, urine sodium 71. Urinalysis unremarkable. Negative negative for acute intracranial abnormality but shows chronic changes. EKG shows NSR, rate [address]/T-wave abnormality. Hospital course: 73 year old male with history of Parkinsons disease, vertigo, hypertension, hyperlipidemia, hx cva, osteoporosis admitted for further management of acute hyponatremia and weakness. Symptomatic hyponatremia , noted to have sodium of 126, with a low serum osmolality 269, TSH 2.03, treated with fluid restriction and chlorthalidone was discontinued, sodium improved to 132, during course of hospitalization patient had an episode of syncope while getting up from commode after a bowel movement, noted to have stable blood sugars, orthostatic vitals were positive, treated with IV fluids, diuretics were discontinued, blood pressure improved, EKG showed normal sinus rhythm, no arrhythmias repeat orthostatic blood pressures have normalized, will discontinue diuretics Aldactone and Tylenol and dose of losartan reduced to 50 mg recommend close outpatient blood pressure monitoring, patient also complained of constant left-sided chest pain for days, EKG showed no ischemia, troponins were negative, likely has musculoskeletal chest pain, recommend Tylenol. Parkinsons disease recommend to continue Sinemet In regard to epy-wqjtuqf-xwnxkfckk type 2 diabetes recommend to continue diabetic diet patient not on home medication hemoglobin A1c 5.6 in 04/2023 In regard to history of hyperlipidemia continue statin, Zetia. BPH with LUTS recommend to continue continue Flomax, and mirabegron Time Attestation Discharge Coordination Time (in mins): 36 Quality: Safe Use of Opioids Does Pt have an Active Cancer Diagnosis on the Problem List?: No Quality: Stroke Does the patient have a stroke diagnosis?: No Physical Exam Vital Signs: Vital Signs: Last Vital Signs Temp 97.3 F 12/21/23 07:37 Pulse 71 12/21/23 08:43 Resp 18 12/21/23 07:37 BP 116/56 L 12/21/23 08:43 Pulse Ox 94 12/21/23 07:37 O2 Del Method Room Air 12/21/23 07:37 BMI result Body Mass Index 22.3 Const: Other: General awake alert x3, in no acute distress. Neck no JVD. CVS regular rate rhythm, Respiratory lungs clear to auscultation, no respiratory distress, no wheeze, no rhonchi. Gastrointestinal abdomen soft, non tender, bowel sounds audible Extremities no edema. Neuro non focal Skin pallor Psych appropriate affect DS: Data Data Completed and Pending Labs on day of discharge: Laboratory Results - last 24 hr 12/20/23 12/20/23 12/20/23 11:27 17:37 20:32 Sodium Potassium Chloride Carbon Dioxide Anion Gap BUN Creatinine Estim Creat Clear Calc Estimated GFR POC Glucose 193 H 130 H 136 H Random Glucose Calcium 12/21/23 12/21/23 07:19 09:47 Sodium 132 L Potassium 3.7 D Chloride 100 Carbon Dioxide 25 Anion Gap 11 L BUN 22 H Creatinine 0.90 Estim Creat Clear Calc 62.7 Estimated GFR > 60 POC Glucose 84 Random Glucose 103 Calcium 9.5 Discharge Plan Discharge Anticipated Discharge Date/Time: 12/21/23 10:32 Patient Disposition: Home Health Service Discharge Diagnosis: Generalized weakness Orthostatic hypotension Hyponatremia. Referrals: Jessica Yuen MD [Primary Care Provider] - 1 Week Discharge Medications: New losartan 50 mg Tablet 50 mg PO DAILY Qty: 30 0RF Protocol: Hold for SBP< HOLD for SBP < : 90 Continued ezetimibe 10 mg tablet 10 mg PO DAILY Qty: 90 3RF carvedilol 12.5 mg tablet 12.5 mg PO BID 90 Days Qty: 180 3RF acetaminophen [Tylenol Extra Strength] 500 mg tablet 500 mg PO Q6H PRN (Reason: fever or pain) Qty: 14 0RF lidocaine [Lidoderm] 5 % adhesive patch,medicated 1 patch topical DAILY MDD remove after 12 hours PRN (Reason: pain) Qty: 30 0RF Rx Instructions: leave on most painful area for up to 12 hrs sertraline 25 mg tablet 25 mg PO DAILY atorvastatin 80 mg tablet 80 mg PO BEDTIME omeprazole 40 mg capsule,delayed release(DR/EC) 40 mg PO DAILY@0630 carbidopa-levodopa 25-100 mg tablet 2 tab PO TID ropinirole 0.5 mg tablet 0.5 mg PO TID cholecalciferol (vitamin D3) [Vitamin D3] 50 mcg (2,000 unit) capsule 50 mcg PO DAILY Myrbetriq 25 mg tablet extended release 24 hr 25 mg PO DAILY Qty: 30 5RF tamsulosin [Flomax] 0.4 mg capsule 0.4 mg PO BEDTIME Qty: 90 1RF Discontinued spironolactone 25 mg tablet 25 mg PO DAILY Qty: 30 11RF losartan 100 mg tablet 100 mg PO DAILY chlorthalidone 25 mg tablet 25 mg PO DAILY Discharge Orders: Discharge Order (Routine); Ordered 12/21/23 Ordered By: Mary Diallo Diet: Advance to usual diet Activity on Discharge: As tolerated Stand Alone Forms: Patient Portal Discharge page Print Language: Congolese Care Plan Goals: Generalized weakness due to orthostatic hypotension and hyponatremia Discontinue chlorthalidone/spironolactone and decrease dose of losartan Monitor blood pressure closely Health Concerns: Resume all prior home medication Plan of Treatment: Outpatient follow-up with PCP Assessment: As above Discharge Date/Time: 12/21/23 11:31
== END 2023-12-21 11:31 | disposition home health service (06) | DRG 641 ==
LOC: HO.ED 19:30 → HO.EDOVER 20:29 → HO.S3 23:22
PROVIDERS: Nurse Practitioner Acute Care; Physician Assistant Medical; Student in an Organized Health Care Education/Training Program; Admitting Provider Physician Assistant; Emergency Provider Emergency Medicine; PCP Internal Medicine; Visit Provider Hospitalist
DX: E87.0 Hyperosmolality and hypernatremia (principal); I95.1 Orthostatic hypotension; G20.A1 Parkinson's disease without dyskinesia, without mention of fluctuations; E11.9 Type 2 diabetes mellitus without complications; E78.5 Hyperlipidemia, unspecified; M81.0 Age-related osteoporosis without current pathological fracture; D64.9 Anemia, unspecified; I10 Essential (primary) hypertension; N40.1 Benign prostatic hyperplasia with lower urinary tract symptoms; Z20.822 Contact with and (suspected) exposure to COVID-19; Z86.73 Personal history of transient ischemic attack (TIA), and cerebral infarction without residual deficits; Z79.899 Other long term (current) drug therapy
CPT/HCPCS: 36415; 70450; 80048; 80053; 81003; 82947; 83735; 83930; 83935; 84300; 84443; 84484; 85025; 87635; 93005; 94799; 97116; 97161; 99285; J1650

== ENCOUNTER → 2023-12-18 20:12 | Outpatient (BNV) | payer MEDICARE, SELFPAY | PROVIDERS: Admitting Provider Physician Assistant; Emergency Provider Emergency Medicine; PCP Internal Medicine; Visit Provider Physician Assistant | DX: R53.1 Weakness (principal); E87.1 Hypo-osmolality and hyponatremia | CPT/HCPCS: 99223; 99232; 99233; 99239; G0180 ==

== ENCOUNTER 2024-01-16 08:24 | Outpatient (REF) | payer OTHER, SELFPAY ==
[2024-01-16 11:33] LABS: Anion Gap 14 (12-20); Blood Urea Nitrogen 16 mg/dL (9-16); Calcium 9.2 mg/dL (8.4-10.2); Carbon Dioxide 26 mmol/L (22-29); Chloride 105 mmol/L (96-108); Cholesterol 121 mg/dL (<200); Estimated Glomerular Filt Rate > 60; Glucose Random 88 mg/dL (60-115); HDL Cholesterol 63 mg/dL (>40); LDL Cholesterol Calculated 50 mg/dL (<100); Potassium 4.5 mmol/L (3.3-5.1); Sodium 140 mmol/L (135-145); Triglycerides 41 mg/dL (<150)
[2024-01-16 11:43] LABS: PSA,Total (Free>4and<10) 3.41 ng/mL (0.00-4.00)
== END 2024-01-16 08:25 | disposition home or self-care (01) ==
LOC: HO.HHCL 08:24
PROVIDERS: Referring Provider Urology; Visit Provider Internal Medicine
DX: N40.1 Benign prostatic hyperplasia with lower urinary tract symptoms (principal); Z12.5 Encounter for screening for malignant neoplasm of prostate; E87.1 Hypo-osmolality and hyponatremia; I10 Essential (primary) hypertension
CPT/HCPCS: 36415; 80048; 80061; 84153

== ENCOUNTER 2024-02-01 09:10 | Outpatient (AMB) | payer MEDICARE, SELFPAY ==
--- NOTE | 2024-02-01 09:18 | A.OFFVIS_ITS ---
Intake Visit Reasons: 4m/PSA Intake Note: Patient is present for 4M/PSA Urology Medication:TAMSULSOIN, MYRBETRIQ Antibiotic Allergy:NONE Blood Thinner:NONE Lightout Examiner Required: Yes Lightout Examiner Name: Demetra--[id number] Information Interpreted: non-clinical & clinical Allergies No Known Allergies [No Known Allergies*] Allergy (Verified 02/01/24 09:19) Medication List - Last Reconciled 02/01/24 by Yulia Infante MD acetaminophen (Tylenol Extra Strength) 500 mg PO Q6H PRN atorvastatin 80 mg PO BEDTIME carbidopa-levodopa 25-100 mg 2 tabs PO TID carvedilol 12.5 mg PO BID 90 days cholecalciferol (vitamin D3) (Vitamin D3) 50 mcg PO DAILY ezetimibe 10 mg PO DAILY lidocaine 5% (Lidoderm) 1 patch topical DAILY PRN MDD remove after 12 hours losartan 50 mg See Protocol PO DAILY mirabegron ER (Myrbetriq) 25 mg PO DAILY omeprazole 40 mg PO DAILY@0630 ropinirole 0.5 mg PO TID sertraline 25 mg PO DAILY tamsulosin (Flomax) 0.4 mg PO BEDTIME HPI Comments Details: 02/01/24--Sky here for FU- LUTS, urgency, hesitency. Comorbidity Parkinson's. 01/16/24--PSA--3..41ng/mL. corporate travel expert utilized. Patient states he is doing well on the combination of Myrbetriq and tamsulosin. States less urine wetting. We will continue both medications. Will continue to monitor kidneys. Follow-up in 9 months renal ultrasound prior. Review of chart: 10/02/23--Sky is a 73-year-old male, Bel[place]ian-speaking, he is here with complaints of urinary frequency, nocturia 4-5 times. Comorbidity Parkinson's. He states Parkinson's diagnosed about 3 years ago. He was in the emergency room on 09/26/23 and referred to the urology office for these symptoms. Urinalysis in the emergency room, 09/26/2023 no signs of infection. The patient voided and gave a urine specimen, UA--leukocytes negative-blood negative, glucose negative. Bladder scan PVR 53 mL. He was started on tamsulosin in the emergency room I will continue tamsulosin I have discussed adding an anticholinergic Myrbetriq 25 mg daily. Will check PSA. I have discussed CT scan findings performed 05/26/2023, 3 mm low kidney lower pole stone. Review of chart: Imaging: CTAP: 05/26/2023--left kidney lower pole 3 mm nonobstructing stone PFSH Medical History Other and unspecified hyperlipidemia History of stroke Essential hypertension Osteoporosis Vertigo Arthritis Parkinson disease Diabetes Hypertension Surgical History Hx of hand surgery Hx of cataract surgery H/O hernia repair Family History Father No problems noted. Mother No problems noted. Social History Household Members: None Housing: Apartment Do you presently have visiting nurse or other home services: Yes ([employer]) Alcohol intake: former Comment: pt steady gait tremors noted secondary to hx parkinson Patient Tobacco Use Status: Never used Tobacco Second Hand Smoke Exposure: No Current occupational status: retired 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 Review of Systems Const All systems reviewed & are unremarkable except as noted in HPI and below Reports no additional complaints Eyes Reports no additional complaints ENT Reports no additional complaints Card Reports no additional complaints Resp Reports no additional complaints GI Reports no additional complaints Reports as per HPI Musc Reports no additional complaints Skin/Breast Reports system reviewed and no additional complaints, except as documented Neuro Reports no additional complaints Psych Reports no additional complaints Endo Reports no additional complaints Angel/Lymph Reports no additional complaints Aller/Immun Reports no additional complaints Results AMB Urinalysis, Automated UA Leukoctes 0 Arely/uL Last Edit by MARSHALL Thompson on 02/01/24 09:30 UA Nitrite Negative Last Edit by MARSHALL Thompson on 02/01/24 09:30 UA Urobilinogen 0.2 mg/dL Last Edit by MARSHALL Thompson on 02/01/24 09:3 0 UA Protein 0 mg/dL Last Edit by MARSHALL Thompson on 02/01/24 09:30 UA pH 6.5 Last Edit by MARSHALL Thompson on 02/01/24 09:30 UA Blood 0 Leonardo/uL Last Edit by MARSHALL Thompson on 02/01/24 09:30 UA Specific Counce 1.010 Last Edit by MARSHALL Thompson on 02/01/24 09: 30 UA Ketone Negative Last Edit by MARSHALL Thompson on 02/01/24 09:30 UA Bilirubin 0 mg/dL Last Edit by MARSHALL Thompson on 02/01/24 09:30 UA Glucose 0 mg/dL Last Edit by MARSHALL Thompson on 02/01/24 09:30 Results Reviewed Results Reviewed: Laboratory Last Values Urine pH (Auto) 6.5 02/01/24 09:30 Specific Counce (Auto) 1.010 02/01/24 09:30 Urine Protein (Auto) 0 mg/dL 02/01/24 09:30 Glucose (UA)(Auto) 0 mg/dL 02/01/24 09:30 Urine Ketones (Auto) Negative 02/01/24 09:30 Urine Blood (Auto) 0 Leonardo/uL 02/01/24 09:30 Urine Nitrite (Auto) Negative 02/01/24 09:30 Urine Bilirubin (Auto) 0 mg/dL 02/01/24 09:30 Urine Urobilinogen (Auto) 0.2 mg/dL 02/01/24 09:30 Leukocyte Esterase (Auto) 0 Arely/uL 02/01/24 09:30 Date of Service: 05/26/23 EXAMINATION: CT ABDOMEN AND PELVIS WITHOUT CONTRAST CLINICAL INFORMATION: 73-year-old male with left flank pain COMPARISON: 11/17/2022 DLP: 379 mGy-cm FINDINGS: LUNG BASES: The visualized lung bases are unremarkable. LIVER, GALLBLADDER, AND BILIARY TREE: The liver is normal in size, shape, and attenuation. No focal hepatic lesion or biliary ductal dilatation is present. The gallbladder is unremarkable with no evidence of radiopaque gallstones, gallbladder wall thickening, or obvious pericholecystic inflammatory changes. PANCREAS: Unremarkable. SPLEEN: Unremarkable. ADRENAL GLANDS: Unremarkable. KIDNEYS AND URETERS: There is 0.3 cm calcification in the lower pole of left kidney without evidence of hydroureteronephrosis ureters are not dilated BLADDER: Unremarkable. GASTROINTESTINAL TRACT: There are scattered diverticula seen in the colon without evidence of diverticulitis. No evidence of bowel obstruction colitis. Normal appendix seen. ABDOMINAL WALL: There are fat-containing small bilateral inguinal hernias. There is small fat-containing umbilical hernia. LYMPH NODES: Normal. VASCULAR: Unremarkable. PELVIC VISCERA: Unremarkable. OSSEOUS STRUCTURES: Unremarkable. IMPRESSION: 1. Left nephrolithiasis without evidence of hydroureteronephrosis. 2. Mild diverticulosis without diverticulitis. 3. Small fat-containing umbilical and bilateral inguinal hernias. Assessment & Plan Assessment & Plan (1) BPH loc w urin obs/LUTS: Code(s): N40.1 - Benign prostatic hyperplasia with lower urinary tract symptoms Category: Medical (2) Urinary frequency: Code(s): R35.0 - Frequency of micturition Category: Medical (3) Kidney stone on left side: Code(s): N20.0 - Calculus of kidney Category: Medical (4) Screening PSA (prostate specific antigen): Code(s): Z12.5 - Encounter for screening for malignant neoplasm of prostate Category: Medical Plan Continue Myrbetriq 25 mg tamsulosin daily follow-up in 9 months Orders: Orders AMB Urinalysis Automated Today Z13.9 - Encounter for screening, unspecified US renal BI 8 Months N20.0 - Calculus of kidney Medications: Refilled 2 mirabegron ER (Myrbetriq) 25 mg PO DAILY 30 tabs 10RF tamsulosin (Flomax) 0.4 mg PO BEDTIME 90 caps 3RF Patient Instructions: The patient had an opportunity to ask questions regarding treatment plan. The patient expressed understanding and agreement with the above treatment plan. The patient is aware they should contact our office by phone for worsening of their current condition or the appearance of new symptoms. Compliance is encouraged with any medications and followup testing that is ordered. It is a privilege to be allowed the opportunity to participate in the urologic care of your patient. If you have any questions or concerns regarding treatment for the above conditions please do not hesitate to contact me. The office telephone contact is [phone]. This note is constructed in part using voice recognition software. While every effort has been made to ensure accuracy marketer errors may have been included. Yours sincerely, Yulia Infante MD Coding Level of Care Code Est Pt Level 4 (95335) Diagnoses BPH loc w urin obs/LUTS N40.1 Urinary frequency R35.0 Kidney stone on left side N20.0 Screening PSA (prostate specific antigen) Z12.5
== END 2024-02-01 10:05 | disposition home or self-care (01) ==
PROVIDERS: PCP Internal Medicine; Visit Provider Urology
DX: N40.1 Benign prostatic hyperplasia with lower urinary tract symptoms (principal); R35.0 Frequency of micturition; N20.0 Calculus of kidney; Z12.5 Encounter for screening for malignant neoplasm of prostate; Z13.9 Encounter for screening, unspecified
CPT/HCPCS: 99214

== ENCOUNTER → 2024-02-01 09:10 | Outpatient (BNVA) | payer MEDICARE, SELFPAY | PROVIDERS: PCP Internal Medicine; Visit Provider Urology | DX: N40.1 Benign prostatic hyperplasia with lower urinary tract symptoms (principal); R35.0 Frequency of micturition; N20.0 Calculus of kidney; Z79.899 Other long term (current) drug therapy | CPT/HCPCS: 81003; 99212 ==

== ENCOUNTER 2024-02-27 06:21 | Emergency (ER) | payer MEDICARE, SELFPAY ==
--- NOTE | 2024-02-27 | ECG_ITS ---
Test Reason : hypertinsion Blood Pressure : / mmHG Vent. Rate : 075 BPM Atrial Rate : 000 BPM P-R Int : 000 ms QRS Dur : 092 ms QT Int : 396 ms P-R-T Axes : 000 000 042 degrees QTc Int : 442 ms Normal sinus rhythm with occasional Premature ventricular complexes Abnormal ECG When compared with ECG of 20-DEC-2023 08:58, Premature ventricular complexes Present Referred By: Generic ED Physician Electronically Signed By:Josemanuel Verdin
--- NOTE | ~2024-02-27 | XR_ITS ---
EXAMINATION: XR CHEST CLINICAL INFORMATION: Dypsnea COMPARISON: X-ray dated October 25, 2023. TECHNIQUE: Frontal view of the chest was obtained. FINDINGS: No consolidation, pleural effusion or pneumothorax. Cardiomediastinal silhouette is normal in size with calcified plaque aortic arch. Multilevel thoracic spondylosis. XR/XR chest 1V IMPRESSION: No acute airspace disease. Electronically signed by: Oscar Sadler MD 02/27/2024 08:02 AM [facility]
--- NOTE | ~2024-02-27 | CT_ITS ---
EXAMINATION: CT HEAD WITHOUT CONTRAST CLINICAL INFORMATION: Headache, hypertension COMPARISON: 06/26/2021 TECHNIQUE: Contiguous axial imaging was performed from the skull base to vertex without intravenous administration of contrast. This CT examination was performed using dose optimization techniques as appropriate, variously including the following: *Automated exposure control *Adjustment of mA and/or kV according to patient size (this includes techniques or standardized protocols for targeted exams where dose is matched to indication/reason for exam; i.e. extremities or head) *Use of iterative reconstruction technique DLP: 659 mGy-cm FINDINGS: CT examination of the brain shows no significant change in age-related involutional changes with prominence of the ventricles and sulci. Periventricular white matter hypodensities are evident, likely on the basis of chronic microvascular ischemic disease. Hypodensities in the left frontoparietal white matter are also not significantly changed. No acute hemorrhage, mass effect or shift is evident. In the posterior fossa, the brainstem, cerebellum and fourth ventricle are unremarkable. The orbits and bony calvarium are intact. Globes are aphakic. The paranasal sinuses and mastoid air cells are well pneumatized and clear. CT/CT head/brain wo IV con IMPRESSION: 1. Age-related involutional changes and microvascular disease, not significantly changed.. 2. No acute hemorrhage, mass effect, shift or acute intracranial pathology. Electronically signed by: Saman Quiles MD 02/27/2024 10:59 AM [facility]
[2024-02-27 06:24] VITALS: BP 173/87; PULSE 43; RESP 18; TEMP 36.6; O2SAT 95; BMI 25.0
[2024-02-27 07:02] LABS: MANUAL DIFF FLAG NO
[2024-02-27 07:04] LABS: Basophils Percent Auto 0.4 % (0-2); Eosinophils Percent Auto 0.2 % (0-4); Hematocrit 40.1 % (42.0-52.0); Hemoglobin 13.7 g/dl (14.0-18.0); Imm Gran Abs Auto 0.05 X10*3/uL (0.00-0.03); Imm Gran Pct Auto 0.5 % (0.0-0.4); Lymphocytes Percent Auto 9.3 % (20-40); Mean Corpuscular HGB Conc 34.2 g/dl (31.0-36.0); Mean Corpuscular Hemoglobin 32.7 pg (27.0-33.0); Mean Corpuscular Volume 95.7 fL (80.0-98.0); Mean Platelet Volume 12.5 fL (9.4-12.4); Monocytes Absolute Auto 0.5 X10*3/uL (0.1-1.2); Monocytes Percent Auto 4.4 % (2-11); Neutrophils Absolute Auto 9.4 x10*3/uL (2.0-8.3); Neutrophils Percent Auto 85.2 % (45-73); Platelet Count 179 X10*3/uL (160-400); Red Blood Count 4.19 X10*6/uL (4.60-5.80); Red Cell Distribution Width 11.9 % (11.0-16.0)
[2024-02-27 07:05] LABS: Appearance Urine Clear; Color Urine Yellow; Glucose Urine UA Negative (Negative); Leukocyte Esterase Urine Negative (Negative); Nitrite Urine Negative (Negative); UMIC TRIGGER UACC YES; Urine Blood Negative (Negative); Urine Ketones Negative (Negative); Urine Protein 30 (1+) mg/dL (Neg-Trace)
[2024-02-27 07:18] LABS: Bacteria Urine None Seen (None Seen); Hyaline Casts Urine 0-2 /LPF (0-2); Squamous Epithelial Cell Urine 0-2 /HPF (0-2); UACC Culture Trigger YES
[2024-02-27 07:24] LABS: Alanine Aminotransferase 35 U/L (0-40); Albumin Level 4.3 g/dL (3.5-5.0); Alkaline Phosphatase 68 U/L (39-117); Anion Gap 15 (12-20); Aspartate Amino Transferase 33 U/L (5-37); Bilirubin Total 0.7 mg/dL (0.0-1.0); Blood Urea Nitrogen 19 mg/dL (9-16); Carbon Dioxide 24 mmol/L (22-29); Chloride 104 mmol/L (96-108); Creatinine Clr Calc Pharmacy 58.1; Estimated Glomerular Filt Rate > 60; Glucose Random 126 mg/dL (60-115); Potassium 4.6 mmol/L (3.3-5.1); Sodium 138 mmol/L (135-145)
[2024-02-27 07:26] LABS: Troponin-I High Sensitivity 5.8 ng/L (<3.5-35.0)
[2024-02-27 07:41] LABS: Influenza A PCR NEGATIVE (Negative); Influenza B PCR NEGATIVE (Negative); Resp Syncy Virus RNA Qual PCR NEGATIVE (Negative); SARS COV2 PCR INHOUSE NEGATIVE (Negative)
--- NOTE | 2024-02-27 10:08 | ED.GENADULT ---
HPI - General Adult General Chief complaint: General Medical Stated complaint: HBP, Nausea Time Seen by Provider: 02/27/24 10:08 Source: patient, family () and hobbies and crafts sales representative (belarusian) Mode of arrival: ambulatory Limitations: language barrier (belarusian speaking) History of Present Illness ED Provider: REJI DICKERSON PA-C HPI narrative: 73 year old male with pmhx significant for HTN, HDL, CVA, vertigo, DM, Parkinson disease, osteoporosis presents to the emergency department this morning for evaluation of headache which began around midnight. This did not wake him from his sleep. Reports waking up around midnight to use the bathroom and noticing he had a headache. Headache is located frontally and does not radiated. Headache is currently a 4/10. He has no history of migraines. He did not trial any [id number] pain medications prior to arrival in the ED today. He reports associated nausea with 1 episode of vomiting this morning. He states his nausea has completely resolved and he has not vomited since. Denies any associated abdominal or flank pain. Denies fever, chills, dizziness, vision changes, neck or back pain. Patient was noted to be hypertensive to 173/87 on arrival. He tells me his blood pressure is typically well controlled on his losartan as he regularly takes this at home. He takes his losartan every morning. No missed doses. He reports taking this prior to arrival in the ED today. Denies chest pain, sob, palpitations. mechanical facilities technician utilized throughout visit to communicate with patient. Related Data Home Medications ?Medication ?Instructions ?Recorded ?Confirmed cholecalciferol (vitamin D3) 50 50 mcg PO DAILY 07/27/21 02/01/24 mcg (2,000 unit) capsule (Vitamin D3) carbidopa 25 mg-levodopa 100 mg 2 tab PO TID 11/29/21 02/01/24 tablet omeprazole 40 mg capsule,delayed 40 mg PO DAILY@0630 11/29/21 02/01/24 release ropinirole 0.5 mg tablet 0.5 mg PO TID 11/29/21 02/01/24 atorvastatin 80 mg tablet 80 mg PO BEDTIME 12/19/23 02/01/24 sertraline 25 mg tablet 25 mg PO DAILY 12/19/23 02/01/24 Previous Rx's ?Medication ?Instructions ?Recorded acetaminophen 500 mg tablet 500 mg PO Q6H PRN fever or pain 04/24/23 (Tylenol Extra Strength) #14 tabs lidocaine 5 % topical patch 1 patch topical DAILY PRN pain #30 04/24/23 (Lidoderm) ea carvedilol 12.5 mg tablet 12.5 mg PO BID 90 days #180 tabs 09/12/23 losartan 50 mg tablet 50 mg PO DAILY #30 tabs 12/21/23 mirabegron 25 mg tablet,extended 25 mg PO DAILY #30 tabs 02/01/24 release 24 hr (Myrbetriq) tamsulosin 0.4 mg capsule (Flomax) 0.4 mg PO BEDTIME #90 caps 02/01/24 acetaminophen 325 mg tablet 650 mg (2 x 325 mg) PO Q4-6H PRN 02/27/24 (Tylenol) pain (scale score 1-3) #30 tabs ezetimibe 10 mg tablet 10 mg PO DAILY #90 tabs 03/04/24 Allergies Allergy/AdvReac Type Severity Reaction Status Date / Time No Known Allergies Allergy Verified 02/27/24 06:27 [No Known Allergies*] Review of Systems Review of Systems: Constitutional: No fever, chills, fatigue, night sweats, weight changes ENT/Mouth: No ear pain, hearing loss, nasal congestion, sinus pain, rhinorrhea, sore throat Eyes: No eye pain, swelling, redness, vision changes, discharge Cardio: No chest pain, palpitations, SERRANO, orthopnea, peripheral edema Pulm: No SOB, cough, sputum, wheezing, dyspnea, hemoptysis GI: No nausea, vomiting, hematemesis, abdominal pain, diarrhea, constipation, hematochezia, melena : No irregular bleeding, dysuria, frequency, urgency, hesitancy, hematuria, flank pain, urinary flow changes, urinary incontinence or retention MSK: No back pain, neck pain, joint pain, myalgias Skin: No lesions, rashes Neuro: No weakness, numbness, paresthesias, LOC, dizziness, +headache Psych: No anxiety/panic, depression, SI/HI, AH/VH All other systems reviewed and are negative. [facility] Past Medical History Attestation statement: The following information was validated with the patient. Source: old records reviewed and nursing notes reviewed Medical History Other and unspecified hyperlipidemia History of stroke Essential hypertension Osteoporosis Vertigo Arthritis Parkinson disease Diabetes Hypertension Surgical History Hx of hand surgery Hx of cataract surgery H/O hernia repair Family History Family History Father No problems noted. Mother No problems noted. 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) Alcohol intake: former Comment: pt steady gait tremors noted secondary to hx parkinson Patient Tobacco Use Status: Never used Tobacco Second Hand Smoke Exposure: No Current occupational status: retired 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 Physical Exam ED Vital Signs: Vital Signs - 24 hr 02/27/24 06:24 02/27/24 10:36 02/27/24 13:07 Temperature 97.8 F Pulse Rate 43 L 80 79 Respiratory Rate 18 16 18 Blood Pressure 173/87 H 155/76 H 146/79 H Pulse Oximetry 95 98 100 Oxygen Delivery Method Room Air Room Air Room Air BMI result Body Mass Index 25.0 Hypertensive, vitals otherwise WNL General: Well appearing, in no acute distress. Skin: Warm, dry, intact. No rashes or lesions. Head: Normocephalic, atraumatic. EENT: Hearing is intact b/l. Conjunctiva clear. PERRLA. EOM intact. Moist mucous membranes.? Neck: Supple without LAD Cardiac: Chest wall symmetric. RRR. No JVD. Lungs: Normal respiratory effort without accessory muscle use. CTA bilaterally. No rales, rhonchi, or wheezes.? Abdomen: Soft, non-tender, non-distended. No rebound tenderness or guarding. Positive BS x4. Back: No midline spinous or paraspinal tenderness. No step off deformity. Ext: Upper and lower extremities atraumatic, without tenderness, deformity, swelling or erythema. Full ROM throughout. Neuro: AOx3. Normal speech. resting tremor noted. Strength 5/5 intact throughout. Sensation intact to light touch. NV intact distally. normal finger to nose, heel to frnaco. ambulating with steady gait. Psych: Appropriate mood and affect. Responds appropriately to questions. Course Course Course Narrative: 1238 -- CBC with slight leukocytosis to 11. Normocytic anemia, chronic when compared to priors. H&H above transfusion threshold. Chemistry without acute electrolyte abnormality requiring intervention. Random glucose 126. Initial troponin 5.8. Delta troponin 7.4. No concern for acute coronary syndrome. EKG does not demonstrate acute ischemic changes. Chest x-ray without infiltrate or consolidation. Head CT without hemorrhage, mass or other intracranial pathology. Incidental finding of age-related involutional changes and microvascular disease, not significantly change when compared to priors. > patient medicated with tylenol with improvement. > Patient has remained stable throughout ED visit today. Discussed worrisome signs and symptoms and when to return to the ED. All questions answered at this time. Patient is agreeable with disposition and stable for discharge. Medications Administered Discontinued Medications Generic Name Dose Route Start Last Admin Trade Name Freq PRN Reason Stop Dose Admin Acetaminophen 975 mg 02/27/24 11:06 02/27/24 11:51 Acetaminophen 325 Mg Tablet PO 02/27/24 11:07 975 mg ONCE ONE Administration Medical Decision Making Medical Decision Making [facility] Narrative: 73 year old male with pmhx significant for HTN, HDL, CVA, vertigo, DM, Parkinson disease, osteoporosis presents to the emergency department this morning for evaluation of headache which began around midnight. Differential diagnosis includes anemia, electrolyte abnormality, dehydration, viral syndrome, migraine vs tension type headache. No headache red flags. Neurologic exam without evidence of meningismus. No focal neurologic findings. Presentation not consistent with acute intracranial bleed including SAH (lack of risk factors, headache history). Presentation not consistent with acute PENOLOGY PROFESSOR infection including meningitis or brain abscess. Temporal arteritis unlikely, as is acute angle closure glaucoma given history and physical findings. Presentation not consistent with other acute, emergent causes of headache at this time. Plan for blood work, ekg, UA, chest xray, viral testing, head ct, pain medication, re-evaluation. Differential Diagnosis Differential Diagnoses: The differential diagnosis associated with the presentation includes as above. Admission/Observation not indicated. Lab Data [facility] Lab Attestation statement: I reviewed the patient's lab results. as above. 02/27/24 06:57 02/27/24 06:57 Labs: Lab Results 02/27/24 02/27/24 Range/Units 06:57 11:14 WBC 11.0 H (4.8-10.8) X10*3/uL RBC 4.19 L (4.60-5.80) X10*6/uL Hgb 13.7 L (14.0-18.0) g/dl Hct 40.1 L (42.0-52.0) % MCV 95.7 (80.0-98.0) fL MCH 32.7 (27.0-33.0) pg MCHC 34.2 (31.0-36.0) g/dl RDW 11.9 (11.0-16.0) % Plt Count 179 (160-400) X10*3/uL MPV 12.5 H (9.4-12.4) fL Immature Gran % (Auto) 0.5 H (0.0-0.4) % Neut % (Auto) 85.2 H (45-73) % Lymph % (Auto) 9.3 L (20-40) % [place] % (Auto) 4.4 (2-11) % Eos % (Auto) 0.2 (0-4) % Baso % (Auto) 0.4 (0-2) % Lymph # (Auto) 1.0 L (1.2-4.9) X10*3/uL [place] # (Auto) 0.5 (0.1-1.2) X10*3/uL Eos # (Auto) 0.0 (0.0-0.4) X10*3/uL Baso # (Auto) 0.0 (0.0-0.2) X10*3/uL Abs Immat Gran (auto) 0.05 H (0.00-0.03) X10*3/uL Absolute Neuts (auto) 9.4 H (2.0-8.3) x10*3/uL Absolute Nucleated RBC 0.000 (0.0-0.012) X10*3/uL Nucleated RBC % (auto) 0.0 (0.0-0.2) /100WBC Sodium 138 (135-145) mmol/L Potassium 4.6 (3.3-5.1) mmol/L Chloride 104 (96-108) mmol/L Carbon Dioxide 24 (22-29) mmol/L Anion Gap 15 (12-20) BUN 19 H (9-16) mg/dL Creatinine 0.99 (0.5-1.4) mg/dL Estim Creat Clear Calc 58.1 Estimated GFR > 60 Random Glucose 126 H (60-115) mg/dL Calcium 10.0 D (8.4-10.2) mg/dL Total Bilirubin 0.7 (0.0-1.0) mg/dL AST 33 (5-37) U/L ALT 35 (0-40) U/L Alkaline Phosphatase 68 (39-117) U/L Troponin I High Sens 5.8 D 7.4 (<3.5-35.0) ng/L Total Protein 7.0 (6.5-8.0) g/dL Albumin 4.3 (3.5-5.0) g/dL Urine Color Yellow Urine Appearance Clear Urine pH 8.0 (5.0-9.0) Ur Specific [place] 1.020 (1.005-1.025) Urine Protein 30 (1+) H (Neg-Trace) mg/dL Urine Glucose (UA) Negative (Negative) mg/dL Urine Ketones Negative (Negative) mg/dL Urine Blood Negative (Negative) Urine Nitrite Negative (Negative) Ur Leukocyte Esterase Negative (Negative) Urine RBC 3-5 H (0-2) /HPF Urine WBC 6-10 H (0-5) /HPF Ur Squamous Epith Cells 0-2 (0-2) /HPF Urine Bacteria None Seen (None Seen) Hyaline Casts 0-2 (0-2) /LPF Influenza Type A (PCR) NEGATIVE (Negative) Influenza Type B (PCR) NEGATIVE (Negative) RSV RNA Qual (PCR) NEGATIVE (Negative) SARS-CoV-2 RNA (RT-PCR) NEGATIVE (Negative) Independent Interpretation I performed an independent interpretation of an: EKG, Plain X-Ray and CT Scan Interpretation: CT head without bleed or mass EKG showing accelerated junctional rhythm with occasional PVCs, rate of 75 beats per minute, QT 396, QTC 442. no acute ischemic changes or st elevations CXR without infiltrate or consolidation Radiology Impression Radiologist Impression: EXAMINATION: CT HEAD WITHOUT CONTRAST CLINICAL INFORMATION: Headache, hypertension COMPARISON: 06/26/2021 TECHNIQUE: Contiguous axial imaging was performed from the skull base to vertex without intravenous administration of contrast. This CT examination was performed using dose optimization techniques as appropriate, variously including the following: *Automated exposure control *Adjustment of mA and/or kV according to patient size (this includes techniques or standardized protocols for targeted exams where dose is matched to indication/reason for exam; i.e. extremities or head) *Use of iterative reconstruction technique DLP: 659 mGy-cm FINDINGS: CT examination of the brain shows no significant change in age-related involutional changes with prominence of the ventricles and sulci. Periventricular white matter hypodensities are evident, likely on the basis of chronic microvascular ischemic disease. Hypodensities in the left frontoparietal white matter are also not significantly changed. No acute hemorrhage, mass effect or shift is evident. In the posterior fossa, the brainstem, cerebellum and fourth ventricle are unremarkable. The orbits and bony calvarium are intact. Globes are aphakic. The paranasal sinuses and mastoid air cells are well pneumatized and clear. CT/CT head/brain wo IV con IMPRESSION: 1. Age-related involutional changes and microvascular disease, not significantly changed.. 2. No acute hemorrhage, mass effect, shift or acute intracranial pathology. Electronically signed by: Saman Quiles MD 02/27/2024 10:59 AM [facility] RP EXAMINATION: XR CHEST CLINICAL INFORMATION: Dypsnea COMPARISON: X-ray dated October 25, 2023. TECHNIQUE: Frontal view of the chest was obtained. FINDINGS: No consolidation, pleural effusion or pneumothorax. Cardiomediastinal silhouette is normal in size with calcified plaque aortic arch. Multilevel thoracic spondylosis. XR/XR chest 1V IMPRESSION: No acute airspace disease. Electronically signed by: Oscar Sadler MD 02/27/2024 08:02 AM [facility] RP Independent Historian Clinical information obtained from an independent historian. History obtained from or confirmed by: Spouse () External Record Review External record reviewed: Inpatient record, Office record, Outpatient record, Prior outpatient labs, Prior outpatient radiology, Primary care record and Outside ED record Prescription Management I considered prescription management with: Pain Medication (tylenol) Chronic Conditions Patient?s care impacted by: Hypertension Social Determinants Patient?s care significantly limited by Social Determinants of Health including: Other Social Determinant of Health Critical Care Time Critical Care Time Critical Care Time: No Discharge Plan Discharge Clinical Impression: Headache Patient Disposition: Home, Self-Care Instructions: General Headache (ED) Additional Instructions: Your blood work today is reassuring. Your heart enzyme was checked twice and is normal. Your chest xray does not show pneumonia. You tested negative for covid, flu, and rsv. The CT scan of your head is normal. There is no bleed or mass. Your headache resolved with tylenol today. Please continue taking tylenol and motrin as needed for headache at home. Continue all home medications as prescribed. Follow up with primary care provider this week. Return with new or worsening symptoms. In the case of an emergency call 911. Prescriptions: New acetaminophen [Tylenol] 325 mg tablet 650 mg PO Q4-6H PRN (Reason: pain (scale score 1-3)) Qty: 30 0RF No Action carvedilol 12.5 mg tablet 12.5 mg PO BID 90 Days Qty: 180 3RF ezetimibe 10 mg tablet 10 mg PO DAILY Qty: 90 3RF acetaminophen [Tylenol Extra Strength] 500 mg tablet 500 mg PO Q6H PRN (Reason: fever or pain) Qty: 14 0RF lidocaine [Lidoderm] 5 % adhesive patch,medicated 1 patch topical DAILY MDD remove after 12 hours PRN (Reason: pain) Qty: 30 0RF Rx Instructions: leave on most painful area for up to 12 hrs sertraline 25 mg tablet 25 mg PO DAILY atorvastatin 80 mg tablet 80 mg PO BEDTIME losartan 50 mg Tablet 50 mg PO DAILY Qty: 30 0RF Protocol: Hold for SBP< HOLD for SBP < : 90 omeprazole 40 mg capsule,delayed release(DR/EC) 40 mg PO DAILY@0630 carbidopa-levodopa 25-100 mg tablet 2 tab PO TID ropinirole 0.5 mg tablet 0.5 mg PO TID cholecalciferol (vitamin D3) [Vitamin D3] 50 mcg (2,000 unit) capsule 50 mcg PO DAILY Myrbetriq 25 mg tablet extended release 24 hr 25 mg PO DAILY Qty: 30 10RF tamsulosin [Flomax] 0.4 mg capsule 0.4 mg PO BEDTIME Qty: 90 3RF Referrals: Jessica Yuen MD [Primary Care Provider] - Interventions: ED Discharge Assessment Last Done: 02/27/24 14:20 Discharge Date/Time: 02/27/24 14:21 Print Language: Turkish
--- NOTE | 2024-02-27 10:27 | PC.NURSE ---
Pt to radiology at this time
[2024-02-27 10:36] VITALS: BP 155/76; PULSE 80; RESP 16; O2SAT 98
[2024-02-27 11:43] LABS: Troponin-I High Sensitivity 7.4 ng/L (<3.5-35.0)
[2024-02-27] MEDS: Acetaminophen 325 MG TABLET 975 MG PO (11:51)
[2024-02-27 13:07] VITALS: BP 146/79; PULSE 79; RESP 18; O2SAT 100
[2024-02-27 14:20] VITALS: BP 139/67; PULSE 71; RESP 16; TEMP 36.2; O2SAT 96
== END 2024-02-27 14:21 | disposition home or self-care (01) ==
PROVIDERS: Physician Assistant Medical; Emergency Provider Emergency Medicine; PCP Internal Medicine
DX: R51.9 Headache, unspecified (principal); R06.00 Dyspnea, unspecified; I10 Essential (primary) hypertension; E11.9 Type 2 diabetes mellitus without complications; G20.A1 Parkinson's disease without dyskinesia, without mention of fluctuations; M81.0 Age-related osteoporosis without current pathological fracture; D72.829 Elevated white blood cell count, unspecified; D64.9 Anemia, unspecified; Z86.73 Personal history of transient ischemic attack (TIA), and cerebral infarction without residual deficits; Z79.899 Other long term (current) drug therapy; Z03.818 Encounter for observation for suspected exposure to other biological agents ruled out
CPT/HCPCS: 0241U; 36415; 70450; 71045; 80053; 81001; 84484; 85025; 87086; 93005; 99284

== ENCOUNTER → 2024-02-27 06:25 | Outpatient (BNV) | payer MEDICARE, SELFPAY | PROVIDERS: Emergency Provider Emergency Medicine; PCP Internal Medicine; Visit Provider Internal Medicine Cardiovascular Disease | DX: I49.3 Ventricular premature depolarization (principal) | CPT/HCPCS: 93010 ==

== ENCOUNTER → 2024-02-27 07:25 | Outpatient (BNV) | payer MEDICARE, SELFPAY | PROVIDERS: PCP Internal Medicine; Visit Provider Radiology Diagnostic Radiology | DX: R06.00 Dyspnea, unspecified (principal) | CPT/HCPCS: 71045 ==

== ENCOUNTER 2024-08-02 12:22 | Outpatient (REF) | payer OTHER, SELFPAY ==
--- NOTE | ~2024-08-02 | XR_ITS ---
EXAMINATION: XR ANKLE 3 OR MORE VIEWS LEFT HISTORY: pain, swelling left ankle, no injury COMPARISON: Comparison is made with the prior examination dated 07/03/2017. FINDINGS: Three views of the left ankle are submitted. Osseous mineralization is normal. Again seen is a well-corticated osseous density adjacent to the tip of the medial malleolus, which is likely the result of old trauma. There is no acute fracture or dislocation. There are calcaneal spurs at the plantar aspect and at the insertion of the Achilles tendon. There is diffuse soft tissue swelling. There is vascular calcification. XR/XR ankle LT min 3V IMPRESSION: Diffuse soft tissue swelling. No evidence of acute fracture of the left ankle. Electronically signed by: Masood Ortega MD 08/02/2024 01:11 PM EDT
--- NOTE | ~2024-08-02 | US_ITS ---
EXAMINATION: US LOWER EXTREMITY VEINS LIMITED FOLLOW UP LEFT HISTORY: pain, swelling in lt leg, foot, ankle x 2 days ago, no injury, r/o DVT COMPARISON: Comparison is made with the prior examination dated the . TECHNIQUE: Duplex and color Doppler sonographic examination of the deep venous system of the left lower extremity was performed. FINDINGS: The common femoral, superficial femoral, and popliteal veins are patent demonstrating normal compressibility, spontaneous flow, and augmentation. There is a normal color and spectral Doppler waveform appearance of the visualized deep venous system above the knee. The posterior tibial and peroneal veins are patent. US/US venous duplex LE LT IMPRESSION: No evidence of acute DVT in the left lower extremity. Electronically signed by: Masood Ortega MD 08/02/2024 01:55 PM EDT
--- OUTSIDE RECORDS SUMMARY | 2024-08-02 13:09 | XMS_ITS | Clinical Summary ---
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 Name Role Phone Unavailable Primary Care Provider Unavailabl e Social History Tobacco Use Types Packs/Day Years Used Date Smoking Tobacco: Never Assessed Sex and Gender Information Value Date Recorded Sex Assigned at Not on file Legal Sex Male 9:19 AM EDT Gender Identity Not on file Sexual Orientation Not on file Plan of Treatment Health Maintenance Due Date Last Done Comments HIV screening 1961 Hepatitis C screening 1966 Tetanus adult (Td q 10,TDAP once) 1968 Lipid disorder screening 1988 Colon cancer screening, Colonoscopy 1993 Diabetes screening 1993 Pneumococcal Vaccine (50+ ye ars) (1 of 1 - PCV) 1998 Shingles vaccine (Shingrix) (1 of 2 - Shingrix (RZV) 2 Dose Standard Series) 1998 RSV Immunization (1 - 1-dose 75+ series) 2023 Covid-19 vaccine series ( - 2023-25 season) 2023 Influenza vaccine 12/16/2024 Meningococcal Vaccine Aged Out No chepe shannan eligible based on patient's age to complete this topic
--- OUTSIDE RECORDS SUMMARY | 2024-08-02 13:09 | XMS_ITS | Clinical Summary ---
Author Organization [facility] Address [address] [place] [address] Phone Care Team Providers Care Mirror Inspector Name Role Phone Jessica Yuen MD Primary Care Provide r Allergies No known active allergies Medications acetaminophen (TYLENOL) 500 mg tablet TAKE 1 TABLET BY MOUTH EVERY 6 HOURS NEEDED FOR PAIN OR FEVER 4 Active carvediloL (COREG) 12.5 mg tablet TAKE 1 TABLET BY MOUTH TWICE DAILY 4 Active chlorthalidone (HYGROTON) 25 mg tablet TAKE 1 TABLET BY MOUTH EVERY MORNING 3 Active ezetimibe (ZETIA) 10 mg tablet Take 1 Tablet by mouth daily. 4 Active lidocaine (LIDODERM) 5 % patch APPLY 1 PATCH TOPICALLY TO SKIN, LEAVE ON FOR 12 HOURS AND OFF FOR 12 HOURS DIRECTED 4 Active melatonin 3 mg tablet TAKE 1 TABLET BY MOUTH BEFORE BEDTIME NEEDED FOR ANXIETY 4 Active omeprazole (PriLOSEC) [address] capsule TAKE 1 CAPSULE BY MOUTH EVERY DAY BEFORE A MEAL 4 Active rOPINIRole (REQUIP) 0.5 mg tablet TAKE 1 TABLET BY MOUTH THREE TIMES DAILY 4 Active spironolactone (ALDACTONE) 25 mg tablet Take 1 Tablet by mouth daily. 4 Active econazole nitrate 1 % cream Apply to both feet once daily x 2-4 weeks 0 Active ciclopirox (LOPROX) 0.77 % suspension Apply 2 drops to each toenail once a day for 6-12 months 0 Active ammonium lactate (AMLACTIN) 12 % cream Apply to dry skin on feet daily 0 Active omeprazole (PriLOSEC) [address] capsule Take 1 Cap by mouth daily. 9 Active naproxen (NAPROSYN) 500 mg tablet TAKE 1 TAB BY MOUTH EVERY 12 HOURS NEEDED FOR PAIN. 9 Active cyproheptadine (PERIACTIN) 4 mg tablet TAKE 1 TAB BY MOUTH 3 TIMES DAILY NEEDED (ITCH) FOR UP TO 90 DAYS. 9 Active meclizine (ANTIVERT) 25 mg tablet Take 1 Tab by mouth every 12 hours. 9 Active amLODIPine (NORVASC) 10 mg tablet Take 1 Tab by mouth daily. 9 Active losartan (COZAAR) 100 mg tablet Take 1 Tab by mouth daily. 9 Active atorvastatin (LIPITOR) 80 mg tablet Take 1 Tab by mouth daily. 9 Active loratadine (CLARITIN) 10 mg tablet Take 1 Tab by mouth daily as needed for Allergies. 9 Active cimetidine (TAGAMET) 400 mg tablet Take 1 Tab by mouth 3 times daily. 8 Active cetirizine (ZyrTEC) 10 mg tablet Take 1 Tab by mouth daily as needed for Allergies (itching). One tab daily 8 Active triamcinolone (KENALOG) 0.025 % cream Apply to skin twice a day. 8 Active Active Problems Problem Noted Date Diagnosed Date Cataract 03/13/2024 Dyslipidemia 03/13/2024 Glaucoma 03/13/2024 HTN (hypertension) 03/13/2024 Migraine 03/13/2024 Prediabetes 09/29/2017 Diverticulosis 02/10/2016 GERD (gastroesophageal reflux disease) 6 Onychomycosis 12/18/2014 Encounters Date Type Department Care Team Description 05/14/2024 9:45 AM EST Office Visit Orthopedic Surgery - [address] [phone] Fredy Chu, DPM Primary osteoarthritis of both feet (Primary Dx); Dermatophytosis of nail; Pain in toe of right foot; Pain in toe of left foot; Corns and callosities; Metatarsalgia of both feet; Bilateral femoral artery stenosis ([facility] V24); Hallux rigidus of right foot; Hallux rigidus of left foot; Acquired hammer toe of right foot; Hammer toe of left foot from Last 3 Months Immunizations Name Administration Dates Next Due Influenza trivalent, 0.5mL (Fluad) 65yo and olde r 05/06/2017,12/29/2015 Influenza trivalent, 0.5mL, preservative free (Fluarix; FluLaval; Fluzone) ages 6mo and older (Afluria) 3 years and older 03/06/2015 Influenza, Unspecified 01/23/2014 Surgical History Surgery Date Site/Laterality Comments HERNIA REPAIR 02/2014 PROCEDURE: HISTORICAL HERNIA REPAIR/GINNY ESOPHAGOGASTRODUODENOSCOPY 01/14/16 PROCEDURE: DE ESOPHAGOGASTRODUODENOSCOPY TRANSORAL DIAGNOSTIC; COMMENT: lineal erosive esophagitis, mild antral gastritis and mild duodenitis and 5 cm HH; normal gastric bxys without H. pylori COLONOSCOPY 01/14/16 PROCEDURE: HISTORICAL COLONOSCOPY; COMMENT: tics; repeat in 10 yrs Medical History Medical History Date Comments HTN (hypertension) DX:HTN (hyper tension) Migraine DX:Migraine Dyslipidemia DX:Dyslipidemia Glaucoma DX:Glaucoma Cataract DX:Cataract Onychomycosis 12/18/2014 DX:Onychomycosis GERD (gastroesophageal reflux disease) 6 DX:GERD (gastroesophageal reflux disease) Diverticulosis 02/10/2016 DX:Diverticulosi s Seizure disorder (CMS/HCC V2 4, CMS/HCC V28) DX:Seizure disorder ([facility]); C OMMENT: dr kirkpatrick Prediabetes 12/18/2014 DX:Prediabetes Hx of diabetes mellitus DX:Hx of diabetes mellitus 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 annual fu w/ Dr. Pepe Family History Medical History Relation Name Comments Coronary artery disease Father Coronary artery disease Mother Relation Name Status Comments Father Mother Social History Tobacco Use Types Packs/Day Years Used Date Smoking Tobacco: Never Smokeless Tobacco: Never Alcohol Use Standard Drinks/Week Comments No 0 (1 standard drink = 0.6 oz pur e alcohol) Sex and Gender Information Value Date Recorded Sex Assigned at Not on file Legal Sex Male 9:04 AM EST Gender Identity Not on file Sexual Orientation Not on file Obstetrics History Last Filed Vital Signs Vital Sign Reading Time Taken Comments Blood Pressure - - Pulse - - Temperature - - Respiratory Rate - - Oxygen Saturation - - Inhaled Oxygen Concentration - - Weight 65.8 kg (145 lb) 05/14/2024 9:15 AM EST Height 165.1 cm (5' 5 ) 05/14/2024 9:15 AM EST Body Mass Index 24.13 05/14/2024 9:15 AM EST Plan of Treatment Upcoming Encounters Date Type Department Care Team (Late st Contact Info) Description 09/11/2024 10:00 AM EDT Office Visit Orthopedic Surgery - [place] [address] [phone] Fredy Chu, DPJavier [address] [address] Health Maintenance Due Date Last Done Comments DTaP,Tdap,and Td Vaccines (1 - Tdap) 1967 Zoster Vaccines (1 of 2) 1998 RSV Immunization Adult Patients (1 - 1-dose 75+ series) 2023 Falls Risk Assessment 11/14/2023 Medicare Annual Wellness Visit 11/14/2023 Social Influencers of Health Screening 11/14/2023 COVID-19 Vaccine ( - season) 2023 04/19/2021, 07/13/2020, 06/15/2020 Influenza Vaccine (Season Ended) 2024 04/23/2019, 03/13/2018, 05/06/2017, Additional history exists Hypertension/CHF/CAD Annual BMP Blood Test 02/26/2025 02/27/2024, 02/21/2018 Depression Screening 04/15/2025 04/15/2024 Cholesterol Screening (Lipid Panel) 01/15/2029 01/16/2024, 02/21/2018 Hepatitis C Screening Completed 03/12/2014 Colorectal Cancer Screening: FIT-DNA (Cologuard) Discontinued 03/05/2023 Pneumococcal Vaccine: 50+ Years Completed 05/22/2023, 12/30/2020 HIB Vaccines Aged Out No longer eligi ble based on patient's age to complete this topic HPV Vaccines Aged Out No longer eligi ble based on patient's age to complete this topic Hepatitis A Vaccines Aged Out No long er eligible based on patient's age to complete this topic Hepatitis B Vaccines Aged Out No long er eligible based on patient's age to complete this topic IPV Vaccines Aged Out No longer eligi ble based on patient's age to complete this topic MMR Vaccines Aged Out No longer eligi ble based on patient's age to complete this topic Meningococcal ACWY Vaccine Aged Out N o longer eligible based on patient's age to complete this topic Meningococcal B Vaccine Aged Out No l onger eligible based on patient's age to complete this topic RSV Immunization Patients Under 20 months Aged Out No longer eligible based on patient's age to complete this topic Varicella Vaccines Aged Out No longer eligible based on patient's age to complete this topic Procedures Procedure Name Priority Date/Time Associated Diagnosis Comments ANNUAL BMP BLOOD TEST Routine 02/21/2018 LIPID PANEL Routine 02/21/2018 HEPATITIS C SCREENING Routine 03/12/2014 from Last 3 Months or Most Recently Relevant to Health Maintenance Results * Annual BMP Blood Test (02/21/2018) Pathologist [facility] Annual BMP Blood Test Abstracted Historical Provider HEALTH MAINTENANCE Final Result * (ABNORMAL) Lipid panel (02/21/2018) [facility] LDL/HDL Ratio 4 0 - 4 Triglycerides 123 0 - 150 mg/dL Cholesterol 208(A) 0 - 200 mg/dL HDL 53 >=40 mg/dL LDL Cholesterol 131(A) 0 - 100 mg/dL Blood Venous blood specimen / Unknown Historical Provider LAB BLOOD ORDERABLES Mirna l Result * Hepatitis C Screening (03/12/2014) Pathologist [facility] Hepatitis C Screening Abstracted Historical Provider HEALTH MAINTENANCE Final Result from Last 3 Months or Most Recently Relevant to Health Maintenance Insurance [employer] MEDICARE Member Subscriber Plan / Payer (Ef fective 2018-Present) Name:Valentina Graciaer Relation to Subscriber:Self Name:Uri SierrasusSky Payer ID:[id number] Group ID:[id number] Type:Not on file Address: [place] [address] [address] [address] Care Teams Mirror Inspector Relationship Specialty Start Date End Date Jessica Yuen MD [address] [facility] [address] [place] [phone] PCP - General 05/03/23
--- OUTSIDE RECORDS SUMMARY | 2024-08-02 13:09 | XMS_ITS | Encounter Summary ---
Author Organization [facility] Address [address] [place] [phone] Care Team Providers Care Pelletizer Operator Name Role Phone Unavailable Primary Care Provider Unavailabl e Encounter Details Date Type Department Care Team (Late st Contact Info) Description 01/21/2019 Scanned Document [facility] at [address] [place] [phone] Donovan Young MD [address] [place] [phone] Social History Tobacco Use Types Packs/Day Years Used Date Smoking Tobacco: Never Assessed Sex and Gender Information Value Date Recorded Sex Assigned at Not on file Legal Sex Male 9:19 AM EDT Gender Identity Not on file Sexual Orientation Not on file documented as of this encounter Plan of Treatment Not on file documented as of this encounter Procedures Procedure Name Priority Date/Time Associated Diagnosis Comments CT RESULT SCAN Routine 12/23/2018 documented in this encounter Results * CT Result Scan (12/23/2018) us Historical Provider IMG SCAN REPORTS Final Resul t documented in this encounter Visit Diagnoses Not on filedocumented in this encounter
--- OUTSIDE RECORDS SUMMARY | 2024-08-02 13:09 | XMS_ITS | Clinical Summary ---
Author Organization [facility] Address [address] [address] Care Team Providers Care Bead Picker Name Role Phone Jessica Yuen MD Primary Care Provide r Allergies No known active allergies Medications ammonium lactate (AMLACTIN) 12 % cream Apply topically if needed for dry skin Active chlorthalidone 25 MG tablet Take 25 mg by mouth 1 (one) time each day Active diclofenac (VOLTAREN) 0.1 % ophthalmic solution 1 drop 4 (four) times a day Active estazolam (PROSOM) 1 MG tablet Take 1 mg by mouth every night Active loratadine (CLARITIN) 10 MG tablet Take 10 mg by mouth 1 (one) time each day Active meclizine (ANTIVERT) 25 MG tablet Take 25 mg by mouth 3 (three) times a day if needed for dizziness Active melatonin 3 MG tablet Take by mouth Active naproxen (NAPROSYN) 500 MG tablet Take 500 mg by mouth 2 (two) times a day with meals Active omeprazole (PriLOSEC) [address] capsule Take 40 mg by mouth 1 (one) time each day Do not crush or chew. Active ergocalciferol 1.25 MG (05812 UT) capsule Take 50,000 Units by mouth 1 (one) time per week Active carbidopa-levod opa (SINEMET) 25-100 MG per tablet Take 1 tablet by mouth 3 times a day 1 Active carvedilol (COREG) 12.5 MG tablet Take 12.5 mg by mouth 2 (two) times a day with meals Active cholecalciferol (VITAMIN D-3) 50 MCG (2000 UT) capsule Take by mouth 1 (one) time each day 1 Active Diclofenac Sodium 1 % gel APPLY 2 GRAMS TO AFFECTED AREA(S) FOUR TIMES DAILY NEEDED FOR PAIN Active losartan (COZAAR) 100 MG tablet Take 100 mg by mouth 1 (one) time each day Active rOPINIRole (REQUIP) 0.5 MG tablet Take 0.5 mg by mouth 3 times a day Active ATORVASTATIN CALCIUM PO Take 80 mg by mouth 1 (one) time each day Active acetaminophen (TYLENOL) 500 MG tablet Take 500 mg by mouth every 6 (six) hours if needed for mild pain Active hydrOXYzine (ATARAX) 25 MG tablet Take 25 mg by mouth 2 (two) times a day if needed Active atorvastatin (LIPITOR) 80 MG tablet Take 80 mg by mouth 1 (one) time each day 1 Active Active Problems Problem Noted Date Diagnosed Date Essential (primary) hypertension 02/23/2021 Chronic kidney disease, stage 2 (mild) Resolved Problems Problem Noted Date Diagnosed Date Resolved Date Parkinson's disease 02/23/2021 04/05/20 21 Cerebral aneurysm 02/23/2021 04/05/2021 Right upper quadrant pain 02/23/2021 Family History Medical History Relation Comments Hypertension Brother Hypertension Father Hypertension Mother Relation Status Comments Brother Father Mother Social History Tobacco Use Types Packs/Day Years Used Date Smoking Tobacco: Never Smokeless Tobacco: Never Alcohol Use Standard Drinks/Week Comments Never 0 (1 standard drink = 0.6 oz pur e alcohol) Sex and Gender Information Value Date Recorded Sex Assigned at Not on file Legal Sex Male 8:37 AM EDT Gender Identity Not on file Sexual Orientation Not on file Last Filed Vital Signs Vital Sign Reading Time Taken Comments Blood Pressure 148/88 03/24/2021 1:43 PM EST Pulse 90 03/24/2021 1:43 PM EST Temperature - - Respiratory Rate - - Oxygen Saturation 95% 03/24/2021 1:43 PM EST Inhaled Oxygen Concentration - - Weight 77.6 kg (171 lb) 03/24/2021 1:43 PM EST Height - - Body Mass Index - - Plan of Treatment Health Maintenance Due Date Last Done Comments Pneumococcal Vaccine: 50+ Ye ars (1 of 2 - PCV) 1969 Influenza Vaccine (Season Ended) 2024 Hepatitis B Vaccine Aged Out No longe r eligible based on patient's age to complete this topic Insurance [address] [place] [address] [facility] Care Teams Bead Picker Relationship Specialty Start Date End Date Jessica Yuen MD [address] [place] [phone] PCP - General Internal Medicine 01/15/21
[2024-08-02 14:14] LABS: Anion Gap 10 (12-20); Blood Urea Nitrogen 18 mg/dL (9-16); Calcium 9.1 mg/dL (8.4-10.2); Carbon Dioxide 28 mmol/L (22-29); Chloride 105 mmol/L (96-108); Estimated Glomerular Filt Rate > 60; Glucose Random 94 mg/dL (60-115); Potassium 4.5 mmol/L (3.3-5.1); Sodium 138 mmol/L (135-145); Uric Acid 6.5 mg/dL (3.4-7.0)
[2024-08-05 21:33] LABS: Lyme Abs Screen <0.90 index
== END 2024-08-02 12:23 | disposition home or self-care (01) ==
LOC: HO.US 12:22
PROVIDERS: PCP Internal Medicine; Visit Provider Emergency Medicine
DX: M25.572 Pain in left ankle and joints of left foot (principal); R79.89 Other specified abnormal findings of blood chemistry
CPT/HCPCS: 36415; 73610; 80048; 84550; 86617; 86618; 93971

== ENCOUNTER → 2024-08-02 12:34 | Outpatient (BNV) | payer MEDICARE, SELFPAY | PROVIDERS: PCP Internal Medicine; Visit Provider Radiology Diagnostic Radiology | DX: R22.42 Localized swelling, mass and lump, left lower limb (principal); M25.572 Pain in left ankle and joints of left foot | CPT/HCPCS: 73610; 93971 ==

== ENCOUNTER 2024-10-01 09:38 | Outpatient (REF) | payer MEDICARE, SELFPAY ==
--- NOTE | ~2024-10-01 | US_ITS ---
EXAMINATION: US RETROPERITONEAL LIMITED (RENAL ONLY) CLINICAL INFORMATION: Calculus of kidney.. COMPARISON: None available. TECHNIQUE: Real-time imaging of the kidneys. FINDINGS: RIGHT KIDNEY: 11.3 x 5.2 x 4.3 cm (SAG x AP x TRV). The kidney is normal in size, contour, and echogenicity. Renal cortical thickness is normal. There is a 6 mm calculus in the mid to lower pole, possibly within the cortex. There is a subtle cyst in the midpole measuring 8 mm. There is no hydronephrosis. LEFT KIDNEY: 9.8 x 5.1 x 4.0 cm (SAG x AP x TRV). The kidney is normal in size, contour, and echogenicity. Renal cortical thickness is normal. There is a lower pole cyst with a small associated calcification measuring 7 mm. No definite calculi or hydronephrosis. US/US renal BI IMPRESSION: 1. No suspicious masses or hydronephrosis of either kidney. 2. 6 mm calculus in the mid to lower pole right kidney, possibly cortical. 3. There is an 8 mm simple cyst in the midpole of the right kidney. 4. There is a 7 mm mildly complicated cyst in the lower pole of the right kidney with a small associated calcification. Electronically signed by: Malcolm Churchill MD 10/01/2024 10:42 AM EDT
--- OUTSIDE RECORDS SUMMARY | 2024-10-01 10:31 | XMS_ITS | Encounter Summary ---
Author Organization [facility] Address [address] [place] [address] [address] [place] [address] Care Team Providers Care Water Softener Service Supervisor Name Role Phone Jessica Yuen MD Primary Care Provide r Encounter Details Date Type Department Care Team (Late Contact Info) Description 11/01/2022 Orders Only [facility] MEDICINE [address] [place], [place] [phone] Radha Rebolledo LPN Social History Tobacco Use Types Packs/Day Years Used Date Smoking Tobacco: Never Passive Smoke Exposure: Never Smokeless Tobacco: Never Alcohol Use Standard Drinks/Week Comments Never 0 (1 standard drink = 0.6 oz pur e alcohol) Sex and Gender Information Value Date Recorded Sex Assigned at Male 02/14/2022 10:35 AM EDT Legal Sex Male 10:35 AM EDT Gender Identity Male 02/14/2022 10:35 AM EDT Sexual Orientation Straight 02/14/2022 10 :35 AM EDT COVID-19 Exposure Response Date Recorded In the last 10 days, have yo u been in contact with someone who was confirmed or suspected to have Coronavirus/COVID-19? Yes 10/10/2022 11:51 AM EDT documented as of this encounter Plan of Treatment Upcoming Encounters Date Type Department Care Team (Late Contact Info) Description 01/27/2025 10:30 AM EDT Office Visit [facility] OPTOMETRY [address] [place] [address] Norma Pascual, OD [address] [place] [address] documented as of this encounter Visit Diagnoses Not on filedocumented in this encounter Care Teams Water Softener Service Supervisor Relationship Specialty Start Date End Date Jessica Yuen MD [address] [place] [address] PCP - General Family Medicine 09/18/18 documented as of this encounter
== END 2024-10-01 09:39 | disposition home or self-care (01) ==
LOC: HO.US 09:38
PROVIDERS: PCP Internal Medicine; Visit Provider Urology
DX: N20.0 Calculus of kidney (principal)
CPT/HCPCS: 76775

== ENCOUNTER → 2024-10-01 09:39 | Outpatient (BNV) | payer MEDICARE, SELFPAY | PROVIDERS: PCP Internal Medicine; Visit Provider Radiology Diagnostic Radiology | DX: N20.0 Calculus of kidney (principal); N28.1 Cyst of kidney, acquired | CPT/HCPCS: 76775 ==

== ENCOUNTER 2024-10-11 09:05 | Outpatient (AMB) | payer OTHER, SELFPAY ==
--- NOTE | 2024-10-11 09:18 | A.OFFVIS_ITS ---
Vital Signs 10/11/24 09:21 Height 5 ft 6 in Weight 155 lb BMI 25.0 BP 110/68 Blood Pressure Location Lt brachial Position Sitting Pulse 70 Pulse Source Pulse Oximeter Intake Visit Reasons: F/U HTN Obgyn Hospitalist Physician Required: Yes Obgyn Hospitalist Physician Name: REED [id number] Allergies No Known Allergies (No Known Allergies*) Allergy (Verified 02/27/24 06:27) Medication List - Last Reconciled 10/11/24 by Liyah Lopez NP-C acetaminophen (Tylenol) 650 mg (2 x 325 mg) PO Q4-6H PRN atorvastatin 80 mg PO QPM carbidopa-levodopa 25-100 mg 2 tabs PO TID carvedilol 12.5 mg PO BID cholecalciferol (vitamin D3) (Vitamin D3) 50 mcg PO DAILY ezetimibe 10 mg PO DAILY lidocaine 5% (Lidoderm) 1 patch topical DAILY PRN MDD remove after 12 hours losartan 50 mg See Protocol PO DAILY mirabegron ER (Myrbetriq) 25 mg PO DAILY omeprazole 40 mg PO DAILY@0630 ropinirole 0.5 mg PO TID sertraline 25 mg PO DAILY tamsulosin (Flomax) 0.4 mg PO BEDTIME HPI HPI F/U HTN: Details: Sky is a 74-year-old male with past medical history of hypertension, hyperlipidemia, Parkinson's disease, low normal EF who presents for follow-up. His last prior visit was 05/30/2023. Today he reports he has been doing well with no cardiac concerns. He denies chest discomfort at rest or with activity. No shortness of breath, PND, orthopnea or edema. No heart palpitations, lightheadedness, presyncope, syncope. He ambulates with his walker. He tells me he watches TV much of the time. He is compliant with his medications. Certified educational recruiter used. [facility] Medical History Other and unspecified hyperlipidemia History of stroke Essential hypertension Osteoporosis Vertigo Arthritis Parkinson disease Diabetes Hypertension Surgical History Hx of hand surgery Hx of cataract surgery H/O hernia repair Family History Father No problems noted. Mother No problems noted. Social History Household Members: None Housing: Apartment Do you presently have visiting nurse or other home services: Yes (GAMMA OPERATOR) Alcohol intake: former Comment: pt steady gait tremors noted secondary to hx parkinson Patient Tobacco Use Status: Never used Tobacco Second Hand Smoke Exposure: No Current occupational status: retired 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 Review of Systems Const All systems reviewed & are unremarkable except as noted in HPI and below Card Denies chest pain, Denies chest pain at rest, Denies chest pain with activity, Denies rapid heart rate, Denies leg edema, Denies dyspnea on exertion and Denies orthopnea Resp Denies dyspnea on exertion Musc Denies no additional complaints Neuro Denies no additional complaints Physical Exam Vital Signs: Last Vital Signs Pulse 70 10/11/24 09:21 BP 110/68 10/11/24 09:21 BMI result Body Mass Index 25.0 Const General: cooperative, healthy appearing, comfortable and no acute distress Orientation/consciousness: patient oriented x3 Neck Neck: Yes normal visual inspection and Yes no JVD Resp Effort & Inspection: normal respiratory effort Auscultation: clear to auscultation bilaterally, no crackles, no rales, no rhonchi and no wheezes Cardio Rate: regular rate Rhythm: regular rhythm Heart sounds: S1 normal heart sound present, S2 normal heart sound present, no gallops, no murmurs and no rubs Neuro General: patient oriented x3 Extrem General: Yes normal to inspection, No no pedal edema and No calf tenderness Psych Appearance: grossly normal Mental Status: mental status grossly normal Speech and movement: Normal speech and movement present Assessment & Plan Assessment & Plan (1) Essential hypertension: Code(s): I10 - Essential (primary) hypertension Category: Medical Plan: Blood pressure goal less than 130/80. Well controlled at this time. Labs 08/02/2024 show potassium 4.5, creatinine 0.88. Continue carvedilol, losartan. Low-salt diet reviewed. (2) Other and unspecified hyperlipidemia: Code(s): E78.5 - Hyperlipidemia, unspecified Category: Medical Plan: [place]kiff LDL goal less than 100. Labs done 01/16/2024 showed LDL 50. Continue atorvastatin and Zetia. (3) Abnormal echocardiogram findings without diagnosis: Code(s): R93.1 - Abnormal findings on diagnostic imaging of heart and coronary circulation Category: Medical Plan: Last echocardiogram done 02/07/2020 showed EF 50-55%, grade 1 diastolic dysfunction, no regional wall motion abnormality, mild mitral annular calcification, small plaque in the sinotubular ridge. No angina reported. No signs of heart failure on examination. Will update echo prior to next visit. Cardiology follow-up in 1 year, sooner if needed. Plan I discussed with the patient that his hypertension is well-managed with his current medication regimen, and no changes are needed at this time. We will schedule a follow-up echocardiogram before his next cardiology appointment in one year to assess his cardiac function. I advised him to contact us if he experiences any new symptoms such as shortness of breath, chest pain, or palpitations. Orders: Orders CA echo transthoracic complete 09/29/25 I10 - Essential (primary) hypertension, R93.1 - Abnormal findings on diagnostic imaging of heart and coronary circulation Patient Instructions: - Continue taking your medications as prescribed. - Expect a call to schedule an echocardiogram before your next cardiology visit. - Report any new symptoms like shortness of breath, chest pain, or palpitations immediately. Patient was informed and verbally consented to the use of an ambient scribe for clinic note documentation during this visit. Visit time spent on chart review, interview, assessment, orders, documentation. Coding Level of Care Code Est Pt Level 4 (07509) Complex EM visit Add On G2211 Diagnoses Essential hypertension I10 Other and unspecified hyperlipidemia E78.5 Abnormal echocardiogram findings without diagnosis R93.1 Time Spent (min) 28
[2024-10-11 09:21] VITALS: BP 110/68; PULSE 70; BMI 25.0
--- OUTSIDE RECORDS SUMMARY | 2024-10-11 09:24 | XMS_ITS | Encounter Summary ---
Author Organization [facility] Address [address] [place] [address] [address] [place] [address] Care Team Providers Care Warranty Clerk Name Role Phone Jessica Yuen MD Primary Care Provide r Encounter Details Date Type Department Care Team (Late Contact Info) Description 11/01/2022 Orders Only [facility] MEDICINE [address] [place], [place] [phone] Radha Rebolledo LPN Social History Tobacco Use [...] Description 01/27/2025 10:30 AM EDT Office Visit [facility] OPTOMETRY [address] [place] [address] Norma Pascual, OD [address] [place] [address] documented as of this encounter Visit Diagnoses Not on filedocumented in this encounter Care Teams Warranty Clerk Relationship Specialty Start Date End Date Jessica Yuen MD [address] [place] [address] PCP - General Family Medicine 09/18/18 documented as of this encounter
== END 2024-10-11 10:10 | disposition home or self-care (01) ==
LOC: HO.HCS 09:05
PROVIDERS: PCP Internal Medicine; Visit Provider Nurse Practitioner Family
DX: I10 Essential (primary) hypertension (principal); E78.5 Hyperlipidemia, unspecified; R93.1 Abnormal findings on diagnostic imaging of heart and coronary circulation
CPT/HCPCS: 99214; G2211

== ENCOUNTER → 2024-10-11 09:05 | Outpatient (BNVA) | payer OTHER, SELFPAY | PROVIDERS: PCP Internal Medicine; Visit Provider Nurse Practitioner Family | DX: I10 Essential (primary) hypertension (principal); E78.5 Hyperlipidemia, unspecified; R93.1 Abnormal findings on diagnostic imaging of heart and coronary circulation | CPT/HCPCS: 99212 ==

== ENCOUNTER 2024-10-28 08:27 | Outpatient (AMB) | payer MEDICARE, SELFPAY ==
--- NOTE | 2024-10-27 22:19 | A.OFFVIS_ITS ---
Intake Visit Reasons: 9 month follow up Intake Note: Patient is present for 9m follow up Urology Medication:TAMSULSOIN, MYRBETRIQ Antibiotic Allergy:NONE Blood Thinner:NONE PVR:13ml Care Administrative Tech Required: Yes Care Administrative Tech Name: [id number] Information Interpreted: non-clinical & clinical Allergies No Known Allergies (No Known Allergies*) Allergy (Verified 10/28/24 08:47) Medication List - Last Reconciled 10/28/24 by Yulia Infante MD acetaminophen (Tylenol) 650 mg (2 x 325 mg) PO Q4-6H PRN atorvastatin 80 mg PO QPM carbidopa-levodopa 25-100 mg 2 tabs PO TID carvedilol 12.5 mg PO BID cholecalciferol (vitamin D3) (Vitamin D3) 50 mcg PO DAILY ezetimibe 10 mg PO DAILY losartan 50 mg See Protocol PO DAILY mirabegron ER (Myrbetriq) 25 mg PO DAILY omeprazole 40 mg PO DAILY@0630 ropinirole 0.5 mg PO TID sertraline 25 mg PO DAILY tamsulosin (Flomax) 0.4 mg PO BEDTIME HPI Comments Details: 10/28/24--Sky here for FU- LUTS, urgency, hesitency. Comorbidity Parkinso n's. 01/16/24--PSA--3..41ng/mL. consulting services associate utilized. Patient states he is doing well on the combination of Myrbetriq and tamsulosin. States less urine wetting. 10/01/24--6 mm calculus in the mid to lower pole right kidney, History of Present Illness - The patient is a 74-year-old male presenting with lower urinary tract symptoms of urgency and hesitancy. - with ongoing management through combination therapy of mirabegron and tamsulosin. - The patient has Parkinson's disease, which may exacerbate urinary symptoms. - A right kidney stone, currently 6 mm, is under surveillance following recent ultrasound findings. - Previous imaging indicated a small stone in the left kidney, not visualized on current study - PSA level recorded at 3.41 ng/mL on January 16, 2024. - We will continue both medications. Will continue to monitor kidneys. Results - Ultrasound: 10/01/24--6 mm stone in the right kidney, no stones in the left kidney. - Urinalysis: No signs of infection or hematuria. - PSA: 3.41 ng/mL as of January 16, 2024. 02/01/24--Sky here for FU- LUTS, urgency, hesitency. Comorbidity Parkinson's. 01/16/24--PSA--3..41ng/mL. consulting services associate utilized. Patient states he is doing well on the combination of Myrbetriq and tamsulosin. States less urine wetting. We will continue both medications. Will continue to monitor kidneys. Follow-up in 9 months renal ultrasound prior. 10/02/23--Sky is a 73-year-old male, Brazilian-speaking, he is here with complaints of urinary frequency, nocturia 4-5 times. Comorbidity Parkinson's. He states Parkinson's diagnosed about 3 years ago. He was in the emergency room on 09/26/23 and referred to the urology office for these symptoms. Urinalysis in the emergency room, 09/26/2023 no signs of infection. The patient voided and gave a urine specimen, UA--leukocytes negative-blood negative, glucose negative. Bladder scan PVR 53 mL. He was started on tamsulosin in the emergency room I will continue tamsulosin I have discussed adding an anticholinergic Myrbetriq 25 mg daily. Will check PSA. I have discussed CT scan findings performed 05/26/2023, 3 mm low kidney lower pole stone. Review of imaging CTAP: 05/26/2023--left kidney lower pole 3 mm nonobstructing stone PFSH Medical History Other and unspecified hyperlipidemia History of stroke Essential hypertension Osteoporosis Vertigo Arthritis Parkinson disease Diabetes Hypertension Surgical History Hx of hand surgery Hx of cataract surgery H/O hernia repair Family History Father No problems noted. Mother No problems noted. 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 ADJUSTER) Alcohol intake: former Comment: pt steady gait tremors noted secondary to hx parkinson Patient Tobacco Use Status: Never used Tobacco Second Hand Smoke Exposure: No Current occupational status: retired 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 Review of Systems Const All systems reviewed & are unremarkable except as noted in HPI and below Reports no additional complaints Eyes Reports no additional complaints ENT Reports no additional complaints Card Reports no additional complaints Resp Reports no additional complaints GI Reports no additional complaints Reports as per HPI Musc Reports no additional complaints Skin/Breast Reports system reviewed and no additional complaints, except as documented Neuro Reports no additional complaints Psych Reports no additional complaints Endo Reports no additional complaints Angel/Lymph Reports no additional complaints Aller/Immun Reports no additional complaints Results Reviewed Results Reviewed: Date of Service: 10/01/24 US RETROPERITONEAL LIMITED (RENAL ONLY) CLINICAL INFORMATION: Calculus of kidney.. COMPARISON: None available. TECHNIQUE: Real-time imaging of the kidneys. FINDINGS: RIGHT KIDNEY: 11.3 x 5.2 x 4.3 cm (SAG x AP x TRV). The kidney is normal in size, contour, and echogenicity. Renal cortical thickness is normal. There is a 6 mm calculus in the mid to lower pole, possibly within the cortex. There is a subtle cyst in the midpole measuring 8 mm. There is no hydronephrosis. LEFT KIDNEY: 9.8 x 5.1 x 4.0 cm (SAG x AP x TRV). The kidney is normal in size, contour, and echogenicity. Renal cortical thickness is normal. There is a lower pole cyst with a small associated calcification measuring 7 mm. No definite calculi or hydronephrosis. US/US renal BI IMPRESSION: 1. No suspicious masses or hydronephrosis of either kidney. 2. 6 mm calculus in the mid to lower pole right kidney, possibly cortical. 3. There is an 8 mm simple cyst in the midpole of the right kidney. 4. There is a 7 mm mildly complicated cyst in the lower pole of the right kidney with a small associated calcification. Date of Service: 02/09/24 EXAMINATION: CT ABDOMEN AND PELVIS WITHOUT CONTRAST CLINICAL INFORMATION: 73-year-old male with left flank pain COMPARISON: 11/17/2022 DLP: 379 mGy-cm FINDINGS: LUNG BASES: The visualized lung bases are unremarkable. LIVER, GALLBLADDER, AND BILIARY TREE: The liver is normal in size, shape, and attenuation. No focal hepatic lesion or biliary ductal dilatation is present. The gallbladder is unremarkable with no evidence of radiopaque gallstones, gallbladder wall thickening, or obvious pericholecystic inflammatory changes. PANCREAS: Unremarkable. SPLEEN: Unremarkable. ADRENAL GLANDS: Unremarkable. KIDNEYS AND URETERS: There is 0.3 cm calcification in the lower pole of left kidney without evidence of hydroureteronephrosis ureters are not dilated BLADDER: Unremarkable. GASTROINTESTINAL TRACT: There are scattered diverticula seen in the colon without evidence of diverticulitis. No evidence of bowel obstruction colitis. Normal appendix seen. ABDOMINAL WALL: There are fat-containing small bilateral inguinal hernias. There is small fat-containing umbilical hernia. LYMPH NODES: Normal. VASCULAR: Unremarkable. PELVIC VISCERA: Unremarkable. OSSEOUS STRUCTURES: Unremarkable. IMPRESSION: 1. Left nephrolithiasis without evidence of hydroureteronephrosis. 2. Mild diverticulosis without diverticulitis. 3. Small fat-containing umbilical and bilateral inguinal hernias. Assessment & Plan Assessment & Plan (1) Kidney stones, calcium oxalate: Code(s): N20.0 - Calculus of kidney Category: Medical (2) Screening PSA (prostate specific antigen): Code(s): Z12.5 - Encounter for screening for malignant neoplasm of prostate Category: Medical (3) BPH loc w urin obs/LUTS: Code(s): N40.1 - Benign prostatic hyperplasia with lower urinary tract symptoms Category: Medical (4) Urinary frequency: Code(s): R35.0 - Frequency of micturition Category: Medical Plan Plan - Maintain current treatment regimen with mirabegron and tamsulosin for urinary symptoms. - Plan a follow-up appointment in nine months, including an ultrasound to assess kidney stone progression. - Conduct PSA testing before the next visit to evaluate prostate health. Orders: Orders US renal BI 8 Months N20.0 - Calculus of kidney PSA,Total (Free>4and<10) 8 Months Z12.5 - Encounter for screening for malignant neoplasm of prostate Medications: Refilled tamsulosin (Flomax) 0.4 mg PO BEDTIME 90 caps 3RF mirabegron ER (Myrbetriq) 25 mg PO DAILY 90 tabs 3RF Patient Instructions: The patient had an opportunity to ask questions regarding treatment plan. The patient expressed understanding and agreement with the above treatment plan. The patient is aware they should contact our office by phone for worsening of their current condition or the appearance of new symptoms. Compliance is encouraged with any medications and followup testing that is ordered. It is a privilege to be allowed the opportunity to participate in the urologic care of your patient. If you have any questions or concerns regarding treatment for the above conditions please do not hesitate to contact me. The office telephone contact is [phone]. This note is constructed in part using voice recognition software. While every effort has been made to ensure accuracy cable swager errors may have been included. Yours sincerely, Yulia Infante MD Scribe Plan - Not visible on output: Patient was informed and verbally consented to the use of an ambient scribe for clinic note documentation during this visit. Coding Level of Care Code Est Pt Level 4 (48246) Diagnoses Kidney stones, calcium oxalate N20.0 Screening PSA (prostate specific antigen) Z12.5 BPH loc w urin obs/LUTS N40.1 Urinary frequency R35.0
--- OUTSIDE RECORDS SUMMARY | 2024-10-28 08:32 | XMS_ITS | Encounter Summary ---
Author Organization [facility] Address [address] [place] [address] 7[address] [place] [address] Care Team Providers Care Post Office Clerk Name Role Phone Jessica Yuen MD Primary Care Provide r Encounter Details Date Type Department Care Team (Late Contact Info) Description 11/01/2022 Orders Only [facility] MEDICINE [address] [place], [place] [phone] Radha Rebolledo LPN Social History Tobacco Use [...] Description 01/27/2025 10:30 AM EDT Office Visit [facility] OPTOMETRY [address] [place] [address] Norma Pascual, OD [address] [place] [address] documented as of this encounter Visit Diagnoses Not on filedocumented in this encounter Care Teams Post Office Clerk Relationship Specialty Start Date End Date Jessica Yuen MD [address] [place] [address] PCP - General Family Medicine 09/18/18 documented as of this encounter
--- OUTSIDE RECORDS SUMMARY | 2024-10-28 08:32 | XMS_ITS | Clinical Summary ---
Author Organization [facility] [address] [employer] Address [address] [place] [address] Care Team Providers Care Breaker Oiler Name Role Phone Unavailable Primary Care Provider [...] 10,TDAP once) 1968 Lipid disorder screening 1988 Diabetes screening 1993 Pneumococcal Vaccine (50+ ye ars) (1 of 1 - PCV) 1998 Shingles vaccine (Shingrix) (1 of 2 - Shingrix (RZV) 2 Dose Standard Series) 1998 RSV Immunization (1 - 1-dose 75+ series) 2023 Covid-19 vaccine series ( - season) 2023 Influenza vaccine 12/16/2024 Colon cancer screening, Colonoscopy Discontinued Meningococcal Vaccine Aged Out No chepe shannan eligible based on patient's age to complete this topic
--- OUTSIDE RECORDS SUMMARY | 2024-10-28 08:32 | XMS_ITS | Clinical Summary ---
Author Organization [facility] Address [address] [address] Care Team Providers Care Process Chemist Name Role Phone Jessica Yuen MD Primary [...] crush or chew. Active ergocalciferol 1.25 MG (49988 UT) capsule Take 50,000 Units by mouth [...] mouth 1 (one) time each day Active Diclofenac Sodium 1 % gel APPLY 2 GRAMS TO AFFECTED AREA(S) FOUR TIMES DAILY NEEDED FOR PAIN 1 Active losartan (COZAAR) 100 MG tablet Take [...] of 2 - PCV) 1967 Influenza Vaccine (#1) 2024 Hepatitis B Vaccine Aged Out No longe r eligible based on patient's age to complete this topic Insurance [address] [place] [address] [facility] Care Teams Process Chemist Relationship Specialty Start Date End Date Jessica Yuen MD [address] [place] [phone] PCP - General Internal Medicine 01/15/21
--- OUTSIDE RECORDS SUMMARY | 2024-10-28 08:32 | XMS_ITS | Clinical Summary ---
Author Organization [facility] Address [address] [place] [address] Phone Care Team Providers Care Information Security Director Name Role Phone Jessica Yuen MD Primary [...] Encounters Date Type Department Care Team Description 09/11/2024 10:00 AM EDT Office Visit Orthopedic Surgery - [address] [phone] Fredy Chu, DPM Primary osteoarthritis of both feet (Primary Dx); Dermatophytosis of nail; Pain in toe of right foot; Pain in toe of left foot; Corns and callosities; Hallux rigidus of left foot; Hallux rigidus of right foot; Bilateral femoral artery stenosis ([facility] V24); Metatarsalgia of both feet; Hammer toe of left foot; Acquired hammer toe of right foot; Follow-up exam from Last 3 Months Immunizations Name Administration Dates Next Due Influenza trivalent, 0.5mL (Fluad) 65yo and olde r 05/06/2017,12/29/2015 Influenza trivalent, 0.5mL, preservative free (Fluarix; FluLaval; Fluzone) ages 6mo and older (Afluria) 3 years and older 03/06/2015 Influenza, Unspecified 01/23/2014 Surgical History Surgery Date Site/Laterality Comments HERNIA REPAIR 02/2014 PROCEDURE: HISTORICAL HERNIA REPAIR/GINNY ESOPHAGOGASTRODUODENOSCOPY 01/14/16 PROCEDURE: ME ESOPHAGOGASTRODUODENOSCOPY TRANSORAL DIAGNOSTIC; COMMENT: lineal erosive esophagitis, mild antral gastritis and mild duodenitis and 5 cm HH; normal gastric bxys without H. pylori COLONOSCOPY 01/14/16 PROCEDURE: HISTORICAL COLONOSCOPY; COMMENT: tics; repeat in 10 yrs Medical History Medical History Date Comments HTN (hypertension) DX:HTN (hyper tension) Migraine DX:Migraine Dyslipidemia DX:Dyslipidemia Glaucoma DX:Glaucoma Cataract DX:Cataract Onychomycosis 12/18/2014 DX:Onychomycosis GERD (gastroesophageal reflux disease) DX:GERD (gastroesophageal reflux disease) Diverticulosis 02/10/2016 DX:Diverticulosi s Seizure disorder (CMS/HCC V2 4, CMS/HCC V28) DX:Seizure disorder ([facility]); C OMMENT: dr kirkpatrick Prediabetes 12/18/2014 DX:Prediabetes [...] - - Weight 65.8 kg (145 lb) 09/11/2024 10:03 AM EDT Height 165.1 cm (5' 5 ) 09/11/2024 10:03 AM EDT Body Mass Index 24.13 09/11/2024 10:03 AM EDT Plan of Treatment Upcoming Encounters Date Type Department Care Team (Late st Contact Info) Description 12/17/2024 8:30 AM EDT Office Visit Orthopedic Surgery - [place] [address] [phone] Fredy Chu, DPM [address] [address] Health Maintenance Due Date Last Done Comments DTaP,Tdap,and Td Vaccines (1 - Tdap) 1967 Zoster Vaccines (1 of 2) 1998 RSV Immunization Adult Patients (1 - 1-dose 75+ series) 2023 Falls Risk Assessment 11/14/2023 Medicare Annual Wellness Visit 11/14/2023 Social Influencers of Health Screening 11/14/2023 COVID-19 Vaccine ( season) 2023 04/19/2021, 07/13/2020, 06/15/2020 Influenza Vaccine (#1) 2024 , 03/13/2018, 05/06/2017, Additional history exists Depression Screening 04/15/2025 04/15/2024 Hypertension/CHF/CAD Annual BMP Blood Test 08/02/2025 08/02/2024, 02/27/2024, 02/21/2018 Cholesterol Screening (Lipid Panel) 01/15/2029 01/16/2024, 02/21/2018 [...] Procedure Name Priority Date/Time Associated Diagnosis Comments XR FOOT 3+ VIEWS BILAT Routine 09/11/2024 10:11 AM EDT Follow-up exam ANNUAL BMP BLOOD TEST Routine 02/21/2018 LIPID PANEL Routine 02/21/2018 HEPATITIS C SCREENING Routine 03/12/2014 from Last 3 Months or Most Recently Relevant to Health Maintenance Results * XR Foot 3+ Views bilat (09/11/2024 10:11 AM EDT) Anatomical Region Laterality Modality Lower Extremities, Foot Bilateral Computed Radiography Narrative 10/09/2024 8:05 AM EDT Right foot 3 views No fracture. No radiopaque foreign Arthritis mild moderate Left foot 3 views No fracture. No radiopaque foreign Arthritis mild moderate Fredy JUSTICEM IMG XR PROCEDURES Final R esult * Annual BMP Blood Test (02/21/2018) Annual BMP Blood Test Abstracted Historical Provider MD HEALTH MAINTENANCE Final Result * (ABNORMAL) Lipid panel (02/21/2018) LDL/HDL Ratio 4 0 - 4 Triglycerides 123 0 - 150 mg/dL Cholesterol 208(A) 0 - 200 mg/dL HDL 53 >=40 mg/dL LDL Cholesterol 131(A) 0 - 100 mg/dL Blood Venous blood specimen / Unknown Historical Provider LAB BLOOD ORDERABLES Mirna l Result * Hepatitis C Screening (03/12/2014) Hepatitis C Screening Abstracted Historical Provider HEALTH MAINTENANCE Final Result from Last 3 Months or Most Recently Relevant to Health Maintenance Insurance [employer] MEDICARE Member Subscriber Plan / Payer (Ef fective 2018-Present) Name:Benjamin Gracia Relation to Subscriber:Self Name:Sky Gracia Payer ID:[id number] Group ID:[id number] Type:Not on file Address: [place] [address] [address] [id number] Care Teams Information Security Director Relationship Specialty Start Date End Date Jessica Yuen MD [address] [facility] [address] [place] [phone] PCP - General 05/03/23
== END 2024-10-28 09:16 | disposition home or self-care (01) ==
LOC: HO.HUSH 08:27
PROVIDERS: PCP Internal Medicine; Visit Provider Urology
DX: N20.0 Calculus of kidney (principal); Z12.5 Encounter for screening for malignant neoplasm of prostate; N40.1 Benign prostatic hyperplasia with lower urinary tract symptoms; R35.0 Frequency of micturition; Z13.9 Encounter for screening, unspecified
CPT/HCPCS: 99214

== ENCOUNTER → 2024-10-28 08:27 | Outpatient (BNVA) | payer MEDICARE, SELFPAY | PROVIDERS: PCP Internal Medicine; Visit Provider Urology | DX: N20.0 Calculus of kidney (principal); N40.1 Benign prostatic hyperplasia with lower urinary tract symptoms; R35.0 Frequency of micturition; Z12.5 Encounter for screening for malignant neoplasm of prostate | CPT/HCPCS: 51798; 81003; 99212 ==

== ENCOUNTER 2025-03-26 09:35 | Outpatient (AMB) | payer OTHER, SELFPAY ==
--- NOTE | 2025-03-26 09:44 | MHC.OFFVIS ---
Intake Visit Reasons: follow up 6m Allergies No Known Allergies (No Known Allergies*) Allergy (Verified 10/28/24 08:47) HPI Comments Details: 74 yo man with HTN, Parkinson disease. He has h/o one seizure in 2014 when he was in usual state of health in a mall when he suddenly felt dizzy like everything was spinning and then everything became dark. He fell down and started shaking and foaming from his mouth with his eyes rolled over. He was not taking a seizure med. Later he was also diagnosed with Parkinson disease. He said that he was doing okay as far as his walking and mood was concerned. He has started taking a medicine probably citalopram. He was complaining of hand shaking. He denied any significant problem with a sleep or mood. There was no seizure-like episode. [facility] Medical History (Updated 03/26/25 @ 10:00 by Dakota Galdamez MD) Seizure disorder Other and unspecified hyperlipidemia History of stroke Essential hypertension Osteoporosis Vertigo Arthritis Parkinson disease Diabetes Hypertension Surgical History Hx of hand surgery Hx of cataract surgery H/O hernia repair Family History Father No problems noted. Mother No problems noted. 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 - Neurological: Reports shaking while walking with a walker. - Psychiatric: Denies depression and anxiety; reports good mood. - Sleep: Reports good sleep. - Genitourinary: Patient was asked about bladder control and nocturia, but his response was not specified. Physical Exam Neuro Other: Mental Status: Alert and awake with normal spontaneity of speech fluency comprehension and affect. Cranial Nerves: CN II: Visual monroy full to confrontation, visual acuity intact. CN III, IV, : Pupils equal, round, reactive to light and accommodation. Extraocular movements are normal. CN V: Facial sensation is normal. CN VII: Facial movements symmetrical. CN VIII: Hearing intact to bedside conversation is normal. CN IX, X: Palate elevates symmetrically. CN XI: Shoulder shrug and head turn symmetrical. CN XII: Tongue midline without atrophy or fasciculations. Gait: He is walking swiftly with a walker. Extrapyramidal: Decreased facial expression blinking. Moderate bilateral hand cogwheeling rigidity. Moderate had an hand resting tremor. Speech: Somewhat festinent. Assessment & Plan Assessment & Plan (1) Parkinson disease: Comment: CT brain WO at [facility] [place] in 2018: mild gen atrophy EEG at office in May 2015: [place] brain WO at [facility] [place] In September 2014: mild FT and cerebellar atrophy, left parietal WM hypodensity MRI brain WWO at [facility] [place] in September 2014: mild atrophy and mild to mod WM lesions, including left parietal lesion EEG at [facility] [place] in September 2014: OK. Code(s): G20 - Parkinson's disease Category: Medical Qualifiers: Dyskinesia presence: without dyskinesia Fluctuating manifestations: without fluctuating manifestations Qualified Code(s): G20.A1 - Parkinson's disease without dyskinesia, without mention of fluctuations Plan Impression: a: Moderately severe Parkinson's disease b: One generalized seizure in 2014 Recommendations: 1. Reassurance and education 2. Carbidopa/levodopa, 25/100, 2 tablets 3 times a day starting with morning and taking a dose after 4 hours and then the 3rd dose 4 hours after 3. Carbidopa/levodopa extended release, 50/200, 1 in the morning and 1 at bedtime 4. Ropinirole 0.5 mg, 1 tablets, 3 times a day 5. Rasagiline 0.5 mg, 1 tablet, at bedtime 6. Continue to use walker Medications: New carbidopa-levodopa 25-100 mg 2 tabs PO TID 540 tabs 1RF ropinirole 0.5 mg PO TID 270 tabs 1RF rasagiline 0.5 mg PO DAILY 90 tabs 1RF carbidopa-levodopa 50-200 mg ER 1 tab PO BID 180 tabs 1RF Coding Level of Care Code Est Pt Level 4 (78266) Diagnoses Parkinson's disease without dyskinesia or fluctuating manifestations G20.A1 Dyskinesia presence: without dyskinesia Fluctuating manifestations: without fluctuating manifestations
== END 2025-03-26 09:59 | disposition home or self-care (01) ==
LOC: HO.HSM 09:36
PROVIDERS: PCP Internal Medicine; Referring Provider Internal Medicine; Visit Provider Psychiatry & Neurology Neurology
DX: G20.A1 Parkinson's disease without dyskinesia, without mention of fluctuations (principal)
CPT/HCPCS: 99214

== ENCOUNTER → 2025-03-26 09:35 | Outpatient (BNVA) | payer OTHER, SELFPAY | PROVIDERS: PCP Internal Medicine; Referring Provider Internal Medicine; Visit Provider Psychiatry & Neurology Neurology | DX: G20.A1 Parkinson's disease without dyskinesia, without mention of fluctuations (principal); G40.409 Other generalized epilepsy and epileptic syndromes, not intractable, without status epilepticus; Z79.899 Other long term (current) drug therapy | CPT/HCPCS: 99212 ==